=== PATIENT | male | born 1945 | race Caucasian/White ===

== ENCOUNTER 2016-08-14 09:21 | Inpatient (IN) | payer MEDICARE, OTHER ==
[~2016-08-14] VITALS: Ht 167.6 cm; Wt 64.1 kg
[2016-08-14] VITALS (15 sets, daily range): BP systolic 107–144; BP diastolic 68–99; PULSE 78–100; RESP 16–28; BMI 23.8
[~2016-08-14 09:21] MED LIST: AMIO200T40 PO; ATOR80TA75 PO; CALC0.2511 PO; CALC600T5 PO; HYDR-3671 PO; ISOS30TA18 PO; LEVO100T87 PO; METO-429 PO; MYCO180T2 PO; TACR0.5C PO
[2016-08-14 10:24] LABS: ADD SCAN DIFF NO
[2016-08-14 10:33] LABS: BASOPHILS % 0.3 % (0.0-2.0); EOSINOPHILS # 0.1 10^3/ul (0.0-0.5); EOSINOPHILS % 0.9 % (0.0-7.0); HEMATOCRIT 36.7 % (42.0-52.0); HEMOGLOBIN 11.5 g/dl (14.0-18.0); LYMPHOCYTES # 0.7 10^3/ul (0.8-2.9); LYMPHOCYTES % 5.7 % (15.0-51.0); MEAN CORPUSCULAR HEMOGLOBIN 28.5 pg (29.0-33.0); MEAN CORPUSCULAR HGB CONC 31.3 g/dl (32.0-37.0); MEAN CORPUSCULAR VOLUME 91.1 fl (82.0-101.0); MEAN PLATELET VOLUME 12.6 fl (7.4-10.4); MONOCYTE # 1.1 10^3/ul (0.3-0.9); MONOCYTES % 8.2 % (0.0-11.0); NEUTROPHIL # 10.7 10^3/ul (1.6-7.5); NEUTROPHILS % 83.2 % (39.0-77.0); PLATELET COUNT 163 10^3/UL (140-415); RED BLOOD COUNT 4.03 10^6/ul (4.70-6.10); RED CELL DISTRIBUTION WIDTH 16.4 % (11.5-14.5); WHITE BLOOD COUNT 12.9 10^3/ul (4.8-10.8)
[2016-08-14] MEDS ORDERED: AMIO400T5 PO (10:42)
[2016-08-14 10:45] LABS: ALBUMIN 4.1 g/dl (3.3-4.9); ALBUMIN/GLOBULIN RATIO 1.2; BILIRUBIN,INDIRECT 1.3 mg/dl (0-1.1); BILIRUBIN,TOTAL 1.3 mg/dl (0.2-1.3); CHOL/HDL RATIO 3.2 RATIO; INR 1.31; MAGNESIUM 1.7 mg/dl (1.7-2.5); PROTIME 16.4 Sec (12.2-14.2); PT RATIO 1.3; TOTAL PROTEIN 7.5 g/dl (6.1-8.1)
[2016-08-14 10:46] LABS: CALCIUM 9.5 mg/dl (8.4-10.2); CREATININE 2.1 mg/dl (0.61-1.24); PARTIAL THROMBOPLASTIN TIME 33.9 Sec (25.0-35.0); POTASSIUM 4.4 mmol/L (3.5-5.1)
[2016-08-14] MEDS ORDERED: FURO-110 PO (10:48)
[2016-08-14] MEDS ORDERED: PRED5 PO (10:48)
[2016-08-14] MEDS ORDERED: ALEN70TA30 PO (10:48)
[2016-08-14] MEDS ORDERED: CARV25TA79 PO (10:49)
[2016-08-14] MEDS ORDERED: APIX2.5T PO (10:50)
[2016-08-14] MEDS ORDERED: DOXA2TAB PO (10:50)
[2016-08-14] MEDS ORDERED: PANT40TA3 PO (10:51)
[2016-08-14] MEDS ORDERED: ERGO500037 PO (10:52)
[2016-08-14] MEDS ORDERED: DIGO125T6 PO (10:53)
[2016-08-14] MEDS ORDERED: FUROSEMIDE 40 MG INJ ONE (12:51)
[2016-08-14] MEDS ORDERED: METHYLPREDNISOLONE 125 MG INJ IV ONE (13:00)
[2016-08-14] MEDS ORDERED: FUROSEMIDE 20 MG INJ IV ONE (13:00)
[2016-08-14] MEDS ORDERED: CEFTRIAXONE 1 GM/50 ML (PMX) 50 ML IVPB ONE (13:00)
[2016-08-14] MEDS ORDERED: NACL 0.9% 3 ML SYG IV SCH (13:00)
[2016-08-14] MEDS ORDERED: ACETAMINOPHEN 325 MG TAB PO PRN (13:00)
[2016-08-14] MEDS ORDERED: METHYLPREDNISOLONE 125 MG INJ ONE (13:19)
[2016-08-14] MEDS: ISOSORBIDE MONONITRATE(SR)30 MG TAB PO SCH (14:00)
--- NOTE | 2016-08-14 14:10 | RADRPT ---
PROCEDURE: XR Chest 1 view. CLINICAL INDICATION: Shortness of breath, respiratory failure TECHNIQUE: AP views of the chest were obtained. COMPARISON: August 23, 2015 FINDINGS: The heart is large. Calcified atherosclerosis is noted in the aorta. Left-sided dual chamber, biven tricular pacemaker/defibrillator has its leads over the heart and appears stable. Median sternotomy wires overlie the heart. Central pulmonary vascular congestion and interstitial prominence is seen in both lungs. Patchy infiltrates is seen throughout the right lung. Patchy left lower lobe infilt rates and small left pleural effusion are seen. The osseous structures are osteopenic, but appear g rossly intact. IMPRESSION: Cardiomegaly with calcified atherosclerosis in the aorta. Central pulmonary vascular congestion and interstitial prominence in both lungs. Patchy infiltrates throughout the right lung. Patchy left lower lobe infiltrates and small left pleural effusion. RPTAT: AA .Jacoby Diaz MD, Date Time Electronically viewed and signed by .Jacoby Diaz MD, on 08/14/2016 14:10 .P/
[2016-08-14] MEDS ORDERED: GLUCAGON 1 MG INJ IM PRN (14:30)
[2016-08-14] MEDS ORDERED: GLUCOSE GEL 15 GRAM TUBE BUCCAL PRN (14:30)
[2016-08-14] MEDS ORDERED: ALBUTEROL/IPRATROPIUM (NEB) 3 ML AMP HHN PRN (14:30)
[2016-08-14] MEDS ORDERED: GLUCOSE GEL 15 GRAM TUBE PO PRN ×2 (14:30)
[2016-08-14] MEDS ORDERED: CEFEPIME 1GM/50 ML (PMX) 50 ML IVPB SCH (14:30)
[2016-08-14] MEDS ORDERED: DEXTROSE 50% 50 ML SYRINGE IV PRN ×2 (14:30)
--- NOTE | 2016-08-14 15:35 | HP ---
DATE OF ADMISSION: 08/14/2016 REASON FOR ADMISSION: Acute respiratory failure, congestive heart failure exacerbation, rule out br onchitis, rule out pneumonia. HISTORY OF PRESENT ILLNESS: The patient is a 71-year-old male with history of hypertensio n, status post renal transplant in 2007, dyslipidemia, aortic stenosis, paroxysmal atrial fibrillati on, anticoagulated with Eliquis, history of CHF, cardiomyopathy with an estimated ejection fraction of 35%. Also, history of coronary artery disease, status post CABG and status post ICD placement. The patient was supposed to undergo transesophageal echocardiogram today for possible cardioversion but in the corn lab technician, he was noted to be in respiratory distress. He said that the symptoms just sta rted today with shortness of breath. He was noted to be hypoxic. The procedure was canceled. Dr. Thakur was prescribing Lasix, Rocephin and Solu-Medrol. The patient already improved, but he was pl aced on a nonrebreather mask. He continued to be tachypneic and with shortness of breath and was tr ansferred to the intensive care unit for further care. Upon evaluation, the patient is already feel ing better. He denies any fever or chills. Does report a cough, slightly productive. He denies an y chest pain. Denies any weakness or numbness. The patient is admitted for further care. PAST MEDICAL HISTORY: Includes coronary artery disease, CHF, renal transplant, history of hypertens ion, CKD, dyslipidemia, aortic stenosis, paroxysmal atrial fibrillation. SURGICAL HISTORY: Renal transplant, CABG 4-vessel disease and AICD placement. ALLERGIES: ENALAPRIL. FAMILY HISTORY: Unknown. SOCIAL HISTORY: Patient is a former smoker, stopped in 2005. He smoked half a pack a day before th at. Alcohol and IVDA none. MEDICATIONS: MEDICATIONS: Include the followin. Eliquis 2.5 mg b.i.d. 2. Amiodarone 400 b.i.d. 3. Atorvastatin 80 mg at bedtime. 4. Coreg 25 b.i.d. 5. Digoxin 0.1225 every Saturday, Saturday and Saturday. 6. Doxazosin 2 mg at bedtime. 7. Hydralazine 25 b.i.d. 8. Isosorbide dinitrate 10 mg daily. 9. Calcium carbonate 600 twice a day. 10. Lasix 20 mg daily. 11. Protonix 40 mg daily. 12. Synthroid 150 daily. 13. Prednisone 5 mg daily. 14. Calcitriol 0.25 daily. 15. Vitamin D2 at 50,000 every week. 16. Fosamax 70 mg weekly. 17. Mycophenolic acid 180 mg q.12h. 18. Tacrolimus 0.5 q.12h. REVIEW OF SYSTEMS: Per HPI. The patient is +2. PHYSICAL EXAMINATION: VITAL SIGNS: Temperature 97, pulse 70, respirations 16, blood pressure is 118/68, saturation 95% on nonrebreather mask at 15 liters. GENERAL: The patient is in mild distress. The patient is pale and slightly tachypneic. CARDIOVASCULAR: S1, S2 positive. LUNGS: Diffuse rhonchi bilaterally. There are JVD about 7 cm. ABDOMEN: Soft. Mid umbilical hernia noted. EXTREMITIES: Trace lower extremity edema. NEUROLOGIC: The patient is moving all extremities. Sensation is intact. Strength is 5/5 in all ex tremities. LABORATORY DATA: White count is 12.9, hemoglobin 11.5, hematocrit 37, platelet count of 162, neutro phils 83%, lymphocytes 6%. Chemistry: Sodium is 140, potassium 4.4, chloride 107, bicarbonate 22, BUN is 33, creatinine 2.1, glucose of 122, AST 14, ALT 23, albumin 4.1. Cholesterol 135, LDL 65, HD L 41. INR 1.31. Patient has been on Eliquis and digoxin is 1.1. Chest x-ray done today, results are still pending. IMAGING: At chest x-ray reading, he had cardiomegaly. I would say there is evidence of CHF, Sean B lines noted, questionable superimposed infiltrate at the right base. Official report is pending. EKG: Demand pacemaker. Right bundle branch block. Left ventricular hypertrophy on 08/08/2016. I do not see a current EKG. ASSESSMENT AND PLAN: This is an unfortunate 71-year-old male with history of coronary art chepe disease, status post coronary artery bypass graft. Cardiomyopathy with estimated ejection fract ion around 35%, status post automatic implantable cardioverter defibrillator placement, also history of paroxysmal atrial fibrillation, chronic kidney disease, status post renal transplant, now presen schuyler with acute respiratory failure. 1. Acute respiratory failure. The causes most likely are a combination of congestive heart failure exacerbation and possible underlying pneumonia. The patient will be started on broad-spectrum anti biotics as patient is immunocompromised because he is receiving multiple antirenal transplant reject ion medications. The patient was placed on oxygen, breathing treatment and steroids will be provide d. Dr. Dacosta, senior geotechnical engineer, was consulted. 2. Cardiovascular. The patient with a component of congestive heart failure, status post IV Lasix. Follow up echocardiogram. Follow up troponins and brain natriuretic peptide. The patient will be monitored in the intensive care unit. 3. Hypothyroidism. Continue Synthroid. Follow up TSH level. 4. Status post renal transplant. Continue Prograf, CellCept and prednisone. 4. Paroxysmal atrial fibrillation. Continue Eliquis. 5. Infectious disease. The patient with leukocytosis, cough and respiratory failure. The patient will be treated for acute bronchitis with possible underlying pneumonia. Again with broad spectrum antibiotics because of an immunocompromised state. 6. Renal insufficiency, slightly worse than baseline. Observe. Nephrology will be consulted. The re is questionable history of diabetes. Obtain hemoglobin A1c level. 7. The patient will be placed on Protonix for gastrointestinal prophylaxis. 8. Diet 2 g sodium renal diet. 9. Case discussed with staff. We will follow. Dictated By: BRANDY WASHBURN/JOYCE Conf#: [id number] DID#: [id number]
--- NOTE | 2016-08-14 15:43 | CONS ---
DATE OF ADMISSION: 08/14/2016 DATE OF CONSULTATION: 08/14/2016 TYPE OF CONSULTATION: Pulmonary REASON FOR CONSULTATION: Shortness of breath. Thank you, Dr. Thakur, for this consultation. HISTORY OF PRESENT ILLNESS: This is a 71-year-old gentleman with multiple medical problems, came in today for elective CARLOS. Prior to sedation or initiation of procedure, the patient became significa ntly short of breath with respiratory distress, hypoxemia requiring transfer to the intensive care u nit. The patient states he was stable upon walking in, and denies any history of shortness of breat h prior to this admission and today. PAST MEDICAL HISTORY: Includes hypertension, hyperlipidemia, history of renal transplant in 2007, r enal insufficiency, recent pacemaker placement, history of aortic stenosis. MEDICATIONS: Per chart. ALLERGIES: NONE. SOCIAL HISTORY: Ex-smoker, no alcohol, no history of drug use. FAMILY HISTORY: Noncontributory. SYSTEMS REVIEW: A 14-point review of systems was negative other than that mentioned above. PHYSICAL EXAMINATION: GENERAL: Chronically ill-appearing gentleman, appears comfortable at rest. VITAL SIGNS: Temperature 98, pulse 87, blood pressure 140/99, O2 saturation 99% on nonrebreather. NECK: Supple. No JVD or lymphadenopathy. CARDIAC: S1, S2, no added sounds or murmurs. CHEST: Diminished air entry bilaterally. ABDOMEN: Soft, nontender. No guarding or rebound. EXTREMITIES: No cyanosis, clubbing, edema. NEUROLOGIC: Generalized weakness. LABORATORIES: White count 12.9, hemoglobin 11.5, platelets 163. BUN 33, creatinine 2.1. INR 1.31. DIAGNOSTIC DATA: Chest x-ray shows patchy bilateral infiltrates. IMPRESSION AND PLAN: Acute hypoxemic respiratory failure. Patient with a history of decreased eje ction fraction and renal transplant. Dyspnea, likely multifactorial from probable community-acquire d pneumonia and pulmonary edema from cardiomyopathy with decreased ejection fraction. The patient will require: 1. Diuretics. 2. Renal recommendations. 3. Broad-spectrum antibiotics. 4. CT chest, noncontrast. 5. DVT and GI prophylaxis. Dictated By: MONICA ADAMSON/JOYCE Conf#: [id number] DID#: [id number]
[2016-08-14] MEDS ORDERED: AZITHROMYCIN 500MG/NS (PMX) 250 ML IVPB SCH (16:00)
--- NOTE | 2016-08-14 16:09 | CONS ---
DATE OF ADMISSION: 08/14/2016 DATE OF CONSULTATION: 08/14/2016 TYPE OF CONSULTATION: Nephrology. REASON FOR CONSULTATION: History of kidney transplant, acute kidney injury. PHYSICIAN REQUESTING CONSULT: Dr. Jacobs and Dr. Thakur. HISTORY OF PRESENT ILLNESS: This is a 71-year-old male with a past medical history of end-stage donaldo al disease status post living donor transplant in 2007 with a baseline creatinine around 1.7 mg/ dL, history of hypertension, history of dyslipidemia, history of aortic stenosis, history of cardiom yopathy, status post ICD placement, history of atrial fibrillation, history of coronary artery disea se, status post coronary artery bypass graft, who presented to [facility] to under go elective CARLOS. The patient states over the last several days he has noted increasing shortness of breath, dyspnea on exertion with a productive cough. During this time, the patient had denied any fevers or positive chills. Denied any hemoptysis, hemetemesis, hematochezia. The patient then came into the same day surgery today to undergo elective procedure but was noted to be tachypneic, short of breath. The patient subsequently decompensated and went into acute respiratory failure. The sharif de jesus was transferred to intensive care unit, placed on 100% nonrebreather. He was given antibiotic s, diuretic therapy. In terms of the patient's renal history, the patient has end-stage renal disease, previously on dial ysis, was status post transplant in 2007, a living-donor transplant. The patient as stated above perez s baseline creatinine of 1.7 mg/dL. The patient has been seen by his primary laborer concrete paving, Dr. Jane rangel and is on triple therapy with CellCept, prednisone and Prograf. The patient denies any recent con trast exposure. Denies any recent rashes, any frothy urine. PAST MEDICAL HISTORY: As stated above, history of end-stage renal disease status post renal transpl ant, history of chronic disease, history of CHF, history of hypertension, dyslipidemia, aortic steno sis. History of cardiomyopathy, history of atrial fibrillation, history of diabetes. PAST SURGICAL HISTORY: Status post 4-vessel CABG in 1997, status post renal transplant in 2007. FAMILY HISTORY: No family history of kidney disease or heart disease. SOCIAL HISTORY: Does use drink, smoke or do drugs. MEDICATIONS: The patient's medications have been reviewed. REVIEW OF SYSTEMS: A 14-point review of systems was conducted. Pertinent positives stated in HPI, otherwise negative. PHYSICAL EXAMINATION: VITAL SIGNS: Blood pressure is 142/99, respirations 20, pulse 79, temperature 97.0. HEENT: Head is normocephalic. Pupils are reactive to light. NECK: Supple. HEART: Tachycardic. LUNGS: Show diminished breath sounds at base. Positive rhonchi. ABDOMEN: Soft, nontender to palpation without rebound or guarding. EXTREMITIES: Negative for clubbing, cyanosis. Trace edema. DERMATOLOGIC: No rashes. MUSCULOSKELETAL: No joint effusions. NEUROLOGIC: No focal deficits. The patient's medications have been reviewed. LABORATORY DATA: Shows white count 12.9, hemoglobin 11.5, hematocrit 36.7, platelet count was 60, s odium 140, potassium 4.4, BUN 33, creatinine 2.10. IMAGING STUDIES: Patient's chest x-ray shows central pulmonary vascular congestion, patchy infiltra [place] throughout the right lung and left lung infiltrates. ASSESSMENT AND PLAN: This is a 71-year-old male who presents with: 1. Nonoliguric acute kidney injury on top of chronic kidney disease with a baseline creatinine of 1 .7 mg/dL. Etiology of current acute kidney injury is likely secondary to hemodynamics or sepsis. The possibility of tubular injury is also a consideration. Low suspicion at this point for acute all ograft rejection. Plan at this point is to check UA with microanalysis. Will check urine electroly francheska. We will continue current treatment plan with antibiotic therapy, treat underlying pneumonia an d sepsis. Would otherwise continue supportive care, renally dose meds, avoid nephrotoxins, continue current immunosuppressive regimen. We will consider checking a Prograf level. 2. History of end-stage renal disease status post a living donor transplant. The patient has a bas keila creatinine of 1.7 mg/dL. Currently in acute kidney injury as stated above. Would continue c urrent plan at this point to treat acute kidney injury as stated above. Continue current immunosupp ressive regimen with Prograf, Myfortic and prednisone. We will check a Prograf level and monitor cl osely. 3. Anemia of chronic disease. Monitor hemoglobin and hematocrit levels. 4. Bone ____ Will monitor calcium and phosphorus levels. 5. Sepsis secondary to multifocal pneumonia. We will continue current antibiotic regimen. Follow up cultures. We will continue current immunosuppressive regimen at this time. However, if the yunior ent's infection does not respond to antibiotic therapy, may consider de-escalating immuno suppressive therapy. We will discuss with infectious disease. 6. Acute hypoxemia with respiratory failure secondary to pneumonia, possible congestive heart failu re. Will continue 100% nonrebreather. Follow up with Pulmonary. 7. Cardiomyopathy status post implantable cardioverter defibrillator placement. Continue current m edical management. Continue diuretic therapy. Follow up with cardiology. 8. History of hypertension. Continue medical management. 9. Diabetes. Continue current insulin regimen. 10. ___. 10. History of severe aortic stenosis. 11. History of coronary artery bypass graft. Thank you, Dr. Thakur and Dr. Jacobs for this interesting consult. It will be a pleasure to follow p atient with you throughout the hospital course. Dictated By: INDIRA DYSON/JOYCE Conf#: [id number] DID#: [id number]
--- NOTE | 2016-08-14 16:48 | CONS ---
DATE OF ADMISSION: 08/14/2016 DATE OF CONSULTATION: 08/14/2016 TYPE OF CONSULTATION: Cardiology. REASON FOR CONSULTATION: Respiratory failure, congestive heart failure. CHIEF COMPLAINT: Shortness of breath, cough, hypoxemia. HISTORY OF PRESENT ILLNESS: Thank you for this referral. History is from the patient, discussion w ith his daughter and extensive review of the old chart. The patient also very well known to me from outpatient workup. This is a very pleasant 71-year-old gentleman with multiple complicated medical history who was actually was supposed to be here for elective CARLOS cardioversion for his atrial fibr illation who ended up getting admitted to the ICU. The patient has had apparently increasing shortn ess of breath that started yesterday. Also, has been coughing with yellow phlegm over the past day or 2. He did not tell anyone including his daughter. He was brought in today for the procedure, TE E cardioversion which was supposed to be electively done. However, he was evaluated by myself prior to the procedure but noted to have severe hypoxemia and respiratory distress and decided to admit t he patient. The patient has been hypoxemic up to 70% to 80% oxygen. He has been on 100% nonrebreat her and has been given Solu-Medrol dose, as well as given a dose of Lasix. He is currently in the I CU, breathing better. Denies any chest pain or pressure to me. Denies any palpitations to me. PAST MEDICAL HISTORY: 1. History of severe ischemic cardiomyopathy, ejection fraction has been about 25%, history of mode rate aortic stenosis, mean gradient was 27. 2. History of paroxysmal atrial fibrillation, has been in persistent atrial fibrillation over the p ast few months. 3. History of coronary artery disease, status post 4-vessel bypass surgery in 1997. 4. History of renal transplant in 2007. 5. History of V-Tach, status post biventricular ICD placement by myself in 08/23/2015, using a [place] device. 6. History of diabetes. 7. Chronic kidney disease, hypertension, previously dysphagia status post PEG, which has significan tly improved now. FAMILY HISTORY: No reported early coronary artery disease. ALLERGIES: ENALAPRIL. SOCIAL HISTORY: The patient quit smoking a while ago. Denies any drug or alcohol use. REVIEW OF SYSTEMS: As above mentioned. INFECTIOUS DISEASE: No fever or chills either. MEDICATIONS: As per medication reconciliation, was extensively reviewed. PHYSICAL EXAMINATION: VITAL SIGNS: Temperature afebrile at 98.4, heart rate of 87, blood pressure 140/90, respiratory rat e of 28. HEENT: Normocephalic, atraumatic. Appears in mild to moderate respiratory distress. Saturating 10 0% rebreather 98%. EYES: Pupils equal and round. NECK: Supple. Positive JVD. CARDIOVASCULAR: Irregularly irregular. Systolic ejection murmur. PULMONARY: With mild rhonchi, diffuse. GASTROINTESTINAL: Soft, nontender. EXTREMITIES: No significant lower extremity edema. NEUROLOGIC: Awake and alert, responds appropriately. PSYCHIATRIC: Appears to be calm and very pleasant. DERMATOLOGIC: There are multiple ecchymoses and no active bleeding. LABORATORY: WBC of 12.9, hemoglobin 11.5, platelets of 163. Sodium 140, potassium 4.4, BUN of 33, creatinine 2.1, glucose 122. Albumin is 4.1. Cholesterol 135, LDL 65, HDL 41, triglycerides 147. Digoxin level is 1.1. Chest x-ray was personally reviewed, which shows patchy left lower lobe infil trate, patchy infiltrates throughout the right lung, vascular congestion and interstitial prominence in both lungs, cardiomegaly. EKG showed atrial fibrillation with ventricular pacemaker. ASSESSMENT AND PLAN: 1. Acute hypoxemic respiratory failure. 2. Pneumonia. 3. Congestive heart failure, acute on chronic, secondary to systolic heart failure. 4. Atrial fibrillation. Heart rate under good control. 5. History of chronic kidney disease associated with renal transplant. 6. History of coronary artery disease, history of myocardial infarction. History of aortic stenosi s, probably at least moderate. 7. History of ischemic cardiomyopathy. 8. Status post biventricular implantable ICD. 9. Diabetes. 10. History of thyroid disorder. RECOMMENDATIONS: The patient was admitted to ICU under Dr. Rehman's care. His assistance is greatly appreciated. [employer] Operations Staff Officer, Dr. Nelson for renal as well as Dr. Dacosta for pulmonary has been beverly d as well and I appreciate their input. He has been started on antibiotic, Solu-Medrol is being giv en. I will decrease the carvedilol for now and adjust it as needed. We will continue with the Eliq uis anticoagulation. Synthroid will be continued as well at the current dose and adjust it accordi ngly. We will continue with the amiodarone for now. We will delay CARLOS cardioversion and DFT testin g until the patient's hemoglobin is much more stable than this. We will continue with antirejection medication to be adjusted as per Dr. Nelson's recommendations. Thank you for this referral. Dictated By: CARMEN JARAMILLO MD AV/NTS Conf#: [id number] DID#: [id number] CC: MONICA DACOSTA MD; INDIRA NELSON DO; BRANDY REHMAN MD;*EndCC*
[2016-08-14] MEDS: INSULIN ASPART [NOVOLOG] 3 ML PEN SC SCH ×2 (17:35→21:00)
[2016-08-14 17:38] LABS: ADD UMIC YES; URINE BILIRUBIN (Dip) NEGATIVE (NEGATIVE); URINE BLOOD (Dip) TRACE (NEGATIVE); URINE COLOR LT. YELLOW (YELLOW); URINE GLUCOSE (Dip) NEGATIVE (NEGATIVE); URINE KETONES (Dip) NEGATIVE (NEGATIVE); URINE LEUKOCYTE ESTERASE (Dip) 1+ (NEGATIVE); URINE NITRITE (Dip) NEGATIVE (NEGATIVE); URINE TOTAL PROTEIN (Dip) NEGATIVE (NEGATIVE); URINE UROBILINOGEN (Dip) 0.2 E.U./dL (0.1-1.0)
[2016-08-14 17:49] LABS: SQUAMOUS EPITHELIAL CELL,UR RARE; URINE RBCS 0-2 /HPF (0)
[2016-08-14] MEDS: ALBUTEROL/IPRATROPIUM (NEB) 3 ML AMP HHN SCH (20:20)
[2016-08-14] MEDS: DOXAZOSIN 2 MG TAB PO SCH (21:00)
[2016-08-14] MEDS: METHYLPREDNISOLONE 40 MG INJ IV SCH (21:11)
[2016-08-14] MEDS: APIXABAN 5 MG TABLET PO SCH (21:13)
[2016-08-14] MEDS: ATORVASTATIN 80 MG TAB PO SCH (21:13)
[2016-08-14] MEDS: MYCOPHENOLATE (SR) 180 MG TAB PO SCH (21:14)
[2016-08-14] MEDS: TACROLIMUS 0.5 MG CAP PO SCH (21:15)
--- NOTE | 2016-08-14 21:15 | RADRPT ---
PROCEDURE: CT Chest without contrast. CLINICAL INDICATION: Hypoxemic respiratory failure. TECHNIQUE: Multiple contiguous helical CT images of the chest were obtained without the administra tion of intravenous contrast. Coronal and sagittal reformatted images were obtained from the source images. CTDIvol (mGy): 10.11; Total Exam DLP (mGy-cm): 400.80. One or more of the following dose reduction techniques were utilized: - Automated exposure control. - Adjustment of the mA and/or kV according to patient size. - Use of iterative reconstruction technique. COMPARISON: Chest x-ray 08/14/2016. FINDINGS: Limited imaging of the lower neck is unremarkable. The heart is moderately severely enlarged. There is no pericardial effusion. There is no mediastina l, hilar or axillary lymphadenopathy. Surgical changes compatible with coronary artery bypass graft are present. Pacemaker and ICD leads terminate within the right atrium and right ventricle respect ively. A left ventricular lead is also in place. The thoracic aorta is normal in caliber with athe rosclerotic calcification. Extensive [place] coronary artery calcification is observed. The pulmona ry arteries are not enlarged. Small moderate bilateral layering pleural effusions are present. Moderate severe bilateral centrilo bular emphysematous changes are observed. Consolidation is seen within the dependent portions of th e right and left lungs and more severe within the right lung. A 1.8 cm branching opacities seen wit hin the right middle lobe. Diffuse bronchial wall thickening is present. There is no subpleural cy stic change or substantial subpleural interstitial thickening. Limited imaging of the upper abdomen demonstrates bilateral renal atrophy with abdominal aortic athe rosclerotic calcification and extensive branch vessel atherosclerotic calcification. Median sternotomy wires are in place. Degenerative changes of the thoracic spine are observed. Deanne st wall soft tissues are unremarkable. IMPRESSION: Cardiomegaly with atherosclerosis and evidence of coronary artery bypass graft. Small moderate bilateral layering pleural effusions with bibasilar consolidation. A combination of atelectasis and airspace disease is likely present. Moderate severe bilateral centrilobular emphysematous changes with diffuse bronchial wall thickening suggesting sequelae of COPD. Right middle lobe branching opacity suggesting sequelae of small airways inflammation. Follow-up ma y be obtained in 6 months. RPTAT: HLST .Gay Pollard MD, MD Date Time Electronically viewed and signed by .Gay Pollard MD, on 08/14/2016 21:15 .T/
[2016-08-14] MEDS: AMIODARONE 200 MG TAB PO SCH (21:16)
[2016-08-15] VITALS (19 sets, daily range): BP systolic 92–132; BP diastolic 59–91; PULSE 76–85; RESP 15–28; Ht 167.6 cm; Wt 64.1 kg
[2016-08-15] MEDS: ACCU-CHEK XX SCH (02:00)
[2016-08-15 06:41] LABS: ADD SCAN DIFF NO
[2016-08-15] MEDS: LEVOTHYROXINE 100 MCG TAB PO SCH (06:54)
[2016-08-15 07:11] LABS: ALBUMIN 4.5 g/dl (3.3-4.9); ALBUMIN/GLOBULIN RATIO 1.66; BILIRUBIN,INDIRECT 1.1 mg/dl (0-1.1); BILIRUBIN,TOTAL 1.1 mg/dl (0.2-1.3); CALCIUM 9.3 mg/dl (8.4-10.2); CHOL/HDL RATIO 3.4 RATIO; CREATININE 2.35 mg/dl (0.61-1.24); MAGNESIUM 1.7 mg/dl (1.7-2.5); POTASSIUM 5.1 mmol/L (3.5-5.1); TOTAL PROTEIN 7.2 g/dl (6.1-8.1)
[2016-08-15 07:18] LABS: CK-MB 2.83 ng/ml (0.0-2.4); TROPONIN-I 0.058 ng/ml (0.00-0.12)
[2016-08-15 07:20] LABS: IRON 46 ug/dl (35-150)
[2016-08-15 07:30] LABS: TOTAL IRON BINDING CAPACITY 271 ug/dl (241-421)
[2016-08-15] MEDS: INSULIN ASPART [NOVOLOG] 3 ML PEN SC SCH ×4 (07:35→21:00)
[2016-08-15 07:38] LABS: THYROID STIMULATING HORMONE 3.1 MIU/L (0.465-4.680)
--- NOTE | 2016-08-15 07:38 | RADRPT ---
PROCEDURE: XR Chest. CLINICAL INDICATION: shortness of breath TECHNIQUE: Single portable view of the chest was obtained COMPARISON: 08/14/2016 FINDINGS: There is moderate cardiomegaly. There is mild to moderate pulmonary vascular congestion. There are bilateral perihilar and lower lo be infiltrates and worsening moderate bilateral pleural effusions. There is no pneumothorax. There is a left-sided pacemaker / AICD in place. The bones and soft tissues are unremarkable. RPTAT: AA IMPRESSION: Moderate cardiomegaly with worsening pulmonary vascular congestion. Worsening moderate bilateral pleural effusions. .You Hammond MD, MD Date Time Electronically viewed and signed by .You Hammond MD, on 08/15/2016 07:38 .S/
[2016-08-15] MEDS: ALBUTEROL/IPRATROPIUM (NEB) 3 ML AMP HHN SCH ×3 (07:47→19:59)
[2016-08-15 08:09] LABS: AADO2 Arterial 311.1 mmHg (7.0-24.0); Allen Test ACCEPTAB; Arterial COHb 0.2 % (0.0-3.0); Arterial Fraction of Oxyhgb 95.6 % (93.0-99.0); Arterial MetHb 0.3 % (0.0-1.5); MODE MASK - SIMPLE
[2016-08-15] MEDS ORDERED: MAGNESIUM SULFATE 2 GM/50 ML 50 ML IVPB ONE (08:30)
[2016-08-15] MEDS: MYCOPHENOLATE (SR) 180 MG TAB PO SCH ×2 (09:00→21:36)
[2016-08-15] MEDS: TACROLIMUS 0.5 MG CAP PO SCH ×2 (09:00→21:36)
--- NOTE | 2016-08-15 09:27 | PN ---
DATE: 08/15/2016 CARDIOLOGY FOLLOWUP SUBJECTIVE: Discussed with the staff. Rhythm strip was reviewed. The patient is in mostly ventric ular paced rhythm ____. No chest pain or pressure. Breathing has significantly improved now; howev er, still requires to be on oxygen. Cough has improved as well. No chest pain or pressure. No pal pitation. MEDICATIONS: Reviewed as per medication reconciliation, personally reviewed. PHYSICAL EXAMINATION: VITAL SIGNS: Temperature 98.4, heart rate of 80, blood pressure 125/77, respiration rate of 20, sat urating 97% on 10% facemask. HEENT: Normocephalic, atraumatic. ____. Pupils equal and round. NECK: Supple. CARDIOVASCULAR: Irregularly irregular. Systolic ejection murmur, grade III to IV/, radiating to carotids. PULMONARY: With rhonchi at the base bilaterally. GASTROINTESTINAL: Soft, nontender. EXTREMITIES: No significant lower extremity edema. NEUROLOGIC: Awake and alert, oriented. PSYCHIATRIC: Appeared to be calm, pleasant. DERMATOLOGIC: No acute bleeding signs. LABORATORY: Sodium 141, potassium 5.1, BUN of 44, creatinine of 2.35, glucose 124. AST of 12, ALT of 28. Troponin 0.058. ProBNP of 29,000. Albumin is 4.5. Cholesterol 157, LDL 88, HDL OF 45. TS H 3.1, free T4 of 1.58. Digoxin level is 1.[address] of the chest done yesterday shows ca rdiomegaly, evidence of bypass surgery, small to moderate bilateral ____ pleural effusion with bibas ilar consolidation, a combination of ____ is likely present, moderate to severe bilateral emphysemat ous changes with diffuse bronchial wall thickening suggestive of sequela of COPD, right middle lobe branching opacity suggesting sequela of small airway inflammation. ASSESSMENT AND PLAN: 1. Hypoxemic hypercapnic respiratory failure. 2. Pneumonia. 3. Congestive heart failure, acute on chronic, secondary to systolic dysfunction and probably diast olic dysfunction. 4. Atrial fibrillation, on heart rate control and anticoagulation with Eliquis. 5. History of chronic kidney disease with history of renal transplant. 6. History of extensive coronary artery disease and coronary bypass graft. 7. History of myocardial infarction. 8. Aortic stenosis, at least moderate in degree. 9. Severe ischemic cardiomyopathy. 10. Status post biventricular automatic implantable cardioverter/defibrillator placement. 11. Diabetes. 12. Thyroid disorder. RECOMMENDATIONS: Will hold off on the diuretics now and adjust it daily accordingly. Will hold off on the digoxin now and check a digoxin level again tomorrow. I will increase the Coreg to 12.5 p.o . b.i.d. Eliquis will be continued. Amiodarone will be continued at the current dose for now. ___ _ will be continued as well. TSH within normal limits now. Antirejection medications discussed wit h Dr. Carpio, will be adjusted by him. Antibiotic is being adjusted as per Dr. Jacobs and pulmonary consultation with Dr. Dacosta. Continue with respiratory care and oxygen supplementation. Dictated By: CARMEN TRONCOSO/JOYCE Conf#: [id number] DID#: [id number] CC: Arlene;*EndCC*
[2016-08-15] MEDS: CALCITRIOL 0.25 MCG CAP PO SCH (09:28)
[2016-08-15] MEDS: AMIODARONE 200 MG TAB PO SCH ×2 (09:29→21:34)
[2016-08-15] MEDS: predniSONE 5 MG TAB PO SCH (09:29)
[2016-08-15] MEDS: ISOSORBIDE MONONITRATE(SR)30 MG TAB PO SCH (09:30)
[2016-08-15] MEDS: PANTOPRAZOLE (EC) 40 MG TAB PO SCH (09:30)
[2016-08-15] MEDS: APIXABAN 5 MG TABLET PO SCH ×2 (09:31→21:35)
[2016-08-15] MEDS: METHYLPREDNISOLONE 40 MG INJ IV SCH ×2 (09:31→21:34)
[2016-08-15 10:50] LABS: ABNORMAL IP MESSAGE 1; BASOPHILS % 0.1 % (0.0-2.0); HEMATOCRIT 37.3 % (42.0-52.0); LYMPHOCYTES # 0.3 10^3/ul (0.8-2.9); LYMPHOCYTES % 2.8 % (15.0-51.0); MEAN CORPUSCULAR HEMOGLOBIN 29.1 pg (29.0-33.0); MEAN CORPUSCULAR HGB CONC 32.2 g/dl (32.0-37.0); MEAN CORPUSCULAR VOLUME 90.3 fl (82.0-101.0); MEAN PLATELET VOLUME 12.9 fl (7.4-10.4); MONOCYTE # 0.2 10^3/ul (0.3-0.9); MONOCYTES % 1.7 % (0.0-11.0); NEUTROPHIL # 11.2 10^3/ul (1.6-7.5); NEUTROPHILS % 94.3 % (39.0-77.0); PLATELET COUNT 169 10^3/UL (140-415); RED BLOOD COUNT 4.13 10^6/ul (4.70-6.10); RED CELL DISTRIBUTION WIDTH 15.9 % (11.5-14.5); WHITE BLOOD COUNT 11.9 10^3/ul (4.8-10.8)
--- NOTE | 2016-08-15 11:16 | CONS ---
Date/Time of Note Date/Time of Note DATE: 08/15/16 TIME: 11:12 Assessment/Plan Assessment/Plan Additional Assessment/Plan Chest x-ray was reviewed which is showing cardio megaly with mild pulmonary vascular congestion. Assessment recommendations; 1. Patient admitted for transesophageal echocardiogram and during the procedure became short of breath and had to be transferred to ICU however did not require intubation with marked overall interval improvement no. 2. Underlying cardiomyopathy with mild congestive heart failure. 3. Underlying COPD as well. 4. Likely severe aortic stenosis. 5. History of coronary artery disease, status post bypass surgery. 6. Underlying mild renal insufficiency. 7. History of cardiac arrhythmia, patient status post pacemaker placement. Discontinue antibiotics. Start Lasix 40 mg IV daily. Patient can be transferred to the medical floor. Consultation Date/Type/Reason Admit Date/Time August 14, 2016 at 12:40 Initial Consult Date Type of Consultation: Pulmonary/critical care 24 HR Interval Summary Free Text/Dictation Patient condition is markedly improved. He denies any chest pain, fever, chills. Complains of very mild shortness of breath. General exam; elderly male, awake alert currently in no distress. Exam/Review of Systems Vital Signs Vitals Vital Signs Date Time Temp Pulse Resp B/P Pulse Ox O2 Delivery O2 Flow Rate FiO2 08/15/16 08:15 Nasal Cannula 08/15/16 07:48 80 20 99 10.0 60 08/15/16 07:00 125/77 08/15/16 04:00 98.4 Intake and Output 08/14/16 08/14/16 08/15/16 15:00 23:00 07:00 Intake Total 450 ml 150 ml Output Total 1500 ml 600 ml Balance -1050 ml -450 ml Exam HEENT exam; supple neck, positive JVD. No lymphadenopathy. Midline trachea. No thyromegaly. Patient is edentulous and wears dentures. Pupils are equal and reactive to light bilaterally. Chest examined; diminished but clear vessel. S1-S2 audible, there is a loud aortic stenotic murmur. Patient has a paced rhythm. There is a pacemaker in the left chest wall. There is a well-healed sternal scar. Abdomen examination; soft, nondistended, nontender. No organomegaly. Bowel sounds audible. Extremity exam; no peripheral edema. Patient does have onychomycosis. [employer] examination; no focal deficit. Results Result Diagram: 08/15/16 0605 08/15/16 0605 Results 24 hrs Laboratory Tests Test 08/14/16 16:45 08/14/16 17:17 08/14/16 22:01 08/15/16 06:05 Urine Color LT. YELLOW Urine Clarity CLEAR Urine pH 5.5 Urine Specific [place] <=1.005 L Urine Ketones NEGATIVE Urine Nitrite NEGATIVE Urine Bilirubin NEGATIVE Urine Urobilinogen 0.2 E.U./dL Urine Leukocyte Esterase 1+ H Urine Microscopic RBC 0-2 Urine Microscopic WBC 2-5 Urine Squamous Epithelial Cells RARE Urine Yeast FEW Urine Hemoglobin TRACE Urine Random Creatinine 17.49 L Urine Random Sodium 137 H Urine Glucose NEGATIVE Urine Total Protein 12.0 H Bedside Glucose 108 110 White Blood Count 11.9 H Red Blood Count 4.13 L Hemoglobin 12.0 L Hematocrit 37.3 L Mean Corpuscular Volume 90.3 Mean Corpuscular Hemoglobin 29.1 Mean Corpuscular Hemoglobin Concent 32.2 Red Cell Distribution Width 15.9 H Platelet Count 169 Mean Platelet Volume 12.9 H Neutrophils % 94.3 H Lymphocytes % 2.8 L Monocytes % 1.7 Eosinophils % 0.0 Basophils % 0.1 Nucleated Red Blood Cells % 0.0 Neutrophils # 11.2 H Lymphocytes # 0.3 L Monocytes # 0.2 L Eosinophils # 0.0 Basophils # 0.0 Nucleated Red Blood Cells # 0.0 Sodium Level 141 Potassium Level 5.1 Chloride Level 107 Carbon Dioxide Level 24 Anion Gap 15 Blood Urea Nitrogen 44 #H Creatinine 2.35 H Glucose Level 124 Hemoglobin A1c 6.2 H Calcium Level 9.3 Phosphorus Level 5.5 H Magnesium Level 1.7 Iron Level 46 Total Iron Binding Capacity 271 Percent Iron Saturation 17 L Total Bilirubin 1.1 Direct Bilirubin 0.00 Indirect Bilirubin 1.1 Aspartate Amino Transf (AST/SGOT) 12 L Alanine Aminotransferase (ALT/SGPT) 28 Alkaline Phosphatase 60 Creatine Kinase 97 Creatine Kinase Index 2.9 Creatinine Kinase MB (Mass) 2.83 H Troponin I 0.058 B-Type Natriuretic Peptide 42371 H Total Protein 7.2 Albumin 4.5 Globulin 2.70 Albumin/Globulin Ratio 1.66 Triglycerides Level 118 Cholesterol Level 157 LDL Cholesterol, Calculated 88 HDL Cholesterol 45 Cholesterol/HDL Ratio 3.4 Thyroid Stimulating Hormone (TSH) 3.100 Free Thyroxine 1.58 Digoxin Level 1.2 Test 08/15/16 07:00 Blood Gas Specimen Source Blood arterial Arterial Blood Date Drawn 08/15/2016 7:20:46 AM Arterial Blood pH (Temp corrected) 7.454 H Arterial Blood pCO2 (Temp correct) 30.6 L Arterial Blood pO2 (Temp corrected) 90.3 Arterial Blood HCO3 21.0 L Arterial Blood Base Excess -2.0 Arterial Blood Oxygen Saturation 96.1 Ji Test ACCEPTAB Arterial Blood Gas Puncture Site Right Radial Arterial Blood Carboxyhemoglobin 0.2 Arterial Blood Methemoglobin 0.3 Blood Gas A-a O2 Differential 311.1 H Oxyhemoglobin Percent 95.6 Total Hemoglobin 13.0 Blood Gas Temperature 37.0 Blood Gas Modality MASK - SIMPLE FiO2 61.0 Blood Gas Notified Whom JLD Blood Gas Notified Time 08/15/2016 8:09:18 AM Medications Medications Current Medications Acetaminophen (Tylenol Tab) 650 mg Q6H PRN PO PAIN LEVEL 1-3 OR FEVER; Start at 13:00 Amiodarone HCl (Cordarone) 400 mg BID PO Last administered on 08/15/16 09:29; Admin Dose 400 MG; Start 08/14/16 at 21:00 Apixaban (Eliquis) 2.5 mg BID PO Last administered on 08/15/16 09:31; Admin Dose 2.5 MG; Start 08/14/16 at 21:00 Atorvastatin Calcium (Lipitor) 80 mg QHS PO Last administered on 08/14/16 21: 13; Admin Dose 80 MG; Start 08/14/16 at 21:00 Calcitriol (Rocaltrol) 0.25 mcg DAILY PO Last administered on 08/15/16 09:28; Admin Dose 0.25 MCG; Start 08/15/16 at 09:00 Doxazosin Mesylate (Cardura) 2 mg HS PO ; Start 08/14/16 at 21:00 Hydralazine HCl (Apresoline) 25 mg BID PO Last administered on 08/15/16 09:29 ; Admin Dose 25 MG; Start 08/14/16 at 21:00 Isosorbide Mononitrate (Imdur) 30 mg DAILY PO Last administered on 08/15/16 09 :30; Admin Dose 30 MG; Start 08/14/16 at 14:00 Mycophenolate Sodium (Myfortic) 180 mg Q12 PO Last administered on 08/14/16 21 :14; Admin Dose 180 MG; Start 08/14/16 at 21:00 Pantoprazole (Protonix Tab) 40 mg DAILY PO Last administered on 08/15/16 09:30 ; Admin Dose 40 MG; Start 08/15/16 at 09:00 Prednisone (Prednisone) 5 mg DAILY PO Last administered on 08/15/16 09:29; Admin Dose 5 MG; Start 08/15/16 at 09:00 Tacrolimus 0.5 mg 0.5 mg Q12 PO Last administered on 08/14/16 21:15; Admin Dose 0.5 MG; Start 08/14/16 at 21:00 Cefepime HCl (Maxipime 1gm/50 ml (Pmx)) 50 ml @ 100 mls/hr Q24H IVPB Last administered on 08/14/16 15:48; Admin Dose 100 MLS/HR; Start 08/14/16 at 14:30 Methylprednisolone Sodium Succinate (Solu-Medrol) 40 mg Q12 IV Last administered on 08/15/16 09:31; Admin Dose 40 MG; Start 08/14/16 at 21:00 Diagnostic Test (Pha) (Accu-Chek) 1 ea 02 XX ; Start 08/15/16 at 02:00 Miscellaneous Information 1 ea NOTE XX ; Start 08/14/16 at 14:30 Glucose (Glutose) 15 gm Q15M PRN PO DECREASED GLUCOSE; Start 08/14/16 at 14:30 Glucose (Glutose) 22.5 gm Q15M PRN PO DECREASED GLUCOSE; Start 08/14/16 at 14: 30 Dextrose (D50w Syringe) 25 ml Q15M PRN IV DECREASED GLUCOSE; Start 08/14/16 at 14:30 Dextrose (D50w Syringe) 50 ml Q15M PRN IV DECREASED GLUCOSE; Start 08/14/16 at 14:30 Glucagon (Glucagen) 1 mg Q15M PRN IM DECREASED GLUCOSE; Start 08/14/16 at 14:30 Glucose (Glutose) 15 gm Q15M PRN BUCCAL DECREASED GLUCOSE; Start 08/14/16 at 14 :30 Carvedilol (Coreg) 12.5 mg BID PO Last administered on 08/15/16 09:30; Admin Dose 12.5 MG; Start 08/15/16 at 09:00 DIXIE MATHEW August 15, 2016 11:16
[2016-08-15] MEDS ORDERED: FUROSEMIDE 40 MG INJ IV SCH (11:30)
--- NOTE | 2016-08-15 14:28 | PN ---
DATE: 08/15/2016 SUBJECTIVE: The patient seen and doing better. Kidney function slightly worsened as we decided to hold diuretic therapy. Case discussed with Dr. Thakur and Dr. Carpio. Will start patient on azith romycin as it may interact with Prograf. The patient is overall feeling better currently on nasal c annula. VITAL SIGNS: Temperature 98.4, pulse is 81, respirations 20, blood pressure 125/77, saturation now 99% on nasal cannula. GENERAL: The patient is in no acute distress. The patient is pale. JVD 7 cm. CARDIOVASCULAR: S1 and S2, positive systolic ejection murmur heard throughout. LUNGS: Mild rhonchi bilaterally. ABDOMEN: Soft, nontender. EXTREMITIES: There is no clubbing, cyanosis, or edema. Respiratory culture did show normal respiratory jennifer. LABORATORY DATA: White count is 11.9, hemoglobin 12, hematocrit 37, platelet count 169, neutrophils 94%, lymphocytes 3%. Chemistry: Sodium 141, potassium 5.1, chloride 107, bicarbonate 24, BUN is 4 4, creatinine 2.35, glucose 124. Hemoglobin A1c 6.2, percent saturation of iron is low at 17. TSH is 3.1. BNP remarkably high at 29,100. Cholesterol 157, LDL 88, HDL 45. UA did show +1 leukocyte esterase, WBC 2 to 5, suggestive of mild urinary tract infection. CT scan of the chest was done as well which showed the following: Cardiomegaly with atherosclerosis and evidence of coronary artery bypass graft. There is a small to moderate bilateral large layering pleural effusion with deep basi lar consolidation, a combination of atelectasis and airspace disease likely present with moderate to severe bilateral centrilobular emphysematous changes with diffuse bronchial wall thickening suggest flex of sequela of COPD. There is a right middle lobe branching opacity suggesting sequela of small airway inflammation, followup may be obtained in 6 months. Chest x-ray done today shows moderate cardiomegaly with worsening pulmonary vascular congestion. Th ere is worsening moderate bilateral pleural effusion. CURRENT MEDICATIONS: Include: 1. Lasix 40 IV daily as prescribed by Dr. Servin. 2. Calcitriol 0.25 daily. 3. Protonix 40 mg daily. 4. Prednisone 5 mg daily. 5. Coreg 12.5 b.i.d. 6. Synthroid ____daily. 7. Accu-Chek q.a.c. and at bedtime. 8. Amiodarone 400 b.i.d. 9. Eliquis 2.5 b.i.d. 10. Lipitor 80 mg at bedtime. 11. Cardura 2 mg at bedtime. 12. Hydralazine 25 b.i.d. 13. Mycophenolate sodium 180 q.12h. 14. Prograf 0.5 q.12h. 15. Solu-Medrol 40 IV q.12h. 16. DuoNeb as directed q.6h. 17. Insulin aspart per sliding scale. 18. DuoNebs p.r.n. 19. Hypoglycemia protocol as directed. ASSESSMENT AND PLAN: This is a 71-year-old male with history of coronary artery disease, status post coronary artery bypass grafting, cardiomyopathy with estimated ejection fraction around 35%, status post automatic implantable cardioverter-defibrillator, also history of paroxysmal atrial fibrillation, moderate aortic stenosis, chronic kidney disease status post renal transplant, who pr esents with acute respiratory failure. 1. Acute respiratory failure, likely a combination of chronic obstructive pulmonary disease exacerb ation, congestive heart failure exacerbation, bronchitis and possible underlying pneumonia. Will co ntinue tapering down steroids. Continue breathing treatments. Lasix is on hold secondary to worseni ng kidney function. We will follow. 2. Cardiovascular. Follow up 2D echo. Will discuss need for diuretics with Lasix. Lung does sugg est pulmonary edema, but we are concerned about his kidney function. We will discuss further treatm ent plan with the cardiology team, nephrology and pulmonology. 3. Continue Eliquis for anticoagulation. Continue Coreg, amiodarone. 4. Borderline diabetes mellitus, likely secondary to chronic prednisone use. 5. Accu-Chek q.a.c. and at bedtime will be done with insulin coverage while in house as the yunioren t is also on IV Solu-Medrol. 6. Acute on chronic renal insufficiency. Follow up nephrology recommendation. Will discuss diuret ic therapy in the setting of renal failure. Hold nephrotoxic medications. 7. Infectious disease. Continue cefepime for possible pneumonia. 8. Mild urinary tract infection. Continue renal diet. 9. Anemia, likely anemia of chronic disease and mild iron deficiency anemia. We will follow. Dictated By: BRANDY WASHBURN/JOYCE Conf#: [id number] [facility]#: [id number]
[2016-08-15] MEDS: CEFEPIME 1GM/50 ML (PMX) 50 ML IVPB SCH (14:30)
[2016-08-15] MEDS: ATORVASTATIN 80 MG TAB PO SCH (21:34)
[2016-08-15] MEDS: DOXAZOSIN 2 MG TAB PO SCH (21:36)
[2016-08-16] VITALS (12 sets, daily range): BP systolic 94–111; BP diastolic 57–68; PULSE 71–80; RESP 18–20
[2016-08-16] MEDS: ACCU-CHEK XX SCH (01:26)
[2016-08-16] MEDS: LEVOTHYROXINE 100 MCG TAB PO SCH (06:51)
[2016-08-16] MEDS ORDERED: VANCOMYCIN IV PER PHARMACY XX SCH (07:00)
[2016-08-16] MEDS ORDERED: VANCOMYCIN 1 GM (PMX) 250 ML IVPB SCH (07:00)
[2016-08-16 07:27] LABS: CALCIUM 8.8 mg/dl (8.4-10.2); CREATININE 2.18 mg/dl (0.61-1.24); PHOSPHORUS 5.2 mg/dl (2.5-4.9); POTASSIUM 4.9 mmol/L (3.5-5.1)
--- NOTE | 2016-08-16 07:35 | PN ---
DATE: 08/15/2016 SUBJECTIVE: The patient is clinically improved overnight as he is currently on nasal cannula. The patient was on CPAP overnight. No other acute events noted. No hemoptysis, hematemesis or hematoch ezia. The patient continues to have respiratory distress and tachypnea, but overall improved. OBJECTIVE: VITAL SIGNS: Blood pressure 125/77, respiratory rate 20, pulse 80, temperature 98.6. I's AND O'S: The patient had 600 in with 2.1 liters out. HEENT: Head is normocephalic. NECK: Supple. HEART: Regular rate. LUNGS: Show diminished breath sounds at the base. ABDOMEN: Soft and nontender to palpation. No rebound or guarding. EXTREMITIES: Negative for clubbing, cyanosis, no edema. DERMATOLOGIC: No rashes. MUSCULOSKELETAL: No joint effusions. NEUROLOGIC: No change in exam. MEDICATIONS: Reviewed. LABORATORY DATA: Showed sodium 141, potassium 5.4, chloride 107, BUN 44, creatinine 2.25. White co unt 12.9, hemoglobin 9.5, hematocrit 36.7, platelet count is 163. The patient's ABG is reviewed. U rinalysis shows no active sediment. Protein creatinine ratio of 400 mg. ____Creatinine is ____% RB Cs. WBCs are minimal. IMAGING: CT scan of the chest shows cardiomegaly and atherosclerosis, small to moderate bilateral l ayering pleural effusions with bibasilar consolidation, atelectasis airspace disease and bilateral e mphysematous changes suggest a sequelae of COPD, right middle lobe patchy opacity. ASSESSMENT AND PLAN: 1. Nonoliguric acute kidney injury on top of chronic kidney disease with previous baseline creatini ne of 0.7 mg/dL. Etiology of current acute kidney injury is secondary to hemodynamics, sepsis. The patient's urinalysis was reviewed with nonactive sediment. The patient has no significant proteinu denise. At this point, will continue current treatment plan, supportive care, renally dose all meds, w ould defer diuretic therapy at this time. We will monitor renal function closely. We will also sen d out for a Prograf level; however, suspicion is low for Prograf toxicity at this time. Additionall y, low suspicion for acute allograft rejection at this time. Will otherwise continue current treatm ent plan. 2. End-stage renal disease status post living donor renal transplant. The patient's baseline creat inine is 1.7 mg/dL. The patient is currently in acute kidney injury as stated above. At this point , will continue current medical management. Continue current immunosuppressive regimen and will fol low up Prograf level. 3. Anemia of chronic disease. Monitor hemoglobin and hematocrit levels. 4. Mineral bone disorder. Continue to monitor calcium and phosphorus levels. 5. Sepsis secondary to multifocal pneumonia. The patient's CT scan is reviewed. Continue current antibiotic regimen. We will hold azithromycin, ____ it may interact and increase Prograf levels. 6. Acute hypoxic respiratory failure secondary to pneumonia. Continue current treatment plan. The patient is clinically improving. 7. Cardiomyopathy post implantable cardioverter defibrillator placement. Continue current medical management and holding diuretic therapy in the setting of worsening renal function 8. History of hypertension. Continue current treatment plan. 9. Diabetes, continue Accu-Cheks and sliding scale. 10. History of aortic stenosis. 11. History of coronary artery bypass graft. Dictated By: INDIRA DYSON/JOYCE Conf#: [id number] DID#: [id number]
[2016-08-16] MEDS: ALBUTEROL/IPRATROPIUM (NEB) 3 ML AMP HHN SCH ×3 (08:02→20:36)
[2016-08-16 08:20] LABS: ADD SCAN DIFF NO
--- NOTE | 2016-08-16 08:20 | RADRPT ---
Echocardiogram Report Patient Name: JORGE A BECKETT Gender: Male Date: 1945 Study Date: 15-Aug-2016 Fire Prevention Officer: Phill [facility] Location: [facility] Ref. Physician: CARMEN THAKUR Quality: Adequate Procedures: Transthoracic echocardiogram with complete 2D, M-Mode, and doppler examination. Indications: . CHF. please evaluate carefully for . 2D/M Mode Doppler Measurement Value Normal Ranges Measurement Value Normal Ranges LVIDd 2D 5.4 3.5 - 5.6 cm LILLIANA Vmax 0.5 cm2 LVIDs 2D 4.7 2.1 - 4.1 cm LILLIANA VTI 0.5 cm2 LVPWd 2D 1.3 0.6 - 1.1 cm AV Mean Jerod 2.9 m/sec IVSd 2D 1.4 0.6 - 1.1 cm AV Mean PG 38.1 mmHg AoR Diam 2D 2.7 2.0 - 3.7 cm AV Peak Jerod 3.9 m/sec EDV 2D 138.5 cm3 AV Peak PG 61.0 mmHg ESV 2D 101.7 cm3 AV VTI 83.9 cm LA Dimen 2D 4.3 2.3 - 4.0 cm LVOT Mean Jerod 0.5 m/sec LVOT Diam 1.8 cm LVOT Mean PG 1.4 mmHg LVOT Peak Jerod 0.8 m/sec LVOT Peak PG 2.5 mmHg LVOT VTI 16.6 cm MV Peak Jerod 5.0 m/sec MV Peak PG 99.6 mmHg MV Mean Jerod 3.5 m/sec MV Mean PG 58.6 mmHg MV VTI 138.4 cm TR Peak Jerod 2.7 m/sec TR Peak PG 29.6 mmHg RVSP 33.0 mmHg Findings Left Ventricle: Mild concentric left ventricular hypertrophy. Mild enlargement of left ventricle cavity. Moderate global left ventricular systolic dysfunction. Ejection fraction is visually estimated at 3035 %. Right Ventricle: Normal right ventricular size. Normal right ventricular systolic function. Pacemaker right heart. Left Atrium: There is mild enlargement of left atrium. Right Atrium: The right atrium is normal in size. Mitral Valve: Mitral valve leaflets appear mildly thickened. Mild mitral annular calcification. Mild to moderate mitral valve regurgitation. Aortic Valve: Severe aortic stenosis. Aortic valve Max velocity 4.14 m/sec. Max PG 68.60 mmHg. Mean PG 42.40 mmHg. Aortic valve area 0.50 cm2. Aortic cusps appear moderately calcified. No aortic regurgitation. Tricuspid Valve: Normal appearance of the tricuspid valve. Estimated peak PA systolic pressure 33 mmHg. There is mild tricuspid regurgitation. Pulmonic Valve: Normal pulmonic valve appearance. There is trace pulmonic regurgitation. Pericardium: Normal pericardium with no significant pericardial effusion. Aorta: Normal aortic root. IVC: Normal size and normal respiratory collapse consistent with normal right atrial pressure. Conclusions 1.Mild concentric left ventricular hypertrophy. Mild enlargement of left ventricle cavity. Moderate global left ventricular systolic dysfunction. Ejection fraction is visually estimated at 30-35 %. 2.Severe aortic stenosis. Aortic valve Max velocity 4.14 m/sec. Max PG 68.60 mmHg. Mean PG 42.40 mmHg. Aortic valve area 0.50 cm2. Aortic cusps appear moderately calcified. No aortic regurgitation. 3.Mitral valve leaflets appear mildly thickened. Mild mitral annular calcification. Mild to moderate mitral valve regurgitation. 4.Normal appearance of the tricuspid valve. Estimated peak PA systolic pressure 33 mmHg. There is mild tricuspid regurgitation. 5.There is mild enlargement of left atrium. 6.Normal size and normal respiratory collapse consistent with normal right atrial pressure. Electronically Signed By: Carmen Thakur 16-Aug-2016 08:20:09 -0700 Patient Name: JORGE A BECKETT Study Date: 15-Aug-[id number]
[2016-08-16 08:24] LABS: ABNORMAL IP MESSAGE 1; BASOPHILS % 0.1 % (0.0-2.0); HEMATOCRIT 35.6 % (42.0-52.0); HEMOGLOBIN 11.3 g/dl (14.0-18.0); LYMPHOCYTES # 0.3 10^3/ul (0.8-2.9); LYMPHOCYTES % 1.8 % (15.0-51.0); MEAN CORPUSCULAR HEMOGLOBIN 28.9 pg (29.0-33.0); MEAN CORPUSCULAR HGB CONC 31.7 g/dl (32.0-37.0); MONOCYTE # 0.4 10^3/ul (0.3-0.9); MONOCYTES % 2.6 % (0.0-11.0); NEUTROPHIL # 13.4 10^3/ul (1.6-7.5); NEUTROPHILS % 94.5 % (39.0-77.0); PLATELET COUNT 161 10^3/UL (140-415); RED BLOOD COUNT 3.91 10^6/ul (4.70-6.10); WHITE BLOOD COUNT 14.1 10^3/ul (4.8-10.8)
[2016-08-16 08:39] LABS: ALBUMIN 4.3 g/dl (3.3-4.9); BILIRUBIN,INDIRECT 0.4 mg/dl (0-1.1); BILIRUBIN,TOTAL 0.4 mg/dl (0.2-1.3); MAGNESIUM 2.6 mg/dl (1.7-2.5); TOTAL PROTEIN 6.8 g/dl (6.1-8.1)
[2016-08-16] MEDS ORDERED: FUROSEMIDE 20 MG TAB PO SCH (09:00)
[2016-08-16] MEDS: APIXABAN 5 MG TABLET PO SCH ×2 (09:06→21:16)
[2016-08-16] MEDS: INSULIN ASPART [NOVOLOG] 3 ML PEN SC SCH ×4 (09:06→20:28)
[2016-08-16] MEDS: PANTOPRAZOLE (EC) 40 MG TAB PO SCH (09:09)
[2016-08-16] MEDS: ISOSORBIDE MONONITRATE(SR)30 MG TAB PO SCH (09:09)
[2016-08-16] MEDS: TACROLIMUS 0.5 MG CAP PO SCH ×2 (09:09→21:15)
[2016-08-16] MEDS: predniSONE 5 MG TAB PO SCH (09:10)
[2016-08-16] MEDS: CALCITRIOL 0.25 MCG CAP PO SCH (09:10)
[2016-08-16] MEDS: AMIODARONE 200 MG TAB PO SCH ×2 (09:12→21:14)
[2016-08-16] MEDS: METHYLPREDNISOLONE 40 MG INJ IV SCH ×2 (09:13→21:14)
[2016-08-16 09:15] LABS: TROPONIN-I 0.04 ng/ml (0.00-0.12)
[2016-08-16 09:17] LABS: CK-MB 2.82 ng/ml (0.0-2.4)
[2016-08-16] MEDS: MYCOPHENOLATE (SR) 180 MG TAB PO SCH ×2 (09:20→21:15)
--- NOTE | 2016-08-16 12:16 | CONS ---
Date/Time of Note Date/Time of Note DATE: 08/16/16 TIME: 12:14 Assessment/Plan Assessment/Plan Additional Assessment/Plan Assessment recommendations; next 1. Patient admitted for transesophageal echocardiogram and during the procedure became hypotensive and had to be intubated now successfully extubated with marked overall clinical improvement. 2. History of hypertension. 3. Likely underlying severe aortic stenosis. 4. History of prior CABG surgery. 5. History of cardiac arrhythmia. 6. COPD. 7. Chronic renal insufficiency. 8. Hypo-thyroidism. 9. Cardiomyopathy. Continue current treatment. Patient responding well to current treatment regimen. Consultation Date/Type/Reason Admit Date/Time August 14, 2016 at 12:40 Type of Consultation: Pulmonary/critical care 24 HR Interval Summary Free Text/Dictation Patient condition is stable. Denies any shortness of breath, chest pain, wheezing cough or sputum production. General exam; elderly male, awake alert currently in no distress. Exam/Review of Systems Vital Signs Vitals Vital Signs Date Time Temp Pulse Resp B/P Pulse Ox O2 Delivery O2 Flow Rate FiO2 08/16/16 12:03 98.5 80 18 105/68 95 08/16/16 08:03 Nasal Cannula 3.0 08/15/16 14:13 32 Intake and Output 08/15/16 08/15/16 08/16/16 15:00 23:00 07:00 Intake Total 300 ml 360 ml Output Total 400 ml Balance 300 ml -40 ml Exam HEENT examination; supple neck, positive JVD. No lymphadenopathy. Midline trachea. No thyromegaly. Pupils are equal and reactive to light bilaterally. Patient is edentulous and wears dentures. Chest examination; diminished but clear vessel. There is a loud aortic stenosis murmur. Grade 2/6. There is a well-healed sternal scar. Regular rhythm. Abdomen examination; soft, nondistended. No organomegaly. Bowel sounds audible. Extremity examination; no peripheral edema. 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 Results Result Diagram: 08/16/16 0615 08/16/16 0615 Results 24 hrs Laboratory Tests Test 08/15/16 12:17 08/15/16 14:33 08/15/16 17:14 08/15/16 20:11 Bedside Glucose 191 135 144 124 Test 08/16/16 06:15 08/16/16 08:46 08/16/16 11:40 White Blood Count 14.1 H Red Blood Count 3.91 L Hemoglobin 11.3 L Hematocrit 35.6 L Mean Corpuscular Volume 91.0 Mean Corpuscular Hemoglobin 28.9 L Mean Corpuscular Hemoglobin Concent 31.7 L Red Cell Distribution Width 16.0 H Platelet Count 161 Mean Platelet Volume 13.0 H Neutrophils % 94.5 H Lymphocytes % 1.8 L Monocytes % 2.6 Eosinophils % 0.0 Basophils % 0.1 Nucleated Red Blood Cells % 0.0 Neutrophils # 13.4 H Lymphocytes # 0.3 L Monocytes # 0.4 Eosinophils # 0.0 Basophils # 0.0 Nucleated Red Blood Cells # 0.0 Sodium Level 138 Potassium Level 4.9 Chloride Level 106 Carbon Dioxide Level 23 Anion Gap 14 Blood Urea Nitrogen 60 H Creatinine 2.18 H Glucose Level 144 Calcium Level 8.8 Phosphorus Level 5.2 H Magnesium Level 2.6 H Total Bilirubin 0.4 Direct Bilirubin 0.00 Indirect Bilirubin 0.4 Aspartate Amino Transf (AST/SGOT) 15 Alanine Aminotransferase (ALT/SGPT) 27 Alkaline Phosphatase 53 Creatine Kinase 146 Creatine Kinase Index 1.9 Creatinine Kinase MB (Mass) 2.82 H Troponin I 0.040 B-Type Natriuretic Peptide 68742 H Total Protein 6.8 Albumin 4.3 Bedside Glucose 148 170 Medications Medications Current Medications Acetaminophen (Tylenol Tab) 650 mg Q6H PRN PO PAIN LEVEL 1-3 OR FEVER; Start at 13:00 Amiodarone HCl (Cordarone) 400 mg BID PO Last administered on 08/16/16 09:12; Admin Dose 400 MG; Start 08/14/16 at 21:00 Apixaban (Eliquis) 2.5 mg BID PO Last administered on 08/16/16 09:06; Admin Dose 2.5 MG; Start 08/14/16 at 21:00 Atorvastatin Calcium (Lipitor) 80 mg QHS PO Last administered on 08/15/16 21: 34; Admin Dose 80 MG; Start 08/14/16 at 21:00 Calcitriol (Rocaltrol) 0.25 mcg DAILY PO Last administered on 08/16/16 09:10; Admin Dose 0.25 MCG; Start 08/15/16 at 09:00 Doxazosin Mesylate (Cardura) 2 mg HS PO Last administered on 08/15/16 21:36; Admin Dose 2 MG; Start 08/14/16 at 21:00 Hydralazine HCl (Apresoline) 25 mg BID PO Last administered on 08/15/16 21:35 ; Admin Dose 25 MG; Start 08/14/16 at 21:00 Isosorbide Mononitrate (Imdur) 30 mg DAILY PO Last administered on 08/16/16 09: 09; Admin Dose 30 MG; Start 08/14/16 at 14:00 Mycophenolate Sodium (Myfortic) 180 mg Q12 PO Last administered on 08/16/16 09: 20; Admin Dose 180 MG; Start 08/14/16 at 21:00 Pantoprazole (Protonix Tab) 40 mg DAILY PO Last administered on 08/16/16 09:09 ; Admin Dose 40 MG; Start 08/15/16 at 09:00 Prednisone (Prednisone) 5 mg DAILY PO Last administered on 08/16/16 09:10; Admin Dose 5 MG; Start 08/15/16 at 09:00 Tacrolimus (Prograf) 0.5 mg Q12 PO Last administered on 08/16/16 09:09; Admin Dose 0.5 MG; Start 08/14/16 at 21:00 Methylprednisolone Sodium Succinate (Solu-Medrol) 40 mg Q12 IV Last administered on 08/16/16 09:13; Admin Dose 40 MG; Start 08/14/16 at 21:00 Diagnostic Test (Pha) (Accu-Chek) 1 ea 02 XX ; Start 08/15/16 at 02:00 Miscellaneous Information 1 ea NOTE XX ; Start 08/14/16 at 14:30 Glucose (Glutose) 15 gm Q15M PRN PO DECREASED GLUCOSE; Start 08/14/16 at 14:30 Glucose (Glutose) 22.5 gm Q15M PRN PO DECREASED GLUCOSE; Start 08/14/16 at 14: 30 Dextrose (D50w Syringe) 25 ml Q15M PRN IV DECREASED GLUCOSE; Start 08/14/16 at 14:30 Dextrose (D50w Syringe) 50 ml Q15M PRN IV DECREASED GLUCOSE; Start 08/14/16 at 14:30 Glucagon (Glucagen) 1 mg Q15M PRN IM DECREASED GLUCOSE; Start 08/14/16 at 14:30 Glucose (Glutose) 15 gm Q15M PRN BUCCAL DECREASED GLUCOSE; Start 08/14/16 at 14 :30 Carvedilol 12.5 mg 12.5 mg BID PO Last administered on 08/16/16 09:11; Admin Dose 12.5 MG; Start 08/15/16 at 09:00 Cefepime HCl (Maxipime 1gm/50 ml (Pmx)) 50 ml @ 100 mls/hr Q24H IVPB Last administered on 08/15/16 14:30; Admin Dose 100 MLS/HR; Start 08/15/16 at 14:00 Furosemide (Lasix) 40 mg DAILY PO ; Start 08/16/16 at 09:00 DIXIE MATHEW Aug 16, 2016 12:16
--- NOTE | 2016-08-16 13:13 | PN ---
DATE: 08/16/2016 I was informed that the patient blood culture was positive. One out of one bottle was positive for gram-positive cocci. I did start the patient on vancomycin. Patient is clinically doing better. An other blood culture done that day later on is negative. The patient is clinically doing better. No schuyler that he was to be started on oral Lasix. The patient was transferred to the telemetry unit, as the patient is feeling better. PHYSICAL EXAMINATION: VITAL SIGNS: Temperature is 98.5, pulse 80, respirations 18, blood pressure 105/68, saturations 95% on 2 liters. GENERAL: The patient is in no acute distress. The patient is pale. Slight JVD, 5 cm. CARDIOVASCULAR: S1 and S2. LUNGS: Decreased bilaterally, but otherwise clear. ABDOMEN: Soft, distended. EXTREMITIES: There is no clubbing, cyanosis, or edema. LABORATORY: White count is slightly high as the patient has been on steroids. White count is 14.1, hemoglobin 11.3, hematocrit 36, platelet count is 161, neutrophils 95%, lymphocytes 2%. Chemistry: Sodium 138, potassium 4.9, chloride 106, bicarbonate 23, BUN 60, creatinine 2.18 and glucose of 14 4. Last glucose level was 170, and 148 before that. BNP is very high at 15,300, but better. It wa s 29,100 the day before. Hemoglobin A1c was 6.2. Likely prediabetes secondary to steroids. The pat ient's digoxin level yesterday was 1.2. No new radiographic imaging today. MEDICATIONS: Include: 1. Lasix 40 mg daily. 2. Vancomycin, dose per pharmacy. 3. Cefepime 1 gram q.24h. 4. Calcitriol 0.25 daily. 5. Protonix 40 mg daily. 6. Prednisone 5 mg daily. 7. Coreg 12.5 b.i.d. 8. Synthroid 100 mcg daily. 9. Accu-Chek before meals and at bedtime. 10. Amiodarone 400 b.i.d. 11. Eliquis 2.5 b.i.d. 12. Lipitor 80 mg at bedtime. 13. Cardura 2 mg at bedtime. 14. Hydralazine 25 b.i.d. 15. Mycophenolate sodium 180 q.12. 16. Prograf 0.5 q.12. 17. Solu-Medrol 40 IV q.12. 18. DuoNebs every 6 hours. 19. Insulin Aspart per sliding scale and p.r.n. 20. Hypoglycemia protocol. ASSESSMENT AND PLAN: This is a 80-year-old male with a history of coronary artery disease , status post CABG, cardiomyopathy with an EF of 35%, status post AICD placement, also a history of paroxysmal atrial fibrillation, moderate aortic stenosis, CKD about stage 3, status post renal trans plant in the past, who presented with acute respiratory failure. 1. Acute respiratory failure, likely a combination of pneumonia, bronchitis and congestive heart fa ilure. Continue antibiotics, continue diuretic therapy, taper down steroids as the patient also pre sented with chronic obstructive pulmonary disease exacerbation, as the patient is a former smoker. 2. Cardiovascular. Continue diuretic therapy, continue Eliquis for anticoagulation, continue Coreg and Lipitor. Blood pressure is under control. 3. Infectious disease. Patient with possible bacteremia. This may be contamination. Will repeat blood cultures in the a.m. Follow up cultures for now and then de-escalate antibiotics. 4. Diabetes mellitus. Accu-Chek before meals and at bedtime, with coverage for now. 5. Acute on chronic renal insufficiency. Overall appears to be improving. Continue to monitor. A ppreciate nephrology's input. 6. Questionable also mild urinary tract infection, but urine cultures I do not see they were obtain ed, but a UA was slightly positive as he had +1 leukocyte esterase, and WBCs of 2-5. 7. Activity as tolerated. The patient continues to improve. Plan to follow up the culture results, follow up chest x-ray. I will call the patient's daughter basim o had some questions. Her name is Mckenzie, phone number is [phone]. Dictated By: BRANDY WASHBURN/JOYCE Conf#: [id number] DID#: [id number]
[2016-08-16 14:36] LABS: MICROALBUMIN 0.7 mg/dL
[2016-08-16] MEDS: CEFEPIME 1GM/50 ML (PMX) 50 ML IVPB SCH (15:43)
--- NOTE | 2016-08-16 15:52 | CONS ---
DATE OF ADMISSION: 08/14/2016 DATE OF CONSULTATION: 08/16/2016 TYPE OF CONSULTATION: Infectious disease. REASON FOR CONSULTATION: Antibiotic management. HISTORY OF PRESENT ILLNESS: Stiven Hardin is a 71-year-old male patient of Dr. Greg Jacobs who comes i n with acute respiratory failure and congestive heart failure exacerbation. His past problems include: 1. Hypertension. 2. Status post renal transplant in 2007. 3. Dyslipidemia. 4. Aortic stenosis. 5. Paroxysmal atrial fibrillation. 6. Anticoagulation with Eliquis. 7. Congestive heart failure. 8. Cardiomyopathy with estimated ejection fraction of 35%. 9. Coronary artery disease. 10. Status post coronary artery bypass graft bypass. 11. Status post implantable cardioverter defibrillator placement. The patient was supposed to unde rgo transesophageal echocardiogram today for possible cardioversion but was noted to be in respirato ry distress. He said that symptoms just started with shortness of breath. Dr. Thakur prescribed La six, Rocephin and Solu-Medrol. He was placed on a nonrebreather mask. He continued to be tachypnei c with shortness of breath and was transferred to the intensive care unit and then transferred back to telemetry. His past problems include as noted above including paroxysmal atrial fibrillation. FAMILY HISTORY: Noncontributory. SOCIAL HISTORY: He smoked until 2005, 1/2 pack per day before that. He does not drink or abuse umesh gs. ALLERGIES: ENALAPRIL. MEDICATIONS: Per chart. REVIEW OF SYSTEMS: As per HPI. PHYSICAL EXAMINATION: GENERAL: The patient is an elderly appearing white male who is awake, responsive, in no acute distr ess. VITAL SIGNS: Stable. He is afebrile. SKIN: Without generalized rash. HEENT: Within normal limits. NECK: Supple. LYMPH NODES: None palpable. CHEST: Decreased breath sounds at the bases. HEART: Without murmur or gallop. ABDOMEN: Soft, nontender, without organosplenomegaly or masses. EXTREMITIES: Without cyanosis, clubbing, or edema. RECTAL AND GENITAL: Deferred. NEUROLOGIC: No focal neurological abnormality. ANCILLARY LABORATORY DATA: White count today is 14.1, BUN and creatinine is 60/2.18. Urine is nega tive for nitrite and 1+ leukocyte esterase, 2 to 5 white cells per high powered field. He has elba l respiratory jennifer, but preliminary blood cultures show gram-positive cocci in clusters out of one bottle which may or may not be a contaminant. The patient was started on vancomycin and cefepime. The patient is on Solu-Medrol as well. Chest x-ray shows worsening moderate bilateral pleural effusions as of yesterday. CT scan of the c hest, cardiomegaly with coronary artery bypass graft, bilateral layering pleural effusions with biba silar consolidation, severe bilateral centrilobular emphysematous changes with diffuse bronchial wal l thickening suggestive of COPD, right middle lobe branching opacity suggesting sequelae, a small ar ea of inflammation. Followup may be obtained 6 months. The patient as noted is placed on vancomycin and cefepime to cover his blood cultures and also is keisha ng problem. I will dictate my findings to Dr. Jacobs. The patient was seen in consultation by Dr. Carlton fernandez in pulmonary consultation, Dr. Thakur in cardiology consultation and Dr. Carpio in renal consu ltation for a BUN and creatinine of 45/2.5. I will dictate my findings to the aforementioned Dr. Macy avendano and consultants. Dictated By: LUIS M GUTIERREZ MD, JD/JOYCE Conf#: [id number] DID#: [id number]
[2016-08-16] MEDS: MUPIROCIN 2% 22 GM OINT TOP SCH (21:14)
[2016-08-16] MEDS: DOXAZOSIN 2 MG TAB PO SCH (21:15)
[2016-08-16] MEDS: ATORVASTATIN 80 MG TAB PO SCH (21:15)
[2016-08-17] VITALS (13 sets, daily range): BP systolic 103–118; BP diastolic 59–77; PULSE 80–82; RESP 18–20
[2016-08-17] MEDS: ACCU-CHEK XX SCH (02:00)
[2016-08-17] MEDS: LEVOTHYROXINE 100 MCG TAB PO SCH (06:23)
[2016-08-17 06:54] LABS: ADD SCAN DIFF NO
--- NOTE | 2016-08-17 06:58 | PN ---
DATE: 08/16/2016 SUBJECTIVE: The patient is stable, was transferred from Intensive Care Unit No acute events noted. No hemoptysis, hematemesis or hematochezia, OBJECTIVE: VITAL SIGNS: Blood pressure 111/65, respiration 18, pulse 80, temperature 98.0. HEENT: Head is normocephalic. NECK: Supple. HEART: Regular rate. LUNGS: Show diminished breath sounds at base. ABDOMEN: Soft, nontender to palpation. No rebound or guarding. EXTREMITIES: Negative for clubbing or cyanosis. No edema. DERMATOLOGIC: No rashes. MUSCULOSKELETAL: No joint effusions. NEUROLOGIC: No change in exam. MEDICATIONS: The patient's medications have been reviewed. LABORATORY DATA: Showed sodium 138, potassium 4.9, chloride 106, BUN 60, creatinine 2.18, phosphoru s 5.2. White count 14.1, hemoglobin 9.3, hematocrit 35.6, platelet count 161. ASSESSMENT AND PLAN: 1. Nonoliguric acute kidney injury on top of chronic allograft failure with a baseline creatinine o f 1.7 mg/dL. Etiology of acute kidney injury was secondary to hemodynamic sepsis. The patient's ur inalysis was reviewed, shows nonactive sediment. The patient's renal function has slowly been impro ving. Continue current treatment plan of care, renally dose all meds, avoid nephrotoxins. 2. End-stage renal disease status post living donor transplant with a baseline creatinine of 1.7 mg /dL. The patient is currently in acute kidney injury as stated above. Continue medical management. Continue current immunosuppressive regimen. Followup Prograf levels. 3. Immunosuppression: The patient is currently on triple therapy. We will continue. The patient is clinically improving. No need to hold CellCept at this time. 4. Anemia of chronic disease: Monitor hemoglobin and hematocrit levels. 5. Mineral bone : Follow levels. 6. Sepsis secondary to multifocal pneumonia: CT scan is reviewed. Continue current antibiotic reg imen. 7. Acute hypoxemic respiratory failure secondary to pneumonia: Continue current treatment plan. 8. Cardiomyopathy status-post supraventricular tachycardia: Continue medical management and follow up with cardiology recommendations. 9. Hypertension: Blood pressure well controlled. Continue current treatment plan. 10. Diabetes: Continue Accu-Cheks and sliding scale. 11. History of aortic stenosis. 12. Status post coronary artery bypass graft. Dictated By: INDIRA DYSON/JOYCE Conf#: [id number] DID#: [id number]
--- NOTE | 2016-08-17 07:00 | PN ---
DATE: 08/16/2016 CARDIOLOGY FOLLOWUP The patient is breathing much better. No chest pain or pressure. No palpitations. History of coug brittany, though. MEDICATIONS: Reviewed, includin. Vancomycin 2. Cefepime. 3. Protonix. 4. Prednisone. 5. Coreg 12.5. 6. Levothyroxine. 7. Amiodarone. 8. Eliquis. 9. Lipitor. 10. Hydralazine. 11. Myfortic. 12. Prograf. 13. Solu-Medrol. PHYSICAL EXAMINATION: VITAL SIGNS: Temperature 98, heart rate of 80, blood pressure 111/65, respiration rate 18, saturati ng 97%. HEENT: Normocephalic, atraumatic. There is mild respiratory distress. CARDIOVASCULAR: Regular rate and rhythm. A systolic ejection murmur. PULMONARY: With minimal rhonchi at the base. GASTROINTESTINAL: Soft, nontender. EXTREMITIES: With no significant lower extremity edema. NEUROLOGIC: Awake and alert. PSYCHIATRIC: Appears to be calm and pleasant. LABORATORY: Sodium 138, potassium 4.9, BUN of 60, creatinine 2.18, glucose of 144. Blood cultures, 1 of them has grown gram-positive cocci. ASSESSMENT AND PLAN: 1. Hypoxemic and hypercapnic respiratory failure. 2. Pneumonia. 3. Congestive heart failure, chronic. 4. Severe aortic stenosis. 5. Severe cardiomyopathy. 6. Coronary artery disease with a history of bypass surgery. 7. Atrial fibrillation. 8. Renal failure, acute on chronic. 9. Peripheral vascular disease. RECOMMENDATIONS: At this point he does not appear to be fluid overloaded. Will hold off on any mor e diuretics. I will continue with the Eliquis and amiodarone. Coreg as tolerated will be continued as well. Antibiotics are being managed as per Dr. Jacobs. Pulmonary care and respiratory car e will be continued. Monitor on telemetry. Dictated By: CARMEN TRONCOSO/JOYCE Conf#: [id number] DID#: [id number]
[2016-08-17 07:01] LABS: ABNORMAL IP MESSAGE 1; HEMATOCRIT 35.1 % (42.0-52.0); HEMOGLOBIN 10.7 g/dl (14.0-18.0); LYMPHOCYTES # 0.2 10^3/ul (0.8-2.9); LYMPHOCYTES % 1.5 % (15.0-51.0); MEAN CORPUSCULAR HEMOGLOBIN 28.2 pg (29.0-33.0); MEAN CORPUSCULAR HGB CONC 30.5 g/dl (32.0-37.0); MEAN CORPUSCULAR VOLUME 92.4 fl (82.0-101.0); MEAN PLATELET VOLUME 12.7 fl (7.4-10.4); MONOCYTE # 0.4 10^3/ul (0.3-0.9); MONOCYTES % 2.9 % (0.0-11.0); NEUTROPHIL # 11.7 10^3/ul (1.6-7.5); NEUTROPHILS % 94.6 % (39.0-77.0); PLATELET COUNT 136 10^3/UL (140-415); RED CELL DISTRIBUTION WIDTH 16.2 % (11.5-14.5); WHITE BLOOD COUNT 12.3 10^3/ul (4.8-10.8)
[2016-08-17 07:27] LABS: ALBUMIN 4.3 g/dl (3.3-4.9); ALBUMIN/GLOBULIN RATIO 1.72; BILIRUBIN,INDIRECT 0.4 mg/dl (0-1.1); BILIRUBIN,TOTAL 0.4 mg/dl (0.2-1.3); CALCIUM 8.6 mg/dl (8.4-10.2); CREATININE 2.49 mg/dl (0.61-1.24); MAGNESIUM 2.5 mg/dl (1.7-2.5); POTASSIUM 4.7 mmol/L (3.5-5.1); TOTAL PROTEIN 6.8 g/dl (6.1-8.1)
[2016-08-17] MEDS: INSULIN ASPART [NOVOLOG] 3 ML PEN SC SCH ×4 (07:55→21:00)
[2016-08-17] MEDS: ALBUTEROL/IPRATROPIUM (NEB) 3 ML AMP HHN SCH ×3 (07:58→20:10)
[2016-08-17] MEDS: PANTOPRAZOLE (EC) 40 MG TAB PO SCH (08:58)
[2016-08-17] MEDS: MYCOPHENOLATE (SR) 180 MG TAB PO SCH ×2 (08:58→21:30)
[2016-08-17] MEDS: predniSONE 5 MG TAB PO SCH (08:59)
[2016-08-17] MEDS: CALCITRIOL 0.25 MCG CAP PO SCH (08:59)
[2016-08-17] MEDS: ISOSORBIDE MONONITRATE(SR)30 MG TAB PO SCH (08:59)
[2016-08-17] MEDS: TACROLIMUS 0.5 MG CAP PO SCH ×2 (08:59→21:29)
[2016-08-17] MEDS: APIXABAN 5 MG TABLET PO SCH ×2 (09:00→21:31)
[2016-08-17] MEDS: METHYLPREDNISOLONE 40 MG INJ IV SCH (09:01)
[2016-08-17] MEDS: MUPIROCIN 2% 22 GM OINT TOP SCH ×2 (09:01→21:41)
[2016-08-17] MEDS: AMIODARONE 200 MG TAB PO SCH ×3 (09:03→21:30)
--- NOTE | 2016-08-17 09:33 | PN ---
DATE: 08/17/2016 SUBJECTIVE: The patient is clinically stable, remains on 2 liters nasal cannula. No other acute ev ents noted overnight. No hemoptysis, hematemesis or hematochezia. OBJECTIVE: VITAL SIGNS: Blood pressure is 116/69, respirations 20, pulse 80, temperature 97.6. HEENT: Head is normocephalic. NECK: Supple. HEART: Regular rate with positive systolic ejection murmur. LUNGS: Show diminished breath sounds at the bases. Positive rhonchi. ABDOMEN: Soft, nontender to palpation. No rebound or guarding. EXTREMITIES: Negative for clubbing, cyanosis. No edema. DERMATOLOGIC: No rashes. MUSCULOSKELETAL: No joint effusions. NEUROLOGIC: No change in exam. MEDICATIONS: The patient's medications have been reviewed. LABORATORY DATA: Shows sodium 143, potassium 4.7, BUN 74, creatinine 2.49. White count 12.3, hemog lobin 10.7, hematocrit 35.1, platelet count is 136. ASSESSMENT AND PLAN: 1. Nonoliguric acute kidney injury on top of chronic allograft failure with a previous baseline cre atinine per patient of 1.7 mg/dL. Etiology of current acute kidney injury is secondary to hemodynam ics, sepsis. The patient's renal function declined in the last 24 hours, likely due to recent diure tic use. Plan at this point would be to hold Lasix. We will continue current supportive care, cont inue to treat underlying sepsis. Continue to renally dose all meds, avoid nephrotoxins. Please no te that a Prograf level has been requested, awaiting results. 2. End-stage renal disease, status post living related donor transplant, with a baseline creatinine of 1.7 mg/dL. The patient is currently in acute kidney injury as stated above. Continue medical m anagement. Continue current immunosuppressive regimen. Follow Prograf levels. 3. Immunosuppression. The patient is on triple therapy, we will continue. A Prograf level is pend ing. If the patient's clinical condition should decline, would consider holding CellCept. 4. Anemia. Continue to monitor hemoglobin and hematocrit levels. 5. Mineral bone disorder. We will monitor calcium and phosphorus levels. 6. Sepsis secondary to multifocal pneumonia. The patient is clinically improving. Continue curren t antibiotic regimen. The patient's blood cultures were positive for Staphylococcus aureus. Repeat cultures are pending. 7. Acute hypoxic respiratory failure secondary to pneumonia. Continue current treatment plan. 8. Cardiomyopathy, history of supraventricular tachycardia. Continue medical management. Follow u p with cardiology. 9. Hypertension. Continue current blood pressure regimen. 10. Diabetes. Continue Accu-Cheks and insulin sliding scale. 11. History of aortic stenosis. 12. Status post coronary artery bypass graft. 13. Atrial fibrillation. Continue current medical management. Follow up with cardiology. Dictated By: INDIRA DYSON/JOYCE Conf#: [id number] DID#: [id number]
--- NOTE | 2016-08-17 11:56 | CONS ---
Date/Time of Note Date/Time of Note DATE: 08/17/16 TIME: 11:54 Assessment/Plan Assessment/Plan Additional Assessment/Plan Assessment recommendations; 1. Patient admitted for transesophageal echocardiogram then developed respiratory failure during the procedure due to hypotension now successfully extubated several days ago with marked overall clinical improvement. 2. Cardiomyopathy. 3. Likely underlying severe aortic stenosis. 4. Hypo-thyroidism. 5. History of prior CABG. 6. History of renal insufficiency. Continue current treatment. Patient responding well to current treatment regimen. Taper steroids. Consultation Date/Type/Reason Admit Date/Time August 14, 2016 at 12:40 Type of Consultation: Pulmonary/critical care 24 HR Interval Summary Free Text/Dictation Patient is doing very well. Denies any shortness of breath, chest pain. General exam; elderly male, awake alert currently in no distress. Exam/Review of Systems Vital Signs Vitals Vital Signs Date Time Temp Pulse Resp B/P Pulse Ox O2 Delivery O2 Flow Rate FiO2 08/17/16 11:05 97.4 80 20 118/77 98 08/17/16 07:58 2.0 08/17/16 07:58 Nasal Cannula 08/15/16 14:13 32 Intake and Output 08/16/16 08/16/16 08/17/16 15:00 23:00 07:00 Intake Total 690 ml Output Total 800 ml 200 ml Balance -110 ml -200 ml Exam HEENT exam is; supple neck, positive JVD. No lymphadenopathy. Midline trachea. No thyromegaly. Patient is mostly edentulous. Nipples are small bilaterally. Chest exam is; clear to ulceration. There is a loud aortic stenosis murmur. Grade 2/6. Regular rhythm. There is a well-healed sternal scar. Abdomen examination; soft, no organomegaly. Bowel sounds audible. Extremity exam; no peripheral edema. [employer] examination; no focal deficit. Results Result Diagram: 08/17/16 0600 08/17/16 0600 Results 24 hrs Laboratory Tests Test 08/16/16 18:04 08/16/16 20:22 08/17/16 06:00 08/17/16 08:34 Bedside Glucose 179 136 137 White Blood Count 12.3 H Red Blood Count 3.80 L Hemoglobin 10.7 L Hematocrit 35.1 L Mean Corpuscular Volume 92.4 Mean Corpuscular Hemoglobin 28.2 L Mean Corpuscular Hemoglobin Concent 30.5 L Red Cell Distribution Width 16.2 H Platelet Count 136 L Mean Platelet Volume 12.7 H Neutrophils % 94.6 H Lymphocytes % 1.5 L Monocytes % 2.9 Eosinophils % 0.0 Basophils % 0.0 Nucleated Red Blood Cells % 0.0 Neutrophils # 11.7 H Lymphocytes # 0.2 L Monocytes # 0.4 Eosinophils # 0.0 Basophils # 0.0 Nucleated Red Blood Cells # 0.0 Sodium Level 143 Potassium Level 4.7 Chloride Level 107 Carbon Dioxide Level 22 Anion Gap 19 H Blood Urea Nitrogen 74 H Creatinine 2.49 H Glucose Level 139 Calcium Level 8.6 Magnesium Level 2.5 Total Bilirubin 0.4 Direct Bilirubin 0.00 Indirect Bilirubin 0.4 Aspartate Amino Transf (AST/SGOT) 12 L Alanine Aminotransferase (ALT/SGPT) 28 Alkaline Phosphatase 46 Total Protein 6.8 Albumin 4.3 Globulin 2.50 Albumin/Globulin Ratio 1.72 Digoxin Level 1.0 Medications Medications Current Medications Acetaminophen (Tylenol Tab) 650 mg Q6H PRN PO PAIN LEVEL 1-3 OR FEVER; Start at 13:00 Amiodarone HCl (Cordarone) 400 mg BID PO Last administered on 08/17/16 09:03; Admin Dose 400 MG; Start 08/14/16 at 21:00 Apixaban (Eliquis) 2.5 mg BID PO Last administered on 08/17/16 09:00; Admin Dose 2.5 MG; Start 08/14/16 at 21:00 Atorvastatin Calcium (Lipitor) 80 mg QHS PO Last administered on 08/16/16 21:15 ; Admin Dose 80 MG; Start 08/14/16 at 21:00 Calcitriol (Rocaltrol) 0.25 mcg DAILY PO Last administered on 08/17/16 08:59; Admin Dose 0.25 MCG; Start 08/15/16 at 09:00 Doxazosin Mesylate (Cardura) 2 mg HS PO Last administered on 08/16/16 21:15; Admin Dose 2 MG; Start 08/14/16 at 21:00 Hydralazine HCl (Apresoline) 25 mg BID PO Last administered on 08/16/16 21:15; Admin Dose 25 MG; Start 08/14/16 at 21:00 Isosorbide Mononitrate (Imdur) 30 mg DAILY PO Last administered on 08/17/16 08: 59; Admin Dose 30 MG; Start 08/14/16 at 14:00 Mycophenolate Sodium (Myfortic) 180 mg Q12 PO Last administered on 08/17/16 08: 58; Admin Dose 180 MG; Start 08/14/16 at 21:00 Pantoprazole (Protonix Tab) 40 mg DAILY PO Last administered on 08/17/16 08:58 ; Admin Dose 40 MG; Start 08/15/16 at 09:00 Prednisone (Prednisone) 5 mg DAILY PO Last administered on 08/17/16 08:59; Admin Dose 5 MG; Start 08/15/16 at 09:00 Tacrolimus (Prograf) 0.5 mg Q12 PO Last administered on 08/17/16 08:59; Admin Dose 0.5 MG; Start 08/14/16 at 21:00 Diagnostic Test (Pha) (Accu-Chek) 1 ea 02 XX ; Start 08/15/16 at 02:00 Miscellaneous Information 1 ea NOTE XX ; Start 08/14/16 at 14:30 Glucose (Glutose) 15 gm Q15M PRN PO DECREASED GLUCOSE; Start 08/14/16 at 14:30 Glucose (Glutose) 22.5 gm Q15M PRN PO DECREASED GLUCOSE; Start 08/14/16 at 14: 30 Dextrose (D50w Syringe) 25 ml Q15M PRN IV DECREASED GLUCOSE; Start 08/14/16 at 14:30 Dextrose (D50w Syringe) 50 ml Q15M PRN IV DECREASED GLUCOSE; Start 08/14/16 at 14:30 Glucagon (Glucagen) 1 mg Q15M PRN IM DECREASED GLUCOSE; Start 08/14/16 at 14:30 Glucose (Glutose) 15 gm Q15M PRN BUCCAL DECREASED GLUCOSE; Start 08/14/16 at 14 :30 Carvedilol 12.5 mg 12.5 mg BID PO Last administered on 08/17/16 09:00; Admin Dose 12.5 MG; Start 08/15/16 at 09:00 Cefepime HCl (Maxipime 1gm/50 ml (Pmx)) 50 ml @ 100 mls/hr Q24H IVPB Last administered on 08/16/16 15:43; Admin Dose 100 MLS/HR; Start 08/15/16 at 14:00 Furosemide (Lasix) 40 mg DAILY PO Last administered on 08/16/16 15:46; Admin Dose 40 MG; Start 08/16/16 at 09:00; Status Future Hold Methylprednisolone Sodium Succinate (Solu-Medrol) 30 mg Q12 IV Last administered on 08/17/16 09:01; Admin Dose 30 MG; Start 08/16/16 at 21:00 Mupirocin (Bactroban) 1 applic BID TOP Last administered on 08/17/16 09:01; Admin Dose 1 APPLIC; Start 08/16/16 at 21:00 DIXIE MATHEW Aug 17, 2016 11:56
[2016-08-17] MEDS: CEFEPIME 1GM/50 ML (PMX) 50 ML IVPB SCH (14:53)
--- NOTE | 2016-08-17 15:02 | PN ---
DATE: 08/17/2016 INFECTIOUS DISEASE PROGRESS NOTE SUBJECTIVE: Patient is alert, feels better, looks comfortable on nasal cannula. No fevers. WBC today 12.3, H and H 10.7 and 35.1, platelets 136, neutrophils 94.6, BUN 74, creatinine 2.49. MICROBIOLOGY: Blood culture on admission grew staph species. Nares swab positive for MRSA. ANTIMICROBIALS: The patient is on vancomycin and cefepime. He is also getting topical Bactroban to the nares. PHYSICAL EXAMINATION: GENERAL: Chronically ill-appearing, elderly man, who is awake, in no distress. HEENT: Head atraumatic, normocephalic. Sclerae anicteric. Buccal mucosa dry. NECK: Supple. CHEST: Chest rise is symmetrical. Breath sounds diminished to the bases. HEART: S1, S2, with a loud murmur. ABDOMEN: Soft. Bowel tones present. EXTREMITIES: Without cyanosis. ASSESSMENT: 1. Status post acute respiratory failure. 2. Coagulase-negative staph bacteremia. 3. Congestive heart failure exacerbation. 4. History of renal transplant in 2007, on immunosuppressive therapy and steroids. 5. History of coronary artery bypass graft and ICD placement. PLAN: The patient remains stable, on appropriate antimicrobials, pending repeat blood cultures. Co ntinue the present care. Bactroban to nares. Follow recommendations of consultants. Dictated By: KENDRA MORROW SVP [employer] for LUIS M CORONA/JOYCE Conf#: [id number] DID#: [id number]
--- NOTE | 2016-08-17 15:03 | PN ---
DATE: 08/17/2016 SUBJECTIVE: Patient seen. I noted 2 potato chips at bedside. I instructed him to eat a low-salt diet. We discussed his diet at home. Noted worsening kidney function, today's creatinine went up t o 2.49. Diuretics will be placed on hold. PHYSICAL EXAMINATION: VITAL SIGNS: Temperature 97.4, pulse 70, respirations 20, blood pressure 118/77, saturation 98% on 2 liters. GENERAL: The patient is in no acute distress. The patient is pale, slight JVD about 5 cm. CARDIOVASCULAR: S1 and S2. Positive systolic ejection murmur heard throughout. LUNGS: Clear bilaterally. ABDOMEN: Soft, nontender. EXTREMITIES: No clubbing, cyanosis, or edema. LABORATORY DATA: White count improved to 12.3, hemoglobin 10.7, hematocrit 35, platelets 176, neutr ophils 95%, ____ 2%. Chemistry: Sodium 143, potassium 4.7, chloride 107, bicarbonate 22, BUN 74, c reatinine 2.49, glucose of 139. Last glucose 162. Blood culture did show Staphylococcus species. Respiratory culture was negative. MRSA screening was positive. No radiographic imaging today. MEDICATIONS: Include: 1. Prednisone 20 mg daily. 2. Bactroban ointment b.i.d. 3. Vancomycin IV dose per pharmacy. 4. Cefepime 1 gram q. 24 hours. 5. Calcitriol 0.25 daily. 6. Protonix 40 mg daily. 7. Prednisone 5 mg daily. 8. Coreg 12.5 b.i.d. 9. Synthroid 100 mcg daily. 10. Accu-Chek q.a.c. and at bedtime. Accu-Cheks are as follows: 162, 137 and 136. 11. Coreg 12.5 b.i.d. 12. Synthroid 100 mcg daily. 13. Amiodarone 400 b.i.d. 14. Eliquis 2.5 b.i.d. 15. Lipitor 80 mg at bedtime. 16. Cardura 2 mg at bedtime. 17. Hydralazine 25 b.i.d. 18. Myfortic or mycophenolate sodium 180 q.12h. 19. Prograf 0.5 q.12h. 20. DuoNeb as directed q.6h. 21. Insulin aspart per sliding scale. 22. Hypoglycemia protocol as directed. Echocardiogram unfortunately showed a depressed ejection fraction 30 to 35%, severe aortic stenosis. The patient is a 71-year-old male with history of coronary artery disease, status post cor onary artery bypass grafting, cardiomyopathy with ejection fraction around 35%, status post automati c implantable cardioverter-defibrillator placement, paroxysmal atrial fibrillation, severe aortic st enosis, chronic kidney disease stage III, status post renal transplant in the past who presented wit h acute respiratory failure. 1. Acute respiratory failure, likely combination of congestive heart failure and underlying pneumon ia and bronchitis. Diuretics on hold secondary to worsening kidney function. Continue supportive c are with O2 breathing treatments, antibiotics. 2. Cardiovascular. Patient with multiple issues, as he has depressed ejection fraction, severe aor tic stenosis and renal failure, as we are holding current diuretic therapy. Remains on anticoagulat ion. A transesophageal echocardiogram was deferred secondary to his respiratory condition. We will follow with cardiology recommendations. 3. Borderline diabetes mellitus. Continue insulin sliding scale for now. This is likely secondary to his prednisone. We will ask the patient to follow and assist with his diet. The patient does n ot appear to eat a healthy diet at home, based on my discussion with him. 4. Acute on chronic renal insufficiency, likely secondary to hemodynamics, diuretics, etc. Diureti cs are on hold. Taper down steroids and monitor kidney function. Follow up Prograf level. I appre ciate nephrology input. 5. Infectious disease. The patient with pneumonia, possible bacteremia, mild urinary tract infecti on. The initial presentation was sepsis. Infectious disease is following. Continue vancomycin and cefepime for now. Renally dose medications. 7. Activity as tolerated with nursing assistance. We will follow. Dictated By: BRADNY WASHBURN/JOYCE Conf#: [id number] DID#: [id number]
--- NOTE | 2016-08-17 16:58 | PN ---
DATE: 08/17/2016 CARDIOLOGY FOLLOWUP NOTE Discussed with the staff. Rhythm strip was reviewed. The patient in ventricular paced rhythm. No chest pain or pressure. His breathing is improving significantly. His cough has improved as well. MEDICATIONS: Reviewed, which include: 1. Prednisone. 2. Bactroban nasal. 3. Vancomycin. 4. Cefepime. 5. Protonix. 6. Coreg 12.5 b.i.d. 7. Levothyroxine. 8. Amiodarone 400 b.i.d. 9. Eliquis 2.5. 10. Lipitor. 11. Hydralazine. 12. Tacrolimus. 13. Mycophenolate. 14. Imdur. PHYSICAL EXAMINATION: VITAL SIGNS: Temperature 97.9, heart rate of 80, blood pressure 112/74, respiration rate of 20, sat urating 96%. HEENT: Normocephalic, atraumatic. CARDIOVASCULAR: Regular rate and rhythm, systolic ejection murmur. PULMONARY: Mild rhonchi at the base. GASTROINTESTINAL: Soft, nontender. EXTREMITIES: No significant lower extremity edema. NEUROLOGIC: Awake and alert. PSYCHIATRIC: Calm, pleasant. NECK: Positive for JVD. LABORATORY: WBC of 12.3, hemoglobin 10.7, platelet 136. Sodium 143, potassium 4.7, BUN of 74, crea tinine 2.49, glucose 139, AST of 12. Echocardiogram was personally reviewed, which showed ejection fraction of probably about 30 to 35%. Aortic valve appeared to be stable and heavily calcified with a mean gradient of 42, peak creatinine of 68, valve area was calculated at 0.5 cm2. Mild to modera te MR. PA pressure was 33 mmHg, mild left atrial enlargement. ASSESSMENT AND PLAN: 1. Hypoxemia and hypercapnic respiratory failure. 2. Pneumonia. 3. Congestive heart failure, acute on chronic, diastolic dysfunction, currently stable, as does not appear to be fluid overloaded. 4. Renal failure, acute on chronic. 5. Aortic stenosis, appeared to be severe now. 6. Severe coronary artery disease, status post coronary bypass graft. 7. Severe ischemic cardiomyopathy status biventricular automatic implantable cardioverter-defibrill ator placement. 8. Atrial fibrillation, paroxysmal, now has become persistent. 9. History of peripheral vascular disease. RECOMMENDATIONS: Diuresis is on hold currently. Antibiotic is managed as per internal medicine. I nput and help is greatly appreciated. Blood culture 1 has shown Staph aureus We will continue to fo llow. Renal input is greatly appreciated. Will monitor on telemetry. May have to hold off and dis continue cardioversion until the patient stabilizes, probably will arrange for that as an outpatien t. Will discuss further as an outpatient with the patient and the family regarding management of hi s severe aortic stenosis. Dictated By: CARMEN TRONCOSO/JOYCE Conf#: [id number] DID#: [id number]
[2016-08-17] MEDS: ATORVASTATIN 80 MG TAB PO SCH (21:29)
[2016-08-17] MEDS: DOXAZOSIN 2 MG TAB PO SCH (21:30)
[2016-08-18] VITALS (12 sets, daily range): BP systolic 114–124; BP diastolic 68–78; PULSE 80–140; RESP 18–19
[2016-08-18] MEDS: ACCU-CHEK XX SCH (02:00)
[2016-08-18 06:55] LABS: ADD SCAN DIFF NO
[2016-08-18 07:02] LABS: ABNORMAL IP MESSAGE 1; HEMATOCRIT 35.2 % (42.0-52.0); HEMOGLOBIN 10.8 g/dl (14.0-18.0); LYMPHOCYTES # 0.2 10^3/ul (0.8-2.9); LYMPHOCYTES % 1.6 % (15.0-51.0); MEAN CORPUSCULAR HEMOGLOBIN 28.3 pg (29.0-33.0); MEAN CORPUSCULAR HGB CONC 30.7 g/dl (32.0-37.0); MEAN CORPUSCULAR VOLUME 92.1 fl (82.0-101.0); MEAN PLATELET VOLUME 13.1 fl (7.4-10.4); MONOCYTE # 0.8 10^3/ul (0.3-0.9); MONOCYTES % 7.3 % (0.0-11.0); NEUTROPHILS % 90.1 % (39.0-77.0); PLATELET COUNT 143 10^3/UL (140-415); RED BLOOD COUNT 3.82 10^6/ul (4.70-6.10); WHITE BLOOD COUNT 11.1 10^3/ul (4.8-10.8)
[2016-08-18 07:26] LABS: CALCIUM 8.4 mg/dl (8.4-10.2); CREATININE 2.53 mg/dl (0.61-1.24); MAGNESIUM 2.6 mg/dl (1.7-2.5); PHOSPHORUS 5.5 mg/dl (2.5-4.9)
[2016-08-18] MEDS: ALBUTEROL/IPRATROPIUM (NEB) 3 ML AMP HHN SCH ×3 (07:41→20:10)
[2016-08-18] MEDS: INSULIN ASPART [NOVOLOG] 3 ML PEN SC SCH ×4 (07:49→20:41)
[2016-08-18] MEDS: LEVOTHYROXINE 100 MCG TAB PO SCH (07:49)
[2016-08-18] MEDS: MYCOPHENOLATE (SR) 180 MG TAB PO SCH ×2 (08:51→20:29)
[2016-08-18] MEDS: TACROLIMUS 0.5 MG CAP PO SCH ×2 (08:52→20:29)
[2016-08-18] MEDS: PANTOPRAZOLE (EC) 40 MG TAB PO SCH (08:52)
[2016-08-18] MEDS: APIXABAN 5 MG TABLET PO SCH ×2 (08:52→20:31)
[2016-08-18] MEDS: ISOSORBIDE MONONITRATE(SR)30 MG TAB PO SCH (08:53)
[2016-08-18] MEDS: predniSONE 5 MG TAB PO SCH (08:54)
[2016-08-18] MEDS: AMIODARONE 200 MG TAB PO SCH ×2 (08:54→20:30)
[2016-08-18] MEDS: CALCITRIOL 0.25 MCG CAP PO SCH (08:55)
[2016-08-18] MEDS: predniSONE 10 MG TAB PO SCH ×2 (08:56→13:27)
[2016-08-18] MEDS: MUPIROCIN 2% 22 GM OINT TOP SCH ×2 (08:56→20:32)
[2016-08-18] MEDS ORDERED: predniSONE 10 MG TAB PO SCH (09:00)
--- NOTE | 2016-08-18 09:52 | CONS ---
Date/Time of Note Date/Time of Note DATE: 08/18/16 TIME: 09:45 Consult Date/Type/Reason Admit Date/Time August 14, 2016 at 12:40 Initial Consult Date Type of Consultation: neph Subjective The patient is clinically stable, remains on 2 liters nasal cannula. No other acute events noted overnight. No hemoptysis, hematemesis or hematochezia. OBJECTIVE: HEENT: Head is normocephalic. NECK: Supple. HEART: Regular rate with positive systolic ejection murmur. LUNGS: Show diminished breath sounds at the bases. Positive rhonchi. ABDOMEN: Soft, nontender to palpation. No rebound or guarding. EXTREMITIES: Negative for clubbing, cyanosis. No edema. DERMATOLOGIC: No rashes. MUSCULOSKELETAL: No joint effusions. NEUROLOGIC: No change in exam. MEDICATIONS: The patient's medications have been reviewed. Objective Vital Signs Date Time Temp Pulse Resp B/P Pulse Ox O2 Delivery O2 Flow Rate FiO2 08/18/16 08:25 80 08/18/16 08:08 98.0 18 119/74 96 08/18/16 07:42 Nasal Cannula 2.0 08/15/16 14:13 32 Intake and Output 08/17/16 08/17/16 08/18/16 15:00 23:00 07:00 Intake Total 960 ml 550 ml Output Total 900 ml Balance 60 ml 550 ml Results/Medications Result Diagram: 08/18/16 0602 08/18/16 0602 Results 24 hrs Laboratory Tests Test 08/17/16 12:22 08/17/16 17:42 08/17/16 20:50 08/18/16 06:02 Bedside Glucose 162 151 170 White Blood Count 11.1 H Red Blood Count 3.82 L Hemoglobin 10.8 L Hematocrit 35.2 L Mean Corpuscular Volume 92.1 Mean Corpuscular Hemoglobin 28.3 L Mean Corpuscular Hemoglobin Concent 30.7 L Red Cell Distribution Width 16.0 H Platelet Count 143 Mean Platelet Volume 13.1 H Neutrophils % 90.1 H Lymphocytes % 1.6 L Monocytes % 7.3 Eosinophils % 0.0 Basophils % 0.0 Nucleated Red Blood Cells % 0.0 Neutrophils # 10.0 H Lymphocytes # 0.2 L Monocytes # 0.8 Eosinophils # 0.0 Basophils # 0.0 Nucleated Red Blood Cells # 0.0 Sodium Level 143 Potassium Level 5.0 Chloride Level 108 Carbon Dioxide Level 24 Anion Gap 16 Blood Urea Nitrogen 88 H Creatinine 2.53 H Glucose Level 131 Calcium Level 8.4 Phosphorus Level 5.5 H Magnesium Level 2.6 H Random Vancomycin Level 6.1 Test 08/18/16 07:48 Bedside Glucose 136 Medications Current Medications Acetaminophen (Tylenol Tab) 650 mg Q6H PRN PO PAIN LEVEL 1-3 OR FEVER; Start at 13:00 Amiodarone HCl (Cordarone) 400 mg BID PO Last administered on 08/18/16 08:54; Admin Dose 400 MG; Start 08/14/16 at 21:00 Apixaban (Eliquis) 2.5 mg BID PO Last administered on 08/18/16 08:52; Admin Dose 2.5 MG; Start 08/14/16 at 21:00 Atorvastatin Calcium (Lipitor) 80 mg QHS PO Last administered on 08/17/16 21:29 ; Admin Dose 80 MG; Start 08/14/16 at 21:00 Calcitriol (Rocaltrol) 0.25 mcg DAILY PO Last administered on 08/18/16 08:55; Admin Dose 0.25 MCG; Start 08/15/16 at 09:00 Doxazosin Mesylate (Cardura) 2 mg HS PO Last administered on 08/17/16 21:30; Admin Dose 2 MG; Start 08/14/16 at 21:00 Hydralazine HCl (Apresoline) 25 mg BID PO Last administered on 08/18/16 08:52; Admin Dose 25 MG; Start 08/14/16 at 21:00 Isosorbide Mononitrate (Imdur) 30 mg DAILY PO Last administered on 08/18/16 08: 53; Admin Dose 30 MG; Start 08/14/16 at 14:00 Mycophenolate Sodium (Myfortic) 180 mg Q12 PO Last administered on 08/18/16 08: 51; Admin Dose 180 MG; Start 08/14/16 at 21:00 Pantoprazole (Protonix Tab) 40 mg DAILY PO Last administered on 08/18/16 08:52 ; Admin Dose 40 MG; Start 08/15/16 at 09:00 Prednisone (Prednisone) 5 mg DAILY PO Last administered on 08/18/16 08:54; Admin Dose 5 MG; Start 08/15/16 at 09:00 Tacrolimus (Prograf) 0.5 mg Q12 PO Last administered on 08/18/16 08:52; Admin Dose 0.5 MG; Start 08/14/16 at 21:00 Diagnostic Test (Pha) (Accu-Chek) 1 ea 02 XX ; Start 08/15/16 at 02:00 Miscellaneous Information 1 ea NOTE XX ; Start 08/14/16 at 14:30 Glucose (Glutose) 15 gm Q15M PRN PO DECREASED GLUCOSE; Start 08/14/16 at 14:30 Glucose (Glutose) 22.5 gm Q15M PRN PO DECREASED GLUCOSE; Start 08/14/16 at 14: 30 Dextrose (D50w Syringe) 25 ml Q15M PRN IV DECREASED GLUCOSE; Start 08/14/16 at 14:30 Dextrose (D50w Syringe) 50 ml Q15M PRN IV DECREASED GLUCOSE; Start 08/14/16 at 14:30 Glucagon (Glucagen) 1 mg Q15M PRN IM DECREASED GLUCOSE; Start 08/14/16 at 14:30 Glucose (Glutose) 15 gm Q15M PRN BUCCAL DECREASED GLUCOSE; Start 08/14/16 at 14 :30 Carvedilol 12.5 mg 12.5 mg BID PO Last administered on 08/18/16 08:56; Admin Dose 12.5 MG; Start 08/15/16 at 09:00 Cefepime HCl (Maxipime 1gm/50 ml (Pmx)) 50 ml @ 100 mls/hr Q24H IVPB Last administered on 08/17/16 14:53; Admin Dose 100 MLS/HR; Start 08/15/16 at 14:00 Furosemide (Lasix) 40 mg DAILY PO Last administered on 08/16/16 15:46; Admin Dose 40 MG; Start 08/16/16 at 09:00; Status Future Hold Mupirocin (Bactroban) 1 applic BID TOP Last administered on 08/18/16 08:56; Admin Dose 1 APPLIC; Start 08/16/16 at 21:00 Prednisone (Prednisone) 20 mg DAILY PO ; Start 08/18/16 at 09:00 Assessment/Plan Chief Complaint/Hosp Course 1. Nonoliguric acute kidney injury on top of chronic allograft failure with a previous baseline creatinine per patient of 1.7 mg/dL. Etiology of current acute kidney injury is secondary to hemodynamics, sepsis. The patient's renal function declined in the last 24 hours, likely due to recent diuretic use. Plan at this point would be to hold Lasix. We will continue current supportive care, continue to treat underlying sepsis. Continue to renally dose all meds, avoid nephrotoxins. Please note that a Prograf level has been requested, awaiting results. may need to transfer to tertiary care setting as difficult to manage with delayed transplant drug results. consider transplant biopsy if continues to worsen. 2. End-stage renal disease, status post living related donor transplant, with a baseline creatinine of 1.7 mg/dL. The patient is currently in acute kidney injury as stated above. Continue medical management. Continue current immunosuppressive regimen. Follow Prograf levels. 3. Immunosuppression. The patient is on triple therapy, we will continue. A Prograf level is pending. If the patient's clinical condition should decline, would consider holding CellCept. 4. Anemia. Continue to monitor hemoglobin and hematocrit levels. 5. Mineral bone disorder. We will monitor calcium and phosphorus levels. 6. Sepsis secondary to multifocal pneumonia. The patient is clinically improving. Continue current antibiotic regimen. The patient's blood cultures were positive for Staphylococcus aureus. Repeat cultures are pending. 7. Acute hypoxic respiratory failure secondary to pneumonia. Continue current treatment plan. 8. Cardiomyopathy, history of supraventricular tachycardia. Continue medical management. Follow up with cardiology. 9. Hypertension. Continue current blood pressure regimen. 10. Diabetes. Continue Accu-Cheks and insulin sliding scale. 11. History of aortic stenosis. 12. Status post coronary artery bypass graft. 13. Atrial fibrillation. Continue current medical management. Follow up with cardiology. May have to hold off and discontinue cardioversion until the patient stabilizes, probably will arrange for that as an outpatient. Will discuss further as an outpatient with the patient and the family regarding management of his severe aortic stenosis. Problems: BERENICE RAMIREZ MD Aug 18, 2016 09:52
[2016-08-18] MEDS ORDERED: VANCOMYCIN 1 GM in NS 250 ML IVPB ONE (10:00)
--- NOTE | 2016-08-18 11:30 | CONS ---
Date/Time of Note Date/Time of Note DATE: 08/18/16 TIME: 11:27 Assessment/Plan Assessment/Plan Additional Assessment/Plan Assessment recommendations; next 1. Patient admitted for transesophageal echocardiogram then developed respiratory failure during the procedure because of hypotension. Patient however has markedly improved. 2. Cardiomyopathy. 3. Coronary artery disease, status post bypass surgery. 4. History of renal insufficiency. 5. COPD. 6. Likely underlying severe aortic stenosis. Continue current treatment. Prednisone dose has been reduced to 20 mg daily. With further tapering down in 24 hours to 10 mg a day. Consultation Date/Type/Reason Admit Date/Time August 14, 2016 at 12:40 Type of Consultation: Pulmonary 24 HR Interval Summary Free Text/Dictation Patient condition is stable. Denies any shortness of breath, chest pain, wheezing, sputum production. General exam; elderly male, awake alert currently in no distress. Exam/Review of Systems Vital Signs Vitals Vital Signs Date Time Temp Pulse Resp B/P Pulse Ox O2 Delivery O2 Flow Rate FiO2 08/18/16 08:25 80 08/18/16 08:20 Nasal Cannula 3.0 08/18/16 08:08 98.0 18 119/74 96 08/15/16 14:13 32 Intake and Output 08/17/16 08/17/16 08/18/16 15:00 23:00 07:00 Intake Total 960 ml 550 ml Output Total 900 ml Balance 60 ml 550 ml Exam HEENT exam; supple neck, no JVD. No lymphadenopathy. Midline trachea. No thyromegaly. Pharynx is clear. Patient has fair dentition. Chest examination; diminished but clear vessel. S1-S2 audible, there is a loud aortic stenosis murmur grade 3/6. Regular rhythm. There is a well-healed sternal scar. Abdomen examination; soft, nondistended. No organomegaly. Bowel sounds audible. Extremity examination; no peripheral edema. No clubbing. GRANULATOR OPERATOR examination : no focal deficit. Results Result Diagram: 08/18/16 0602 08/18/16 06 Results 24 hrs Laboratory Tests Test 08/17/16 12:22 08/17/16 17:42 08/17/16 20:50 08/18/16 06:02 Bedside Glucose 162 151 170 White Blood Count 11.1 H Red Blood Count 3.82 L Hemoglobin 10.8 L Hematocrit 35.2 L Mean Corpuscular Volume 92.1 Mean Corpuscular Hemoglobin 28.3 L Mean Corpuscular Hemoglobin Concent 30.7 L Red Cell Distribution Width 16.0 H Platelet Count 143 Mean Platelet Volume 13.1 H Neutrophils % 90.1 H Lymphocytes % 1.6 L Monocytes % 7.3 Eosinophils % 0.0 Basophils % 0.0 Nucleated Red Blood Cells % 0.0 Neutrophils # 10.0 H Lymphocytes # 0.2 L Monocytes # 0.8 Eosinophils # 0.0 Basophils # 0.0 Nucleated Red Blood Cells # 0.0 Sodium Level 143 Potassium Level 5.0 Chloride Level 108 Carbon Dioxide Level 24 Anion Gap 16 Blood Urea Nitrogen 88 H Creatinine 2.53 H Glucose Level 131 Calcium Level 8.4 Phosphorus Level 5.5 H Magnesium Level 2.6 H Random Vancomycin Level 6.1 Test 08/18/16 07:48 Bedside Glucose 136 Medications Medications Current Medications Acetaminophen (Tylenol Tab) 650 mg Q6H PRN PO PAIN LEVEL 1-3 OR FEVER; Start at 13:00 Amiodarone HCl (Cordarone) 400 mg BID PO Last administered on 08/18/16 08:54; Admin Dose 400 MG; Start 08/14/16 at 21:00 Apixaban (Eliquis) 2.5 mg BID PO Last administered on 08/18/16 08:52; Admin Dose 2.5 MG; Start 08/14/16 at 21:00 Atorvastatin Calcium (Lipitor) 80 mg QHS PO Last administered on 08/17/16 21:29 ; Admin Dose 80 MG; Start 08/14/16 at 21:00 Calcitriol (Rocaltrol) 0.25 mcg DAILY PO Last administered on 08/18/16 08:55; Admin Dose 0.25 MCG; Start 08/15/16 at 09:00 Doxazosin Mesylate (Cardura) 2 mg HS PO Last administered on 08/17/16 21:30; Admin Dose 2 MG; Start 08/14/16 at 21:00 Hydralazine HCl (Apresoline) 25 mg BID PO Last administered on 08/18/16 08:52; Admin Dose 25 MG; Start 08/14/16 at 21:00 Isosorbide Mononitrate (Imdur) 30 mg DAILY PO Last administered on 08/18/16 08: 53; Admin Dose 30 MG; Start 08/14/16 at 14:00 Mycophenolate Sodium (Myfortic) 180 mg Q12 PO Last administered on 08/18/16 08: 51; Admin Dose 180 MG; Start 08/14/16 at 21:00 Pantoprazole (Protonix Tab) 40 mg DAILY PO Last administered on 08/18/16 08:52 ; Admin Dose 40 MG; Start 08/15/16 at 09:00 Prednisone (Prednisone) 5 mg DAILY PO Last administered on 08/18/16 08:54; Admin Dose 5 MG; Start 08/15/16 at 09:00 Tacrolimus (Prograf) 0.5 mg Q12 PO Last administered on 08/18/16 08:52; Admin Dose 0.5 MG; Start 08/14/16 at 21:00 Diagnostic Test (Pha) (Accu-Chek) 1 ea 02 XX ; Start 08/15/16 at 02:00 Miscellaneous Information 1 ea NOTE XX ; Start 08/14/16 at 14:30 Glucose (Glutose) 15 gm Q15M PRN PO DECREASED GLUCOSE; Start 08/14/16 at 14:30 Glucose (Glutose) 22.5 gm Q15M PRN PO DECREASED GLUCOSE; Start 08/14/16 at 14: 30 Dextrose (D50w Syringe) 25 ml Q15M PRN IV DECREASED GLUCOSE; Start 08/14/16 at 14:30 Dextrose (D50w Syringe) 50 ml Q15M PRN IV DECREASED GLUCOSE; Start 08/14/16 at 14:30 Glucagon (Glucagen) 1 mg Q15M PRN IM DECREASED GLUCOSE; Start 08/14/16 at 14:30 Glucose (Glutose) 15 gm Q15M PRN BUCCAL DECREASED GLUCOSE; Start 08/14/16 at 14 :30 Carvedilol 12.5 mg 12.5 mg BID PO Last administered on 08/18/16 08:56; Admin Dose 12.5 MG; Start 08/15/16 at 09:00 Cefepime HCl (Maxipime 1gm/50 ml (Pmx)) 50 ml @ 100 mls/hr Q24H IVPB Last administered on 08/17/16 14:53; Admin Dose 100 MLS/HR; Start 08/15/16 at 14:00 Furosemide (Lasix) 40 mg DAILY PO Last administered on 08/16/16 15:46; Admin Dose 40 MG; Start 08/16/16 at 09:00; Status Future Hold Mupirocin (Bactroban) 1 applic BID TOP Last administered on 08/18/16 08:56; Admin Dose 1 APPLIC; Start 08/16/16 at 21:00 Prednisone 20 mg 20 mg DAILY PO ; Start 08/18/16 at 09:00 Vancomycin HCl (Vancocin) 250 ml @ 125 mls/hr NOW ONCE IVPB Last administered on 08/18/16 10:49; Admin Dose 125 MLS/HR; Start 08/18/16 at 10:00; Stop 08/18/16 at 11:59 DIXIE MATHEW Aug 18, 2016 11:30
--- NOTE | 2016-08-18 12:08 | CONS ---
Date/Time of Note Date/Time of Note DATE: 08/18/16 TIME: 12:06 Assessment/Plan Assessment/Plan Chief Complaint/Hosp Course 1. Hypoxemia and hypercapnic respiratory failure. 2. Pneumonia. 3. Congestive heart failure, acute on chronic, diastolic dysfunction, currently stable, as does not appear to be fluid overloaded. 4. Renal failure, acute on chronic. 5. Aortic stenosis, appeared to be severe now. 6. Severe coronary artery disease, status post coronary bypass graft. 7. Severe ischemic cardiomyopathy status biventricular automatic implantable cardioverter-defibrillator placement. 8. Atrial fibrillation, paroxysmal, now has become persistent. 9. History of peripheral vascular disease. Problems: Additional Assessment/Plan 1) continue current mds 2) consideration of outpatient CV 3) approach to severe to be decided Consultation Date/Type/Reason Admit Date/Time August 14, 2016 at 12:40 Initial Consult Date Type of Consultation: cv 24 HR Interval Summary Free Text/Dictation no chest pain, no sob, weak Exam/Review of Systems Vital Signs Vitals Vital Signs Date Time Temp Pulse Resp B/P Pulse Ox O2 Delivery O2 Flow Rate FiO2 08/18/16 11:30 98.1 80 19 114/75 98 08/18/16 08:20 Nasal Cannula 3.0 08/15/16 14:13 32 Intake and Output 08/17/16 08/17/16 08/18/16 14:59 22:59 06:59 Intake Total 960 ml 550 ml Output Total 900 ml Balance 60 ml 550 ml Exam Constitutional: alert, oriented Head: atraumatic, normocephalic Neck: jvd Respiratory: diminished breath sounds Cardiovascular: irregular rhythm Gastrointestinal: soft Musculoskeletal: nl extremities to inspection Extremities: normal pulses Results Result Diagram: 08/18/16 0602 08/18/16 0602 Results 24 hrs Laboratory Tests Test 08/17/16 12:22 08/17/16 17:42 08/17/16 20:50 08/18/16 06:02 Bedside Glucose 162 151 170 White Blood Count 11.1 H Red Blood Count 3.82 L Hemoglobin 10.8 L Hematocrit 35.2 L Mean Corpuscular Volume 92.1 Mean Corpuscular Hemoglobin 28.3 L Mean Corpuscular Hemoglobin Concent 30.7 L Red Cell Distribution Width 16.0 H Platelet Count 143 Mean Platelet Volume 13.1 H Neutrophils % 90.1 H Lymphocytes % 1.6 L Monocytes % 7.3 Eosinophils % 0.0 Basophils % 0.0 Nucleated Red Blood Cells % 0.0 Neutrophils # 10.0 H Lymphocytes # 0.2 L Monocytes # 0.8 Eosinophils # 0.0 Basophils # 0.0 Nucleated Red Blood Cells # 0.0 Sodium Level 143 Potassium Level 5.0 Chloride Level 108 Carbon Dioxide Level 24 Anion Gap 16 Blood Urea Nitrogen 88 H Creatinine 2.53 H Glucose Level 131 Calcium Level 8.4 Phosphorus Level 5.5 H Magnesium Level 2.6 H Random Vancomycin Level 6.1 Test 08/18/16 07:48 Bedside Glucose 136 Medications Medications Current Medications Acetaminophen (Tylenol Tab) 650 mg Q6H PRN PO PAIN LEVEL 1-3 OR FEVER; Start at 13:00 Amiodarone HCl (Cordarone) 400 mg BID PO Last administered on 08/18/16 08:54; Admin Dose 400 MG; Start 08/14/16 at 21:00 Apixaban (Eliquis) 2.5 mg BID PO Last administered on 08/18/16 08:52; Admin Dose 2.5 MG; Start 08/14/16 at 21:00 Atorvastatin Calcium (Lipitor) 80 mg QHS PO Last administered on 08/17/16 21:29 ; Admin Dose 80 MG; Start 08/14/16 at 21:00 Calcitriol (Rocaltrol) 0.25 mcg DAILY PO Last administered on 08/18/16 08:55; Admin Dose 0.25 MCG; Start 08/15/16 at 09:00 Doxazosin Mesylate (Cardura) 2 mg HS PO Last administered on 08/17/16 21:30; Admin Dose 2 MG; Start 08/14/16 at 21:00 Hydralazine HCl (Apresoline) 25 mg BID PO Last administered on 08/18/16 08:52; Admin Dose 25 MG; Start 08/14/16 at 21:00 Isosorbide Mononitrate (Imdur) 30 mg DAILY PO Last administered on 08/18/16 08: 53; Admin Dose 30 MG; Start 08/14/16 at 14:00 Mycophenolate Sodium (Myfortic) 180 mg Q12 PO Last administered on 08/18/16 08: 51; Admin Dose 180 MG; Start 08/14/16 at 21:00 Pantoprazole (Protonix Tab) 40 mg DAILY PO Last administered on 08/18/16 08:52 ; Admin Dose 40 MG; Start 08/15/16 at 09:00 Prednisone (Prednisone) 5 mg DAILY PO Last administered on 08/18/16 08:54; Admin Dose 5 MG; Start 08/15/16 at 09:00 Tacrolimus (Prograf) 0.5 mg Q12 PO Last administered on 08/18/16 08:52; Admin Dose 0.5 MG; Start 08/14/16 at 21:00 Diagnostic Test (Pha) (Accu-Chek) 1 ea 02 XX ; Start 08/15/16 at 02:00 Miscellaneous Information 1 ea NOTE XX ; Start 08/14/16 at 14:30 Glucose (Glutose) 15 gm Q15M PRN PO DECREASED GLUCOSE; Start 08/14/16 at 14:30 Glucose (Glutose) 22.5 gm Q15M PRN PO DECREASED GLUCOSE; Start 08/14/16 at 14: 30 Dextrose (D50w Syringe) 25 ml Q15M PRN IV DECREASED GLUCOSE; Start 08/14/16 at 14:30 Dextrose (D50w Syringe) 50 ml Q15M PRN IV DECREASED GLUCOSE; Start 08/14/16 at 14:30 Glucagon (Glucagen) 1 mg Q15M PRN IM DECREASED GLUCOSE; Start 08/14/16 at 14:30 Glucose (Glutose) 15 gm Q15M PRN BUCCAL DECREASED GLUCOSE; Start 08/14/16 at 14 :30 Carvedilol 12.5 mg 12.5 mg BID PO Last administered on 08/18/16 08:56; Admin Dose 12.5 MG; Start 08/15/16 at 09:00 Cefepime HCl (Maxipime 1gm/50 ml (Pmx)) 50 ml @ 100 mls/hr Q24H IVPB Last administered on 08/17/16 14:53; Admin Dose 100 MLS/HR; Start 08/15/16 at 14:00 Furosemide (Lasix) 40 mg DAILY PO Last administered on 08/16/16 15:46; Admin Dose 40 MG; Start 08/16/16 at 09:00; Status Future Hold Mupirocin (Bactroban) 1 applic BID TOP Last administered on 08/18/16 08:56; Admin Dose 1 APPLIC; Start 08/16/16 at 21:00 Prednisone (Prednisone) 20 mg DAILY PO ; Start 08/18/16 at 09:00 DIANA EAGLE MD Aug 18, 2016 12:08
[2016-08-18] MEDS ORDERED: BISACODYL (EC) 5 MG TAB PO ONE (14:00)
[2016-08-18] MEDS ORDERED: LACTULOSE 30ML CUP PO PRN (14:00)
[2016-08-18] MEDS: CEFEPIME 1GM/50 ML (PMX) 50 ML IVPB SCH (14:17)
[2016-08-18] MEDS: DOCUSATE SODIUM 100 MG CAP PO SCH ×2 (14:26→20:30)
--- NOTE | 2016-08-18 15:11 | PN ---
DATE: 08/18/2016 INFECTIOUS DISEASE PROGRESS NOTE SUBJECTIVE: Patient is awake, eating lunch, looks comfortable. No fevers. WBC today 11.1, platelet s 143, neutrophils 90.1. BUN 88, creatinine 2.53. MICROBIOLOGY: Blood culture repeated on 08/16/2016 and 08/17/2016 remain negative. ANTIMICROBIALS: The patient remains on: 1. Vancomycin. 2. Topical Bactroban to the nares. 3. Cefepime. PHYSICAL EXAMINATION: GENERAL: This is a well-developed, chronically ill-appearing, elderly man, who is awake, in no dist ress. HEENT: Head atraumatic, normocephalic. Sclerae anicteric. Buccal mucosa dry. NECK: Supple, trachea midline. CHEST: Chest rise is symmetrical. Breath sounds diminished to the bases. HEART: S1, S2. ABDOMEN: Soft, bowel tones present. EXTREMITIES: Without cyanosis. ASSESSMENT: 1. Resolving sepsis. 2. Status post coagulase-negative staph bacteremia, consistent with contaminant. 3. Congestive heart failure exacerbation. 4. History of coronary artery bypass graft with ICD placement. 5. History of renal transplant in 2007, on immunosuppressive therapy and steroids. 6. Severe aortic stenosis. PLAN: The patient remains stable. He is being followed by multiple consultants. Repeat blood cult ures negative. We will continue him on the current antibiotics, continue Bactroban to the nares. Dictated By: KENDRA MORROW WAYS OPERATOR for LUIS M GUTIERREZ MD NI/NTS Conf#: [id number] DID#: [id number]
[2016-08-18] MEDS: ATORVASTATIN 80 MG TAB PO SCH (20:29)
[2016-08-18] MEDS: DOXAZOSIN 2 MG TAB PO SCH (20:31)
[2016-08-19] VITALS (12 sets, daily range): BP systolic 100–122; BP diastolic 65–77; PULSE 80–85; RESP 18–20
[2016-08-19] MEDS: ACCU-CHEK XX SCH (02:00)
[2016-08-19] MEDS: LEVOTHYROXINE 100 MCG TAB PO SCH (06:32)
[2016-08-19 07:10] LABS: ADD SCAN DIFF NO
[2016-08-19 07:19] LABS: ABNORMAL IP MESSAGE 1; BASOPHILS % 0.1 % (0.0-2.0); EOSINOPHILS % 0.1 % (0.0-7.0); HEMATOCRIT 35.3 % (42.0-52.0); HEMOGLOBIN 11.3 g/dl (14.0-18.0); LYMPHOCYTES # 0.3 10^3/ul (0.8-2.9); LYMPHOCYTES % 2.6 % (15.0-51.0); MEAN CORPUSCULAR HEMOGLOBIN 29.1 pg (29.0-33.0); MEAN PLATELET VOLUME 13.2 fl (7.4-10.4); MONOCYTES % 9.5 % (0.0-11.0); NEUTROPHIL # 9.5 10^3/ul (1.6-7.5); NEUTROPHILS % 86.3 % (39.0-77.0); PLATELET COUNT 134 10^3/UL (140-415); RED BLOOD COUNT 3.88 10^6/ul (4.70-6.10); RED CELL DISTRIBUTION WIDTH 15.7 % (11.5-14.5)
[2016-08-19 07:36] LABS: ALBUMIN 4.5 g/dl (3.3-4.9); ALBUMIN/GLOBULIN RATIO 1.87; BILIRUBIN,INDIRECT 0.5 mg/dl (0-1.1); BILIRUBIN,TOTAL 0.5 mg/dl (0.2-1.3); CALCIUM 8.8 mg/dl (8.4-10.2); CREATININE 1.9 mg/dl (0.61-1.24); MAGNESIUM 2.5 mg/dl (1.7-2.5); PHOSPHORUS 4.5 mg/dl (2.5-4.9); POTASSIUM 4.7 mmol/L (3.5-5.1); TOTAL PROTEIN 6.9 g/dl (6.1-8.1)
[2016-08-19] MEDS: INSULIN ASPART [NOVOLOG] 3 ML PEN SC SCH ×4 (07:55→21:00)
[2016-08-19] MEDS: predniSONE 10 MG TAB PO SCH (08:56)
[2016-08-19] MEDS: CALCITRIOL 0.25 MCG CAP PO SCH (08:56)
[2016-08-19] MEDS: MYCOPHENOLATE (SR) 180 MG TAB PO SCH ×2 (08:56→21:51)
[2016-08-19] MEDS: TACROLIMUS 0.5 MG CAP PO SCH ×2 (08:56→21:53)
[2016-08-19] MEDS: PANTOPRAZOLE (EC) 40 MG TAB PO SCH (08:56)
[2016-08-19] MEDS: DOCUSATE SODIUM 100 MG CAP PO SCH ×2 (08:57→21:50)
[2016-08-19] MEDS: AMIODARONE 200 MG TAB PO SCH ×2 (08:58→21:51)
[2016-08-19] MEDS: APIXABAN 5 MG TABLET PO SCH ×2 (08:58→21:52)
[2016-08-19] MEDS: ISOSORBIDE MONONITRATE(SR)30 MG TAB PO SCH (08:59)
[2016-08-19] MEDS: MUPIROCIN 2% 22 GM OINT TOP SCH ×2 (09:02→22:02)
[2016-08-19] MEDS: ALBUTEROL/IPRATROPIUM (NEB) 3 ML AMP HHN SCH ×3 (09:05→19:23)
--- NOTE | 2016-08-19 09:32 | CONS ---
Date/Time of Note Date/Time of Note DATE: 08/19/16 TIME: 09:31 Consult Date/Type/Reason Admit Date/Time August 14, 2016 at 12:40 Type of Consultation: neph Subjective The patient is clinically stable, remains on 2 liters nasal cannula. No other acute events noted overnight. No hemoptysis, hematemesis or hematochezia. OBJECTIVE: HEENT: Head is normocephalic. NECK: Supple. HEART: Regular rate with positive systolic ejection murmur. LUNGS: Show diminished breath sounds at the bases. Positive rhonchi. ABDOMEN: Soft, nontender to palpation. No rebound or guarding. EXTREMITIES: Negative for clubbing, cyanosis. No edema. DERMATOLOGIC: No rashes. MUSCULOSKELETAL: No joint effusions. NEUROLOGIC: No change in exam. Objective Vital Signs Date Time Temp Pulse Resp B/P Pulse Ox O2 Delivery O2 Flow Rate FiO2 08/19/16 09:07 73 18 96 Nasal Cannula 2.0 08/19/16 07:34 98.0 100/66 08/15/16 14:13 32 Intake and Output 08/18/16 08/18/16 08/19/16 15:00 23:00 07:00 Intake Total 300 ml 700 ml 350 ml Output Total 800 ml 400 ml 750 ml Balance -500 ml 300 ml -400 ml Results/Medications Result Diagram: 08/19/1627 08/19/16626 Results 24 hrs Laboratory Tests Test 08/18/16 12:16 08/18/16 17:34 08/18/16 20:28 08/19/16 06:27 Bedside Glucose 125 134 135 White Blood Count 11.0 H Red Blood Count 3.88 L Hemoglobin 11.3 L Hematocrit 35.3 L Mean Corpuscular Volume 91.0 Mean Corpuscular Hemoglobin 29.1 Mean Corpuscular Hemoglobin Concent 32.0 Red Cell Distribution Width 15.7 H Platelet Count 134 L Mean Platelet Volume 13.2 H Neutrophils % 86.3 H Lymphocytes % 2.6 L Monocytes % 9.5 Eosinophils % 0.1 Basophils % 0.1 Nucleated Red Blood Cells % 0.0 Neutrophils # 9.5 H Lymphocytes # 0.3 L Monocytes # 1.0 H Eosinophils # 0.0 Basophils # 0.0 Nucleated Red Blood Cells # 0.0 Sodium Level 142 Potassium Level 4.7 Chloride Level 110 Carbon Dioxide Level 21 Anion Gap 16 Blood Urea Nitrogen 83 H Creatinine 1.90 H Glucose Level 124 Calcium Level 8.8 Phosphorus Level 4.5 Magnesium Level 2.5 Total Bilirubin 0.5 Direct Bilirubin 0.00 Indirect Bilirubin 0.5 Aspartate Amino Transf (AST/SGOT) 13 L Alanine Aminotransferase (ALT/SGPT) 31 Alkaline Phosphatase 47 Total Protein 6.9 Albumin 4.5 Globulin 2.40 Albumin/Globulin Ratio 1.87 Test 08/19/16 07:40 Bedside Glucose 115 Medications Current Medications Acetaminophen (Tylenol Tab) 650 mg Q6H PRN PO PAIN LEVEL 1-3 OR FEVER; Start at 13:00 Amiodarone HCl (Cordarone) 400 mg BID PO Last administered on 08/19/16 08:58; Admin Dose 400 MG; Start 08/14/16 at 21:00 Apixaban (Eliquis) 2.5 mg BID PO Last administered on 08/19/16 08:58; Admin Dose 2.5 MG; Start 08/14/16 at 21:00 Atorvastatin Calcium (Lipitor) 80 mg QHS PO Last administered on 08/18/16 20:29 ; Admin Dose 80 MG; Start 08/14/16 at 21:00 Calcitriol (Rocaltrol) 0.25 mcg DAILY PO Last administered on 08/19/16 08:56; Admin Dose 0.25 MCG; Start 08/15/16 at 09:00 Doxazosin Mesylate (Cardura) 2 mg HS PO Last administered on 08/18/16 20:31; Admin Dose 2 MG; Start 08/14/16 at 21:00 Hydralazine HCl (Apresoline) 25 mg BID PO Last administered on 08/19/16 08:56; Admin Dose 25 MG; Start 08/14/16 at 21:00 Isosorbide Mononitrate (Imdur) 30 mg DAILY PO Last administered on 08/19/16 08: 59; Admin Dose 30 MG; Start 08/14/16 at 14:00 Mycophenolate Sodium (Myfortic) 180 mg Q12 PO Last administered on 08/19/16 08: 56; Admin Dose 180 MG; Start 08/14/16 at 21:00 Pantoprazole (Protonix Tab) 40 mg DAILY PO Last administered on 08/19/16 08:56 ; Admin Dose 40 MG; Start 08/15/16 at 09:00 Tacrolimus (Prograf) 0.5 mg Q12 PO Last administered on 08/19/16 08:56; Admin Dose 0.5 MG; Start 08/14/16 at 21:00 Diagnostic Test (Pha) (Accu-Chek) 1 ea 02 XX ; Start 08/15/16 at 02:00 Miscellaneous Information 1 ea NOTE XX ; Start 08/14/16 at 14:30 Glucose (Glutose) 15 gm Q15M PRN PO DECREASED GLUCOSE; Start 08/14/16 at 14:30 Glucose (Glutose) 22.5 gm Q15M PRN PO DECREASED GLUCOSE; Start 08/14/16 at 14: 30 Dextrose (D50w Syringe) 25 ml Q15M PRN IV DECREASED GLUCOSE; Start 08/14/16 at 14:30 Dextrose (D50w Syringe) 50 ml Q15M PRN IV DECREASED GLUCOSE; Start 08/14/16 at 14:30 Glucagon (Glucagen) 1 mg Q15M PRN IM DECREASED GLUCOSE; Start 08/14/16 at 14:30 Glucose (Glutose) 15 gm Q15M PRN BUCCAL DECREASED GLUCOSE; Start 08/14/16 at 14 :30 Carvedilol 12.5 mg 12.5 mg BID PO Last administered on 08/19/16 08:57; Admin Dose 12.5 MG; Start 08/15/16 at 09:00 Cefepime HCl (Maxipime 1gm/50 ml (Pmx)) 50 ml @ 100 mls/hr Q24H IVPB Last administered on 08/18/16 14:17; Admin Dose 100 MLS/HR; Start 08/15/16 at 14:00 Furosemide (Lasix) 40 mg DAILY PO Last administered on 08/16/16 15:46; Admin Dose 40 MG; Start 08/16/16 at 09:00; Status Future Hold Mupirocin (Bactroban) 1 applic BID TOP Last administered on 08/19/16 09:02; Admin Dose 1 APPLIC; Start 08/16/16 at 21:00 Prednisone (Prednisone) 20 mg DAILY PO Last administered on 08/19/16 08:56; Admin Dose 20 MG; Start 08/18/16 at 09:00 Docusate Sodium (Colace) 200 mg BID PO Last administered on 08/19/16t 08:57; Admin Dose 200 MG; Start 08/18/16 at 14:00 Lactulose (Enulose) 20 gm Q6H PRN PO CONSTIPATION; Start 08/18/16 at 14:00 Assessment/Plan Chief Complaint/Hosp Course 1. Nonoliguric acute kidney injury on top of chronic allograft failure with a previous baseline creatinine per patient of 1.7 mg/dL. Etiology of current acute kidney injury is secondary to hemodynamics, sepsis. The patient's renal function declined in the last 24 hours, likely due to recent diuretic use. lasix held and now has improved.. We will continue current supportive care, continue to treat underlying sepsis. Continue to renally dose all meds, avoid nephrotoxins. Please note that a Prograf level has been requested, awaiting results. may need to transfer to tertiary care setting as difficult to manage with delayed transplant drug results. consider transplant biopsy if worsens. 2. End-stage renal disease, status post living related donor transplant, with a baseline creatinine of 1.7 mg/dL. The patient is currently in acute kidney injury as stated above. Continue medical management. Continue current immunosuppressive regimen. Follow Prograf levels. 3. Immunosuppression. The patient is on triple therapy, we will continue. A Prograf level is pending. If the patient's clinical condition should decline, would consider holding CellCept. 4. Anemia. Continue to monitor hemoglobin and hematocrit levels. 5. Mineral bone disorder. We will monitor calcium and phosphorus levels. 6. Sepsis secondary to multifocal pneumonia. The patient is clinically improving. Continue current antibiotic regimen. The patient's blood cultures were positive for Staphylococcus aureus. Repeat cultures are pending. 7. Acute hypoxic respiratory failure secondary to pneumonia. Continue current treatment plan. 8. Cardiomyopathy, history of supraventricular tachycardia. Continue medical management. Follow up with cardiology. 9. Hypertension. Continue current blood pressure regimen. 10. Diabetes. Continue Accu-Cheks and insulin sliding scale. 11. History of aortic stenosis. 12. Status post coronary artery bypass graft. 13. Atrial fibrillation. Continue current medical management. Follow up with cardiology. May have to hold off and discontinue cardioversion until the patient stabilizes, probably will arrange for that as an outpatient. Will discuss further as an outpatient with the patient and the family regarding management of his severe aortic stenosis. Problems: BERENICE RAMIREZ MD Aug 19, 2016 09:32
--- NOTE | 2016-08-19 10:53 | RADRPT ---
PROCEDURE: XR Chest. CLINICAL INDICATION: Congestive heart failure. Follow-up. TECHNIQUE: Single frontal chest x-ray. COMPARISON: 08/15/2016 FINDINGS: Sternotomy wires with left-sided dual chamber AICD in place. . Calcific atherosclerosis of the aort a is present.. There is mild hilar vascular congestion. There are no alveolar infiltrates or edema . The bilateral pleural effusions are decreased.. The osseous structures are intact. Hyperinflatio n of lungs with flattening of the diaphragms is noted. Sternotomy wires and CABG clips are present. IMPRESSION: Cardiomegaly with left-sided AICD status post CABG. Decreased bilateral pleural effusions and bibasilar atelectasis. Hyperinflation of lungs with flattening of the diaphragms. Hilar vascular congestion unchanged. RPTAT: QQ .Negro Win MD, MD Date Time Electronically viewed and signed by .Negro Win MD, MD on 08/19/2016 10:53 .L/
--- NOTE | 2016-08-19 14:29 | CONS ---
Date/Time of Note Date/Time of Note DATE: 08/19/16 TIME: 14:27 Assessment/Plan Assessment/Plan Additional Assessment/Plan Severe aortic stenosis Acute decompensated systolic and diastolic congestive heart failure Cardiomyopathy Acute kidney injury Atrial fibrillation on anticoagulation -Patient's heart rate remains controlled. Continue anticoagulation if no complication. Diuretics as per our nephrology colleagues. Dr Thakur to resume care 08/20/2016 Consultation Date/Type/Reason Admit Date/Time August 14, 2016 at 12:40 Initial Consult Date Type of Consultation: cv 24 HR Interval Summary Free Text/Dictation Denies chest pain, shortness of breath or palpitations or dizziness Exam/Review of Systems Vital Signs Vitals Vital Signs Date Time Temp Pulse Resp B/P Pulse Ox O2 Delivery O2 Flow Rate FiO2 08/19/16 14:12 68 18 97 Nasal Cannula 2.0 08/19/16 11:37 98.2 109/67 08/15/16 14:13 32 Intake and Output 08/18/16 08/18/16 08/19/16 15:00 23:00 07:00 Intake Total 300 ml 700 ml 350 ml Output Total 800 ml 400 ml 750 ml Balance -500 ml 300 ml -400 ml Exam No apparent distress Constitutional: alert, oriented Head: normocephalic Neck: supple Respiratory: other (Coarse breath sounds bilaterally, no wheezing) Cardiovascular: other (S1-S2 heard), regular rate and rhythm, systolic murmur Gastrointestinal: bowel sounds, non-tender, soft Extremities: other (No edema) Results Result Diagram: 08/19/16 0627 08/19/16 0627 Results 24 hrs Laboratory Tests Test 08/18/16 17:34 08/18/16 20:28 08/19/16 06:27 08/19/16 07:40 Bedside Glucose 134 135 115 White Blood Count 11.0 H Red Blood Count 3.88 L Hemoglobin 11.3 L Hematocrit 35.3 L Mean Corpuscular Volume 91.0 Mean Corpuscular Hemoglobin 29.1 Mean Corpuscular Hemoglobin Concent 32.0 Red Cell Distribution Width 15.7 H Platelet Count 134 L Mean Platelet Volume 13.2 H Neutrophils % 86.3 H Lymphocytes % 2.6 L Monocytes % 9.5 Eosinophils % 0.1 Basophils % 0.1 Nucleated Red Blood Cells % 0.0 Neutrophils # 9.5 H Lymphocytes # 0.3 L Monocytes # 1.0 H Eosinophils # 0.0 Basophils # 0.0 Nucleated Red Blood Cells # 0.0 Sodium Level 142 Potassium Level 4.7 Chloride Level 110 Carbon Dioxide Level 21 Anion Gap 16 Blood Urea Nitrogen 83 H Creatinine 1.90 H Glucose Level 124 Calcium Level 8.8 Phosphorus Level 4.5 Magnesium Level 2.5 Total Bilirubin 0.5 Direct Bilirubin 0.00 Indirect Bilirubin 0.5 Aspartate Amino Transf (AST/SGOT) 13 L Alanine Aminotransferase (ALT/SGPT) 31 Alkaline Phosphatase 47 Total Protein 6.9 Albumin 4.5 Globulin 2.40 Albumin/Globulin Ratio 1.87 Test 08/19/16 11:39 Bedside Glucose 167 Medications Medications Current Medications Acetaminophen (Tylenol Tab) 650 mg Q6H PRN PO PAIN LEVEL 1-3 OR FEVER; Start at 13:00 Amiodarone HCl (Cordarone) 400 mg BID PO Last administered on 08/19/16 08:58; Admin Dose 400 MG; Start 08/14/16 at 21:00 Apixaban (Eliquis) 2.5 mg BID PO Last administered on 08/19/16 08:58; Admin Dose 2.5 MG; Start 08/14/16 at 21:00 Atorvastatin Calcium (Lipitor) 80 mg QHS PO Last administered on 08/18/16 20:29 ; Admin Dose 80 MG; Start 08/14/16 at 21:00 Calcitriol (Rocaltrol) 0.25 mcg DAILY PO Last administered on 08/19/16 08:56; Admin Dose 0.25 MCG; Start 08/15/16 at 09:00 Doxazosin Mesylate (Cardura) 2 mg HS PO Last administered on 08/18/16 20:31; Admin Dose 2 MG; Start 08/14/16 at 21:00 Hydralazine HCl (Apresoline) 25 mg BID PO Last administered on 08/19/16 08:56; Admin Dose 25 MG; Start 08/14/16 at 21:00 Isosorbide Mononitrate (Imdur) 30 mg DAILY PO Last administered on 08/19/16 08: 59; Admin Dose 30 MG; Start 08/14/16 at 14:00 Mycophenolate Sodium (Myfortic) 180 mg Q12 PO Last administered on 08/19/16 08: 56; Admin Dose 180 MG; Start 08/14/16 at 21:00 Pantoprazole (Protonix Tab) 40 mg DAILY PO Last administered on 08/19/16 08:56 ; Admin Dose 40 MG; Start 08/15/16 at 09:00 Tacrolimus (Prograf) 0.5 mg Q12 PO Last administered on 08/19/16 08:56; Admin Dose 0.5 MG; Start 08/14/16 at 21:00 Diagnostic Test (Pha) (Accu-Chek) 1 ea 02 XX ; Start 08/15/16 at 02:00 Miscellaneous Information 1 ea NOTE XX ; Start 08/14/16 at 14:30 Glucose (Glutose) 15 gm Q15M PRN PO DECREASED GLUCOSE; Start 08/14/16 at 14:30 Glucose (Glutose) 22.5 gm Q15M PRN PO DECREASED GLUCOSE; Start 08/14/16 at 14: 30 Dextrose (D50w Syringe) 25 ml Q15M PRN IV DECREASED GLUCOSE; Start 08/14/16 at 14:30 Dextrose (D50w Syringe) 50 ml Q15M PRN IV DECREASED GLUCOSE; Start 08/14/16 at 14:30 Glucagon (Glucagen) 1 mg Q15M PRN IM DECREASED GLUCOSE; Start 08/14/16 at 14:30 Glucose (Glutose) 15 gm Q15M PRN BUCCAL DECREASED GLUCOSE; Start 08/14/16 at 14 :30 Carvedilol 12.5 mg 12.5 mg BID PO Last administered on 08/19/16 08:57; Admin Dose 12.5 MG; Start 08/15/16 at 09:00 Cefepime HCl (Maxipime 1gm/50 ml (Pmx)) 50 ml @ 100 mls/hr Q24H IVPB Last administered on 08/18/16 14:17; Admin Dose 100 MLS/HR; Start 08/15/16 at 14:00 Furosemide (Lasix) 40 mg DAILY PO Last administered on 08/16/16 15:46; Admin Dose 40 MG; Start 08/16/16 at 09:00; Status Future Hold Mupirocin (Bactroban) 1 applic BID TOP Last administered on 08/19/16 09:02; Admin Dose 1 APPLIC; Start 08/16/16 at 21:00 Docusate Sodium (Colace) 200 mg BID PO Last administered on 08/19/16 08:57; Admin Dose 200 MG; Start 08/18/16 at 14:00 Lactulose 20 gm 20 gm Q6H PRN PO CONSTIPATION; Start 08/18/16 at 14:00 Vancomycin HCl (Vancocin) 250 ml @ 125 mls/hr Q48H IVPB ; Start 08/20/16 at 06: 00 Prednisone (Prednisone) 10 mg DAILY PO ; Start 08/20/16 at 09:00 Flako Dee DO Aug 19, 2016 14:29
--- NOTE | 2016-08-19 14:40 | CONS ---
Date/Time of Note Date/Time of Note DATE: 08/19/16 TIME: 14:39 Assessment/Plan Assessment/Plan Chief Complaint/Hosp Course SUBJECTIVE: Patient is awake. No fevers. NAD MICROBIOLOGY: Blood culture repeated on 08/16/2016 and 08/17/2016 remain negative. ANTIMICROBIALS: 1. Vancomycin. 2. Topical Bactroban to the nares. 3. Cefepime. PHYSICAL EXAMINATION: GENERAL: This is a well-developed, chronically ill-appearing, elderly man, who is awake, in no distress. HEENT: Head atraumatic, normocephalic. Sclerae anicteric. Buccal mucosa dry. NECK: Supple, trachea midline. CHEST: Chest rise is symmetrical. Breath sounds diminished to the bases. HEART: S1, S2. ABDOMEN: Soft, bowel tones present. EXTREMITIES: Without cyanosis. ASSESSMENT: 1. Resolving sepsis. 2. Status post coagulase-negative staph bacteremia, consistent with contaminant. 3. Congestive heart failure exacerbation. 4. History of coronary artery bypass graft with ICD placement. 5. History of renal transplant in 2007, on immunosuppressive therapy and steroids. 6. Severe aortic stenosis. PLAN: The patient remains stable. He is being followed by multiple consultants. Repeat blood cultures negative. We will continue him on the current antibiotics, continue Bactroban to the nares. DW staff Problems: Consultation Date/Type/Reason Admit Date/Time August 14, 2016 at 12:40 Initial Consult Date Type of Consultation: id Exam/Review of Systems Vital Signs Vitals Vital Signs Date Time Temp Pulse Resp B/P Pulse Ox O2 Delivery O2 Flow Rate FiO2 08/19/16 14:12 68 18 97 Nasal Cannula 2.0 08/19/16 11:37 98.2 109/67 08/15/16 14:13 32 Intake and Output 08/18/16 08/18/16 08/19/16 15:00 23:00 07:00 Intake Total 300 ml 700 ml 350 ml Output Total 800 ml 400 ml 750 ml Balance -500 ml 300 ml -400 ml Results Result Diagram: 08/19/16 0627 08/19/16 06 Results 24 hrs Laboratory Tests Test 08/18/16 17:34 08/18/16 20:28 08/19/16 06:27 08/19/16 07:40 Bedside Glucose 134 135 115 White Blood Count 11.0 H Red Blood Count 3.88 L Hemoglobin 11.3 L Hematocrit 35.3 L Mean Corpuscular Volume 91.0 Mean Corpuscular Hemoglobin 29.1 Mean Corpuscular Hemoglobin Concent 32.0 Red Cell Distribution Width 15.7 H Platelet Count 134 L Mean Platelet Volume 13.2 H Neutrophils % 86.3 H Lymphocytes % 2.6 L Monocytes % 9.5 Eosinophils % 0.1 Basophils % 0.1 Nucleated Red Blood Cells % 0.0 Neutrophils # 9.5 H Lymphocytes # 0.3 L Monocytes # 1.0 H Eosinophils # 0.0 Basophils # 0.0 Nucleated Red Blood Cells # 0.0 Sodium Level 142 Potassium Level 4.7 Chloride Level 110 Carbon Dioxide Level 21 Anion Gap 16 Blood Urea Nitrogen 83 H Creatinine 1.90 H Glucose Level 124 Calcium Level 8.8 Phosphorus Level 4.5 Magnesium Level 2.5 Total Bilirubin 0.5 Direct Bilirubin 0.00 Indirect Bilirubin 0.5 Aspartate Amino Transf (AST/SGOT) 13 L Alanine Aminotransferase (ALT/SGPT) 31 Alkaline Phosphatase 47 Total Protein 6.9 Albumin 4.5 Globulin 2.40 Albumin/Globulin Ratio 1.87 Test 08/19/16 11:39 Bedside Glucose 167 Medications Medications Current Medications Acetaminophen (Tylenol Tab) 650 mg Q6H PRN PO PAIN LEVEL 1-3 OR FEVER; Start at 13:00 Amiodarone HCl (Cordarone) 400 mg BID PO Last administered on 08/19/16 08:58; Admin Dose 400 MG; Start 08/14/16 at 21:00 Apixaban (Eliquis) 2.5 mg BID PO Last administered on 08/19/16 08:58; Admin Dose 2.5 MG; Start 08/14/16 at 21:00 Atorvastatin Calcium (Lipitor) 80 mg QHS PO Last administered on 08/18/16 20:29 ; Admin Dose 80 MG; Start 08/14/16 at 21:00 Calcitriol (Rocaltrol) 0.25 mcg DAILY PO Last administered on 08/19/16 08:56; Admin Dose 0.25 MCG; Start 08/15/16 at 09:00 Doxazosin Mesylate (Cardura) 2 mg HS PO Last administered on 08/18/16 20:31; Admin Dose 2 MG; Start 08/14/16 at 21:00 Hydralazine HCl (Apresoline) 25 mg BID PO Last administered on 08/19/16 08:56; Admin Dose 25 MG; Start 08/14/16 at 21:00 Isosorbide Mononitrate (Imdur) 30 mg DAILY PO Last administered on 08/19/16 08: 59; Admin Dose 30 MG; Start 08/14/16 at 14:00 Mycophenolate Sodium (Myfortic) 180 mg Q12 PO Last administered on 08/19/16 08: 56; Admin Dose 180 MG; Start 08/14/16 at 21:00 Pantoprazole (Protonix Tab) 40 mg DAILY PO Last administered on 08/19/16 08:56 ; Admin Dose 40 MG; Start 08/15/16 at 09:00 Tacrolimus (Prograf) 0.5 mg Q12 PO Last administered on 08/19/16 08:56; Admin Dose 0.5 MG; Start 08/14/16 at 21:00 Diagnostic Test (Pha) (Accu-Chek) 1 ea 02 XX ; Start 08/15/16 at 02:00 Miscellaneous Information 1 ea NOTE XX ; Start 08/14/16 at 14:30 Glucose (Glutose) 15 gm Q15M PRN PO DECREASED GLUCOSE; Start 08/14/16 at 14:30 Glucose (Glutose) 22.5 gm Q15M PRN PO DECREASED GLUCOSE; Start 08/14/16 at 14: 30 Dextrose (D50w Syringe) 25 ml Q15M PRN IV DECREASED GLUCOSE; Start 08/14/16 at 14:30 Dextrose (D50w Syringe) 50 ml Q15M PRN IV DECREASED GLUCOSE; Start 08/14/16 at 14:30 Glucagon (Glucagen) 1 mg Q15M PRN IM DECREASED GLUCOSE; Start 08/14/16 at 14:30 Glucose (Glutose) 15 gm Q15M PRN BUCCAL DECREASED GLUCOSE; Start 08/14/16 at 14 :30 Carvedilol 12.5 mg 12.5 mg BID PO Last administered on 08/19/16 08:57; Admin Dose 12.5 MG; Start 08/15/16 at 09:00 Cefepime HCl (Maxipime 1gm/50 ml (Pmx)) 50 ml @ 100 mls/hr Q24H IVPB Last administered on 08/18/16 14:17; Admin Dose 100 MLS/HR; Start 08/15/16 at 14:00 Furosemide (Lasix) 40 mg DAILY PO Last administered on 08/16/16 15:46; Admin Dose 40 MG; Start 08/16/16 at 09:00; Status Future Hold Mupirocin (Bactroban) 1 applic BID TOP Last administered on 08/19/16 09:02; Admin Dose 1 APPLIC; Start 08/16/16 at 21:00 Docusate Sodium (Colace) 200 mg BID PO Last administered on 08/19/16 08:57; Admin Dose 200 MG; Start 08/18/16 at 14:00 Lactulose 20 gm 20 gm Q6H PRN PO CONSTIPATION; Start 08/18/16 at 14:00 Vancomycin HCl (Vancocin) 250 ml @ 125 mls/hr Q48H IVPB ; Start 08/20/16 at 06: 00 Prednisone (Prednisone) 10 mg DAILY PO ; Start 08/20/16 at 09:00 KENDRA MORROW NP Aug 19, 2016 14:40
[2016-08-19] MEDS: CEFEPIME 1GM/50 ML (PMX) 50 ML IVPB SCH (14:47)
--- NOTE | 2016-08-19 15:57 | PN ---
DATE: 08/19/2016 SUBJECTIVE: Patient seen. The patient is feeling better. He had a bowel movement and then went to the bathroom with assistance. In addition, kidney function has improved as his creatinine came down from 2.53 to 1.9. The patient is overall feeling better. Family is at bedside, case briefly discu ssed. PHYSICAL EXAMINATION: VITAL SIGNS: Patient is afebrile. Temperature is 98.2, pulse 80, respirations 20, blood pressure 1 09/67, saturation 97% on 2 liters. GENERAL: The patient is in no acute distress. The patient is pale. CARDIOVASCULAR: Positive S1 and S2. Positive systolic ejection murmur heard throughout. LUNGS: Clear bilaterally but decreased inspiratory and expiratory effort. ABDOMEN: Soft, nontender. EXTREMITIES: No clubbing, cyanosis, or edema. LABORATORY DATA: White count is 11, hemoglobin 11.3, hematocrit 35, platelet count 134, neutrophils 86%, lymphocytes 3%. Chemistry: Sodium 142, potassium 4.7, chloride 110, bicarbonate 21, BUN is 8 3, creatinine 1.9, glucose of 124. Last glucose level of 167 and 115. LFTs are normal. Albumin is 4.5. TSH is 3.1. IMAGING: Chest x-ray which I ordered for today showed the following, cardiomegaly with left-sided A ICD status post CABG, decreased bilateral pleural effusion and bibasilar atelectasis. There is hype rinflation of the lungs with flattening of the diaphragm. hilar vascular congestion is unchanged. MEDICATIONS: 1. Vancomycin dose per pharmacy. 2. Colace 200 b.i.d. 3. Lactulose p.r.n. 4. Prednisone 20 mg daily. 5. Bactroban ointment b.i.d. to the nares. 6. Cefepime 1 gram q.24h. 7. Calcitriol 0.25 daily. 8. Protonix 40 mg daily. 9. Coreg 12.5 b.i.d. 10. Synthroid 100 mcg daily. 11. Accu-Chek q.a.c. and at bedtime. 12. Amiodarone 400 b.i.d. 13. Eliquis 2.5 b.i.d. 14. Lipitor 80 mg at bedtime. 15. Cardura 2 mg at bedtime. 16. Hydralazine 25 b.i.d. 17. Mycophenolate sodium 180 q.12h. 18. Prograf 0.5 q.12h. 19. DuoNeb q.6h. 20. Insulin aspart per sliding scale and hypoglycemia protocol. 21. Imdur 30 mg daily. 22. Tylenol p.r.n. ASSESSMENT AND PLAN: This is a 71-year-old male with history of coronary artery disease, status post CABG, cardiomyopathy with EF of 35%, status post AICD placement, also history of severe aortic stenosis, paroxysmal atrial fibrillation, CKD stage III, status post renal transplant a few y ears ago who presented with acute respiratory failure. 1. 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 Remains on antibiotics, breathing treatment and O2 support, clinically improving. 2. Cardiovascular. Patient is status post treatment for CHF. Chest x-ray is improved. Continue a nticoagulation with Eliquis. Follow up at a tertiary hospital, I would recommend, for evaluation of his severe aortic stenosis. 3. Borderline diabetes mellitus, likely secondary to steroids. Continue insulin sliding scale. 4. Acute on chronic renal insufficiency, likely exacerbated by diuretics now. Creatinine is back t o baseline. Continue tapering down his prednisone to his previous dose, 5 mg daily. 5. Infectious disease, being treated for pneumonia and mild urinary tract infection. Remains on ce fepime and vancomycin as the patient has methicillin-resistant Staphylococcus aureus of the nares. Continue Bactroban to the nares, deescalate antibiotics soon. ID to follow. 6. Activity as tolerated. 7. Constipation. Continue stool softeners. 8. We will follow. Dictated By: BRANDY WASHBURN/JOYCE Conf#: [id number] DID#: [id number]
[2016-08-19] MEDS: DOXAZOSIN 2 MG TAB PO SCH (21:50)
[2016-08-19] MEDS: ATORVASTATIN 80 MG TAB PO SCH (21:51)
[2016-08-20] VITALS (10 sets, daily range): BP systolic 104–120; BP diastolic 67–73; PULSE 80–101; RESP 19–20
[2016-08-20] MEDS: ACCU-CHEK XX SCH (02:00)
[2016-08-20] MEDS: LEVOTHYROXINE 100 MCG TAB PO SCH (05:51)
[2016-08-20] MEDS ORDERED: VANCOMYCIN 1 GM in NS 250 ML IVPB SCH (06:00)
[2016-08-20 06:57] LABS: ADD SCAN DIFF NO
[2016-08-20 07:04] LABS: ABNORMAL IP MESSAGE 1; BASOPHILS % 0.2 % (0.0-2.0); EOSINOPHILS # 0.1 10^3/ul (0.0-0.5); EOSINOPHILS % 0.4 % (0.0-7.0); HEMATOCRIT 36.6 % (42.0-52.0); HEMOGLOBIN 11.4 g/dl (14.0-18.0); LYMPHOCYTES # 0.5 10^3/ul (0.8-2.9); LYMPHOCYTES % 4.3 % (15.0-51.0); MEAN CORPUSCULAR HEMOGLOBIN 28.6 pg (29.0-33.0); MEAN CORPUSCULAR HGB CONC 31.1 g/dl (32.0-37.0); MEAN PLATELET VOLUME 12.9 fl (7.4-10.4); MONOCYTE # 1.4 10^3/ul (0.3-0.9); MONOCYTES % 12.2 % (0.0-11.0); NEUTROPHIL # 9.3 10^3/ul (1.6-7.5); NEUTROPHILS % 80.7 % (39.0-77.0); PLATELET COUNT 127 10^3/UL (140-415); RED BLOOD COUNT 3.98 10^6/ul (4.70-6.10); RED CELL DISTRIBUTION WIDTH 15.8 % (11.5-14.5); WHITE BLOOD COUNT 11.6 10^3/ul (4.8-10.8)
[2016-08-20 07:21] LABS: CALCIUM 9.1 mg/dl (8.4-10.2); CREATININE 1.69 mg/dl (0.61-1.24); POTASSIUM 4.6 mmol/L (3.5-5.1)
[2016-08-20] MEDS: ALBUTEROL/IPRATROPIUM (NEB) 3 ML AMP HHN SCH ×2 (07:35→13:29)
[2016-08-20 07:45] LABS: MAGNESIUM 2.4 mg/dl (1.7-2.5); PHOSPHORUS 3.2 mg/dl (2.5-4.9)
[2016-08-20] MEDS: INSULIN ASPART [NOVOLOG] 3 ML PEN SC SCH ×2 (07:55→11:43)
[2016-08-20] MEDS: DOCUSATE SODIUM 100 MG CAP PO SCH (08:18)
[2016-08-20] MEDS: CALCITRIOL 0.25 MCG CAP PO SCH (08:18)
[2016-08-20] MEDS: TACROLIMUS 0.5 MG CAP PO SCH (08:18)
[2016-08-20] MEDS: PANTOPRAZOLE (EC) 40 MG TAB PO SCH (08:19)
[2016-08-20] MEDS: APIXABAN 5 MG TABLET PO SCH (08:19)
[2016-08-20] MEDS: ISOSORBIDE MONONITRATE(SR)30 MG TAB PO SCH (08:22)
[2016-08-20] MEDS: MYCOPHENOLATE (SR) 180 MG TAB PO SCH (08:22)
[2016-08-20] MEDS: AMIODARONE 200 MG TAB PO SCH (08:23)
[2016-08-20] MEDS: MUPIROCIN 2% 22 GM OINT TOP SCH (08:23)
[2016-08-20] MEDS ORDERED: predniSONE 10 MG TAB PO SCH (09:00)
--- NOTE | 2016-08-20 09:05 | PN ---
DATE: 08/18/2016 The patient remains in bed. Case discussed with nursing staff, as the patient is constipated. In a ddition, kidney function appears to be stabilizing. Yesterday creatinine was 2.49, today is 2.53. Also, the patient's Prograf level is therapeutic at the level 6.1; range is 5 to 20. The patient ot herwise denies any chest pain or shortness of breath. PHYSICAL EXAMINATION: VITAL SIGNS: Temperature 98.1, pulse 80, respirations 20, blood pressure 114/75, saturation 98% on 2 liters. GENERAL: The patient is in no acute distress. The patient is pale, positive JVD. CARDIOVASCULAR: S1 and S2. Positive systolic ejection murmur heard throughout. LUNGS: Decreased bilaterally. ABDOMEN: Soft, nontender. EXTREMITIES: No clubbing, cyanosis, or edema. LABORATORY DATA: White count is 11.1, hemoglobin 10.8, hematocrit 35, platelet count 142, neutrophi ls 90%, lymphocytes 2%. Chemistry: Sodium is 143, potassium 5.0, chloride 108, bicarbonate 24, BUN is high at 88, creatinine 2.53, glucose of 131. Last glucose levels 125 and 136. Blood cultures t urned out to be coagulase-negative staph and repeat blood culture is negative. MRSA of the nares wa s positive. Last chest x-ray done on 08/15/2016 at that time did show moderate cardiomegaly with w orsening pulmonary vascular congestion. MEDICATIONS: Include: 1. Prednisone 20 mg daily. 2. Bactroban ointment b.i.d. 3. Vancomycin dose per pharmacy. 4. Cefepime 1 gram q. 24 hours. 5. Calcitriol 0.25 daily. 6. Protonix 40 mg daily. 7. Prednisone 5 mg daily. 8. Coreg 12.5 b.i.d. 9. Synthroid 100 mcg daily. 10. Accu-Chek q.a.c. and at bedtime. 11. Amiodarone 400 b.i.d. 12. Eliquis 2.5 b.i.d. 13. Lipitor 80 mg at bedtime. 14. Cardura 2 mg at bedtime. 15. Hydralazine 25 b.i.d. 16. Mycophenolate sodium 180 mg q. 12h. 17. Prograf 0.5 q.12h. 18. DuoNebs every 6 hours. 19. Insulin aspart per sliding scale. 20. Hypoglycemia protocol. 21. Imdur 30 mg daily. 22. Tylenol p.r.n. ASSESSMENT AND PLAN: 1. This is an unfortunate 71-year-old male with history of coronary artery disease, sever e aortic stenosis, status post coronary artery bypass grafting, cardiomyopathy with ejection fractio n of 35%, status post automatic implantable cardioverter-defibrillator, also history of paroxysmal atrial fibrillation, chronic kidney disease, status post renal transplant in the past, who presented with acute respiratory failure likely combination of congestive heart failure and acute bronchitis plus or minus pneumonia. Diuretics are on hold secondary to worsening kidney function. Continue b reathing treatments, deescalate antibiotics and will taper down steroids, as the patient has history of tobacco use and likely presented with a component of chronic obstructive pulmonary disease exace rbation as well. 2. Cardiovascular. Patient with severe aortic stenosis and depressed ejection fraction definitely recommended to follow up with a tertiary hospital for evaluation for possible aortic valve procedure /surgery. 3. Borderline diabetes mellitus, insulin sliding scale for now. 4. Acute on chronic renal insufficiency. Prograf level is therapeutic. Hold diuretics and observe . Taper down steroids. 5. Infectious disease. The patient with methicillin-resistant Staphylococcus aureus of the nares. Again, we will deescalate antibiotics. 6. Continue anticoagulation with Eliquis, renally dose. 7. Out of bed activity as tolerated and physical therapy will be requested. We will follow. Dictated By: BRANDY WASHBURN/JOYCE Conf#: [id number] DID#: [id number]
--- NOTE | 2016-08-20 11:21 | CONS ---
Date/Time of Note Date/Time of Note DATE: 08/20/16 TIME: 11:17 Assessment/Plan Assessment/Plan Additional Assessment/Plan Assessment recommendations; 1. Patient admitted for transesophageal echocardiogram and then developed respiratory failure during the procedure now successfully extubated several days ago with excellent overall clinical status. 2. Likely underlying severe aortic stenosis. 3. History of renal insufficiency. Status post kidney transplant on chronic immunosuppression. 4. Coagulase negative bacteremia likely skin contaminant with multiple follow- up blood cultures negative. 5. Currently no evidence of any infective process. 6. Underlying COPD. 7. Cardiac arrhythmia, status post pacemaker placement. Patient will be discharged home. He has home oxygen. Meanwhile I would recommend stopping all antibiotics. Tapered on prednisone dosing. Once clinically stable patient will need to have a trans-esophageal echocardiogram done at a later date. Consultation Date/Type/Reason Admit Date/Time August 14, 2016 at 12:40 Type of Consultation: Pulmonary 24 HR Interval Summary Free Text/Dictation Patient condition is stable. Denies any shortness of breath, chest pain, wheezing cough or sputum production. Patient wants to go home. Vera; elderly male, awake alert currently in no distress. Exam/Review of Systems Vital Signs Vitals Vital Signs Date Time Temp Pulse Resp B/P Pulse Ox O2 Delivery O2 Flow Rate FiO2 08/20/16 08:24 80 08/20/16 07:48 98.2 20 120/73 100 08/20/16 07:36 2.0 08/20/16 07:36 Nasal Cannula Intake and Output 08/19/16 08/19/16 08/20/16 15:00 23:00 07:00 Intake Total 750 ml 320 ml Output Total 900 ml 1050 ml Balance -150 ml -730 ml Exam HEENT exam; supple neck, no JVD. No lymphadenopathy. Midline trachea. No thyromegaly. Pharynx is clear. Patient is edentulous and wears dentures. Pupils are equal and reactive to light bilaterally. Chest examination; clear to ulceration. S1-S2 audible, there is a loud aortic stenosis murmur grade 3/6. There is a well-healed sternal scar. Regular rhythm. Abdomen examination; soft, no organomegaly. Bowel sounds audible. There is a well-healed right lower quadrant scar. Extremity exam; no peripheral edema. No clubbing. Pulses 1+ bilaterally. URB[employer] PL[employer]NER examination; no focal deficit. Results Result Diagram: 08/20/16 0554 08/20/16 0554 Results 24 hrs Laboratory Tests Test 08/19/16 11:39 08/19/16 16:59 08/19/16 22:01 08/20/16 05:54 Bedside Glucose 167 182 144 White Blood Count 11.6 H Red Blood Count 3.98 L Hemoglobin 11.4 L Hematocrit 36.6 L Mean Corpuscular Volume 92.0 Mean Corpuscular Hemoglobin 28.6 L Mean Corpuscular Hemoglobin Concent 31.1 L Red Cell Distribution Width 15.8 H Platelet Count 127 L Mean Platelet Volume 12.9 H Neutrophils % 80.7 H Lymphocytes % 4.3 L Monocytes % 12.2 H Eosinophils % 0.4 Basophils % 0.2 Nucleated Red Blood Cells % 0.0 Neutrophils # 9.3 H Lymphocytes # 0.5 L Monocytes # 1.4 H Eosinophils # 0.1 Basophils # 0.0 Nucleated Red Blood Cells # 0.0 Sodium Level 145 H Potassium Level 4.6 Chloride Level 111 H Carbon Dioxide Level 24 Anion Gap 15 Blood Urea Nitrogen 68 H Creatinine 1.69 H Glucose Level 97 Calcium Level 9.1 Phosphorus Level 3.2 Magnesium Level 2.4 Test 08/20/16 08:05 Bedside Glucose 89 Medications Medications Current Medications Acetaminophen (Tylenol Tab) 650 mg Q6H PRN PO PAIN LEVEL 1-3 OR FEVER; Start at 13:00 Amiodarone HCl (Cordarone) 400 mg BID PO Last administered on 08/20/16 08:23; Admin Dose 400 MG; Start 08/14/16 at 21:00 Apixaban (Eliquis) 2.5 mg BID PO Last administered on 08/20/16 08:19; Admin Dose 2.5 MG; Start 08/14/16 at 21:00 Atorvastatin Calcium (Lipitor) 80 mg QHS PO Last administered on 08/19/16 21:51 ; Admin Dose 80 MG; Start 08/14/16 at 21:00 Calcitriol (Rocaltrol) 0.25 mcg DAILY PO Last administered on 08/20/16 08:18; Admin Dose 0.25 MCG; Start 08/15/16 at 09:00 Doxazosin Mesylate (Cardura) 2 mg HS PO Last administered on 08/19/16 21:50; Admin Dose 2 MG; Start 08/14/16 at 21:00 Hydralazine HCl (Apresoline) 25 mg BID PO Last administered on 08/20/16 08:22; Admin Dose 25 MG; Start 08/14/16 at 21:00 Isosorbide Mononitrate (Imdur) 30 mg DAILY PO Last administered on 08/20/16 08: 22; Admin Dose 30 MG; Start 08/14/16 at 14:00 Mycophenolate Sodium (Myfortic) 180 mg Q12 PO Last administered on 08/20/16 08: 22; Admin Dose 180 MG; Start 08/14/16 at 21:00 Pantoprazole (Protonix Tab) 40 mg DAILY PO Last administered on 08/20/16 08:19 ; Admin Dose 40 MG; Start 08/15/16 at 09:00 Tacrolimus (Prograf) 0.5 mg Q12 PO Last administered on 08/20/16 08:18; Admin Dose 0.5 MG; Start 08/14/16 at 21:00 Diagnostic Test (Pha) (Accu-Chek) 1 ea 02 XX ; Start 08/15/16 at 02:00 Miscellaneous Information 1 ea NOTE XX ; Start 08/14/16 at 14:30 Glucose (Glutose) 15 gm Q15M PRN PO DECREASED GLUCOSE; Start 08/14/16 at 14:30 Glucose (Glutose) 22.5 gm Q15M PRN PO DECREASED GLUCOSE; Start 08/14/16 at 14: 30 Dextrose (D50w Syringe) 25 ml Q15M PRN IV DECREASED GLUCOSE; Start 08/14/16 at 14:30 Dextrose (D50w Syringe) 50 ml Q15M PRN IV DECREASED GLUCOSE; Start 08/14/16 at 14:30 Glucagon (Glucagen) 1 mg Q15M PRN IM DECREASED GLUCOSE; Start 08/14/16 at 14:30 Glucose (Glutose) 15 gm Q15M PRN BUCCAL DECREASED GLUCOSE; Start 08/14/16 at 14 :30 Carvedilol 12.5 mg 12.5 mg BID PO Last administered on 08/20/16 08:22; Admin Dose 12.5 MG; Start 08/15/16 at 09:00 Cefepime HCl (Maxipime 1gm/50 ml (Pmx)) 50 ml @ 100 mls/hr Q24H IVPB Last administered on 08/19/16 14:47; Admin Dose 100 MLS/HR; Start 08/15/16 at 14:00 Mupirocin (Bactroban) 1 applic BID TOP Last administered on 08/20/16 08:23; Admin Dose 1 APPLIC; Start 08/16/16 at 21:00 Docusate Sodium (Colace) 200 mg BID PO Last administered on 08/20/16 08:18; Admin Dose 200 MG; Start 08/18/16 at 14:00 Lactulose 20 gm 20 gm Q6H PRN PO CONSTIPATION; Start 08/18/16 at 14:00 Vancomycin HCl (Vancocin) 250 ml @ 125 mls/hr Q48H IVPB Last administered on 05:52; Admin Dose 125 MLS/HR; Start 08/20/16 at 06:00 Prednisone (Prednisone) 10 mg DAILY PO Last administered on 08/20/16 08:19; Admin Dose 10 MG; Start 08/20/16 at 09:00 Furosemide (Lasix) 20 mg DAILY PO ; Start 08/21/16 at 09:00 DIXIE MATHEW Aug 20, 2016 11:21
--- NOTE | 2016-08-20 11:48 | PN ---
DATE: 08/20/2016 SUBJECTIVE: The patient is stable, no acute events overnight. No fevers, chills, nausea, vomiting. No shortness breath. OBJECTIVE: VITAL SIGNS: Blood pressure is 120/73, respiration is 20, pulse 80, temperature 98.2. HEENT: Head is normocephalic. NECK: Supple. HEART: Regular rate. LUNGS: Show diminished breath sounds at base. ABDOMEN: Soft, nontender to palpation. No rebound or guarding. EXTREMITIES: Negative for clubbing, cyanosis, no edema. DERMATOLOGIC: No rashes. MUSCULOSKELETAL: No joint effusions. NEUROLOGIC: No change in exam. MEDICATIONS: The patient's medications have been reviewed. LABORATORY DATA: Sodium 145, potassium 4.6, chloride 111, BUN 68, creatinine 1.69. White count 11. 6, hemoglobin 9.4, hematocrit 36.6, platelet count is 127. IMAGING: The patient's chest x-ray from 08/19/2016 shows vascular congestion unchanged, cardiomegal y, hyperinflation of the lungs. The patient's Prograf level came back at 6.1. ASSESSMENT AND PLAN: 1. Nonoliguric acute kidney injury on top of chronic allograft failure with a previous baseline cre atinine of 1.7 mg/dL. Etiology of acute kidney injury is secondary to hemodynamics, sepsis. The sharif de jesus's renal function has significantly improved over the last 2 to 3 days after holding diuretic t herapy. Renal function is nearing baseline. At this point, continue current treatment plan, suppor tive care, and renally dose all meds. The patient's Prograf level was checked, within normal limits . 2. End-stage renal disease status post living related transplant with a baseline creatinine of 1.7 mg/dL. The patient is currently in acute kidney injury as stated above. Continue current treatment plan. Prograf level was currently at goal between 4 to 6. Continue to monitor. 3. Immunosuppression therapy. The patient is on triple therapy. We will continue to monitor. 4. Anemia. Continue to monitor hemoglobin and hematocrit levels. 5. Hyponatremia. Will encourage free water intake. 6. Mineral bone disorder. Continue to monitor calcium and phosphorus levels. 7. Sepsis secondary to multifocal pneumonia. Continue current antibiotic regimen. 8. Acute hypoxemic respiratory failure secondary to pneumonia. Continue current treatment plan. 9. Cardiomyopathy. The patient is currently being seen by cardiology. Will resume low dose diuret ic therapy, continue medical management. 10. Hypertension. Continue current blood pressure regimen. 11. Diabetes. Continue Accu-Cheks, insulin sliding scale. 12. History of aortic stenosis. 13. Status post coronary artery bypass graft. 14. Atrial fibrillation, continue current medical management. Dictated By: INDIRA DYSON/JOYCE Conf#: [id number] DID#: [id number]
--- NOTE | 2016-08-20 14:07 | CONS ---
Date/Time of Note Date/Time of Note DATE: 08/20/16 TIME: 14:06 Assessment/Plan Assessment/Plan Chief Complaint/Hosp Course SUBJECTIVE: Patient is awake. No fevers. NAD MICROBIOLOGY: Blood culture repeated on 08/16/2016 and 08/17/2016 remain negative. PHYSICAL EXAMINATION: GENERAL: This is a well-developed, chronically ill-appearing, elderly man, who is awake, in no distress. HEENT: Head atraumatic, normocephalic. Sclerae anicteric. Buccal mucosa dry. NECK: Supple, trachea midline. CHEST: Chest rise is symmetrical. Breath sounds diminished to the bases. HEART: S1, S2. ABDOMEN: Soft, bowel tones present. EXTREMITIES: Without cyanosis. ASSESSMENT: 1. S/p sepsis. 2. Status post coagulase-negative staph bacteremia, consistent with contaminant. 3. Congestive heart failure exacerbation. 4. History of coronary artery bypass graft with ICD placement. 5. History of renal transplant in 2007, on immunosuppressive therapy and steroids. 6. Severe aortic stenosis. PLAN: The patient remains stable. Antibiotics were discontinued. He is being followed by multiple consultants. Repeat blood cultures negative. AAYUSH Guerra Problems: Consultation Date/Type/Reason Admit Date/Time August 14, 2016 at 12:40 Type of Consultation: ID Exam/Review of Systems Vital Signs Vitals Vital Signs Date Time Temp Pulse Resp B/P Pulse Ox O2 Delivery O2 Flow Rate FiO2 08/20/16 13:29 72 18 97 Nasal Cannula 2.0 08/20/16 11:27 98.8 104/72 Intake and Output 08/19/16 08/19/16 08/20/16 15:00 23:00 07:00 Intake Total 750 ml 320 ml Output Total 900 ml 1050 ml Balance -150 ml -730 ml Results Result Diagram: 08/20/16 0554 08/20/16 0554 Results 24 hrs Laboratory Tests Test 08/19/16 16:59 08/19/16 22:01 08/20/16 05:54 08/20/16 08:05 Bedside Glucose 182 144 89 White Blood Count 11.6 H Red Blood Count 3.98 L Hemoglobin 11.4 L Hematocrit 36.6 L Mean Corpuscular Volume 92.0 Mean Corpuscular Hemoglobin 28.6 L Mean Corpuscular Hemoglobin Concent 31.1 L Red Cell Distribution Width 15.8 H Platelet Count 127 L Mean Platelet Volume 12.9 H Neutrophils % 80.7 H Lymphocytes % 4.3 L Monocytes % 12.2 H Eosinophils % 0.4 Basophils % 0.2 Nucleated Red Blood Cells % 0.0 Neutrophils # 9.3 H Lymphocytes # 0.5 L Monocytes # 1.4 H Eosinophils # 0.1 Basophils # 0.0 Nucleated Red Blood Cells # 0.0 Sodium Level 145 H Potassium Level 4.6 Chloride Level 111 H Carbon Dioxide Level 24 Anion Gap 15 Blood Urea Nitrogen 68 H Creatinine 1.69 H Glucose Level 97 Calcium Level 9.1 Phosphorus Level 3.2 Magnesium Level 2.4 Test 08/20/16 11:43 Bedside Glucose 111 Medications Medications Current Medications Acetaminophen (Tylenol Tab) 650 mg Q6H PRN PO PAIN LEVEL 1-3 OR FEVER; Start at 13:00 Amiodarone HCl (Cordarone) 400 mg BID PO Last administered on 08/20/16 08:23; Admin Dose 400 MG; Start 08/14/16 at 21:00 Apixaban (Eliquis) 2.5 mg BID PO Last administered on 08/20/16 08:19; Admin Dose 2.5 MG; Start 08/14/16 at 21:00 Atorvastatin Calcium (Lipitor) 80 mg QHS PO Last administered on 08/19/16 21:51 ; Admin Dose 80 MG; Start 08/14/16 at 21:00 Calcitriol (Rocaltrol) 0.25 mcg DAILY PO Last administered on 08/20/16 08:18; Admin Dose 0.25 MCG; Start 08/15/16 at 09:00 Doxazosin Mesylate (Cardura) 2 mg HS PO Last administered on 08/19/16 21:50; Admin Dose 2 MG; Start 08/14/16 at 21:00 Hydralazine HCl (Apresoline) 25 mg BID PO Last administered on 08/20/16 08:22; Admin Dose 25 MG; Start 08/14/16 at 21:00 Isosorbide Mononitrate (Imdur) 30 mg DAILY PO Last administered on 08/20/16 08: 22; Admin Dose 30 MG; Start 08/14/16 at 14:00 Mycophenolate Sodium (Myfortic) 180 mg Q12 PO Last administered on 08/20/16 08: 22; Admin Dose 180 MG; Start 08/14/16 at 21:00 Pantoprazole (Protonix Tab) 40 mg DAILY PO Last administered on 08/20/16 08:19 ; Admin Dose 40 MG; Start 08/15/16 at 09:00 Tacrolimus (Prograf) 0.5 mg Q12 PO Last administered on 08/20/16 08:18; Admin Dose 0.5 MG; Start 08/14/16 at 21:00 Diagnostic Test (Pha) (Accu-Chek) 1 ea 02 XX ; Start 08/15/16 at 02:00 Miscellaneous Information 1 ea NOTE XX ; Start 08/14/16 at 14:30 Glucose (Glutose) 15 gm Q15M PRN PO DECREASED GLUCOSE; Start 08/14/16 at 14:30 Glucose (Glutose) 22.5 gm Q15M PRN PO DECREASED GLUCOSE; Start 08/14/16 at 14: 30 Dextrose (D50w Syringe) 25 ml Q15M PRN IV DECREASED GLUCOSE; Start 08/14/16 at 14:30 Dextrose (D50w Syringe) 50 ml Q15M PRN IV DECREASED GLUCOSE; Start 08/14/16 at 14:30 Glucagon (Glucagen) 1 mg Q15M PRN IM DECREASED GLUCOSE; Start 08/14/16 at 14:30 Glucose (Glutose) 15 gm Q15M PRN BUCCAL DECREASED GLUCOSE; Start 08/14/16 at 14 :30 Carvedilol (Coreg) 12.5 mg BID PO Last administered on 08/20/16 08:22; Admin Dose 12.5 MG; Start 08/15/16 at 09:00 Mupirocin (Bactroban) 1 applic BID TOP Last administered on 08/20/16 08:23; Admin Dose 1 APPLIC; Start 08/16/16 at 21:00 Docusate Sodium (Colace) 200 mg BID PO Last administered on 08/20/16 08:18; Admin Dose 200 MG; Start 08/18/16 at 14:00 Lactulose (Enulose) 20 gm Q6H PRN PO CONSTIPATION; Start 08/18/16 at 14:00 Furosemide (Lasix) 20 mg DAILY PO ; Start 08/21/16 at 09:00 Prednisone (Prednisone) 5 mg DAILY PO ; Start 08/21/16 at 09:00 KENDRA MORROW NP Aug 20, 2016 14:07
--- NOTE | 2016-08-20 14:08 | PDOCDIS ---
Discharge Instructions CONDITION Patient Condition: Stable HOME CARE INSTRUCTIONS: Special Diet: CARDIAC ACTIVITY: Activity Restrictions: Slowly Increase Activity FOLLOW UP/APPOINTMENTS Appointments follow up with PMD, cardiology and nephrology within 1-2 weeks, continue all home meds as instructed, see attached prescriptions as well, any change in condition call 911 or go to the nearest emergency room BRANDY REHMAN MD Aug 20, 2016 14:08
[2016-08-20] MEDS ORDERED: ALBU8.5H3 INH (14:11)
--- NOTE | 2016-08-20 15:39 | PN ---
DATE: 08/20/2016 CARDIOLOGY FOLLOWUP NOTE SUBJECTIVE: Discussed with the staff, discussed with the daughter. The patient remains in paced rh ythm. No chest pain or pressure. No palpitation. His breathing has significantly improved. He wa nts to go home. MEDICATIONS: Reviewed. PHYSICAL EXAMINATION: VITAL SIGNS: Temperature 98.8, heart rate of 72, blood pressure 104/72, respiratory rate of 18, sat urating 97%. HEENT: Normocephalic, atraumatic. Pupils are equal. CARDIOVASCULAR: Regular rate and rhythm. Systolic ejection murmur. PULMONARY: No wheezes. GASTROINTESTINAL: Soft, nontender. EXTREMITIES: No significant edema. NEUROLOGIC: Awake and alert. PSYCHIATRIC: Calm and pleasant. LABORATORY DATA: Sodium 145, potassium 4.6, BUN of 68, creatinine of 0.69, glucose of 198. ASSESSMENT AND PLAN: 1. Pneumonia. 2. Hypoxemia and hypercapnic respiratory failure. 3. Aortic stenosis, severe. 4. Coronary artery disease with coronary artery bypass graft. 5. Renal failure, acute on chronic. 6. Atrial fibrillation, currently persistent. RECOMMENDATIONS: We will continue with the current cardiac care. The patient is to be discharged. I have discussed different options including , transcatheter aortic valve replacement with the patient and the daughter. . We will follow the patient next week and we will further discuss as far as continuation of care and medical therapy versus surgical therapy. Dictated By: CARMEN JARAMILLO MD AV/JOYCE Conf#: [id number] DID#: [id number] CC: BRANDY REHMAN MD;*End*
--- NOTE | 2016-08-20 21:10 | DS ---
DATE OF ADMISSION: 08/14/2016 DATE OF DISCHARGE: 08/20/2016 REASON FOR ADMISSION: Acute respiratory failure, COPD exacerbation, rule out pneumonia, CHF exacerb ation. HOSPITAL COURSE: The patient is a 71-year-old, male with history of hypertension, status post renal transplant in 2007, also history of dyslipidemia, aortic stenosis and paroxysmal atrial fibrillation who is anticoagulated with Eliquis. Also, history of CHF, cardiomyopathy with estimate d ejection fraction of 35%. Also, history of coronary artery disease status post CABG and status po st ICD placement. The patient was planned to undergo transesophageal echocardiogram, but pantera rudd was found to be in respiratory distress. He was transferred to the intensive care unit and admi tted for further care. Multiple physicians saw the patient during his stay, including Dr. Thakur, t certified medical coding specialist; Dr. Dacosta, the pulmologist; Dr. Ezra Carpio, the composing room supervisor; and also Dr. Alfonso, the infectious disease specialist. Initial chest x-ray showed cardiomegaly with calcif ied atherosclerosis in the aorta, central pulmonary vascular congestion, and increasing prominence i n both lungs, patchy infiltrates throughout the right lung, patchy left lower lobe infiltrates and s mall left pleural effusions. Because of that, I started him on broad spectrum antibiotics initially with cefepime and I added vancomycin later as he was found to have positive blood cultures. In add ition, he was started on IV diuretics with Lasix secondary to congestive heart failure exacerbation. The patient overall improved, but unfortunately kidney function worsened; we had to monitor him cl osely, especially since he has a transplanted kidney. Prograf level was checked and it was 6.1, the rapeutic. Ultimately the blood cultures showed coagulase negative staph in 1 bottle out of 2, all s uggestive of contamination. Repeat blood cultures remained negative. He also was found to have pos itive MRSA of the nares, and he was treated with Bactroban ointment. The patient has now completed a course of 7 days of antibiotics, so the senior instructional designer stopped his antibiotics. The patient is doi ng better. Kidney function is fortunately improved as we held his diuretic therapy. The patient is currently chest pain free and denies any shortness of breath. He will be discharged. Current labs prior to discharge: White count is 11.6, hemoglobin 11.4, hematocrit 37, platelet count of 127, ne utrophils 81%, lymphocytes 4%. During his stay, he was also on steroids, as the patient is a former smoker and he has also likely COPD. Echocardiogram done showed ejection fraction at 30% to 35% wit h severe aortic stenosis. The patient likely will need to go to a tertiary hospital to evaluate his aortic stenosis, possible to undergo surgery. The patient's BUN and creatinine today is 68/1.69. Kidney function, I believe, is back to his baseline. DISCHARGE MEDICATIONS: The patient will be discharged with the following medications: 1. Albuterol ProAir HFA 2 puffs q. 4 hours p.r.n. for shortness of breath. 2. Alendronate 70 mg q. weekly. 3. Amiodarone 400 b.i.d. 4. Eliquis 2.5 b.i.d. 5. Atorvastatin 10 mg at bedtime. 6. Calcitriol 0.25 daily. 7. Coreg 25 b.i.d. 8. Digoxin 0.125, every Saturday, Saturday and Saturday. 9. Doxazosin 2 mg at bedtime. 10. Vitamin D 50,000 units weekly. 11. Lasix 20 mg daily, we will restart it again, and kidney function has to be monitored closely. 12. Hydralazine 25 b.i.d. 13. Imdur 30 mg daily. 14. Synthroid 100 mcg daily. 15. Mycophenolate sodium 180 q.12. 16. Protonix 40 mg daily. 17. Prednisone 5 mg daily. 17. Tacrolimus 0.5 q.12 hours. I have spoken to the patient's daughter in detail. Her name is Mckenzie. She is also the daughter wh o gave him one of her kidneys. Her phone number is [phone]. She is aware of his plan of care. The patient is feeling well and he wants to be discharged. Again, he needs to follow closely, to monitor kidney function and monitor his symptoms. FINAL DIAGNOSES: 1. Acute respiratory failure. 2. Congestive heart failure exacerbation, both systolic and diastolic dysfunction, acute on chronic exacerbation. 3. Possible pneumonia. The patient is immunocompromised. 4. Rule out bacteremia. 5. Methicillin-resistant Staphylococcus aureus of the nares. 6. Acute on chronic renal insufficiency. 7. Status post renal transplant. 8. Anemia. 9. Chronic obstructive pulmonary disease exacerbation. 10. Hyperglycemia. The patient is prediabetic secondary to prednisone. No need for diabetic medic ations an outpatient. 11. Severe aortic stenosis. This will be addressed with the resource efficiency manager. He likely will need yadira e intervention in the near future. 12. Mild Urinary tract infection. His urine was slightly positive. Cultures were not obtained. 13. Coronary artery disease, status post CABG. 14. Paroxysmal atrial fibrillation. 15. Status post automatic implantable cardioverter/defibrillator. 16. Benign prostatic hypertrophy. I did advise him on a low-sodium, low-fat, low-carb diet, as I noted multiple chips in his room a fe w days ago. The patient was seen by the dietitian as well, on 08/18/2016. The patient also has monie pedraza CKD, stage II to III. The patient again was discharged. Any change in condition, to call 911 . The patient does have home O2. I advised him to at least use it at night, and monitor his O2 sat uration. Again, if he does not feel well, call 911 or go to the nearest Emergency Department. The patient was instructed to follow with all his doctors. Dictated By: BRANDY WASHBURN/JOYCE Conf#: [id number] DID#: [id number]
[2016-08-21] MEDS ORDERED: FUROSEMIDE 20 MG TAB PO SCH (09:00)
[2016-08-21] MEDS ORDERED: predniSONE 10 MG TAB PO SCH (09:00)
== END 2016-08-20 17:47 | disposition home health service (06) | DRG 871 ==
LOC: SDS 09:21 → ICU 12:40 → TEL 08-15 16:20
PROVIDERS: ADMIT Internal Medicine Interventional Cardiology; ATTEND Internal Medicine Interventional Cardiology
DX: A41.9 Sepsis, unspecified organism (principal); J96.01 Acute respiratory failure with hypoxia; N17.0 Acute kidney failure with tubular necrosis; I50.43 Acute on chronic combined systolic (congestive) and diastolic (congestive) heart failure; J96.02 Acute respiratory failure with hypercapnia; J18.9 Pneumonia, unspecified organism; I13.0 Hypertensive heart and chronic kidney disease with heart failure and stage 1 through stage 4 chronic kidney disease, or unspecified chronic kidney disease; I42.9 Cardiomyopathy, unspecified; N39.0 Urinary tract infection, site not specified; Z94.0 Kidney transplant status; J44.1 Chronic obstructive pulmonary disease with (acute) exacerbation; J44.0 Chronic obstructive pulmonary disease with (acute) lower respiratory infection; I48.0 Paroxysmal atrial fibrillation; Z79.01 Long term (current) use of anticoagulants; I25.5 Ischemic cardiomyopathy; E78.5 Hyperlipidemia, unspecified; I35.0 Nonrheumatic aortic (valve) stenosis; I25.10 Atherosclerotic heart disease of native coronary artery without angina pectoris; Z95.1 Presence of aortocoronary bypass graft; Z95.810 Presence of automatic (implantable) cardiac defibrillator; Z87.891 Personal history of nicotine dependence; I25.2 Old myocardial infarction; E07.9 Disorder of thyroid, unspecified; I70.0 Atherosclerosis of aorta; N40.0 Benign prostatic hyperplasia without lower urinary tract symptoms; R73.03 Prediabetes; T38.0X5A Adverse effect of glucocorticoids and synthetic analogues, initial encounter; N18.3 Chronic kidney disease, stage 3 (moderate); Z22.322 Carrier or suspected carrier of Methicillin resistant Staphylococcus aureus; E83.89 Other disorders of mineral metabolism; I73.9 Peripheral vascular disease, unspecified; R65.20 Severe sepsis without septic shock; D64.9 Anemia, unspecified
CPT/HCPCS: 36600; 71010; 71250; 80048; 80053; 80061; 80076; 80162; 80197; 80202; 81001; 81003; 82043; 82550; 82553; 82803; 82962; 83036; 83540; 83735; 83880; 84100; 84155; 84300; 84439; 84443; 84484; 85025; 85610; 85730; 87040; 87070; 87081; 93306; 94640; 94664; J0456; J0692; J0696; J1815; J1940; J2920; J2930; J3370; J3475; J7512

== ENCOUNTER 2016-09-11 10:42 | Inpatient (IN) | payer MEDICARE, OTHER ==
[~2016-09-11] VITALS: Ht 165.1 cm; Wt 65.3 kg
[2016-09-11] VITALS (23 sets, daily range): BP systolic 110–153; BP diastolic 75–99; PULSE 64–92; RESP 16–28; Ht 165.1 cm; Wt 65.3 kg
[~2016-09-11 10:42] MED LIST changes: +ALBU8.5H3 INH; +ALEN70TA30 PO; -AMIO200T40 PO; +AMIO400T5 PO; +APIX2.5T PO; -CALC600T5 PO; +CARV25TA79 PO; +DIGO125T6 PO; +DOXA2TAB PO; +ERGO500037 PO; +FURO-110 PO; -METO-429 PO; +PANT40TA3 PO; +PRED5 PO; +SOD CHLORIDE 0.9% 1,000 ML IV SCH
[2016-09-11] MEDS ORDERED: ASPI-664 PO (11:53)
[2016-09-11] MEDS ORDERED: FER325 PO (11:54)
[2016-09-11] MEDS ORDERED: IODIXANOL LOCM 100 ML BTL ONE (12:17)
[2016-09-11] MEDS ORDERED: LIDOCAINE 1% (MDV) 20 ML INJ ONE (12:17)
[2016-09-11] MEDS ORDERED: MIDAZOLAM 1 MG/ML 2 ML INJ ONE (12:18)
[2016-09-11] MEDS ORDERED: FENTAnyl 50 MCG/ML VIAL ONE (12:19)
[2016-09-11 12:36] LABS: ADD SCAN DIFF NO
[2016-09-11 12:38] LABS: ABNORMAL IP MESSAGE 1; BASOPHILS % 0.4 % (0.0-2.0); EOSINOPHILS # 0.1 10^3/ul (0.0-0.5); EOSINOPHILS % 0.8 % (0.0-7.0); HEMATOCRIT 36.2 % (42.0-52.0); HEMOGLOBIN 11.6 g/dl (14.0-18.0); LYMPHOCYTES # 0.5 10^3/ul (0.8-2.9); LYMPHOCYTES % 5.5 % (15.0-51.0); MEAN CORPUSCULAR HEMOGLOBIN 29.4 pg (29.0-33.0); MEAN CORPUSCULAR VOLUME 91.6 fl (82.0-101.0); MEAN PLATELET VOLUME 12.5 fl (7.4-10.4); MONOCYTE # 0.8 10^3/ul (0.3-0.9); MONOCYTES % 8.4 % (0.0-11.0); NEUTROPHIL # 7.5 10^3/ul (1.6-7.5); NEUTROPHILS % 83.2 % (39.0-77.0); PLATELET COUNT 143 10^3/UL (140-415); RED BLOOD COUNT 3.95 10^6/ul (4.70-6.10); RED CELL DISTRIBUTION WIDTH 16.7 % (11.5-14.5)
[2016-09-11 12:54] LABS: INR 1.08; PT RATIO 1.1
[2016-09-11 12:55] LABS: PARTIAL THROMBOPLASTIN TIME 28.4 Sec (25.0-35.0)
[2016-09-11 12:58] LABS: ALBUMIN 4.7 g/dl (3.3-4.9); ALBUMIN/GLOBULIN RATIO 2.04; BILIRUBIN,INDIRECT 0.7 mg/dl (0-1.1); BILIRUBIN,TOTAL 0.7 mg/dl (0.2-1.3); CHOL/HDL RATIO 2.5 RATIO
[2016-09-11 13:09] LABS: TROPONIN-I 0.039 ng/ml (0.00-0.12)
[2016-09-11 13:15] LABS: CREATININE 1.94 mg/dl (0.61-1.24); POTASSIUM 4.7 mmol/L (3.5-5.1)
[2016-09-11 13:16] LABS: CALCIUM 9.7 mg/dl (8.4-10.2); CK-MB 2.67 ng/ml (0.0-2.4)
[2016-09-11] MEDS ORDERED: FUROSEMIDE 40 MG INJ ONE (14:15)
[2016-09-11] MEDS ORDERED: SOD CHLORIDE 0.9% 1,000 ML IV SCH (14:21)
[2016-09-11] MEDS ORDERED: ALBUTEROL 18 GM INHALER INH PRN (14:30)
[2016-09-11] MEDS ORDERED: ALBUTEROL 0.083% (NEB) 2.5 MG/3 ML AMP HHN STA (14:42)
[2016-09-11] MEDS ORDERED: ALBUTEROL 0.083% (NEB) 2.5 MG/3 ML AMP ONE (14:42)
[2016-09-11] MEDS: ACETYLCYSTEINE 600 MG CAP PO SCH ×2 (15:00→21:44)
[2016-09-11] MEDS ORDERED: BUMETANIDE 2 MG in DEXTROSE 5% 17 ML IVPB ONE (15:00)
[2016-09-11] MEDS ORDERED: METHYLPREDNISOLONE 125 MG INJ ONE ×2 (15:36→18:49)
--- NOTE | 2016-09-11 18:11 | HP ---
Date/Time of Note Date/Time of Note DATE: 09/11/16 TIME: 17:55 Admit Date/Time Admit Date/Time Admit Date/Time Sep 11, 2016 at 16:35 History & Physical HPI/ROS HPI The patient is a 71 years old male with history of hypertension, s/p renal transplant 2007, dyslipidemia, Aortic stenosis, P. A.fibrillation on Eliquis, CHF, cardiomyopahty, CAD s/p CABG, EF of 35% s/p AICD placement. Recently admitted for CHF exacerbation. Today he underwent coronary angiogram, and admitted for further care as he has slight worsening shortness of breath. In addition his kidney function has to be monitored closely 2ndary to angiogram. Currently lying flat s/p right femoral angiogram. On Non rebreather mask. Has no complaints. ROS All systems reviewed and are negative except as per history of present illness. PMHX Primary Care Physician Brandy Jacobs MD CAD, CHF, s/p renal transplant, hypertension, Aortic stenosis, P. afib, dyslipidemia, CKD. FmHx Surgical history- renal transplant, CABG 4 v disease, AICD placement Allergies: Enalapril Social Hx Hx Alcohol Use: Yes (QUIT IN THE 70S) Hx Substance Use: No Hx Tobacco Use: Yes (QUIT) Smoking Status: Former smoker Physical Exam Physical Exam Vital Signs Date Time Temp Pulse Resp B/P Pulse Ox O2 Delivery O2 Flow Rate FiO2 09/11/16 17:13 80 09/11/16 17:08 18 139/79 94 Non Rebreather 15.0 09/11/16 16:39 98.8 Const: [XOXOXO] Head: [Atraumatic] Eyes: [Normal Conjunctiva] ENT: [Normal External Ears, Nose and Mouth.] Neck: [Full range of motion. No meningismus.] Resp: [Clear to auscultation bilaterally] Cardio: [Regular rate and rhythm, no murmurs] Abd: [Soft, non tender, non distended. Normal bowel sounds] Skin: [No petechiae or rashes] Back: [No midline or flank tenderness] Ext: [No cyanosis, or edema] Neuro: [Awake and alert] Psych: [Normal Mood and Affect] Result Diagram: 09/11/16 1211 09/11/16 1211 VTE Prophylaxis VTE Prophylaxis Intervention: other (eliquis) Assessment/Plan Hospital Course A/P.71 years old male with history of CHF, EF 35%, Aortic stenosis, A.fib, CAD, CKD, s/p renal transplant who presented for elective coronary angiogram. 1. s/p coronary angiogram- further recs per Dr. Thakur, monitor kidney function , on gentle hydration. 2. Respiratory failure- concerning for CHF, o2 support, breathing tx, follow up AM CXR 3. CKD- hydration- nephrology follow up, continue all post transplant anti rejection meds. 4. Anti coagulate with Eliquis 5. monitor right groin angio site entry- no hematoma. 6. Renal 2g Na diet 7.d/w family at bedside and staff. 8. protonix for GI prophylaxis. Problems: (1) Respiratory failure (2) Chronic kidney disease (CKD) (3) A-fib (4) CAD (coronary artery disease) (5) Renal transplant, status post (6) CHF (congestive heart failure) Assessment/Plan see above Medications Medications Home Meds Active Scripts Albuterol Sulfate* (Proair HFA*) 8.5 Gm Hfa.aer.ad, 2 PUFF INH Q4 Y for SHORTNESS OF BREATH, #1 INHALER Prov:BRANDY JACOBS MD 08/20/16 Reported Medications Ferrous Sulfate* (Ferrous Sulfate*) 325 Mg Tabec, 325 MG PO DAILY, TAB 09/11/16 Aspirin (Low Dose Aspirin) 81 Mg Tablet., 81 MG PO DAILY, #30 TAB 09/11/16 Digoxin* (Lanoxin*) 0.125 Mg Tablet, 0.125 MG PO MONWEDFRI, TAB 08/14/16 Ergocalciferol (Vitamin D2) (VITAMIN D2) 50,000 Unit Capsule, 67490 UNIT PO Q7 DAYS, CAP 08/14/16 Pantoprazole* (Protonix*) 40 Mg Tablet., 40 MG PO DAILY, TAB 08/14/16 Doxazosin Mesylate* (Doxazosin Mesylate*) 2 Mg Tablet, 2 MG PO HS, TAB 08/14/16 Apixaban* (Eliquis*) 2.5 Mg Tablet, 2.5 MG PO BID, TAB 08/14/16 Carvedilol* (Carvedilol*) 25 Mg Tablet, 25 MG PO BID, #60 TAB 08/14/16 Alendronate Sodium* (Fosamax*) 70 Mg Tablet, 70 MG PO Q7D, #4 TAB 08/14/16 Furosemide* (Lasix*) 20 Mg Tablet, 20 MG PO DAILY, TAB 08/14/16 Prednisone* (Prednisone*) 5 Mg Tab, 5 MG PO DAILY, TAB 08/14/16 Amiodarone Hcl* (Amiodarone Hcl*) 400 Mg Tablet, 400 MG PO BID, TAB 08/14/16 Atorvastatin* (Atorvastatin*) 80 Mg Tablet, 80 MG PO QHS, #30 TAB 08/23/15 Levothyroxine Sodium* (Levothyroxine Sodium*) 100 Mcg Tablet, 100 MCG PO BEFORE BREAKFAST, #30 TAB 08/23/15 Hydralazine Hcl* (Hydralazine Hcl*) 25 Mg Tab, 25 MG PO BID, #60 TAB 08/23/15 Isosorbide Dinitrate* (Isosorbide Dinitrate*) 30 Mg Tablet, 30 MG PO DAILY, TAB 08/23/15 Calcitriol* (Calcitriol*) 0.25 Mcg Capsule, 0.25 MCG PO DAILY, CAP 08/23/15 Mycophenolate Sodium* (Mycophenolic Acid*) 180 Mg Tablet.dr, 180 MG PO Q12, TAB 08/23/15 Tacrolimus* (Tacrolimus*) 0.5 Mg Capsule, 0.5 MG PO Q12, CAP 08/23/15 BRANDY JACOBS MD Sep 11, 2016 18:10
[2016-09-11] MEDS ORDERED: FUROSEMIDE 40 MG INJ IV ONE (18:30)
[2016-09-11 18:54] LABS: AADO2 Arterial 636.1 mmHg (7.0-24.0); Allen Test ACCEPTAB; Arterial Base Excess -2.5 mmol/L (-3.0-3); Arterial COHb 0 % (0.0-3.0); Arterial Fraction of Oxyhgb 81.5 % (93.0-99.0); Arterial HCO3 20.2 mmol/L (22.0-26.0); Arterial MetHb 0.2 % (0.0-1.5); Arterial Total Hemglobin 14.7 g/dl (12.0-18.0); MODE MASK - NRB
--- NOTE | 2016-09-11 18:54 | RADRPT ---
PROCEDURE: XR Chest. CLINICAL INDICATION: Hypoxia. TECHNIQUE: Single frontal view of the chest. COMPARISON: 08/23/2015. FINDINGS: Left anterior chest wall is without significant change. Prominent cardiomegaly again seen with p at herosclerotic changes in the thoracic aorta. Increased dense bilateral air space disease, right gre ater than left. Likely superimposed pulmonary vascular ingestion. [facility]. There is pulmonary edema in the right mid lung and lung base. No sig ns of pleural fluid or pneumothorax are seen. The osseous structures and soft tissues are unremarkab le. IMPRESSION: Increased moderate to severe failure, with pulmonary edema and right mid lung and lung base. RPTAT: [facility] Physician Moon Date Time Electronically viewed and signed by Physician Moon on 09/11/2016 18:54 RS/
[2016-09-11] MEDS ORDERED: VANCOMYCIN IV PER PHARMACY XX SCH (19:00)
--- NOTE | 2016-09-11 19:01 | PN ---
Date/Time of Note Date/Time of Note DATE: 09/11/16 TIME: 18:58 Assessment/Plan VTE Prophylaxis VTE Prophylaxis Intervention: other Lines/Catheters [facility]from [facility]): Saline Lock Assessment/Plan Chief Complaint/Hosp Course A/P.71 years old male with history of CHF, EF 35%, Aortic stenosis, A.fib, CAD, CKD, s/p renal transplant who presented for elective coronary angiogram. 1. s/p coronary angiogram- further recs per Dr. Thakur, monitor kidney function , on gentle hydration. 2. Respiratory failure- concerning for CHF, o2 support, breathing tx, follow up AM CXR 3. CKD- hydration- nephrology follow up, continue all post transplant anti rejection meds. 4. Anti coagulate with Eliquis 5. monitor right groin angio site entry- no hematoma. 6. Renal 2g Na diet 7.d/w family at bedside and staff. 8. protonix for GI prophylaxis. Problems: Subjective 24 Hr Interval Summary Free Text/Dictation patient progressively became more hypoxic, cxr showed right lung infiltrate, edema, Lasix 40 Iv x1 given, ABG stat ordered, i spent over an hour with the patient. The patient to be placed on BIPAP, may need to be intubated if hypoxia doesn't improve. Broad spectrum antibiotics and blood cultures ordered. Exam/Review of Systems Vital Signs Vitals Vital Signs Date Time Temp Pulse Resp B/P Pulse Ox O2 Delivery O2 Flow Rate FiO2 09/11/16 18:52 92 28 153/99 83 Non Rebreather 09/11/16 17:08 15.0 09/11/16 16:39 98.8 Results Result Diagram: 09/11/16 1211 09/11/16 1211 Results 24 hrs Laboratory Tests Test 09/11/16 12:11 09/11/16 18:20 White Blood Count 9.0 # Red Blood Count 3.95 L Hemoglobin 11.6 L Hematocrit 36.2 L Mean Corpuscular Volume 91.6 Mean Corpuscular Hemoglobin 29.4 Mean Corpuscular Hemoglobin Concent 32.0 Red Cell Distribution Width 16.7 H Platelet Count 143 Mean Platelet Volume 12.5 H Neutrophils % 83.2 H Lymphocytes % 5.5 L Monocytes % 8.4 Eosinophils % 0.8 Basophils % 0.4 Nucleated Red Blood Cells % 0.0 Neutrophils # 7.5 Lymphocytes # 0.5 L Monocytes # 0.8 Eosinophils # 0.1 Basophils # 0.0 Nucleated Red Blood Cells # 0.0 Prothrombin Time 14.0 Prothrombin Time Ratio 1.1 INR International Normalized Ratio 1.08 Activated Partial Thromboplast Time 28.4 Sodium Level 142 Potassium Level 4.7 Chloride Level 109 Carbon Dioxide Level 24 Anion Gap 14 Blood Urea Nitrogen 34 H Creatinine 1.94 H Glucose Level 126 Calcium Level 9.7 Total Bilirubin 0.7 Direct Bilirubin 0.00 Indirect Bilirubin 0.7 Aspartate Amino Transf (AST/SGOT) 17 Alanine Aminotransferase (ALT/SGPT) 31 Alkaline Phosphatase 58 Creatine Kinase 52 Creatine Kinase Index 5.1 Creatinine Kinase MB (Mass) 2.67 H Troponin I 0.039 Total Protein 7.0 Albumin 4.7 Globulin 2.30 Albumin/Globulin Ratio 2.04 Triglycerides Level 133 Cholesterol Level 133 LDL Cholesterol, Calculated 54 HDL Cholesterol 52 Cholesterol/HDL Ratio 2.5 Blood Gas Specimen Source Blood arterial Arterial Blood Date Drawn 09/11/2016 6:45:59 PM Arterial Blood pH (Temp corrected) 7.453 H Arterial Blood pCO2 (Temp correct) 29.5 L Arterial Blood pO2 (Temp corrected) 47.4 *L Arterial Blood HCO3 20.2 L Arterial Blood Base Excess -2.5 Arterial Blood Oxygen Saturation 81.7 L Ji Test ACCEPTAB Arterial Blood Gas Puncture Site Right Radial Arterial Blood Carboxyhemoglobin 0 Arterial Blood Methemoglobin 0.2 Blood Gas A-a O2 Differential 636.1 H Oxyhemoglobin Percent 81.5 L Total Hemoglobin 14.7 Blood Gas Temperature 37.0 Blood Gas Modality MASK - NRB FiO2 100.0 Blood Gas Critical Value Read Back DR. REHMAN Blood Gas Notified Whom RT Blood Gas Notified Time 09/11/2016 6:54:25 PM Medications Medications Current Medications Miscellaneous Information HOLD all METFORMIN ... ONCE XX ; Start 09/11/16 at 14: 30; Stop 09/13/16 at 14:29 Sodium Chloride (NS) 1,000 ml @ 50 mls/hr Q20H IV Last administered on t 17:20; Admin Dose 50 MLS/HR; Start 09/11/16 at 14:21; Stop 09/11/16 at 19: 20 Albuterol (Ventolin Hfa) 2 puff Q4H PRN INH SHORTNESS OF BREATH; Start at 14:30 Amiodarone HCl (Cordarone) 400 mg BID PO ; Start 09/11/16 at 21:00 Aspirin (Halfprin) 81 mg DAILY PO ; Start 09/12/16 at 09:00 Atorvastatin Calcium (Lipitor) 80 mg QHS PO ; Start 09/11/16 at 21:00 Calcitriol (Rocaltrol) 0.25 mcg DAILY PO ; Start 09/12/16 at 09:00 Doxazosin Mesylate (Cardura) 2 mg HS PO ; Start 09/11/16 at 21:00 Ferrous Sulfate (Ferrous Sulfate (Ec)) 325 mg DAILY PO ; Start 09/12/16 at 09:00 Hydralazine HCl (Apresoline) 25 mg BID PO ; Start 09/11/16 at 21:00 Isosorbide Mononitrate (Imdur) 30 mg DAILY PO ; Start 09/12/16 at 09:00 Mycophenolate Sodium (Myfortic) 180 mg Q12 PO ; Start 09/11/16 at 21:00 Pantoprazole (Protonix Tab) 40 mg DAILY@06 PO ; Start 09/12/16 at 06:00 Prednisone (Prednisone) 5 mg DAILY PO ; Start 09/12/16 at 09:00 Tacrolimus (Prograf) 0.5 mg Q12 PO ; Start 09/11/16 at 21:00 Carvedilol (Coreg) 12.5 mg BID PO ; Start 09/11/16 at 21:00 Acetylcysteine 600 mg 600 mg BID PO ; Start 09/11/16 at 15:00 Meropenem/Sodium Chloride (Merrem/NS) 100 ml @ 200 mls/hr Q12 IVPB ; Start at 21:00; Status UNBRANDY LIU MD Sep 11, 2016 19:01
[2016-09-11] MEDS ORDERED: METHYLPREDNISOLONE 125 MG INJ IV ONE (19:30)
[2016-09-11] MEDS ORDERED: VANCOMYCIN 1.25 GM in SOD CHLORIDE 0.9% 250 ML IVPB SCH (20:00)
[2016-09-11] MEDS ORDERED: DOXAZOSIN 2 MG TAB PO SCH (21:00)
[2016-09-11] MEDS: AMIODARONE 200 MG TAB PO SCH (21:45)
[2016-09-11] MEDS: ATORVASTATIN 80 MG TAB PO SCH (21:45)
--- NOTE | 2016-09-11 21:54 | CONS ---
Date/Time of Note Date/Time of Note DATE: 09/11/16 TIME: 21:40 Assessment/Plan Assessment/Plan Chief Complaint/Hosp Course 1. Nonoliguric acute kidney injury on top of chronic kidney disease with a baseline creatinine of 1.7 mg/dL. Etiology of current acute kidney injury is likely secondary to hemodynamics, possible CRS The possibility of tubular injury is also a consideration. Low suspicion at this point for acute allograft rejection. -check UA with microanalysis. Will check urine electrolytes. -continue diuretic therapy -monitor electrolytes -Would otherwise continue supportive care, renally dose meds, avoid nephrotoxins, continue current immunosuppressive regimen. - We will consider checking a Prograf level. 2. History of end-stage renal disease status post a living donor transplant. The patient has a baseline creatinine of 1.7 mg/dL. Currently in acute kidney injury as stated above. Would continue current plan at this point to treat acute kidney injury as stated above. - Continue current immunosuppressive regimen with Prograf, Myfortic and prednisone. -We will check a Prograf level and monitor closely. 3. Anemia of chronic disease. Monitor hemoglobin and hematocrit levels. 4. Bone mineral disorder. Will monitor calcium and phosphorus levels. 5. Acute chf exacerbation, systolic, diastolic. -cont aggressive diuretic therapy -monitor strict i/o -f/u cardiology 6. cad. s/p cardiac cath f/u cardiology for further recs 6. Acute hypoxemia with respiratory failure secondary to congestive heart failure. -cont diuretic therapy Will continue 100% nonrebreather. 7. Cardiomyopathy status post implantable cardioverter defibrillator placement. Continue current medical management. Continue diuretic therapy. Follow up with cardiology. 8. History of hypertension. Continue medical management. 9. Diabetes. Continue current insulin regimen. 10. History of severe aortic stenosis. 11. History of coronary artery bypass graft. Problems: Consultation Date/Type/Reason Admit Date/Time Sep 11, 2016 at 16:35 Reason for Consultation shen Hx of Present Illness This is a 71-year-old male with a past medical history of end-stage renal disease status post living donor transplant in 2007 with a baseline creatinine around 1.7 mg/dL, history of hypertension, history of dyslipidemia, history of aortic stenosis, history of cardiomyopathy, status post ICD placement , history of atrial fibrillation, history of coronary artery disease, status post coronary artery bypass graft, who presented to [facility] to undergo elective coronary angiogram. Following the procedure the pt developed sob and was admitted for further evaluation. The pt denies cp,n,v, 14 point ROS conducted pertinent positives stated with HPI Past Medical History CAD, CHF, s/p renal transplant, hypertension, Aortic stenosis, P. afib, dyslipidemia, CKD. Past Surgical History s/p renal transplant Family History Significant Family History: no pertinent family hx Social History Smoking Status: Former smoker Exam/Review of Systems Vital Signs Vitals Vital Signs Date Time Temp Pulse Resp B/P Pulse Ox O2 Delivery O2 Flow Rate FiO2 09/11/16 21:01 80 99 100 09/11/16 19:40 98.0 20 145/80 09/11/16 18:52 Non Rebreather 09/11/16 17:08 15.0 Exam Head: [Atraumatic] Eyes: [Normal Conjunctiva] ENT: [Normal External Ears, Nose and Mouth.] Neck: [Full range of motion. No meningismus.] Resp: [Clear to auscultation bilaterally] Cardio: [Regular rate and rhythm, no murmurs] Abd: [Soft, non tender, non distended. Normal bowel sounds] Skin: [No petechiae or rashes] Back: [No midline or flank tenderness] Ext: [No cyanosis, or edema] Neuro: [Awake and alert] Psych: [Normal Mood and Affect] Results Result Diagram: 09/11/16 1211 09/11/16 1211 Results 24 hrs Laboratory Tests Test 09/11/16 12:11 09/11/16 18:20 White Blood Count 9.0 # Red Blood Count 3.95 L Hemoglobin 11.6 L Hematocrit 36.2 L Mean Corpuscular Volume 91.6 Mean Corpuscular Hemoglobin 29.4 Mean Corpuscular Hemoglobin Concent 32.0 Red Cell Distribution Width 16.7 H Platelet Count 143 Mean Platelet Volume 12.5 H Neutrophils % 83.2 H Lymphocytes % 5.5 L Monocytes % 8.4 Eosinophils % 0.8 Basophils % 0.4 Nucleated Red Blood Cells % 0.0 Neutrophils # 7.5 Lymphocytes # 0.5 L Monocytes # 0.8 Eosinophils # 0.1 Basophils # 0.0 Nucleated Red Blood Cells # 0.0 Prothrombin Time 14.0 Prothrombin Time Ratio 1.1 INR International Normalized Ratio 1.08 Activated Partial Thromboplast Time 28.4 Sodium Level 142 Potassium Level 4.7 Chloride Level 109 Carbon Dioxide Level 24 Anion Gap 14 Blood Urea Nitrogen 34 H Creatinine 1.94 H Glucose Level 126 Calcium Level 9.7 Total Bilirubin 0.7 Direct Bilirubin 0.00 Indirect Bilirubin 0.7 Aspartate Amino Transf (AST/SGOT) 17 Alanine Aminotransferase (ALT/SGPT) 31 Alkaline Phosphatase 58 Creatine Kinase 52 Creatine Kinase Index 5.1 Creatinine Kinase MB (Mass) 2.67 H Troponin I 0.039 Total Protein 7.0 Albumin 4.7 Globulin 2.30 Albumin/Globulin Ratio 2.04 Triglycerides Level 133 Cholesterol Level 133 LDL Cholesterol, Calculated 54 HDL Cholesterol 52 Cholesterol/HDL Ratio 2.5 Blood Gas Specimen Source Blood arterial Arterial Blood Date Drawn 09/11/2016 6:45:59 PM Arterial Blood pH (Temp corrected) 7.453 H Arterial Blood pCO2 (Temp correct) 29.5 L Arterial Blood pO2 (Temp corrected) 47.4 *L Arterial Blood HCO3 20.2 L Arterial Blood Base Excess -2.5 Arterial Blood Oxygen Saturation 81.7 L Ji Test ACCEPTAB Arterial Blood Gas Puncture Site Right Radial Arterial Blood Carboxyhemoglobin 0 Arterial Blood Methemoglobin 0.2 Blood Gas A-a O2 Differential 636.1 H Oxyhemoglobin Percent 81.5 L Total Hemoglobin 14.7 Blood Gas Temperature 37.0 Blood Gas Modality MASK - NRB FiO2 100.0 Blood Gas Critical Value Read Back DR. REHMAN Blood Gas Notified Whom RT Blood Gas Notified Time 09/11/2016 6:54:25 PM Medications Medications Current Medications Miscellaneous Information (* Miscellaneous Pharmacy Order) HOLD all METFORMIN ... ONCE XX ; Start 09/11/16 at 14:30; Stop 09/13/16 at 14:29 Albuterol (Ventolin Hfa) 2 puff Q4H PRN INH SHORTNESS OF BREATH; Start at 14:30 Amiodarone HCl (Cordarone) 400 mg BID PO ; Start 09/11/16 at 21:00 Aspirin (Halfprin) 81 mg DAILY PO ; Start 09/12/16 at 09:00 Atorvastatin Calcium (Lipitor) 80 mg QHS PO ; Start 09/11/16 at 21:00 Calcitriol (Rocaltrol) 0.25 mcg DAILY PO ; Start 09/12/16 at 09:00 Ferrous Sulfate (Ferrous Sulfate (Ec)) 325 mg DAILY PO ; Start 09/12/16 at 09:00 Hydralazine HCl (Apresoline) 25 mg BID PO ; Start 09/11/16 at 21:00 Isosorbide Mononitrate (Imdur) 30 mg DAILY PO ; Start 09/12/16 at 09:00 Mycophenolate Sodium (Myfortic) 180 mg Q12 PO ; Start 09/11/16 at 21:00 Pantoprazole (Protonix Tab) 40 mg DAILY@06 PO ; Start 09/12/16 at 06:00 Prednisone (Prednisone) 5 mg DAILY PO ; Start 09/12/16 at 09:00 Tacrolimus (Prograf) 0.5 mg Q12 PO ; Start 09/11/16 at 21:00 Carvedilol (Coreg) 12.5 mg BID PO ; Start 09/11/16 at 21:00 Acetylcysteine 600 mg 600 mg BID PO ; Start 09/11/16 at 15:00 Meropenem 2 gm/ Sodium Chloride 100 ml @ 200 mls/hr Q12 IVPB ; Start 09/11/16 at 21:00 Vancomycin HCl 1.25 gm/Sodium Chloride 250 ml @ 83.333 mls/ hr NOW IVPB Last administered on 09/11/16t 19:58; Admin Dose 83.333 MLS/HR; Start 09/11/16 at 20: 00; Stop 09/11/16 at 23:00 Vancomycin HCl/ Sodium Chloride (Vancocin/NS) 150 ml @ 75 mls/hr Q24H IVPB ; Start 09/12/16 at 20:00 Doxazosin Mesylate (Cardura) 2 mg HS PO ; Start 09/11/16 at 21:21 INDIRA NELSON DO Sep 11, 2016 21:52
[2016-09-11] MEDS: TACROLIMUS 0.5 MG CAP PO SCH (22:08)
[2016-09-11] MEDS: MYCOPHENOLATE (SR) 180 MG TAB PO SCH (22:08)
[2016-09-11] MEDS: DOXAZOSIN 1 MG TAB PO SCH (22:09)
[2016-09-11] MEDS: MEROPENEM 2 GM in SOD CHLORIDE 0.9% 100 ML IVPB SCH (23:22)
[2016-09-11 23:38] LABS: ADD UMIC NO; UR ASCORBIC ACID NEGATIVE (NEGATIVE); UR BILIRUBIN (Dip) NEGATIVE (NEGATIVE); UR BLOOD (Dip) NEGATIVE (NEGATIVE); UR CLARITY CLEAR (CLEAR); UR COLOR COLORLESS (YELLOW); UR GLUCOSE (Dip) NEGATIVE (NEGATIVE); UR KETONES (Dip) NEGATIVE (NEGATIVE); UR LEUKOCYTE ESTERASE (Dip) NEGATIVE Leu/ul (NEGATIVE); UR NITRITE (Dip) NEGATIVE (NEGATIVE); UR SPECIFIC GRAVITY (Dip) 1.008 (1.003-1.030); UR TOTAL PROTEIN (Dip) NEGATIVE (NEGATIVE); UR UROBILINOGEN (Dip) NEGATIVE (NEGATIVE)
[2016-09-12] VITALS (57 sets, daily range): BP systolic 76–117; BP diastolic 47–78; PULSE 80–82; RESP 10–31
[2016-09-12] MEDS: PANTOPRAZOLE (EC) 40 MG TAB PO SCH (06:14)
[2016-09-12] MEDS: LEVOTHYROXINE 100 MCG TAB PO SCH (06:14)
[2016-09-12 06:57] LABS: ADD SCAN DIFF NO
[2016-09-12] MEDS ORDERED: LEVOTHYROXINE 100 MCG TAB PO SCH (07:00)
[2016-09-12 07:06] LABS: ABNORMAL IP MESSAGE 1; BASOPHILS % 0.1 % (0.0-2.0); HEMATOCRIT 41.8 % (42.0-52.0); HEMOGLOBIN 13.1 g/dl (14.0-18.0); LYMPHOCYTES # 0.2 10^3/ul (0.8-2.9); LYMPHOCYTES % 1.7 % (15.0-51.0); MEAN CORPUSCULAR HEMOGLOBIN 28.6 pg (29.0-33.0); MEAN CORPUSCULAR HGB CONC 31.3 g/dl (32.0-37.0); MEAN CORPUSCULAR VOLUME 91.3 fl (82.0-101.0); MEAN PLATELET VOLUME 12.5 fl (7.4-10.4); MONOCYTE # 0.4 10^3/ul (0.3-0.9); MONOCYTES % 2.9 % (0.0-11.0); NEUTROPHIL # 13.5 10^3/ul (1.6-7.5); PLATELET COUNT 145 10^3/UL (140-415); RED BLOOD COUNT 4.58 10^6/ul (4.70-6.10); RED CELL DISTRIBUTION WIDTH 16.8 % (11.5-14.5); WHITE BLOOD COUNT 14.3 10^3/ul (4.8-10.8)
[2016-09-12 07:30] LABS: ALBUMIN 4.6 g/dl (3.3-4.9); ALBUMIN/GLOBULIN RATIO 1.7; BILIRUBIN,INDIRECT 1.1 mg/dl (0-1.1); BILIRUBIN,TOTAL 1.1 mg/dl (0.2-1.3); CALCIUM 9.8 mg/dl (8.4-10.2); CHOL/HDL RATIO 2.7 RATIO; CREATININE 2.08 mg/dl (0.61-1.24); MAGNESIUM 1.5 mg/dl (1.7-2.5); POTASSIUM 4.7 mmol/L (3.5-5.1); TOTAL PROTEIN 7.3 g/dl (6.1-8.1)
--- NOTE | 2016-09-12 07:53 | PN ---
Date/Time of Note Date/Time of Note DATE: 09/12/16 TIME: 07:47 Assessment/Plan Lines/Catheters IV Catheter Type (from [facility]): Peripheral IV Urinary Cath still in place: No Assessment/Plan Assessment/Plan 1. Nonoliguric acute kidney injury on top of chronic kidney disease with a baseline creatinine of 1.7 mg/dL. Etiology of current acute kidney injury is likely secondary to hemodynamics, possible CRS. Low suspicion for contrast associated nephropathy given low amount of contrast used in cardiac cath. The possibility of tubular injury is also a consideration. Low suspicion at this point for acute allograft rejection. -Renal function slightly worse this a.m. Patient still remains in CHF. -continue diuretic therapy will monitor renal function closely -Would otherwise continue supportive care, renally dose meds, avoid nephrotoxins, continue current immunosuppressive regimen. - We will consider checking a Prograf level. 2. History of end-stage renal disease status post a living donor transplant. The patient has a baseline creatinine of 1.7 mg/dL. Currently in acute kidney injury as stated above. - Would continue current plan at this point to treat acute kidney injury as stated above. - Continue current immunosuppressive regimen with Prograf, Myfortic and prednisone. -We will check a Prograf level and monitor closely. 3. Anemia of chronic disease. Monitor hemoglobin and hematocrit levels. 4. Bone mineral disorder. Will monitor calcium and phosphorus levels. 5. Acute chf exacerbation, systolic, diastolic. -Chest x-ray continues to show pulmonary congestion -cont diuretic therapy -monitor strict i/o -f/u cardiology 6. cad. s/p cardiac cath f/u cardiology for further recs 6. Acute hypoxemia with respiratory failure secondary to congestive heart failure. -cont diuretic therapy Will continue 100% nonrebreather. 7. Cardiomyopathy status post implantable cardioverter defibrillator placement. Continue current medical management. Continue diuretic therapy. Follow up with cardiology. 8. History of hypertension. Continue medical management. 9. Diabetes. Continue current insulin regimen. 10. History of severe aortic stenosis. 11. History of coronary artery bypass 12. Hypernatremia. Will start patient on D5W at 40 cc an hour. Patient is currently on BiPAP 13. Hypomagnesemia replete with magnesium sulfate. 14. Leukocytosis. Possibly from steroids. Monitor for possible infection. Subjective 24 Hr Interval Summary Free Text/Dictation Patient was transferred from telemetry to intensive care unit last night. Patient was placed on BiPAP. Patient had good urinary response to diuretic therapy. Patient is stable but critical at this time. No other acute events noted. No hemoptysis hematemesis hematochezia. Exam/Review of Systems Vital Signs Vitals Vital Signs Date Time Temp Pulse Resp B/P Pulse Ox O2 Delivery O2 Flow Rate FiO2 09/12/16 06:00 80 23 110/75 BIPAP 09/12/16 05:00 100 09/12/16 04:00 96.9 09/12/16 03:00 100 09/11/16 17:08 15.0 Intake and Output 09/11/16 09/11/16 09/12/16 15:00 23:00 07:00 Intake Total 360 ml 100 ml Output Total 2150 ml 1025 ml Balance -1790 ml -925 ml Exam HEENT. Head is normocephalic atraumatic Cardiovascular heart tachycardic. Lungs show diminished breath sounds at the base plus rhonchi and crackles Abdomen soft nontender palpation Extremities are negative for clubbing cyanosis trace edema Dermatologically no rashes Musculoskeletal no joint effusions Neurologically no focal deficits. Results Result Diagram: 09/12/16 0540 09/12/16 0540 Results 24 hrs Laboratory Tests Test 09/11/16 12:11 09/11/16 18:20 09/11/16 23:00 09/12/16 05:40 White Blood Count 9.0 # 14.3 #H Red Blood Count 3.95 L 4.58 L Hemoglobin 11.6 L 13.1 L Hematocrit 36.2 L 41.8 L Mean Corpuscular Volume 91.6 91.3 Mean Corpuscular Hemoglobin 29.4 28.6 L Mean Corpuscular Hemoglobin Concent 32.0 31.3 L Red Cell Distribution Width 16.7 H 16.8 H Platelet Count 143 145 Mean Platelet Volume 12.5 H 12.5 H Neutrophils % 83.2 H 94.0 H Lymphocytes % 5.5 L 1.7 L Monocytes % 8.4 2.9 Eosinophils % 0.8 0.0 Basophils % 0.4 0.1 Nucleated Red Blood Cells % 0.0 0.0 Neutrophils # 7.5 13.5 H Lymphocytes # 0.5 L 0.2 L Monocytes # 0.8 0.4 Eosinophils # 0.1 0.0 Basophils # 0.0 0.0 Nucleated Red Blood Cells # 0.0 0.0 Prothrombin Time 14.0 Prothrombin Time Ratio 1.1 INR International Normalized Ratio 1.08 Activated Partial Thromboplast Time 28.4 Sodium Level 142 147 H Potassium Level 4.7 4.7 Chloride Level 109 105 Carbon Dioxide Level 24 23 Anion Gap 14 24 #H Blood Urea Nitrogen 34 H 42 H Creatinine 1.94 H 2.08 H Glucose Level 126 121 Calcium Level 9.7 9.8 Total Bilirubin 0.7 1.1 Direct Bilirubin 0.00 0.00 Indirect Bilirubin 0.7 1.1 Aspartate Amino Transf (AST/SGOT) 17 16 Alanine Aminotransferase (ALT/SGPT) 31 31 Alkaline Phosphatase 58 64 Creatine Kinase 52 Creatine Kinase Index 5.1 Creatinine Kinase MB (Mass) 2.67 H Troponin I 0.039 Total Protein 7.0 7.3 Albumin 4.7 4.6 Globulin 2.30 2.70 Albumin/Globulin Ratio 2.04 1.70 Triglycerides Level 133 127 Cholesterol Level 133 161 LDL Cholesterol, Calculated 54 78 HDL Cholesterol 52 58 Cholesterol/HDL Ratio 2.5 2.7 Blood Gas Specimen Source Blood arterial Arterial Blood Date Drawn 09/11/2016 6:45:59 PM Arterial Blood pH (Temp corrected) 7.453 H Arterial Blood pCO2 (Temp correct) 29.5 L Arterial Blood pO2 (Temp corrected) 47.4 *L Arterial Blood HCO3 20.2 L Arterial Blood Base Excess -2.5 Arterial Blood Oxygen Saturation 81.7 L Ji Test ACCEPTAB Arterial Blood Gas Puncture Site Right Radial Arterial Blood Carboxyhemoglobin 0 Arterial Blood Methemoglobin 0.2 Blood Gas A-a O2 Differential 636.1 H Oxyhemoglobin Percent 81.5 L Total Hemoglobin 14.7 Blood Gas Temperature 37.0 Blood Gas Modality MASK - NRB FiO2 100.0 Blood Gas Critical Value Read Back DR. REHMAN Blood Gas Notified Whom RT Blood Gas Notified Time 09/11/2016 6:54:25 PM Urine Color COLORLESS Urine Clarity CLEAR Urine pH 5.0 Urine Specific [place] 1.008 Urine Ketones NEGATIVE Urine Nitrite NEGATIVE Urine Bilirubin NEGATIVE Urine Urobilinogen NEGATIVE Urine Leukocyte Esterase NEGATIVE Urine Hemoglobin NEGATIVE Urine Random Creatinine < 12.40 L Urine Random Sodium 141 H Urine Glucose NEGATIVE Urine Total Protein 12.0 H Phosphorus Level 5.1 H Magnesium Level 1.5 L B-Type Natriuretic Peptide Pending Thyroid Stimulating Hormone (TSH) Pending Free Thyroxine 1.81 Digoxin Level 1.1 Medications Medications Current Medications Miscellaneous Information (* Miscellaneous Pharmacy Order) HOLD all METFORMIN ... ONCE XX ; Start 09/11/16 at 14:30; Stop 09/13/16 at 14:29 Albuterol (Ventolin Hfa) 2 puff Q4H PRN INH SHORTNESS OF BREATH; Start at 14:30 Amiodarone HCl (Cordarone) 400 mg BID PO Last administered on 09/11/16 21:45; Admin Dose 400 MG; Start 09/11/16 at 21:00 Aspirin (Halfprin) 81 mg DAILY PO ; Start 09/12/16 at 09:00 Atorvastatin Calcium (Lipitor) 80 mg QHS PO Last administered on 09/11/16 21: 45; Admin Dose 80 MG; Start 09/11/16 at 21:00 Calcitriol (Rocaltrol) 0.25 mcg DAILY PO ; Start 09/12/16 at 09:00 Ferrous Sulfate (Ferrous Sulfate (Ec)) 325 mg DAILY PO ; Start 09/12/16 at 09:00 Hydralazine HCl (Apresoline) 25 mg BID PO Last administered on 09/11/16 21:45 ; Admin Dose 25 MG; Start 09/11/16 at 21:00 Isosorbide Mononitrate (Imdur) 30 mg DAILY PO ; Start 09/12/16 at 09:00 Mycophenolate Sodium (Myfortic) 180 mg Q12 PO Last administered on 09/11/16 22 :08; Admin Dose 180 MG; Start 09/11/16 at 21:00 Pantoprazole (Protonix Tab) 40 mg DAILY@06 PO Last administered on 09/12/16 06 :14; Admin Dose 40 MG; Start 09/12/16 at 06:00 Prednisone (Prednisone) 5 mg DAILY PO ; Start 09/12/16 at 09:00 Tacrolimus (Prograf) 0.5 mg Q12 PO Last administered on 09/11/16 22:08; Admin Dose 0.5 MG; Start 09/11/16 at 21:00 Carvedilol (Coreg) 12.5 mg BID PO Last administered on 09/11/16 21:46; Admin Dose 12.5 MG; Start 09/11/16 at 21:00 Acetylcysteine 600 mg 600 mg BID PO Last administered on 09/11/16 21:44; Admin Dose 600 MG; Start 09/11/16 at 15:00 Meropenem 2 gm/ Sodium Chloride 100 ml @ 200 mls/hr Q12 IVPB Last administered on 09/11/16 23:22; Admin Dose 200 MLS/HR; Start 09/11/16 at 21:00 Vancomycin HCl/ Sodium Chloride (Vancocin/NS) 150 ml @ 75 mls/hr Q24H IVPB ; Start 09/12/16 at 20:00 Doxazosin Mesylate 2 mg 2 mg HS PO Last administered on 09/11/16 22:09; Admin Dose 2 MG; Start 09/11/16 at 21:21 Magnesium Sulfate 3 gm/Sodium Chloride 106 ml @ 35.333 mls/ hr ONCE ONCE IVPB ; Start 09/12/16 at 08:00; Stop 09/12/16 at 10:59; Status UNV Dextrose (D5W) 1,000 ml @ 40 mls/hr Q24H IV ; Start 09/12/16 at 08:00; Status UNV Furosemide (Lasix) 40 mg ONCE ONCE IV ; Start 09/12/16 at 08:00; Stop 09/12/16 at 08:01; Status UNV INDIRA NELSON DO Sep 12, 2016 07:53 Medications Medications Current Medications Miscellaneous Information (* Miscellaneous Pharmacy Order) HOLD all METFORMIN ... ONCE XX ; Start 09/11/16 at 14:30; Stop 09/13/16 at 14:29 Albuterol (Ventolin Hfa) 2 puff Q4H PRN INH SHORTNESS OF BREATH; Start at 14:30 Amiodarone HCl (Cordarone) 400 mg BID PO Last administered on 09/11/16 21:45; Admin Dose 400 MG; Start 09/11/16 at 21:00 Aspirin (Halfprin) 81 mg DAILY PO ; Start 09/12/16 at 09:00 Atorvastatin Calcium (Lipitor) 80 mg QHS PO Last administered on 09/11/16 21: 45; Admin Dose 80 MG; Start 09/11/16 at 21:00 Calcitriol (Rocaltrol) 0.25 mcg DAILY PO ; Start 09/12/16 at 09:00 Ferrous Sulfate (Ferrous Sulfate (Ec)) 325 mg DAILY PO ; Start 09/12/16 at 09:00 Hydralazine HCl (Apresoline) 25 mg BID PO Last administered on 09/11/16 21:45 ; Admin Dose 25 MG; Start 09/11/16 at 21:00 Isosorbide Mononitrate (Imdur) 30 mg DAILY PO ; Start 09/12/16 at 09:00 Mycophenolate Sodium (Myfortic) 180 mg Q12 PO Last administered on 09/11/16 22 :08; Admin Dose 180 MG; Start 09/11/16 at 21:00 Pantoprazole (Protonix Tab) 40 mg DAILY@06 PO Last administered on 09/12/16 06 :14; Admin Dose 40 MG; Start 09/12/16 at 06:00 Prednisone (Prednisone) 5 mg DAILY PO ; Start 09/12/16 at 09:00 Tacrolimus (Prograf) 0.5 mg Q12 PO Last administered on 09/11/16 22:08; Admin Dose 0.5 MG; Start 09/11/16 at 21:00 Carvedilol (Coreg) 12.5 mg BID PO Last administered on 09/11/16 21:46; Admin Dose 12.5 MG; Start 09/11/16 at 21:00 Acetylcysteine 600 mg 600 mg BID PO Last administered on 09/11/16 21:44; Admin Dose 600 MG; Start 09/11/16 at 15:00 Meropenem 2 gm/ Sodium Chloride 100 ml @ 200 mls/hr Q12 IVPB Last administered on 09/11/16 23:22; Admin Dose 200 MLS/HR; Start 09/11/16 at 21:00 Vancomycin HCl/ Sodium Chloride (Vancocin/NS) 150 ml @ 75 mls/hr Q24H IVPB ; Start 09/12/16 at 20:00 Doxazosin Mesylate 2 mg 2 mg HS PO Last administered on 09/11/16 22:09; Admin Dose 2 MG; Start 09/11/16 at 21:21 Magnesium Sulfate 3 gm/Sodium Chloride 106 ml @ 35.333 mls/ hr ONCE ONCE IVPB ; Start 09/12/16 at 08:00; Stop 09/12/16 at 10:59; Status UNV Dextrose (D5W) 1,000 ml @ 40 mls/hr Q24H IV ; Start 09/12/16 at 08:00; Status UNV Furosemide (Lasix) 40 mg ONCE ONCE IV ; Start 09/12/16 at 08:00; Stop 09/12/16 at 08:01; Status DANNIEV INDIRA NELSON DO Sep 12, 2016 07:53
[2016-09-12 07:56] LABS: THYROID STIMULATING HORMONE 2.43 MIU/L (0.465-4.680)
[2016-09-12] MEDS ORDERED: MAGNESIUM SULFATE 2 GM/50 ML 50 ML IVPB ONE (08:00)
[2016-09-12] MEDS ORDERED: DEXTROSE 5% 1,000 ML IV SCH (08:00)
[2016-09-12] MEDS ORDERED: FUROSEMIDE 40 MG INJ IV ONE (08:00)
[2016-09-12] MEDS: MYCOPHENOLATE (SR) 180 MG TAB PO SCH ×2 (08:29→20:43)
[2016-09-12] MEDS: ACETYLCYSTEINE 600 MG CAP PO SCH ×2 (08:29→20:43)
[2016-09-12] MEDS: FERROUS SULFATE (EC) 325 MG TAB PO SCH (08:29)
[2016-09-12] MEDS: TACROLIMUS 0.5 MG CAP PO SCH ×2 (08:29→20:43)
[2016-09-12] MEDS: CALCITRIOL 0.25 MCG CAP PO SCH (08:29)
[2016-09-12] MEDS: AMIODARONE 200 MG TAB PO SCH ×2 (08:30→20:41)
[2016-09-12] MEDS: predniSONE 5 MG TAB PO SCH (08:30)
[2016-09-12] MEDS: ASPIRIN (EC) 81 MG TAB PO SCH (08:30)
--- NOTE | 2016-09-12 08:32 | RADRPT ---
PROCEDURE: XR Chest. CLINICAL INDICATION: CHF TECHNIQUE: An AP view of the chest was obtained. COMPARISON: Chest x-ray dated 09/11/2016 FINDINGS: There is a left subclavian biventricular pacemaker AICD. There are diffuse bilateral nodular interstitial opacities with small bilateral pleural effusions. No pneumothorax is seen. The cardiomediastinal silhouette is mildly enlarged . Calcifications ar e seen within the aortic arch. There are post cardiac surgery changes with sternotomy wires. The os seous structures demonstrate senescent changes. IMPRESSION: 1. Diffuse bilateral nodular interstitial opacities may reflect interstitial edema or multifocal pn eum[place]. Findings are mildly increased when compared to the prior examination. 2. Small bilateral pleural effusions. 3. Mild cardiomegaly and aortic atherosclerosis. 4. Left subclavian biventricular pacemaker AICD. RPTAT: HH .Elvira Warren MD, MD Date Time Electronically viewed and signed by .Elvira Warren MD, on 09/12/2016 08:32 .G/
[2016-09-12] MEDS: MEROPENEM 2 GM in SOD CHLORIDE 0.9% 100 ML IVPB SCH ×2 (08:45→20:40)
[2016-09-12] MEDS ORDERED: ISOSORBIDE MONONITRATE(SR)30 MG TAB PO SCH (09:00)
[2016-09-12] MEDS ORDERED: MAGNESIUM SULFATE 3 GM in SOD CHLORIDE 0.9% 100 ML IVPB ONE (09:00)
--- NOTE | 2016-09-12 09:54 | CONS ---
Date/Time of Note Date/Time of Note DATE: 09/12/16 TIME: 09:41 Assessment/Plan Assessment/Plan Chief Complaint/Hosp Course resp failure Problems: Additional Assessment/Plan 1. CHF: acute on chronic due to systolic heart failure, diastolic heart failure and valvular heart disease 2. SEVERE 3. COPD exacerbation 4. ? pneumonia 5. severe CAD 6. HX CABG 7 HX PCI 8/ PAD 9. CKD: 10/ s/p renal transplant 11. dyslipidemia 12. P AFIB 13. S/P BIV ICD REC: will resume eliquis diuresis as tolerated O2 Abx as per Dr Lopez and pulm rec cont anti rejecion meds check procalcitonin level cont other home cardiac meds as tolerated. Consultation Date/Type/Reason Admit Date/Time Sep 11, 2016 at 16:35 Date of Consultation: Sep 12, 2016 Type of Consultation: cardiology Reason for Consultation CHF. severe , CAD Referring Provider: BRANDY LOPEZ MD Hx of Present Illness This is a pleasant 71 year old man with multiple complicated medical problems who was admitted yesterday for LHC/ RHC ana in anticipation of TAVR. pt has been feeling sob and after ana angio his resp statues declined and required to be on BIPAP over night. he was diuresed with bumex and IV lasix and received solumedrol and IV abx and transferred to ICU. he is feeling better now and was taken off of BIPAP after evaluated again by me and on O2 now he denies any chest pain or pressure now to me. he c/o sob. no groin pain or bleeding dW Dr lopez, Malathi, and Dr Carpio d/w daughter his old records were reviewed Past Medical History CKD CAD, s/p CABG CHF, SEVERE cardiomyopathy VT: S/P BIV/ICD s/p renal transplant, hypertension, severe Aortic stenosis, P. afib, dyslipidemia, CKD. HTN COPD recurrent pneumonia Past Surgical History renal transplant CABG PCI Family History Significant Family History: no pertinent family hx Social History Alcohol Use: none Smoking Status: Former smoker Drug Use: none Exam/Review of Systems Vital Signs Vitals Vital Signs Date Time Temp Pulse Resp B/P Pulse Ox O2 Delivery O2 Flow Rate FiO2 09/12/16 08:00 80 09/12/16 06:00 23 110/75 BIPAP 09/12/16 05:00 100 09/12/16 04:00 96.9 09/12/16 03:00 100 09/11/16 17:08 15.0 Intake and Output 09/11/16 09/11/16 09/12/16 15:00 23:00 07:00 Intake Total 360 ml 100 ml Output Total 2150 ml 1025 ml Balance -1790 ml -925 ml Exam EXTREMITY: NO LE EDEMA PULM: + rhonchi more on the right than the left. neuro: awake and alert, Ox 3 VASCULAR: R femoral no bleeding or hematoma or bruit. Constitutional: alert, frail, oriented Psych: nl mood/affect Head: atraumatic, normocephalic Eyes: EOMI, nl conjunctiva Neck: non-tender, supple Respiratory: other Cardiovascular: regular rate and rhythm, systolic murmur Gastrointestinal: nl liver, spleen, soft Genitourinary - Male: nl penis, nl scrotum Extremities: other Neurological: [employer] II-XII intact Results Result Diagram: 09/12/16 0540 09/12/16 0540 Results 24 hrs Laboratory Tests Test 09/11/16 12:11 09/11/16 18:20 09/11/16 23:00 09/12/16 05:40 White Blood Count 9.0 # 14.3 #H Red Blood Count 3.95 L 4.58 L Hemoglobin 11.6 L 13.1 L Hematocrit 36.2 L 41.8 L Mean Corpuscular Volume 91.6 91.3 Mean Corpuscular Hemoglobin 29.4 28.6 L Mean Corpuscular Hemoglobin Concent 32.0 31.3 L Red Cell Distribution Width 16.7 H 16.8 H Platelet Count 143 145 Mean Platelet Volume 12.5 H 12.5 H Neutrophils % 83.2 H 94.0 H Lymphocytes % 5.5 L 1.7 L Monocytes % 8.4 2.9 Eosinophils % 0.8 0.0 Basophils % 0.4 0.1 Nucleated Red Blood Cells % 0.0 0.0 Neutrophils # 7.5 13.5 H Lymphocytes # 0.5 L 0.2 L Monocytes # 0.8 0.4 Eosinophils # 0.1 0.0 Basophils # 0.0 0.0 Nucleated Red Blood Cells # 0.0 0.0 Prothrombin Time 14.0 Prothrombin Time Ratio 1.1 INR International Normalized Ratio 1.08 Activated Partial Thromboplast Time 28.4 Sodium Level 142 147 H Potassium Level 4.7 4.7 Chloride Level 109 105 Carbon Dioxide Level 24 23 Anion Gap 14 24 #H Blood Urea Nitrogen 34 H 42 H Creatinine 1.94 H 2.08 H Glucose Level 126 121 Calcium Level 9.7 9.8 Total Bilirubin 0.7 1.1 Direct Bilirubin 0.00 0.00 Indirect Bilirubin 0.7 1.1 Aspartate Amino Transf (AST/SGOT) 17 16 Alanine Aminotransferase (ALT/SGPT) 31 31 Alkaline Phosphatase 58 64 Creatine Kinase 52 Creatine Kinase Index 5.1 Creatinine Kinase MB (Mass) 2.67 H Troponin I 0.039 Total Protein 7.0 7.3 Albumin 4.7 4.6 Globulin 2.30 2.70 Albumin/Globulin Ratio 2.04 1.70 Triglycerides Level 133 127 Cholesterol Level 133 161 LDL Cholesterol, Calculated 54 78 HDL Cholesterol 52 58 Cholesterol/HDL Ratio 2.5 2.7 Blood Gas Specimen Source Blood arterial Arterial Blood Date Drawn 09/11/2016 6:45:59 PM Arterial Blood pH (Temp corrected) 7.453 H Arterial Blood pCO2 (Temp correct) 29.5 L Arterial Blood pO2 (Temp corrected) 47.4 *L Arterial Blood HCO3 20.2 L Arterial Blood Base Excess -2.5 Arterial Blood Oxygen Saturation 81.7 L Ji Test ACCEPTAB Arterial Blood Gas Puncture Site Right Radial Arterial Blood Carboxyhemoglobin 0 Arterial Blood Methemoglobin 0.2 Blood Gas A-a O2 Differential 636.1 H Oxyhemoglobin Percent 81.5 L Total Hemoglobin 14.7 Blood Gas Temperature 37.0 Blood Gas Modality MASK - NRB FiO2 100.0 Blood Gas Critical Value Read Back DR. LOPEZ Blood Gas Notified Whom RT Blood Gas Notified Time 09/11/2016 6:54:25 PM Urine Color COLORLESS Urine Clarity CLEAR Urine pH 5.0 Urine Specific [place] 1.008 Urine Ketones NEGATIVE Urine Nitrite NEGATIVE Urine Bilirubin NEGATIVE Urine Urobilinogen NEGATIVE Urine Leukocyte Esterase NEGATIVE Urine Hemoglobin NEGATIVE Urine Random Creatinine < 12.40 L Urine Random Sodium 141 H Urine Glucose NEGATIVE Urine Total Protein 12.0 H Phosphorus Level 5.1 H Magnesium Level 1.5 L B-Type Natriuretic Peptide 79156 H Thyroid Stimulating Hormone (TSH) 2.430 Free Thyroxine 1.81 Digoxin Level 1.1 Medications Medications Current Medications Miscellaneous Information (* Miscellaneous Pharmacy Order) HOLD all METFORMIN ... ONCE XX ; Start 09/11/16 at 14:30; Stop 09/13/16 at 14:29 Albuterol (Ventolin Hfa) 2 puff Q4H PRN INH SHORTNESS OF BREATH; Start at 14:30 Amiodarone HCl (Cordarone) 400 mg BID PO Last administered on 09/12/16 08:30; Admin Dose 400 MG; Start 09/11/16 at 21:00 Aspirin (Halfprin) 81 mg DAILY PO Last administered on 09/12/16 08:30; Admin Dose 81 MG; Start 09/12/16 at 09:00 Atorvastatin Calcium (Lipitor) 80 mg QHS PO Last administered on 09/11/16 21: 45; Admin Dose 80 MG; Start 09/11/16 at 21:00 Calcitriol (Rocaltrol) 0.25 mcg DAILY PO Last administered on 09/12/16 08:29; Admin Dose 0.25 MCG; Start 09/12/16 at 09:00 Ferrous Sulfate (Ferrous Sulfate (Ec)) 325 mg DAILY PO Last administered on 08:29; Admin Dose 325 MG; Start 09/12/16 at 09:00 Hydralazine HCl (Apresoline) 25 mg BID PO Last administered on 09/11/16 21:45 ; Admin Dose 25 MG; Start 09/11/16 at 21:00 Isosorbide Mononitrate (Imdur) 30 mg DAILY PO Last administered on 09/12/16 08 :29; Admin Dose 30 MG; Start 09/12/16 at 09:00 Mycophenolate Sodium (Myfortic) 180 mg Q12 PO Last administered on 09/12/16 08 :29; Admin Dose 180 MG; Start 09/11/16 at 21:00 Pantoprazole (Protonix Tab) 40 mg DAILY@06 PO Last administered on 09/12/16 06 :14; Admin Dose 40 MG; Start 09/12/16 at 06:00 Prednisone (Prednisone) 5 mg DAILY PO Last administered on 09/12/16 08:30; Admin Dose 5 MG; Start 09/12/16 at 09:00 Tacrolimus (Prograf) 0.5 mg Q12 PO Last administered on 09/12/16 08:29; Admin Dose 0.5 MG; Start 09/11/16 at 21:00 Carvedilol (Coreg) 12.5 mg BID PO Last administered on 09/12/16 08:30; Admin Dose 12.5 MG; Start 09/11/16 at 21:00 Acetylcysteine 600 mg 600 mg BID PO Last administered on 09/12/16 08:29; Admin Dose 600 MG; Start 09/11/16 at 15:00 Meropenem/Sodium Chloride (Merrem/NS) 100 ml @ 200 mls/hr Q12 IVPB Last administered on 09/12/16 08:45; Admin Dose 200 MLS/HR; Start 09/11/16 at 21:00 Doxazosin Mesylate 2 mg 2 mg HS PO Last administered on 09/11/16 22:09; Admin Dose 2 MG; Start 09/11/16 at 21:21 Magnesium Sulfate 3 gm/Sodium Chloride 106 ml @ 35.333 mls/ hr ONCE ONCE IVPB Last administered on 09/12/16 08:44; Admin Dose 35.333 MLS/HR; Start at 09:00; Stop 09/12/16 at 11:59 Dextrose 1,000 ml @ 40 mls/hr Q24H IV Last administered on 09/12/16 08:26; Admin Dose 40 MLS/HR; Start 09/12/16 at 08:00 Vancomycin HCl (Vancocin) 250 ml @ 125 mls/hr Q36H IVPB ; Start 09/13/16 at 07: 00 CARMEN JARAMILLO MD Sep 12, 2016 09:53
--- NOTE | 2016-09-12 10:56 | CONS ---
Date/Time of Note Date/Time of Note DATE: 09/12/16 TIME: 10:51 Assessment/Plan Assessment/Plan Additional Assessment/Plan Chest x-ray was reviewed from yesterday as well as today which is showing bilateral infiltrative changes more pronounced in the right lung difficult to rule out superimposed pulmonary edema. Assessment recommendations; 1. Patient admitted with shortness of breath due to severity of bilateral pneumonia as well as superimposed pulmonary edema. Clinically improving. 2. Worsening renal function. 3. Multiple other comorbidities including history of CABG, renal transplant, chronic immunosuppression, severe aortic stenosis, underlying coronary artery disease with graft occlusion. Continue current treatment. Consultation Date/Type/Reason Admit Date/Time Sep 11, 2016 at 16:35 Date of Consultation: Sep 12, 2016 Type of Consultation: Pulmonary/critical care Reason for Consultation Pulmonary consultation requested for evaluation of shortness of breath. History of presenting any; patient is a 71-year-old white male who was admitted yesterday for elective coronary angiogram. She also developed some shortness of breath and then was transferred to ICU. Time I saw the patient is completely awake alert and denies any further shortness of breath. Denies any chest pain. Fever, hemoptysis or sputum production. Does complain of chronic dyspnea on exertion. Past medical history; 1. Patient with history of renal transplant in 2007 on chronic immunosuppression. 2. Renal insufficiency. 3. History of prior CABG. 4. Severe aortic stenosis. 5. History of hypertension. 6. History of cardiac arrhythmia, status post pacemaker placement in the past. Medications; reviewed. Allergies; are to Vasotec. Social history; patient is an ex-smoker. Family history; noncontributory. 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 Gently on long term. Review of systems; denies any headache, seizures. Any sinus symptoms. Any visual changes. Any dysphagia or odynophagia. Any sore throat. Denies any chest pain, angina. Shortness of breath is improving. Denies any cough sputum production or hemoptysis. Denies any abdominal pain, nausea vomiting. Denies any edema. Complains of mild chronic orthopnea. Denies any weight loss. General exam; elderly male, awake alert currently in no distress. Psychological: nl mood/affect Social History Alcohol Use: none Smoking Status: Former smoker Drug Use: none Exam/Review of Systems Vital Signs Vitals Vital Signs Date Time Temp Pulse Resp B/P Pulse Ox O2 Delivery O2 Flow Rate FiO2 09/12/16 09:00 80 31 109/72 92 BIPAP 09/12/16 08:00 97.9 09/12/16 03:00 100 09/11/16 17:08 15.0 Intake and Output 09/11/16 09/11/16 09/12/16 15:00 23:00 07:00 Intake Total 360 ml 100 ml Output Total 2150 ml 1125 ml Balance -1790 ml -1025 ml Exam HEENT exam; supple neck, positive JVD. No lymphadenopathy. Midline trachea. No thyromegaly. Pharynx is clear. Patient is edentulous and wears dentures. Pupils are small bilaterally. Chest examined; diminished but clear breath sound bilaterally. S1-S2 audible there is a very loud aortic stenosis murmur. There is a well-healed sternal scar. Regular rhythm. There is a pacemaker in left chest wall. Abdomen exam; soft, no organomegaly. Bowel sounds audible. Extremity exam; no peripheral edema. Pulses 2+ bilaterally. No clubbing. 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 Results Result Diagram: 09/12/16 0540 09/12/16 0540 Results 24 hrs Laboratory Tests Test 09/11/16 12:11 09/11/16 18:20 09/11/16 23:00 09/12/16 05:40 White Blood Count 9.0 # 14.3 #H Red Blood Count 3.95 L 4.58 L Hemoglobin 11.6 L 13.1 L Hematocrit 36.2 L 41.8 L Mean Corpuscular Volume 91.6 91.3 Mean Corpuscular Hemoglobin 29.4 28.6 L Mean Corpuscular Hemoglobin Concent 32.0 31.3 L Red Cell Distribution Width 16.7 H 16.8 H Platelet Count 143 145 Mean Platelet Volume 12.5 H 12.5 H Neutrophils % 83.2 H 94.0 H Lymphocytes % 5.5 L 1.7 L Monocytes % 8.4 2.9 Eosinophils % 0.8 0.0 Basophils % 0.4 0.1 Nucleated Red Blood Cells % 0.0 0.0 Neutrophils # 7.5 13.5 H Lymphocytes # 0.5 L 0.2 L Monocytes # 0.8 0.4 Eosinophils # 0.1 0.0 Basophils # 0.0 0.0 Nucleated Red Blood Cells # 0.0 0.0 Prothrombin Time 14.0 Prothrombin Time Ratio 1.1 INR International Normalized Ratio 1.08 Activated Partial Thromboplast Time 28.4 Sodium Level 142 147 H Potassium Level 4.7 4.7 Chloride Level 109 105 Carbon Dioxide Level 24 23 Anion Gap 14 24 #H Blood Urea Nitrogen 34 H 42 H Creatinine 1.94 H 2.08 H Glucose Level 126 121 Calcium Level 9.7 9.8 Total Bilirubin 0.7 1.1 Direct Bilirubin 0.00 0.00 Indirect Bilirubin 0.7 1.1 Aspartate Amino Transf (AST/SGOT) 17 16 Alanine Aminotransferase (ALT/SGPT) 31 31 Alkaline Phosphatase 58 64 Creatine Kinase 52 Creatine Kinase Index 5.1 Creatinine Kinase MB (Mass) 2.67 H Troponin I 0.039 Total Protein 7.0 7.3 Albumin 4.7 4.6 Globulin 2.30 2.70 Albumin/Globulin Ratio 2.04 1.70 Triglycerides Level 133 127 Cholesterol Level 133 161 LDL Cholesterol, Calculated 54 78 HDL Cholesterol 52 58 Cholesterol/HDL Ratio 2.5 2.7 Blood Gas Specimen Source Blood arterial Arterial Blood Date Drawn 09/11/2016 6:45:59 PM Arterial Blood pH (Temp corrected) 7.453 H Arterial Blood pCO2 (Temp correct) 29.5 L Arterial Blood pO2 (Temp corrected) 47.4 *L Arterial Blood HCO3 20.2 L Arterial Blood Base Excess -2.5 Arterial Blood Oxygen Saturation 81.7 L Ji Test ACCEPTAB Arterial Blood Gas Puncture Site Right Radial Arterial Blood Carboxyhemoglobin 0 Arterial Blood Methemoglobin 0.2 Blood Gas A-a O2 Differential 636.1 H Oxyhemoglobin Percent 81.5 L Total Hemoglobin 14.7 Blood Gas Temperature 37.0 Blood Gas Modality MASK - NRB FiO2 100.0 Blood Gas Critical Value Read Back DR. REHMAN Blood Gas Notified Whom RT Blood Gas Notified Time 09/11/2016 6:54:25 PM Urine Color COLORLESS Urine Clarity CLEAR Urine pH 5.0 Urine Specific [place] 1.008 Urine Ketones NEGATIVE Urine Nitrite NEGATIVE Urine Bilirubin NEGATIVE Urine Urobilinogen NEGATIVE Urine Leukocyte Esterase NEGATIVE Urine Hemoglobin NEGATIVE Urine Random Creatinine < 12.40 L Urine Random Sodium 141 H Urine Glucose NEGATIVE Urine Total Protein 12.0 H Phosphorus Level 5.1 H Magnesium Level 1.5 L B-Type Natriuretic Peptide 85230 H Thyroid Stimulating Hormone (TSH) 2.430 Free Thyroxine 1.81 Digoxin Level 1.1 Medications Medications Current Medications Miscellaneous Information (* Miscellaneous Pharmacy Order) HOLD all METFORMIN ... ONCE XX ; Start 09/11/16 at 14:30; Stop 09/13/16 at 14:29 Albuterol (Ventolin Hfa) 2 puff Q4H PRN INH SHORTNESS OF BREATH; Start at 14:30 Amiodarone HCl (Cordarone) 400 mg BID PO Last administered on 09/12/16 08:30; Admin Dose 400 MG; Start 09/11/16 at 21:00 Aspirin (Halfprin) 81 mg DAILY PO Last administered on 09/12/16 08:30; Admin Dose 81 MG; Start 09/12/16 at 09:00 Atorvastatin Calcium (Lipitor) 80 mg QHS PO Last administered on 09/11/16 21: 45; Admin Dose 80 MG; Start 09/11/16 at 21:00 Calcitriol (Rocaltrol) 0.25 mcg DAILY PO Last administered on 09/12/16 08:29; Admin Dose 0.25 MCG; Start 09/12/16 at 09:00 Ferrous Sulfate (Ferrous Sulfate (Ec)) 325 mg DAILY PO Last administered on 08:29; Admin Dose 325 MG; Start 09/12/16 at 09:00 Hydralazine HCl (Apresoline) 25 mg BID PO Last administered on 09/11/16 21:45 ; Admin Dose 25 MG; Start 09/11/16 at 21:00 Isosorbide Mononitrate (Imdur) 30 mg DAILY PO Last administered on 09/12/16 08 :29; Admin Dose 30 MG; Start 09/12/16 at 09:00 Mycophenolate Sodium (Myfortic) 180 mg Q12 PO Last administered on 09/12/16 08 :29; Admin Dose 180 MG; Start 09/11/16 at 21:00 Pantoprazole (Protonix Tab) 40 mg DAILY@06 PO Last administered on 09/12/16 06 :14; Admin Dose 40 MG; Start 09/12/16 at 06:00 Prednisone (Prednisone) 5 mg DAILY PO Last administered on 09/12/16 08:30; Admin Dose 5 MG; Start 09/12/16 at 09:00 Tacrolimus (Prograf) 0.5 mg Q12 PO Last administered on 09/12/16 08:29; Admin Dose 0.5 MG; Start 09/11/16 at 21:00 Carvedilol (Coreg) 12.5 mg BID PO Last administered on 09/12/16 08:30; Admin Dose 12.5 MG; Start 09/11/16 at 21:00 Acetylcysteine 600 mg 600 mg BID PO Last administered on 09/12/16 08:29; Admin Dose 600 MG; Start 09/11/16 at 15:00 Meropenem/Sodium Chloride (Merrem/NS) 100 ml @ 200 mls/hr Q12 IVPB Last administered on 09/12/16 08:45; Admin Dose 200 MLS/HR; Start 09/11/16 at 21:00 Doxazosin Mesylate 2 mg 2 mg HS PO Last administered on 09/11/16 22:09; Admin Dose 2 MG; Start 09/11/16 at 21:21 Magnesium Sulfate 3 gm/Sodium Chloride 106 ml @ 35.333 mls/ hr ONCE ONCE IVPB Last administered on 09/12/16 08:44; Admin Dose 35.333 MLS/HR; Start at 09:00; Stop 09/12/16 at 11:59 Dextrose 1,000 ml @ 40 mls/hr Q24H IV Last administered on 09/12/16 08:26; Admin Dose 40 MLS/HR; Start 09/12/16 at 08:00 Vancomycin HCl (Vancocin) 250 ml @ 125 mls/hr Q36H IVPB ; Start 09/13/16 at 07: 00 Apixaban (Eliquis) 2.5 mg BID PO ; Start 09/12/16 at 10:00 DIXIE MATHEW Sep 12, 2016 10:56
[2016-09-12] MEDS: APIXABAN 5 MG TABLET PO SCH ×2 (12:31→20:45)
--- NOTE | 2016-09-12 15:00 | PN ---
Date/Time of Note Date/Time of Note DATE: 09/12/16 TIME: 14:50 Assessment/Plan VTE Prophylaxis VTE Prophylaxis Intervention: other (eliquis) Lines/Catheters IV Catheter Type (from [facility]): Peripheral IV Urinary Cath still in place: Yes Reason Cath still needed: other (indicate) (monitor i/o in patient with acute chf/hypoxia) Assessment/Plan Chief Complaint/Hosp Course A/P.71 years old male with history of CHF, EF 35%, Aortic stenosis, A.fib, CAD, CKD, s/p renal transplant who presented for elective coronary angiogram. 1. s/p coronary angiogram- anatomy was obtained, no PCI/intervention done, will need PIC in near future as he may need Aortic valve surgery. Will continue to monitor kidney function, 2. Respiratory failure- 2ndary to CHF due to his , s/p diuretics, also on antibiotics for possible pneumonia. 3. CKD- with slight worsening- nephrology follow up, continue all post transplant anti rejection meds, monitor. 4. Anti coagulate with Eliquis 5.borderline hypotension, keep in the ICU for now. 6. Renal 2g Na diet 7.d/w daughter over the phone 8. protonix for GI prophylaxis. 9.ID- possible pneumonia, follow up serial CXR. noted worsening leukocytosis- may be due to steroids he received yesterday. Problems: Subjective 24 Hr Interval Summary Free Text/Dictation Patient was transferred to the ICU yesterday due to hypoxia, was on BIPAP throughout the night, now back on NC, comfortable, saturating well. Noted pulmonary, nephrology and cardiology input. spoke with the daughter and gave her an update. 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 Skin: No diaphoresis Results Result Diagram: 09/12/16 0540 09/12/16 0540 Results 24 hrs Laboratory Tests Test 09/11/16 18:20 09/11/16 23:00 09/12/16 05:40 Blood Gas Specimen Source Blood arterial Arterial Blood Date Drawn 09/11/2016 6:45:59 PM Arterial Blood pH (Temp corrected) 7.453 H Arterial Blood pCO2 (Temp correct) 29.5 L Arterial Blood pO2 (Temp corrected) 47.4 *L Arterial Blood HCO3 20.2 L Arterial Blood Base Excess -2.5 Arterial Blood Oxygen Saturation 81.7 L Ji Test ACCEPTAB Arterial Blood Gas Puncture Site Right Radial Arterial Blood Carboxyhemoglobin 0 Arterial Blood Methemoglobin 0.2 Blood Gas A-a O2 Differential 636.1 H Oxyhemoglobin Percent 81.5 L Total Hemoglobin 14.7 Blood Gas Temperature 37.0 Blood Gas Modality MASK - NRB FiO2 100.0 Blood Gas Critical Value Read Back DR. REHMAN Blood Gas Notified Whom RT Blood Gas Notified Time 09/11/2016 6:54:25 PM Urine Color COLORLESS Urine Clarity CLEAR Urine pH 5.0 Urine Specific [place] 1.008 Urine Ketones NEGATIVE Urine Nitrite NEGATIVE Urine Bilirubin NEGATIVE Urine Urobilinogen NEGATIVE Urine Leukocyte Esterase NEGATIVE Urine Hemoglobin NEGATIVE Urine Random Creatinine < 12.40 L Urine Random Sodium 141 H Urine Glucose NEGATIVE Urine Total Protein 12.0 H White Blood Count 14.3 #H Red Blood Count 4.58 L Hemoglobin 13.1 L Hematocrit 41.8 L Mean Corpuscular Volume 91.3 Mean Corpuscular Hemoglobin 28.6 L Mean Corpuscular Hemoglobin Concent 31.3 L Red Cell Distribution Width 16.8 H Platelet Count 145 Mean Platelet Volume 12.5 H Neutrophils % 94.0 H Lymphocytes % 1.7 L Monocytes % 2.9 Eosinophils % 0.0 Basophils % 0.1 Nucleated Red Blood Cells % 0.0 Neutrophils # 13.5 H Lymphocytes # 0.2 L Monocytes # 0.4 Eosinophils # 0.0 Basophils # 0.0 Nucleated Red Blood Cells # 0.0 Sodium Level 147 H Potassium Level 4.7 Chloride Level 105 Carbon Dioxide Level 23 Anion Gap 24 #H Blood Urea Nitrogen 42 H Creatinine 2.08 H Glucose Level 121 Calcium Level 9.8 Phosphorus Level 5.1 H Magnesium Level 1.5 L Total Bilirubin 1.1 Direct Bilirubin 0.00 Indirect Bilirubin 1.1 Aspartate Amino Transf (AST/SGOT) 16 Alanine Aminotransferase (ALT/SGPT) 31 Alkaline Phosphatase 64 B-Type Natriuretic Peptide 82181 H Total Protein 7.3 Albumin 4.6 Globulin 2.70 Albumin/Globulin Ratio 1.70 Triglycerides Level 127 Cholesterol Level 161 LDL Cholesterol, Calculated 78 HDL Cholesterol 58 Cholesterol/HDL Ratio 2.7 Thyroid Stimulating Hormone (TSH) 2.430 Free Thyroxine 1.81 Digoxin Level 1.1 Medications Medications Current Medications Miscellaneous Information (* Miscellaneous Pharmacy Order) HOLD all METFORMIN ... ONCE XX ; Start 09/11/16 at 14:30; Stop 09/13/16 at 14:29 Albuterol (Ventolin Hfa) 2 puff Q4H PRN INH SHORTNESS OF BREATH; Start at 14:30 Amiodarone HCl (Cordarone) 400 mg BID PO Last administered on 09/12/16 08:30; Admin Dose 400 MG; Start 09/11/16 at 21:00 Aspirin (Halfprin) 81 mg DAILY PO Last administered on 09/12/16 08:30; Admin Dose 81 MG; Start 09/12/16 at 09:00 Atorvastatin Calcium (Lipitor) 80 mg QHS PO Last administered on 09/11/16 21: 45; Admin Dose 80 MG; Start 09/11/16 at 21:00 Calcitriol (Rocaltrol) 0.25 mcg DAILY PO Last administered on 09/12/16 08:29; Admin Dose 0.25 MCG; Start 09/12/16 at 09:00 Ferrous Sulfate (Ferrous Sulfate (Ec)) 325 mg DAILY PO Last administered on 08:29; Admin Dose 325 MG; Start 09/12/16 at 09:00 Hydralazine HCl (Apresoline) 25 mg BID PO Last administered on 09/11/16 21:45 ; Admin Dose 25 MG; Start 09/11/16 at 21:00 Isosorbide Mononitrate (Imdur) 30 mg DAILY PO Last administered on 09/12/16 08 :29; Admin Dose 30 MG; Start 09/12/16 at 09:00 Mycophenolate Sodium (Myfortic) 180 mg Q12 PO Last administered on 09/12/16 08 :29; Admin Dose 180 MG; Start 09/11/16 at 21:00 Pantoprazole (Protonix Tab) 40 mg DAILY@06 PO Last administered on 09/12/16 06 :14; Admin Dose 40 MG; Start 09/12/16 at 06:00 Prednisone (Prednisone) 5 mg DAILY PO Last administered on 09/12/16 08:30; Admin Dose 5 MG; Start 09/12/16 at 09:00 Tacrolimus (Prograf) 0.5 mg Q12 PO Last administered on 09/12/16 08:29; Admin Dose 0.5 MG; Start 09/11/16 at 21:00 Carvedilol (Coreg) 12.5 mg BID PO Last administered on 09/12/16 08:30; Admin Dose 12.5 MG; Start 09/11/16 at 21:00 Acetylcysteine 600 mg 600 mg BID PO Last administered on 09/12/16 08:29; Admin Dose 600 MG; Start 09/11/16 at 15:00 Meropenem/Sodium Chloride (Merrem/NS) 100 ml @ 200 mls/hr Q12 IVPB Last administered on 09/12/16 08:45; Admin Dose 200 MLS/HR; Start 09/11/16 at 21:00 Doxazosin Mesylate 2 mg 2 mg HS PO Last administered on 09/11/16 22:09; Admin Dose 2 MG; Start 09/11/16 at 21:21 Dextrose 1,000 ml @ 40 mls/hr Q24H IV Last administered on 09/12/16 08:26; Admin Dose 40 MLS/HR; Start 09/12/16 at 08:00 Vancomycin HCl (Vancocin) 250 ml @ 125 mls/hr Q36H IVPB ; Start 09/13/16 at 07: 00 Apixaban (Eliquis) 2.5 mg BID PO Last administered on 09/12/16 12:31; Admin Dose 2.5 MG; Start 09/12/16 at 10:00 BRANDY REHMAN MD Sep 12, 2016 14:59
[2016-09-12] MEDS ORDERED: VANCOMYCIN 750 MG in SOD CHLORIDE 0.9% 150 ML IVPB SCH (20:00)
[2016-09-12] MEDS: DOXAZOSIN 1 MG TAB PO SCH (20:41)
[2016-09-12] MEDS: ATORVASTATIN 80 MG TAB PO SCH (20:43)
[2016-09-13] VITALS (41 sets, daily range): BP systolic 90–114; BP diastolic 64–76; PULSE 80–82; RESP 13–26
[2016-09-13 06:01] LABS: ADD SCAN DIFF NO
[2016-09-13 06:14] LABS: ABNORMAL IP MESSAGE 1; BASOPHILS % 0.1 % (0.0-2.0); HEMATOCRIT 35.1 % (42.0-52.0); HEMOGLOBIN 11.1 g/dl (14.0-18.0); LYMPHOCYTES # 0.2 10^3/ul (0.8-2.9); MEAN CORPUSCULAR HEMOGLOBIN 28.5 pg (29.0-33.0); MEAN CORPUSCULAR HGB CONC 31.6 g/dl (32.0-37.0); MEAN PLATELET VOLUME 12.6 fl (7.4-10.4); MONOCYTES % 7.5 % (0.0-11.0); NEUTROPHIL # 12.2 10^3/ul (1.6-7.5); NEUTROPHILS % 89.7 % (39.0-77.0); PLATELET COUNT 146 10^3/UL (140-415); RED CELL DISTRIBUTION WIDTH 16.9 % (11.5-14.5); WHITE BLOOD COUNT 13.7 10^3/ul (4.8-10.8)
[2016-09-13] MEDS: PANTOPRAZOLE (EC) 40 MG TAB PO SCH (06:20)
[2016-09-13] MEDS: LEVOTHYROXINE 100 MCG TAB PO SCH (06:20)
[2016-09-13 06:34] LABS: LYMPHOCYTES % 1.2 % (15.0-51.0)
[2016-09-13] MEDS: VANCOMYCIN 1 GM in NS 250 ML IVPB SCH (06:34)
[2016-09-13 06:50] LABS: ALBUMIN/GLOBULIN RATIO 1.81; BILIRUBIN,INDIRECT 0.6 mg/dl (0-1.1); BILIRUBIN,TOTAL 0.6 mg/dl (0.2-1.3); CALCIUM 8.7 mg/dl (8.4-10.2); CHOL/HDL RATIO 2.7 RATIO; CREATININE 2.1 mg/dl (0.61-1.24); POTASSIUM 3.8 mmol/L (3.5-5.1); TOTAL PROTEIN 6.2 g/dl (6.1-8.1)
[2016-09-13 06:52] LABS: CK-MB 1.15 ng/ml (0.0-2.4)
[2016-09-13 06:59] LABS: TROPONIN-I 0.067 ng/ml (0.00-0.12)
[2016-09-13 07:18] LABS: THYROID STIMULATING HORMONE 3.75 MIU/L (0.465-4.680)
--- NOTE | 2016-09-13 07:34 | PN ---
Date/Time of Note Date/Time of Note DATE: 09/13/16 TIME: 07:31 Assessment/Plan VTE Prophylaxis VTE Prophylaxis Intervention: other Lines/Catheters IV Catheter Type (from Nrs): Peripheral IV Urinary Cath still in place: Yes Reason Cath still needed: other (indicate) Assessment/Plan Chief Complaint/Hosp Course resp failure Problems: Assessment/Plan 1. CHF: acute on chronic due to systolic heart failure, diastolic heart failure and valvular heart disease 2. SEVERE 3. COPD exacerbation 4. ? pneumonia 5. severe CAD 6. HX CABG 7 HX PCI 8/ PAD 9. CKD: 10/ s/p renal transplant 11. dyslipidemia 12. P AFIB 13. S/P BIV ICD REC: will cont eliquis diuresis as tolerated. will start lasix 40 IV daily for now O2 Abx as per Dr Jacobs and pulm rec cont anti rejecion meds ( to be adjusted by renal). check procalcitonin level will dc hydralazine and hold imdur and dec coreg due to hypotension transfer to [facility] if stable and ok with Dr Jacobs. Subjective 24 Hr Interval Summary Free Text/Dictation d/w staff and Dr Carpio rhythm was reviewed. pt remains in V paced rhythm no chest pain or pressure. he is breathing much better now. no palpitations. he has been hypotensive over night and yesterday. no bleeding or groin pain Exam/Review of Systems Vital Signs Vitals Vital Signs Date Time Temp Pulse Resp B/P Pulse Ox O2 Delivery O2 Flow Rate FiO2 09/13/16 07:00 80 17 113/74 100 Nasal Cannula 09/13/16 04:00 97.6 09/13/16 03:25 5.0 09/12/16 07:40 100 Intake and Output 09/12/16 09/12/16 09/13/16 15:00 23:00 07:00 Intake Total 856 ml 1040 ml 750 ml Output Total 1075 ml 1000 ml 900 ml Balance -219 ml 40 ml -150 ml Exam neuro: awake and alert, Ox 3 VASCULAR: R femoral no bleeding or hematoma or bruit. Constitutional: alert, frail, oriented. no acute distress Psych: nl mood/affect Head: atraumatic, normocephalic Eyes: EOMI, nl conjunctiva Neck: non-tender, supple Respiratory: + rhonchi more on the right than the left. Cardiovascular: regular rate and rhythm, systolic ejection murmur ---> carotid Gastrointestinal: nl liver, spleen, soft Genitourinary - Male: nl penis, nl scrotum Extremities: NO LE EDEMA Neurological: STUDIO HAND II-XII intact Results Result Diagram: 09/13/1652209/13/16522 Results 24 hrs Laboratory Tests Test 09/13/16 05:23 White Blood Count 13.7 H Red Blood Count 3.90 L Hemoglobin 11.1 L Hematocrit 35.1 L Mean Corpuscular Volume 90.0 Mean Corpuscular Hemoglobin 28.5 L Mean Corpuscular Hemoglobin Concent 31.6 L Red Cell Distribution Width 16.9 H Platelet Count 146 Mean Platelet Volume 12.6 H Neutrophils % 89.7 H Lymphocytes % 1.2 L Monocytes % 7.5 Eosinophils % 0.0 Basophils % 0.1 Nucleated Red Blood Cells % 0.0 Neutrophils # 12.2 H Lymphocytes # 0.2 L Monocytes # 1.0 H Eosinophils # 0.0 Basophils # 0.0 Nucleated Red Blood Cells # 0.0 Sodium Level 142 Potassium Level 3.8 Chloride Level 103 Carbon Dioxide Level 24 Anion Gap 19 H Blood Urea Nitrogen 55 H Creatinine 2.10 H Glucose Level 130 Calcium Level 8.7 Total Bilirubin 0.6 Direct Bilirubin 0.00 Indirect Bilirubin 0.6 Aspartate Amino Transf (AST/SGOT) 12 L Alanine Aminotransferase (ALT/SGPT) 27 Alkaline Phosphatase 48 Creatine Kinase 39 Creatine Kinase Index 2.9 Creatinine Kinase MB (Mass) 1.15 Troponin I 0.067 B-Type Natriuretic Peptide 46394 H Total Protein 6.2 # Albumin 4.0 Globulin 2.20 Albumin/Globulin Ratio 1.81 Triglycerides Level 118 Cholesterol Level 131 LDL Cholesterol, Calculated 59 HDL Cholesterol 48 # Cholesterol/HDL Ratio 2.7 Thyroid Stimulating Hormone (TSH) 3.750 Free Thyroxine 1.48 Digoxin Level 0.7 L Medications Medications Current Medications Miscellaneous Information (* Miscellaneous Pharmacy Order) HOLD all METFORMIN ... ONCE XX ; Start 09/11/16 at 14:30; Stop 09/13/16 at 14:29 Albuterol (Ventolin Hfa) 2 puff Q4H PRN INH SHORTNESS OF BREATH; Start at 14:30 Amiodarone HCl (Cordarone) 400 mg BID PO Last administered on 09/12/16t 08:30; Admin Dose 400 MG; Start 09/11/16 at 21:00 Aspirin (Halfprin) 81 mg DAILY PO Last administered on 09/12/16 08:30; Admin Dose 81 MG; Start 09/12/16 at 09:00 Atorvastatin Calcium (Lipitor) 80 mg QHS PO Last administered on 09/12/16 20: 43; Admin Dose 80 MG; Start 09/11/16 at 21:00 Calcitriol (Rocaltrol) 0.25 mcg DAILY PO Last administered on 09/12/16 08:29; Admin Dose 0.25 MCG; Start 09/12/16 at 09:00 Ferrous Sulfate (Ferrous Sulfate (Ec)) 325 mg DAILY PO Last administered on 08:29; Admin Dose 325 MG; Start 09/12/16 at 09:00 Hydralazine HCl (Apresoline) 25 mg BID PO Last administered on 09/11/16 21:45 ; Admin Dose 25 MG; Start 09/11/16 at 21:00 Isosorbide Mononitrate (Imdur) 30 mg DAILY PO Last administered on 09/12/16 08 :29; Admin Dose 30 MG; Start 09/12/16 at 09:00 Mycophenolate Sodium (Myfortic) 180 mg Q12 PO Last administered on 09/12/16 20 :43; Admin Dose 180 MG; Start 09/11/16 at 21:00 Pantoprazole (Protonix Tab) 40 mg DAILY@06 PO Last administered on 09/13/16 06 :20; Admin Dose 40 MG; Start 09/12/16 at 06:00 Prednisone (Prednisone) 5 mg DAILY PO Last administered on 09/12/16 08:30; Admin Dose 5 MG; Start 09/12/16 at 09:00 Tacrolimus (Prograf) 0.5 mg Q12 PO Last administered on 09/12/16 20:43; Admin Dose 0.5 MG; Start 09/11/16 at 21:00 Carvedilol (Coreg) 12.5 mg BID PO Last administered on 09/12/16 08:30; Admin Dose 12.5 MG; Start 09/11/16 at 21:00 Acetylcysteine 600 mg 600 mg BID PO Last administered on 09/12/16 20:43; Admin Dose 600 MG; Start 09/11/16 at 15:00 Meropenem/Sodium Chloride (Merrem/NS) 100 ml @ 200 mls/hr Q12 IVPB Last administered on 09/12/16 20:40; Admin Dose 200 MLS/HR; Start 09/11/16 at 21:00 Doxazosin Mesylate 2 mg 2 mg HS PO Last administered on 09/11/16 22:09; Admin Dose 2 MG; Start 09/11/16 at 21:21 Dextrose 1,000 ml @ 40 mls/hr Q24H IV Last administered on 09/12/16 08:26; Admin Dose 40 MLS/HR; Start 09/12/16 at 08:00 Vancomycin HCl (Vancocin) 250 ml @ 125 mls/hr Q36H IVPB Last administered on 06:34; Admin Dose 125 MLS/HR; Start 09/13/16 at 07:00 Apixaban (Eliquis) 2.5 mg BID PO Last administered on 09/12/16 20:45; Admin Dose 2.5 MG; Start 09/12/16 at 10:00 CARMEN JARAMILLO MD Sep 13, 2016 07:34
[2016-09-13 07:38] LABS: MAGNESIUM 2.3 mg/dl (1.7-2.5); PHOSPHORUS 4.8 mg/dl (2.5-4.9)
--- NOTE | 2016-09-13 08:18 | PN ---
Date/Time of Note Date/Time of Note DATE: 09/13/16 TIME: 08:12 Assessment/Plan Lines/Catheters IV Catheter Type (from [facility]): Peripheral IV Urinary Cath still in place: Yes Assessment/Plan Chief Complaint/Hosp Course 1. Nonoliguric acute kidney injury on top of chronic kidney disease with a baseline creatinine of 1.7 mg/dL. Etiology of current acute kidney injury is likely secondary to hemodynamics, possible CRS. Low suspicion for contrast associated nephropathy given low amount of contrast used in cardiac cath. The possibility of tubular injury is also a consideration. Low suspicion at this point for acute allograft rejection. -Renal function overall stable. -continue diuretic therapy will monitor renal function closely -Would otherwise continue supportive care, renally dose meds, avoid nephrotoxins, continue current immunosuppressive regimen. - We will consider checking a Prograf level. 2. History of end-stage renal disease status post a living donor transplant. The patient has a baseline creatinine of 1.7 mg/dL. Currently in acute kidney injury as stated above. - Would continue current plan at this point to treat acute kidney injury as stated above. - Continue current immunosuppressive regimen with Prograf, Myfortic and prednisone. -We will check a Prograf level and monitor closely. 3. Anemia of chronic disease. Monitor hemoglobin and hematocrit levels. 4. Bone mineral disorder. Will monitor calcium and phosphorus levels. 5. Acute chf exacerbation, systolic, diastolic. -Chest x-ray continues to show pulmonary congestion -cont diuretic therapy -monitor strict i/o -f/u cardiology 6. cad. s/p cardiac cath f/u cardiology for further recs 6. Acute hypoxemia with respiratory failure secondary to congestive heart failure. -cont diuretic therapy Patient is clinically improving care. On nasal cannula 7. Cardiomyopathy status post implantable cardioverter defibrillator placement. Continue current medical management. Continue diuretic therapy. Follow up with cardiology. 8. History of hypertension. Continue medical management. 9. Diabetes. Continue current insulin regimen. 10. History of severe aortic stenosis. 11. History of coronary artery bypass 12. Hypernatremia. Improved 13. Hypomagnesemia replete with magnesium sulfate. 14. Leukocytosis. Possibly from steroids. Monitor for possible infection. Patient is on antibiotics. Continue to monitor Problems: Subjective 24 Hr Interval Summary Free Text/Dictation Patient is clinically improving. Currently off nonrebreather facemask. On 5 L nasal cannula. Urinary output has been excellent. Exam/Review of Systems Vital Signs Vitals Vital Signs Date Time Temp Pulse Resp B/P Pulse Ox O2 Delivery O2 Flow Rate FiO2 09/13/16 07:00 80 17 113/74 100 Nasal Cannula 09/13/16 04:00 97.6 09/13/16 03:25 5.0 09/12/16 07:40 100 Intake and Output 09/12/16 09/12/16 09/13/16 15:00 23:00 07:00 Intake Total 856 ml 1040 ml 750 ml Output Total 1075 ml 1000 ml 900 ml Balance -219 ml 40 ml -150 ml Exam HEENT. Head is normocephalic atraumatic Cardiovascular heart tachycardic. Lungs show diminished breath sounds at the base plus rhonchi and crackles Abdomen soft nontender palpation Extremities are negative for clubbing cyanosis trace edema Dermatologically no rashes Musculoskeletal no joint effusions Neurologically no focal deficits. Results Result Diagram: 09/13/16 0523 09/13/16 0523 Results 24 hrs Laboratory Tests Test 09/13/16 04:23 09/13/16 05:23 Phosphorus Level 4.8 Magnesium Level 2.3 White Blood Count 13.7 H Red Blood Count 3.90 L Hemoglobin 11.1 L Hematocrit 35.1 L Mean Corpuscular Volume 90.0 Mean Corpuscular Hemoglobin 28.5 L Mean Corpuscular Hemoglobin Concent 31.6 L Red Cell Distribution Width 16.9 H Platelet Count 146 Mean Platelet Volume 12.6 H Neutrophils % 89.7 H Lymphocytes % 1.2 L Monocytes % 7.5 Eosinophils % 0.0 Basophils % 0.1 Nucleated Red Blood Cells % 0.0 Neutrophils # 12.2 H Lymphocytes # 0.2 L Monocytes # 1.0 H Eosinophils # 0.0 Basophils # 0.0 Nucleated Red Blood Cells # 0.0 Sodium Level 142 Potassium Level 3.8 Chloride Level 103 Carbon Dioxide Level 24 Anion Gap 19 H Blood Urea Nitrogen 55 H Creatinine 2.10 H Glucose Level 130 Calcium Level 8.7 Total Bilirubin 0.6 Direct Bilirubin 0.00 Indirect Bilirubin 0.6 Aspartate Amino Transf (AST/SGOT) 12 L Alanine Aminotransferase (ALT/SGPT) 27 Alkaline Phosphatase 48 Creatine Kinase 39 Creatine Kinase Index 2.9 Creatinine Kinase MB (Mass) 1.15 Troponin I 0.067 B-Type Natriuretic Peptide 37872 H Total Protein 6.2 # Albumin 4.0 Globulin 2.20 Albumin/Globulin Ratio 1.81 Triglycerides Level 118 Cholesterol Level 131 LDL Cholesterol, Calculated 59 HDL Cholesterol 48 # Cholesterol/HDL Ratio 2.7 Thyroid Stimulating Hormone (TSH) 3.750 Free Thyroxine 1.48 Digoxin Level 0.7 L Medications Medications Current Medications Miscellaneous Information (* Miscellaneous Pharmacy Order) HOLD all METFORMIN ... ONCE XX ; Start 09/11/16 at 14:30; Stop 09/13/16 at 14:29 Albuterol (Ventolin Hfa) 2 puff Q4H PRN INH SHORTNESS OF BREATH; Start at 14:30 Aspirin (Halfprin) 81 mg DAILY PO Last administered on 09/12/16 08:30; Admin Dose 81 MG; Start 09/12/16 at 09:00 Atorvastatin Calcium (Lipitor) 80 mg QHS PO Last administered on 09/12/16 20: 43; Admin Dose 80 MG; Start 09/11/16 at 21:00 Calcitriol (Rocaltrol) 0.25 mcg DAILY PO Last administered on 09/12/16 08:29; Admin Dose 0.25 MCG; Start 09/12/16 at 09:00 Ferrous Sulfate (Ferrous Sulfate (Ec)) 325 mg DAILY PO Last administered on 08:29; Admin Dose 325 MG; Start 09/12/16 at 09:00 Isosorbide Mononitrate (Imdur) 30 mg DAILY PO Last administered on 09/12/16 08 :29; Admin Dose 30 MG; Start 09/12/16 at 09:00; Status Future Hold Mycophenolate Sodium (Myfortic) 180 mg Q12 PO Last administered on 09/12/16 20 :43; Admin Dose 180 MG; Start 09/11/16 at 21:00 Pantoprazole (Protonix Tab) 40 mg DAILY@06 PO Last administered on 09/13/16 06 :20; Admin Dose 40 MG; Start 09/12/16 at 06:00 Prednisone (Prednisone) 5 mg DAILY PO Last administered on 09/12/16 08:30; Admin Dose 5 MG; Start 09/12/16 at 09:00 Tacrolimus (Prograf) 0.5 mg Q12 PO Last administered on 09/12/16 20:43; Admin Dose 0.5 MG; Start 09/11/16 at 21:00 Acetylcysteine (Nac) 600 mg BID PO Last administered on 09/12/16 20:43; Admin Dose 600 MG; Start 09/11/16 at 15:00 Doxazosin Mesylate 2 mg 2 mg HS PO Last administered on 09/11/16 22:09; Admin Dose 2 MG; Start 09/11/16 at 21:21 Dextrose 1,000 ml @ 40 mls/hr Q24H IV Last administered on 09/12/16 08:26; Admin Dose 40 MLS/HR; Start 09/12/16 at 08:00 Vancomycin HCl (Vancocin) 250 ml @ 125 mls/hr Q36H IVPB Last administered on 06:34; Admin Dose 125 MLS/HR; Start 09/13/16 at 07:00 Apixaban (Eliquis) 2.5 mg BID PO Last administered on 09/12/16 20:45; Admin Dose 2.5 MG; Start 09/12/16 at 10:00 Amiodarone HCl (Cordarone) 400 mg DAILY PO ; Start 09/13/16 at 09:00 Carvedilol (Coreg) 3.125 mg BID PO ; Start 09/13/16 at 09:00 Furosemide 40 mg 40 mg DAILY IV ; Start 09/13/16 at 09:00 Meropenem (Merrem 1 Gm/100 ml (Pmx)) 100 ml @ 200 mls/hr Q12 IVPB ; Start 09/13 at 09:00 INDIRA NELSON DO Sep 13, 2016 08:17
[2016-09-13] MEDS ORDERED: FUROSEMIDE 40 MG INJ IV SCH (09:00)
[2016-09-13] MEDS: TACROLIMUS 0.5 MG CAP PO SCH ×2 (09:14→21:47)
[2016-09-13] MEDS: CALCITRIOL 0.25 MCG CAP PO SCH (09:14)
[2016-09-13] MEDS: MEROPENEM 1 GM/100 ML (PMX) 100 ML IVPB SCH ×2 (09:14→21:55)
[2016-09-13] MEDS: predniSONE 5 MG TAB PO SCH (09:14)
[2016-09-13] MEDS: ACETYLCYSTEINE 600 MG CAP PO SCH ×2 (09:14→22:00)
[2016-09-13] MEDS: FERROUS SULFATE (EC) 325 MG TAB PO SCH (09:14)
[2016-09-13] MEDS: ASPIRIN (EC) 81 MG TAB PO SCH (09:14)
--- NOTE | 2016-09-13 09:14 | CONS ---
Date/Time of Note Date/Time of Note DATE: 09/13/16 TIME: 09:12 Assessment/Plan Assessment/Plan Additional Assessment/Plan Assessment and recommendations; 1. Patient admitted with bilateral pneumonia as well as pulmonary edema on account of underlying cardiomyopathy and severe aortic stenosis. 2. Chronic immunosuppression, patient with renal transplant. 3. COPD. 4. Severe aortic stenosis and underlying coronary artery disease with graft occlusion. Increase Lasix to 40 mg IV every 12 hours. Will obtain follow-up chest x-ray in 24 hours. Awaiting coronary intervention. Consultation Date/Type/Reason Admit Date/Time Sep 11, 2016 at 16:35 Initial Consult Date 09/12/16 Type of Consultation: Pulmonary/critical care Referring Provider: BRANDY REHMAN MD 24 HR Interval Summary Free Text/Dictation Patient condition stable. Denies any shortness of breath, chest pain. General exam; elderly male, awake alert currently in no distress. Exam/Review of Systems Vital Signs Vitals Vital Signs Date Time Temp Pulse Resp B/P Pulse Ox O2 Delivery O2 Flow Rate FiO2 09/13/16 07:00 80 17 113/74 100 Nasal Cannula 09/13/16 04:00 97.6 09/13/16 03:25 5.0 09/12/16 07:40 100 Intake and Output 09/12/16 09/12/16 09/13/16 15:00 23:00 07:00 Intake Total 856 ml 1040 ml 750 ml Output Total 1075 ml 1000 ml 900 ml Balance -219 ml 40 ml -150 ml Exam HEENT exam; supple neck, positive JVD. No lymphadenopathy. Midline trachea. No thyromegaly. Patient is edentulous and wears dentures. Pupils are small bilaterally. No neck masses. Chest exam; diminished breath on lung bases bilaterally. S1-S2 audible, no murmurs. Regular rhythm. There is a well-healed sternal scar. Abdomen exam; soft, nontender. Bowel sounds audible. No organomegaly. Extremity exam; no peripheral edema. Pulses 1+ bilaterally. [employer] exam; no focal deficit. Results Result Diagram: 09/13/16 0523 09/13/16 0523 Results 24 hrs Laboratory Tests Test 09/13/16 04:23 09/13/16 05:23 Phosphorus Level 4.8 Magnesium Level 2.3 White Blood Count 13.7 H Red Blood Count 3.90 L Hemoglobin 11.1 L Hematocrit 35.1 L Mean Corpuscular Volume 90.0 Mean Corpuscular Hemoglobin 28.5 L Mean Corpuscular Hemoglobin Concent 31.6 L Red Cell Distribution Width 16.9 H Platelet Count 146 Mean Platelet Volume 12.6 H Neutrophils % 89.7 H Lymphocytes % 1.2 L Monocytes % 7.5 Eosinophils % 0.0 Basophils % 0.1 Nucleated Red Blood Cells % 0.0 Neutrophils # 12.2 H Lymphocytes # 0.2 L Monocytes # 1.0 H Eosinophils # 0.0 Basophils # 0.0 Nucleated Red Blood Cells # 0.0 Sodium Level 142 Potassium Level 3.8 Chloride Level 103 Carbon Dioxide Level 24 Anion Gap 19 H Blood Urea Nitrogen 55 H Creatinine 2.10 H Glucose Level 130 Calcium Level 8.7 Total Bilirubin 0.6 Direct Bilirubin 0.00 Indirect Bilirubin 0.6 Aspartate Amino Transf (AST/SGOT) 12 L Alanine Aminotransferase (ALT/SGPT) 27 Alkaline Phosphatase 48 Creatine Kinase 39 Creatine Kinase Index 2.9 Creatinine Kinase MB (Mass) 1.15 Troponin I 0.067 B-Type Natriuretic Peptide 91567 H Total Protein 6.2 # Albumin 4.0 Globulin 2.20 Albumin/Globulin Ratio 1.81 Triglycerides Level 118 Cholesterol Level 131 LDL Cholesterol, Calculated 59 HDL Cholesterol 48 # Cholesterol/HDL Ratio 2.7 Thyroid Stimulating Hormone (TSH) 3.750 Free Thyroxine 1.48 Digoxin Level 0.7 L Medications Medications Current Medications Miscellaneous Information (* Miscellaneous Pharmacy Order) HOLD all METFORMIN ... ONCE XX ; Start 09/11/16 at 14:30; Stop 09/13/16 at 14:29 Albuterol (Ventolin Hfa) 2 puff Q4H PRN INH SHORTNESS OF BREATH; Start at 14:30 Aspirin (Halfprin) 81 mg DAILY PO Last administered on 09/12/16 08:30; Admin Dose 81 MG; Start 09/12/16 at 09:00 Atorvastatin Calcium (Lipitor) 80 mg QHS PO Last administered on 09/12/16 20: 43; Admin Dose 80 MG; Start 09/11/16 at 21:00 Calcitriol (Rocaltrol) 0.25 mcg DAILY PO Last administered on 09/12/16 08:29; Admin Dose 0.25 MCG; Start 09/12/16 at 09:00 Ferrous Sulfate (Ferrous Sulfate (Ec)) 325 mg DAILY PO Last administered on 08:29; Admin Dose 325 MG; Start 09/12/16 at 09:00 Isosorbide Mononitrate (Imdur) 30 mg DAILY PO Last administered on 09/12/16 08 :29; Admin Dose 30 MG; Start 09/12/16 at 09:00; Status Future Hold Mycophenolate Sodium (Myfortic) 180 mg Q12 PO Last administered on 09/12/16 20 :43; Admin Dose 180 MG; Start 09/11/16 at 21:00 Pantoprazole (Protonix Tab) 40 mg DAILY@06 PO Last administered on 09/13/16 06 :20; Admin Dose 40 MG; Start 09/12/16 at 06:00 Prednisone (Prednisone) 5 mg DAILY PO Last administered on 09/12/16 08:30; Admin Dose 5 MG; Start 09/12/16 at 09:00 Tacrolimus (Prograf) 0.5 mg Q12 PO Last administered on 09/12/16 20:43; Admin Dose 0.5 MG; Start 09/11/16 at 21:00 Acetylcysteine (Nac) 600 mg BID PO Last administered on 09/12/16 20:43; Admin Dose 600 MG; Start 09/11/16 at 15:00 Doxazosin Mesylate 2 mg 2 mg HS PO Last administered on 09/11/16 22:09; Admin Dose 2 MG; Start 09/11/16 at 21:21 Vancomycin HCl (Vancocin) 250 ml @ 125 mls/hr Q36H IVPB Last administered on 06:34; Admin Dose 125 MLS/HR; Start 09/13/16 at 07:00 Apixaban (Eliquis) 2.5 mg BID PO Last administered on 09/12/16 20:45; Admin Dose 2.5 MG; Start 09/12/16 at 10:00 Amiodarone HCl (Cordarone) 400 mg DAILY PO ; Start 09/13/16 at 09:00 Carvedilol (Coreg) 3.125 mg BID PO ; Start 09/13/16 at 09:00 Furosemide 40 mg 40 mg DAILY IV ; Start 09/13/16 at 09:00 Meropenem (Merrem 1 Gm/100 ml (Pmx)) 100 ml @ 200 mls/hr Q12 IVPB ; Start 09/13 at 09:00 DIXIE MATHEW Sep 13, 2016 09:14
[2016-09-13] MEDS: APIXABAN 5 MG TABLET PO SCH ×2 (09:16→21:48)
[2016-09-13] MEDS: AMIODARONE 200 MG TAB PO SCH (09:48)
[2016-09-13] MEDS: MYCOPHENOLATE (SR) 180 MG TAB PO SCH ×2 (10:31→21:47)
--- NOTE | 2016-09-13 12:48 | PN ---
Date/Time of Note Date/Time of Note DATE: 09/13/16 TIME: 12:40 Assessment/Plan VTE Prophylaxis VTE Prophylaxis Intervention: other (eliquis) Lines/Catheters IV Catheter Type (from Nrs): Peripheral IV Urinary Cath still in place: Yes Reason Cath still needed: other (indicate) (monitor urine output) Assessment/Plan Chief Complaint/Hosp Course A/P.71 years old male with history of CHF, EF 35%, Aortic stenosis, A.fib, CAD, CKD, s/p renal transplant who presented for elective coronary angiogram. 1. s/p coronary angiogram- anatomy was obtained, no PCI/intervention done, will need PIC in near future as he may need Aortic valve surgery. Will continue to monitor kidney function, 2. Respiratory failure- 2ndary to CHF/diastolic dysfunction due to his , continue diuretics, also on antibiotics for possible pneumonia. 3. CKD- with slight worsening- nephrology follow up, continue all post transplant anti rejection meds, monitor. 4. Anti coagulate with Eliquis 5.borderline hypotension- reduced blood pressure meds, can be transferred to tele. 6. Renal 2g Na diet 7.d/w daughter at bedside. 8. protonix for GI prophylaxis. 9.ID- possible pneumonia, follow up serial CXR. noted worsening leukocytosis- may be due to steroids he received. 10. CAD- 2 graft closed, PCI in near future per Dr. Thakur, and then follow up at [facility] for valvular heart surgery. Problems: Subjective 24 Hr Interval Summary Free Text/Dictation The patient seen ,doing better, daughter at bedside, care discussed. On IV lasix, blood pressure is stable, o2 is >90 on NC, patient denies cp or sob. Noted pulmonary, cardiology and nephrology recs. Exam/Review of Systems Vital Signs Vitals Vital Signs Date Time Temp Pulse Resp B/P Pulse Ox O2 Delivery O2 Flow Rate FiO2 09/13/16 12:00 98.6 80 16 107/75 93 Nasal Cannula 09/13/16 03:25 5.0 09/12/16 07:40 100 Intake and Output 09/12/16 09/12/16 09/13/16 15:00 23:00 07:00 Intake Total 856 ml 1040 ml 750 ml Output Total 1075 ml 1000 ml 900 ml Balance -219 ml 40 ml -150 ml Exam Constitutional: alert, No distress Psych: No anxiety, No confusion Head: atraumatic, normocephalic Respiratory: clear to auscultation Cardiovascular: murmurs/extra sounds (systolic murmur harsh throughout) Musculoskeletal: nl extremities to inspection, No swelling Extremities: normal pulses, No clubbing, No edema, No pitting pedal edema Results Result Diagram: 09/13/16 0523 09/13/16 0523 Results 24 hrs Laboratory Tests Test 09/13/16 04:23 09/13/16 05:23 Phosphorus Level 4.8 Magnesium Level 2.3 White Blood Count 13.7 H Red Blood Count 3.90 L Hemoglobin 11.1 L Hematocrit 35.1 L Mean Corpuscular Volume 90.0 Mean Corpuscular Hemoglobin 28.5 L Mean Corpuscular Hemoglobin Concent 31.6 L Red Cell Distribution Width 16.9 H Platelet Count 146 Mean Platelet Volume 12.6 H Neutrophils % 89.7 H Lymphocytes % 1.2 L Monocytes % 7.5 Eosinophils % 0.0 Basophils % 0.1 Nucleated Red Blood Cells % 0.0 Neutrophils # 12.2 H Lymphocytes # 0.2 L Monocytes # 1.0 H Eosinophils # 0.0 Basophils # 0.0 Nucleated Red Blood Cells # 0.0 Sodium Level 142 Potassium Level 3.8 Chloride Level 103 Carbon Dioxide Level 24 Anion Gap 19 H Blood Urea Nitrogen 55 H Creatinine 2.10 H Glucose Level 130 Calcium Level 8.7 Total Bilirubin 0.6 Direct Bilirubin 0.00 Indirect Bilirubin 0.6 Aspartate Amino Transf (AST/SGOT) 12 L Alanine Aminotransferase (ALT/SGPT) 27 Alkaline Phosphatase 48 Creatine Kinase 39 Creatine Kinase Index 2.9 Creatinine Kinase MB (Mass) 1.15 Troponin I 0.067 B-Type Natriuretic Peptide 13365 H Total Protein 6.2 # Albumin 4.0 Globulin 2.20 Albumin/Globulin Ratio 1.81 Triglycerides Level 118 Cholesterol Level 131 LDL Cholesterol, Calculated 59 HDL Cholesterol 48 # Cholesterol/HDL Ratio 2.7 Thyroid Stimulating Hormone (TSH) 3.750 Free Thyroxine 1.48 Digoxin Level 0.7 L Medications Medications Current Medications Miscellaneous Information (* Miscellaneous Pharmacy Order) HOLD all METFORMIN ... ONCE XX ; Start 09/11/16 at 14:30; Stop 09/13/16 at 14:29 Albuterol (Ventolin Hfa) 2 puff Q4H PRN INH SHORTNESS OF BREATH; Start at 14:30 Aspirin (Halfprin) 81 mg DAILY PO Last administered on 09/13/16 09:14; Admin Dose 81 MG; Start 09/12/16 at 09:00 Atorvastatin Calcium (Lipitor) 80 mg QHS PO Last administered on 09/12/16 20: 43; Admin Dose 80 MG; Start 09/11/16 at 21:00 Calcitriol (Rocaltrol) 0.25 mcg DAILY PO Last administered on 09/13/16 09:14; Admin Dose 0.25 MCG; Start 09/12/16 at 09:00 Ferrous Sulfate (Ferrous Sulfate (Ec)) 325 mg DAILY PO Last administered on 09:14; Admin Dose 325 MG; Start 09/12/16 at 09:00 Isosorbide Mononitrate (Imdur) 30 mg DAILY PO Last administered on 09/12/16 08 :29; Admin Dose 30 MG; Start 09/12/16 at 09:00; Status Future Hold Mycophenolate Sodium (Myfortic) 180 mg Q12 PO Last administered on 09/13/16 10 :31; Admin Dose 180 MG; Start 09/11/16 at 21:00 Pantoprazole (Protonix Tab) 40 mg DAILY@06 PO Last administered on 09/13/16 06 :20; Admin Dose 40 MG; Start 09/12/16 at 06:00 Prednisone (Prednisone) 5 mg DAILY PO Last administered on 09/13/16 09:14; Admin Dose 5 MG; Start 09/12/16 at 09:00 Tacrolimus (Prograf) 0.5 mg Q12 PO Last administered on 09/13/16 09:14; Admin Dose 0.5 MG; Start 09/11/16 at 21:00 Acetylcysteine (Nac) 600 mg BID PO Last administered on 09/13/16 09:14; Admin Dose 600 MG; Start 09/11/16 at 15:00 Doxazosin Mesylate 2 mg 2 mg HS PO Last administered on 09/11/16 22:09; Admin Dose 2 MG; Start 09/11/16 at 21:21 Vancomycin HCl (Vancocin) 250 ml @ 125 mls/hr Q36H IVPB Last administered on 06:34; Admin Dose 125 MLS/HR; Start 09/13/16 at 07:00 Apixaban (Eliquis) 2.5 mg BID PO Last administered on 09/13/16 09:16; Admin Dose 2.5 MG; Start 09/12/16 at 10:00 Amiodarone HCl (Cordarone) 400 mg DAILY PO Last administered on 09/13/16 09:48 ; Admin Dose 400 MG; Start 09/13/16 at 09:00 Carvedilol 3.125 mg 3.125 mg BID PO ; Start 09/13/16 at 09:00 Meropenem (Merrem 1 Gm/100 ml (Pmx)) 100 ml @ 200 mls/hr Q12 IVPB Last administered on 09/13/16 09:14; Admin Dose 200 MLS/HR; Start 09/13/16 at 09:00 Miscellaneous Information (*Rx Drug Level Order Reminder*) VANCO TROUGH @ 1, 800 ON... ONCE ONCE XX ; Start 09/14/16 at 18:00; Stop 09/14/16 at 18:01 BRANDY REHMAN MD Sep 13, 2016 12:47
[2016-09-13 15:10] LABS: MICROALBUMIN 0.7 mg/dL
[2016-09-13] MEDS: FUROSEMIDE 40 MG INJ IV SCH (18:41)
[2016-09-13] MEDS: ATORVASTATIN 80 MG TAB PO SCH (21:47)
[2016-09-13] MEDS: DOXAZOSIN 1 MG TAB PO SCH (21:47)
[2016-09-14] VITALS (12 sets, daily range): BP systolic 94–124; BP diastolic 64–77; PULSE 80; RESP 18–19
[2016-09-14] MEDS: FUROSEMIDE 40 MG INJ IV SCH ×2 (05:06→17:46)
[2016-09-14] MEDS: PANTOPRAZOLE (EC) 40 MG TAB PO SCH (05:09)
[2016-09-14 06:35] LABS: ABNORMAL IP MESSAGE 1; BASOPHILS % 0.2 % (0.0-2.0); EOSINOPHILS % 0.1 % (0.0-7.0); HEMATOCRIT 37.8 % (42.0-52.0); HEMOGLOBIN 12.1 g/dl (14.0-18.0); LYMPHOCYTES # 0.3 10^3/ul (0.8-2.9); LYMPHOCYTES % 2.8 % (15.0-51.0); MEAN CORPUSCULAR HEMOGLOBIN 28.9 pg (29.0-33.0); MEAN CORPUSCULAR VOLUME 90.2 fl (82.0-101.0); MEAN PLATELET VOLUME 12.5 fl (7.4-10.4); MONOCYTE # 1.2 10^3/ul (0.3-0.9); MONOCYTES % 9.6 % (0.0-11.0); NEUTROPHIL # 10.4 10^3/ul (1.6-7.5); NEUTROPHILS % 85.4 % (39.0-77.0); PLATELET COUNT 155 10^3/UL (140-415); RED BLOOD COUNT 4.19 10^6/ul (4.70-6.10); RED CELL DISTRIBUTION WIDTH 16.6 % (11.5-14.5); WHITE BLOOD COUNT 12.1 10^3/ul (4.8-10.8)
[2016-09-14] MEDS: LEVOTHYROXINE 100 MCG TAB PO SCH (06:35)
[2016-09-14 07:04] LABS: CALCIUM 8.7 mg/dl (8.4-10.2); CREATININE 2.02 mg/dl (0.61-1.24); MAGNESIUM 2.3 mg/dl (1.7-2.5); PHOSPHORUS 4.1 mg/dl (2.5-4.9); POTASSIUM 4.1 mmol/L (3.5-5.1)
[2016-09-14 07:05] LABS: ADD SCAN DIFF NO
[2016-09-14] MEDS: CALCITRIOL 0.25 MCG CAP PO SCH (08:00)
[2016-09-14] MEDS: ACETYLCYSTEINE 600 MG CAP PO SCH ×2 (08:00→22:11)
[2016-09-14] MEDS: AMIODARONE 200 MG TAB PO SCH (08:00)
[2016-09-14] MEDS: predniSONE 5 MG TAB PO SCH (08:01)
[2016-09-14] MEDS: MYCOPHENOLATE (SR) 180 MG TAB PO SCH ×2 (08:01→21:00)
[2016-09-14] MEDS: FERROUS SULFATE (EC) 325 MG TAB PO SCH (08:01)
[2016-09-14] MEDS: APIXABAN 5 MG TABLET PO SCH ×2 (08:01→22:10)
[2016-09-14] MEDS: TACROLIMUS 0.5 MG CAP PO SCH ×2 (08:01→21:00)
[2016-09-14] MEDS: MEROPENEM 1 GM/100 ML (PMX) 100 ML IVPB SCH (08:06)
[2016-09-14] MEDS: ASPIRIN (EC) 81 MG TAB PO SCH (08:51)
--- NOTE | 2016-09-14 09:20 | PN ---
Date/Time of Note Date/Time of Note DATE: 09/14/16 TIME: 09:18 Assessment/Plan Lines/Catheters IV C[facility]ter Type (from [facility]): [place] Lock Urinary Cath still in place: Yes Assessment/Plan Chief Complaint/Hosp Course 1. Nonoliguric acute kidney injury on top of chronic kidney disease with a baseline creatinine of 1.7 mg/dL. Etiology of current acute kidney injury is likely secondary to hemodynamics, possible CRS. Low suspicion for contrast associated nephropathy given low amount of contrast used in cardiac cath. The possibility of tubular injury is also a consideration. Low suspicion at this point for acute allograft rejection. -Renal function overall stable. -continue diuretic therapy will monitor renal function closely -Would otherwise continue supportive care, renally dose meds, avoid nephrotoxins, continue current immunosuppressive regimen. - f/u Prograf level. 2. History of end-stage renal disease status post a living donor transplant. The patient has a baseline creatinine of 1.7 mg/dL. Currently in acute kidney injury as stated above. - Would continue current plan at this point to treat acute kidney injury as stated above. - Continue current immunosuppressive regimen with Prograf, Myfortic and prednisone. -We will check a Prograf level and monitor closely. 3. Anemia of chronic disease. Monitor hemoglobin and hematocrit levels. 4. Bone mineral disorder. Will monitor calcium and phosphorus levels. 5. Acute chf exacerbation, systolic, diastolic. -Chest x-ray continues to show pulmonary congestion,improving -cont diuretic therapy -monitor strict i/o -f/u cardiology 6. cad. s/p cardiac cath f/u cardiology for further recs 6. Acute hypoxemia with respiratory failure secondary to congestive heart failure. -improving -cont diuretic therapy Patient is clinically improving care. On nasal cannula 7. Cardiomyopathy status post implantable cardioverter defibrillator placement. Continue current medical management. Continue diuretic therapy. Follow up with cardiology. 8. History of hypertension. Continue medical management. 9. Diabetes. Continue current insulin regimen. 10. History of severe aortic stenosis. 11. History of coronary artery bypass 12. Hypernatremia. Improved 13. Hypomagnesemia replete with magnesium sulfate. 14. Leukocytosis. Possibly from steroids. Monitor for possible infection. Patient is on antibiotics. Continue to monitor Problems: Subjective 24 Hr Interval Summary Free Text/Dictation Patient is from ICU to telemetry. Remains on 5 L nasal cannula. Clinically improving Exam/Review of Systems Vital Signs Vitals Vital Signs Date Time Temp Pulse Resp B/P Pulse Ox O2 Delivery O2 Flow Rate FiO2 09/14/16 08:16 80 09/14/16 07:24 98.6 18 111/75 09/14/16 04:00 98 09/13/16 20:00 Nasal Cannula 2.0 09/12/16 07:40 100 Intake and Output 09/13/16 09/13/16 09/14/16 15:00 23:00 07:00 Intake Total 300 ml 200 ml Output Total 725 ml 2500 ml Balance -425 ml -2300 ml Exam HEENT. Head is normocephalic atraumatic Cardiovascular heart tachycardic. Lungs show diminished breath sounds at the base plus rhonchi and crackles Abdomen soft nontender palpation Extremities are negative for clubbing cyanosis trace edema Dermatologically no rashes Musculoskeletal no joint effusions Neurologically no focal deficits. Results Result Diagram: 09/14/16 0539 09/14/16 0539 Results 24 hrs Laboratory Tests Test 09/14/16 05:39 White Blood Count 12.1 H Red Blood Count 4.19 L Hemoglobin 12.1 L Hematocrit 37.8 L Mean Corpuscular Volume 90.2 Mean Corpuscular Hemoglobin 28.9 L Mean Corpuscular Hemoglobin Concent 32.0 Red Cell Distribution Width 16.6 H Platelet Count 155 Mean Platelet Volume 12.5 H Neutrophils % 85.4 H Lymphocytes % 2.8 L Monocytes % 9.6 Eosinophils % 0.1 Basophils % 0.2 Nucleated Red Blood Cells % 0.0 Neutrophils # 10.4 H Lymphocytes # 0.3 L Monocytes # 1.2 H Eosinophils # 0.0 Basophils # 0.0 Nucleated Red Blood Cells # 0.0 Sodium Level 141 Potassium Level 4.1 Chloride Level 101 Carbon Dioxide Level 30 Anion Gap 14 Blood Urea Nitrogen 63 H Creatinine 2.02 H Glucose Level 115 Calcium Level 8.7 Phosphorus Level 4.1 Magnesium Level 2.3 Medications Medications Current Medications Albuterol (Ventolin Hfa) 2 puff Q4H PRN INH SHORTNESS OF BREATH; Start at 14:30 Aspirin (Halfprin) 81 mg DAILY PO Last administered on 09/14/16t 08:51; Admin Dose 81 MG; Start 09/12/16 at 09:00 Atorvastatin Calcium (Lipitor) 80 mg QHS PO Last administered on 09/13/16 21: 47; Admin Dose 80 MG; Start 09/11/16 at 21:00 Calcitriol (Rocaltrol) 0.25 mcg DAILY PO Last administered on 09/14/16 08:00; Admin Dose 0.25 MCG; Start 09/12/16 at 09:00 Ferrous Sulfate (Ferrous Sulfate (Ec)) 325 mg DAILY PO Last administered on 08:01; Admin Dose 325 MG; Start 09/12/16 at 09:00 Isosorbide Mononitrate (Imdur) 30 mg DAILY PO Last administered on 09/12/16 08 :29; Admin Dose 30 MG; Start 09/12/16 at 09:00; Status Future Hold Mycophenolate Sodium (Myfortic) 180 mg Q12 PO Last administered on 09/14/16 08 :01; Admin Dose 180 MG; Start 09/11/16 at 21:00 Pantoprazole (Protonix Tab) 40 mg DAILY@06 PO Last administered on 09/14/16 05 :09; Admin Dose 40 MG; Start 09/12/16 at 06:00 Prednisone (Prednisone) 5 mg DAILY PO Last administered on 09/14/16 08:01; Admin Dose 5 MG; Start 09/12/16 at 09:00 Tacrolimus (Prograf) 0.5 mg Q12 PO Last administered on 09/14/16 08:01; Admin Dose 0.5 MG; Start 09/11/16 at 21:00 Acetylcysteine (Nac) 600 mg BID PO Last administered on 09/14/16 08:00; Admin Dose 600 MG; Start 09/11/16 at 15:00 Doxazosin Mesylate 2 mg 2 mg HS PO Last administered on 09/13/16 21:47; Admin Dose 2 MG; Start 09/11/16 at 21:21 Vancomycin HCl (Vancocin) 250 ml @ 125 mls/hr Q36H IVPB Last administered on 06:34; Admin Dose 125 MLS/HR; Start 09/13/16 at 07:00 Apixaban (Eliquis) 2.5 mg BID PO Last administered on 09/14/16 08:01; Admin Dose 2.5 MG; Start 09/12/16 at 10:00 Amiodarone HCl (Cordarone) 400 mg DAILY PO Last administered on 09/14/16 08:00 ; Admin Dose 400 MG; Start 09/13/16 at 09:00 Carvedilol 3.125 mg 3.125 mg BID PO Last administered on 09/14/16 08:00; Admin Dose 3.125 MG; Start 09/13/16 at 09:00 Meropenem (Merrem 1 Gm/100 ml (Pmx)) 100 ml @ 200 mls/hr Q12 IVPB Last administered on 09/14/16 08:06; Admin Dose 200 MLS/HR; Start 09/13/16 at 09:00 Miscellaneous Information (*Rx Drug Level Order Reminder*) VANCO TROUGH @ 1, 800 ON... ONCE ONCE XX ; Start 09/14/16 at 18:00; Stop 09/14/16 at 18:01 INDIRA NELSON DO Sep 14, 2016 09:20
--- NOTE | 2016-09-14 09:32 | RADRPT ---
PROCEDURE: XR Chest 1 view. CLINICAL INDICATION: Shortness of breath. TECHNIQUE: AP views of the chest were obtained. COMPARISON: September 12, 2016 FINDINGS: The heart is large. Calcified atherosclerosis is noted in the aorta. Left-sided dual chamber, biven tricular pacemaker/defibrillator has its leads over the heart and appears stable. Median sternotomy wires and surgical clips overlie the heart. Mild central pulmonary vascular congestion and interst itial prominence is seen in both lungs. Right lower lobe infiltrates have decreased. Mild residual , combined with small pleural effusion remains. Small left pleural effusion with associated basila r atelectasis appears stable. Osseous structures are intact. IMPRESSION: Cardiomegaly with calcified atherosclerosis in the aorta. Central pulmonary vascular congestion and mild interstitial prominence in both lungs. Interval decrease in right lower lobe infiltrates. Mild residual remains and is combined small pleu ral effusion.. Stable small left pleural effusion with associated basilar atelectasis. RPTAT: AA .Jacoby Diaz MD, Date Time Electronically viewed and signed by .Jacoby Diaz MD, on 09/14/2016 09:32 .P/
--- NOTE | 2016-09-14 10:22 | CONS ---
Date/Time of Note Date/Time of Note DATE: 09/14/16 TIME: 10:20 Assessment/Plan Assessment/Plan Additional Assessment/Plan Assessment recommendations; 1. P patient admitted for suspected pulmonary edema with marked radiological improvement. Chest x-ray from today is markedly improved. 2. Underlying coronary artery disease with graft occlusion. Awaiting further intervention. 3. Severe aortic stenosis. 4. Status post renal transplant patient maintained on chronic immunosuppression. 5. COPD. Continue current treatment. Further workup to be done per cardiology recommendations. Consultation Date/Type/Reason Admit Date/Time Sep 11, 2016 at 16:35 Initial Consult Date 09/12/16 Type of Consultation: Pulmonary/critical care Referring Provider: BRANDY REHMAN MD 24 HR Interval Summary Free Text/Dictation Patient's condition stable. Has been transferred out of ICU to telemetry unit. Denies any chest pain, shortness of breath. General exam; elderly male, awake alert currently in no distress. Exam/Review of Systems Vital Signs Vitals Vital Signs Date Time Temp Pulse Resp B/P Pulse Ox O2 Delivery O2 Flow Rate FiO2 09/14/16 08:16 80 09/14/16 07:24 98.6 18 111/75 09/14/16 04:00 98 09/13/16 20:00 Nasal Cannula 2.0 09/12/16 07:40 100 Intake and Output 09/13/16 09/13/16 09/14/16 15:00 23:00 07:00 Intake Total 300 ml 200 ml Output Total 725 ml 2500 ml Balance -425 ml -2300 ml Exam HEENT exam; supple neck, no JVD. No lymphadenopathy. Midline trachea. No thyromegaly. Pharynx is clear. Patient is edentulous and wears dentures. Pupils are midsize and reactive to light. Chest exam; diminished breath sound bilaterally. S1-S2 audible, there is a loud aortic stenosis murmur grade 3/6. Regular rhythm. There is a well-healed sternal scar. Abdomen exam; soft, no organomegaly. Nontender. Bowel sounds audible. Extremity exam; no peripheral edema. Pulses 1+ bilaterally. [employer] exam; no focal deficit. Results Result Diagram: 09/14/16 0539 09/14/16 0539 Results 24 hrs Laboratory Tests Test 09/14/16 05:39 White Blood Count 12.1 H Red Blood Count 4.19 L Hemoglobin 12.1 L Hematocrit 37.8 L Mean Corpuscular Volume 90.2 Mean Corpuscular Hemoglobin 28.9 L Mean Corpuscular Hemoglobin Concent 32.0 Red Cell Distribution Width 16.6 H Platelet Count 155 Mean Platelet Volume 12.5 H Neutrophils % 85.4 H Lymphocytes % 2.8 L Monocytes % 9.6 Eosinophils % 0.1 Basophils % 0.2 Nucleated Red Blood Cells % 0.0 Neutrophils # 10.4 H Lymphocytes # 0.3 L Monocytes # 1.2 H Eosinophils # 0.0 Basophils # 0.0 Nucleated Red Blood Cells # 0.0 Sodium Level 141 Potassium Level 4.1 Chloride Level 101 Carbon Dioxide Level 30 Anion Gap 14 Blood Urea Nitrogen 63 H Creatinine 2.02 H Glucose Level 115 Calcium Level 8.7 Phosphorus Level 4.1 Magnesium Level 2.3 Medications Medications Current Medications Albuterol (Ventolin Hfa) 2 puff Q4H PRN INH SHORTNESS OF BREATH; Start at 14:30 Aspirin (Halfprin) 81 mg DAILY PO Last administered on 09/14/16 08:51; Admin Dose 81 MG; Start 09/12/16 at 09:00 Atorvastatin Calcium (Lipitor) 80 mg QHS PO Last administered on 09/13/16 21: 47; Admin Dose 80 MG; Start 09/11/16 at 21:00 Calcitriol (Rocaltrol) 0.25 mcg DAILY PO Last administered on 09/14/16 08:00; Admin Dose 0.25 MCG; Start 09/12/16 at 09:00 Ferrous Sulfate (Ferrous Sulfate (Ec)) 325 mg DAILY PO Last administered on 08:01; Admin Dose 325 MG; Start 09/12/16 at 09:00 Isosorbide Mononitrate (Imdur) 30 mg DAILY PO Last administered on 09/12/16 08 :29; Admin Dose 30 MG; Start 09/12/16 at 09:00; Status Future Hold Mycophenolate Sodium (Myfortic) 180 mg Q12 PO Last administered on 09/14/16 08 :01; Admin Dose 180 MG; Start 09/11/16 at 21:00 Pantoprazole (Protonix Tab) 40 mg DAILY@06 PO Last administered on 09/14/16 05 :09; Admin Dose 40 MG; Start 09/12/16 at 06:00 Prednisone (Prednisone) 5 mg DAILY PO Last administered on 09/14/16 08:01; Admin Dose 5 MG; Start 09/12/16 at 09:00 Tacrolimus (Prograf) 0.5 mg Q12 PO Last administered on 09/14/16 08:01; Admin Dose 0.5 MG; Start 09/11/16 at 21:00 Acetylcysteine (Nac) 600 mg BID PO Last administered on 09/14/16 08:00; Admin Dose 600 MG; Start 09/11/16 at 15:00 Doxazosin Mesylate 2 mg 2 mg HS PO Last administered on 09/13/16 21:47; Admin Dose 2 MG; Start 09/11/16 at 21:21 Vancomycin HCl (Vancocin) 250 ml @ 125 mls/hr Q36H IVPB Last administered on 06:34; Admin Dose 125 MLS/HR; Start 09/13/16 at 07:00 Apixaban (Eliquis) 2.5 mg BID PO Last administered on 09/14/16 08:01; Admin Dose 2.5 MG; Start 09/12/16 at 10:00 Amiodarone HCl (Cordarone) 400 mg DAILY PO Last administered on 09/14/16 08:00 ; Admin Dose 400 MG; Start 09/13/16 at 09:00 Carvedilol 3.125 mg 3.125 mg BID PO Last administered on 09/14/16 08:00; Admin Dose 3.125 MG; Start 09/13/16 at 09:00 Meropenem (Merrem 1 Gm/100 ml (Pmx)) 100 ml @ 200 mls/hr Q12 IVPB Last administered on 09/14/16 08:06; Admin Dose 200 MLS/HR; Start 09/13/16 at 09:00 Miscellaneous Information (*Rx Drug Level Order Reminder*) VANCO TROUGH @ 1, 800 ON... ONCE ONCE XX ; Start 09/14/16 at 18:00; Stop 09/14/16 at 18:01 DIXIE MATHEW Sep 14, 2016 10:22
--- NOTE | 2016-09-14 16:11 | OPR ---
Date/Time of Note Date/Time of Note DATE: 09/14/16 TIME: 15:57 Operative Report Procedure Date: Sep 11, 2016 Operative\Procedure Findings Procedure performed: 1. Left and right heart catheterization, selective right and left coronary angiogram 2. right femoral angiogram 3. moderate sedation for more than 90 minutes. 4. Selective graft angiography and left internal mammary artery angiography Billposter: Carmen Thakur MD Indication:: Severe coronary artery disease and aortic stenosis Findin. Left main coronary artery: Is calcified with 40% stenosis. 2. Left anterior descending artery: Its a modereate size vessel. It has 80% calcified stenosis proximally, and 100 % stenosis of the mid LAD. Diagonal has 99% calcified stenosis. GARCIA to LAD is patent. 3. Left circumflex artery: Is nondominant. It has 80% calcified stenosis proximally. Obtuse marginal 1 is 100% occluded. 4. Right coronary artery: Is a dominant vessel. It has 100 % stenosis at mid level 5. SVG to PDA: is patent. 6. other SVG could not be seen: c/w occluded grafts. RHC: RA mean pressure is 12 mmHg RV: 65/12 PA pressure: 54/36 PAWP: 39 LV 163/25, with simultaneous aortic pressure of 126/70. Gradient was 35 mmHg. Calculated aortic valve area was 0.77 centimeters square. Cardiac output is 3.74 Written informed consent with obtained after risks benefits and alternatives discussed with the patient in detail. risks including but not limited to risk of infection vascular complications, bleeding complications, ME stroke arrhythmia renal failure at even were discussed with the patient in detail. Patient was brought into the cardiac molder labels and placed in supine position. Right and left groin area was prepped and draped in regular sterile fashion and then right groin area was anesthetized using 1% lidocaine. Right femoral artery was cannulated and using modified seldinger technique a 6 Ivorian sheath was placed in the right femoral artery. and using a modified seldinger teachnique a 5 F sheath was placed in right femoral vein. PA catheter was advanced under fluoroscopy placed into the pulmonary artery wedge position. Hemodynamics was recorded. They was pulled back into the pulmonary artery. hemodynamic was recorded. Cardiac output was measured. Then he was pulled back into the RV and RA and hemodynamic was recorded. It was removed and Right femoral angiogram was performed. A 5 Ivorian pigtail was advanced into the aorta. He was able to cross the aortic valve. Hemodynamics recorded in the LV gram was not performed. Simultaneous aortic and LV pressure was recorded. Then by pullback aortic pressure was measured the gradient was recorded. JL4 catheter was advanced and engaged into the left main coronary artery and angiographic view was obtained. The JR4 catheter was advanced and engaged right coronary artery angiographic view was obtained. An angiocatheter was advanced and engaged into the saphenous vein graft to right coronary artery. Angiogram was performed. No other graft could be found. Then JR4 catheter was advanced into the left subclavian artery. It was changed to a GARCIA catheter which was engaged into the left internal mammary artery angiogram view was obtained. Cath and Glidewire were removed. Patient tolerated procedure well with no complication. Patient is to be transferred to recovery room in stable condition. contrast used: 35 cc Conclusions: 1. Severe aortic stenosis with aortic valve area of 0.77 cm 2. Severe [place] coronary artery disease. The only 2 patent grafts. Diagonal left cecum and the artery heavily calcified disease Recommendations: Aggressive medical therapy. Staged PCI of left Circumflex artery and diagonal probably Transcutaneous aortic valve replacement after PCI has been done CARMEN THAKUR MD Sep 14, 2016 16:10
--- NOTE | 2016-09-14 16:24 | PN ---
Date/Time of Note Date/Time of Note DATE: 09/14/16 TIME: 16:19 Assessment/Plan VTE Prophylaxis VTE Prophylaxis Intervention: other (eliquis) Lines/Catheters IV Catheter Type (from [facility]): Peripheral IV Urinary Cath still in place: Yes Reason Cath still needed: other (indicate) (discontinue) Assessment/Plan Chief Complaint/Hosp Course A/P.71 years old male with history of CHF, EF 35%, Aortic stenosis, A.fib, CAD, CKD, s/p renal transplant who presented for elective coronary angiogram. 1. s/p coronary angiogram- anatomy was obtained, no PCI/intervention done, will need PCI in near future as he may need Aortic valve surgery. Will continue to monitor kidney function, 2. Respiratory failure- 2ndary to CHF/diastolic dysfunction due to his , continue diuretics, also on antibiotics for possible pneumonia, all resolving. CXR shows significant improvement. 3. acute on CKD- stable- nephrology follow up, continue all post transplant anti rejection meds, monitor. 4. Anti coagulate with Eliquis 5.borderline hypotension- reduced blood pressure meds. 6. Renal 2g Na diet 7.d/w treatment plan. 8. protonix for GI prophylaxis. 9.ID- possible pneumonia,CXR better, de escalate antibiotics soon. 10. CAD- 2 graft closed, PCI in near future per Dr. Thakur, and then follow up at [facility] for valvular heart surgery. 11. OOB as tolerated, discontinue o2 if o2 maintains above 90. Problems: Subjective 24 Hr Interval Summary Free Text/Dictation Patient in Tele unit, comfortable, denies any cp or sob. CXR improved, clinically better, kidney function is stable. Remains on IV lasix. Exam/Review of Systems Vital Signs Vitals Vital Signs Date Time Temp Pulse Resp B/P Pulse Ox O2 Delivery O2 Flow Rate FiO2 09/14/16 16:16 80 09/14/16 16:12 5.0 09/14/16 15:04 98.7 18 119/77 98 09/13/16 20:00 Nasal Cannula 09/12/16 07:40 100 Intake and Output 09/13/16 09/13/16 09/14/16 15:00 23:00 07:00 Intake Total 300 ml 200 ml Output Total 725 ml 2500 ml Balance -425 ml -2300 ml Exam Eyes: other (pale) Cardiovascular: systolic murmur (06/21) Gastrointestinal: No distended, No hepatomegaly, No mass Extremities: No clubbing, No edema, No pitting pedal edema Results Result Diagram: 09/14/16 0539 09/14/16 0539 Results 24 hrs Laboratory Tests Test 09/14/16 05:39 White Blood Count 12.1 H Red Blood Count 4.19 L Hemoglobin 12.1 L Hematocrit 37.8 L Mean Corpuscular Volume 90.2 Mean Corpuscular Hemoglobin 28.9 L Mean Corpuscular Hemoglobin Concent 32.0 Red Cell Distribution Width 16.6 H Platelet Count 155 Mean Platelet Volume 12.5 H Neutrophils % 85.4 H Lymphocytes % 2.8 L Monocytes % 9.6 Eosinophils % 0.1 Basophils % 0.2 Nucleated Red Blood Cells % 0.0 Neutrophils # 10.4 H Lymphocytes # 0.3 L Monocytes # 1.2 H Eosinophils # 0.0 Basophils # 0.0 Nucleated Red Blood Cells # 0.0 Sodium Level 141 Potassium Level 4.1 Chloride Level 101 Carbon Dioxide Level 30 Anion Gap 14 Blood Urea Nitrogen 63 H Creatinine 2.02 H Glucose Level 115 Calcium Level 8.7 Phosphorus Level 4.1 Magnesium Level 2.3 Medications Medications Current Medications Albuterol (Ventolin Hfa) 2 puff Q4H PRN INH SHORTNESS OF BREATH; Start at 14:30 Aspirin (Halfprin) 81 mg DAILY PO Last administered on 09/14/16 08:51; Admin Dose 81 MG; Start 09/12/16 at 09:00 Atorvastatin Calcium (Lipitor) 80 mg QHS PO Last administered on 09/13/16 21: 47; Admin Dose 80 MG; Start 09/11/16 at 21:00 Calcitriol (Rocaltrol) 0.25 mcg DAILY PO Last administered on 09/14/16 08:00; Admin Dose 0.25 MCG; Start 09/12/16 at 09:00 Ferrous Sulfate (Ferrous Sulfate (Ec)) 325 mg DAILY PO Last administered on 08:01; Admin Dose 325 MG; Start 09/12/16 at 09:00 Isosorbide Mononitrate (Imdur) 30 mg DAILY PO Last administered on 09/12/16 08 :29; Admin Dose 30 MG; Start 09/12/16 at 09:00; Status Future Hold Mycophenolate Sodium (Myfortic) 180 mg Q12 PO Last administered on 09/14/16 08 :01; Admin Dose 180 MG; Start 09/11/16 at 21:00 Pantoprazole (Protonix Tab) 40 mg DAILY@06 PO Last administered on 09/14/16 05 :09; Admin Dose 40 MG; Start 09/12/16 at 06:00 Prednisone (Prednisone) 5 mg DAILY PO Last administered on 09/14/16 08:01; Admin Dose 5 MG; Start 09/12/16 at 09:00 Tacrolimus (Prograf) 0.5 mg Q12 PO Last administered on 09/14/16 08:01; Admin Dose 0.5 MG; Start 09/11/16 at 21:00 Acetylcysteine (Nac) 600 mg BID PO Last administered on 09/14/16 08:00; Admin Dose 600 MG; Start 09/11/16 at 15:00 Doxazosin Mesylate 2 mg 2 mg HS PO Last administered on 09/13/16 21:47; Admin Dose 2 MG; Start 09/11/16 at 21:21 Vancomycin HCl (Vancocin) 250 ml @ 125 mls/hr Q36H IVPB Last administered on 06:34; Admin Dose 125 MLS/HR; Start 09/13/16 at 07:00 Apixaban (Eliquis) 2.5 mg BID PO Last administered on 09/14/16 08:01; Admin Dose 2.5 MG; Start 09/12/16 at 10:00 Amiodarone HCl (Cordarone) 400 mg DAILY PO Last administered on 09/14/16 08:00 ; Admin Dose 400 MG; Start 09/13/16 at 09:00 Carvedilol 3.125 mg 3.125 mg BID PO Last administered on 09/14/16 08:00; Admin Dose 3.125 MG; Start 09/13/16 at 09:00 Meropenem (Merrem 1 Gm/100 ml (Pmx)) 100 ml @ 200 mls/hr Q12 IVPB Last administered on 09/14/16 08:06; Admin Dose 200 MLS/HR; Start 09/13/16 at 09:00 Miscellaneous Information (*Rx Drug Level Order Reminder*) VANCO TROUGH @ 1, 800 ON... ONCE ONCE XX ; Start 09/14/16 at 18:00; Stop 09/14/16 at 18:01 BRANDY REHMAN MD Sep 14, 2016 16:24
--- NOTE | 2016-09-14 16:30 | PN ---
Date/Time of Note Date/Time of Note DATE: 09/14/16 TIME: 16:26 Assessment/Plan VTE Prophylaxis VTE Prophylaxis Intervention: other Lines/Catheters IV Catheter Type (from Nrsg): Peripheral IV Urinary Cath still in place: Yes Reason Cath still needed: other (indicate) Assessment/Plan Chief Complaint/Hosp Course 1. CHF: acute on chronic due to systolic heart failure, diastolic heart failure and valvular heart disease 2. SEVERE 3. COPD exacerbation 4. ? pneumonia 5. severe CAD 6. HX CABG 7 HX PCI 8/ PAD 9. CKD: 10/ s/p renal transplant 11. dyslipidemia 12. P AFIB 13. S/P BIV ICD REC: will cont eliquis diuresis as tolerated. will cont lasix O2 Abx as per Dr Jacobs and pulm rec cont anti rejecion meds ( to be adjusted by renal). check procalcitonin level off of hydralazine and due to hypotension Problems: Subjective 24 Hr Interval Summary Free Text/Dictation d/w staff and rhythm was reviewed. pt is out of ICU and feels better no chest pain or pressure or palpitations. no bleeding Exam/Review of Systems Vital Signs Vitals Vital Signs Date Time Temp Pulse Resp B/P Pulse Ox O2 Delivery O2 Flow Rate FiO2 09/14/16 15:04 98.7 79 18 119/77 98 09/13/16 20:00 Nasal Cannula 2.0 09/12/16 07:40 100 Intake and Output 09/13/16 09/13/16 09/14/16 15:00 23:00 07:00 Intake Total 300 ml 200 ml Output Total 725 ml 2500 ml Balance -425 ml -2300 ml Exam neuro: awake and alert, Ox 3 VASCULAR: R femoral no bleeding or hematoma or bruit. Constitutional: alert, frail, oriented. no acute distress Psych: nl mood/affect Head: atraumatic, normocephalic Eyes: EOMI, nl conjunctiva Neck: non-tender, supple Respiratory: + rhonchi more on the right than the left. 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0 Nucleated Red Blood Cells # 0.0 Sodium Level 141 Potassium Level 4.1 Chloride Level 101 Carbon Dioxide Level 30 Anion Gap 14 Blood Urea Nitrogen 63 H Creatinine 2.02 H Glucose Level 115 Calcium Level 8.7 Phosphorus Level 4.1 Magnesium Level 2.3 Medications Medications Current Medications Albuterol (Ventolin Hfa) 2 puff Q4H PRN INH SHORTNESS OF BREATH; Start at 14:30 Aspirin (Halfprin) 81 mg DAILY PO Last administered on 09/14/16 08:51; Admin Dose 81 MG; Start 09/12/16 at 09:00 Atorvastatin Calcium (Lipitor) 80 mg QHS PO Last administered on 09/13/16 21: 47; Admin Dose 80 MG; Start 09/11/16 at 21:00 Calcitriol (Rocaltrol) 0.25 mcg DAILY PO Last administered on 09/14/16 08:00; Admin Dose 0.25 MCG; Start 09/12/16 at 09:00 Ferrous Sulfate (Ferrous Sulfate (Ec)) 325 mg DAILY PO Last administered on 08:01; Admin Dose 325 MG; Start 09/12/16 at 09:00 Isosorbide Mononitrate (Imdur) 30 mg DAILY PO Last administered on 09/12/16 08 :29; Admin Dose 30 MG; Start 09/12/16 at 09:00; Status Future Hold Mycophenolate Sodium (Myfortic) 180 mg Q12 PO Last administered on 09/14/16 08 :01; Admin Dose 180 MG; Start 09/11/16 at 21:00 Pantoprazole (Protonix Tab) 40 mg DAILY@06 PO Last administered on 09/14/16 05 :09; Admin Dose 40 MG; Start 09/12/16 at 06:00 Prednisone (Prednisone) 5 mg DAILY PO Last administered on 09/14/16 08:01; Admin Dose 5 MG; Start 09/12/16 at 09:00 Tacrolimus (Prograf) 0.5 mg Q12 PO Last administered on 09/14/16 08:01; Admin Dose 0.5 MG; Start 09/11/16 at 21:00 Acetylcysteine (Nac) 600 mg BID PO Last administered on 09/14/16 08:00; Admin Dose 600 MG; Start 09/11/16 at 15:00 Doxazosin Mesylate 2 mg 2 mg HS PO Last administered on 09/13/16 21:47; Admin Dose 2 MG; Start 09/11/16 at 21:21 Vancomycin HCl (Vancocin) 250 ml @ 125 mls/hr Q36H IVPB Last administered on 06:34; Admin Dose 125 MLS/HR; Start 09/13/16 at 07:00 Apixaban (Eliquis) 2.5 mg BID PO Last administered on 09/14/16 08:01; Admin Dose 2.5 MG; Start 09/12/16 at 10:00 Amiodarone HCl (Cordarone) 400 mg DAILY PO Last administered on 09/14/16 08:00 ; Admin Dose 400 MG; Start 09/13/16 at 09:00 Carvedilol 3.125 mg 3.125 mg BID PO Last administered on 09/14/16 08:00; Admin Dose 3.125 MG; Start 09/13/16 at 09:00 Meropenem (Merrem 1 Gm/100 ml (Pmx)) 100 ml @ 200 mls/hr Q12 IVPB Last administered on 09/14/16 08:06; Admin Dose 200 MLS/HR; Start 09/13/16 at 09:00 Miscellaneous Information (*Rx Drug Level Order Reminder*) VANCO TROUGH @ 1, 800 ON... ONCE ONCE XX ; Start 09/14/16 at 18:00; Stop 09/14/16 at 18:01 CARMEN JARAMILLO MD Sep 14, 2016 16:29
[2016-09-14] MEDS: ATORVASTATIN 80 MG TAB PO SCH (22:11)
[2016-09-14] MEDS: DOXAZOSIN 1 MG TAB PO SCH (22:12)
[2016-09-14] MEDS: VANCOMYCIN 1 GM in NS 250 ML IVPB SCH (22:22)
[2016-09-15] VITALS (11 sets, daily range): BP systolic 99–134; BP diastolic 57–70; PULSE 80–85; RESP 17–20
[2016-09-15] MEDS: MEROPENEM 1 GM/100 ML (PMX) 100 ML IVPB SCH ×3 (01:05→21:07)
[2016-09-15] MEDS: FUROSEMIDE 40 MG INJ IV SCH (06:11)
[2016-09-15] MEDS: PANTOPRAZOLE (EC) 40 MG TAB PO SCH (06:11)
[2016-09-15] MEDS: LEVOTHYROXINE 100 MCG TAB PO SCH (06:12)
[2016-09-15 07:04] LABS: BASOPHILS % 0.2 % (0.0-2.0); EOSINOPHILS # 0.1 10^3/ul (0.0-0.5); EOSINOPHILS % 1.3 % (0.0-7.0); HEMATOCRIT 40.4 % (42.0-52.0); HEMOGLOBIN 12.8 g/dl (14.0-18.0); LYMPHOCYTES # 0.8 10^3/ul (0.8-2.9); LYMPHOCYTES % 7.6 % (15.0-51.0); MEAN CORPUSCULAR HEMOGLOBIN 28.7 pg (29.0-33.0); MEAN CORPUSCULAR HGB CONC 31.7 g/dl (32.0-37.0); MEAN CORPUSCULAR VOLUME 90.6 fl (82.0-101.0); MEAN PLATELET VOLUME 12.1 fl (7.4-10.4); MONOCYTE # 1.5 10^3/ul (0.3-0.9); MONOCYTES % 13.4 % (0.0-11.0); NEUTROPHIL # 8.2 10^3/ul (1.6-7.5); NEUTROPHILS % 74.1 % (39.0-77.0); PLATELET COUNT 157 10^3/UL (140-415); RED BLOOD COUNT 4.46 10^6/ul (4.70-6.10); RED CELL DISTRIBUTION WIDTH 16.4 % (11.5-14.5)
[2016-09-15] MEDS: APIXABAN 5 MG TABLET PO SCH ×2 (08:06→20:54)
[2016-09-15] MEDS: predniSONE 5 MG TAB PO SCH (08:06)
[2016-09-15] MEDS: FERROUS SULFATE (EC) 325 MG TAB PO SCH (08:06)
[2016-09-15] MEDS: MYCOPHENOLATE (SR) 180 MG TAB PO SCH ×2 (08:06→20:53)
[2016-09-15] MEDS: TACROLIMUS 0.5 MG CAP PO SCH ×2 (08:06→20:53)
[2016-09-15] MEDS: CALCITRIOL 0.25 MCG CAP PO SCH (08:06)
[2016-09-15] MEDS: ACETYLCYSTEINE 600 MG CAP PO SCH ×2 (08:06→20:53)
[2016-09-15] MEDS: ASPIRIN (EC) 81 MG TAB PO SCH (08:06)
[2016-09-15] MEDS: AMIODARONE 200 MG TAB PO SCH (08:07)
[2016-09-15 08:18] LABS: CREATININE 2.06 mg/dl (0.61-1.24); MAGNESIUM 2.1 mg/dl (1.7-2.5); PHOSPHORUS 3.6 mg/dl (2.5-4.9); POTASSIUM 3.8 mmol/L (3.5-5.1)
--- NOTE | 2016-09-15 08:53 | PN ---
Date/Time of Note Date/Time of Note DATE: 09/15/16 TIME: 08:52 Assessment/Plan Lines/Catheters IV C[facility]ter Type (from [facility]): [place] [facility] Urinary Cath still in place: No Assessment/Plan Chief Complaint/Hosp Course 1. Nonoliguric acute kidney injury on top of chronic kidney disease with a baseline creatinine of 1.7 mg/dL. Etiology of current acute kidney injury is likely secondary to hemodynamics, possible CRS. Low suspicion for contrast associated nephropathy given low amount of contrast used in cardiac cath. The possibility of tubular injury is also a consideration. Low suspicion at this point for acute allograft rejection. -Renal function overall stable. -continue diuretic therapy will monitor renal function closely -Would otherwise continue supportive care, renally dose meds, avoid nephrotoxins, continue current immunosuppressive regimen. - f/u Prograf level. 2. History of end-stage renal disease status post a living donor transplant. The patient has a baseline creatinine of 1.7 mg/dL. Currently in acute kidney injury as stated above. - Would continue current plan at this point to treat acute kidney injury as stated above. - Continue current immunosuppressive regimen with Prograf, Myfortic and prednisone. -We will check a Prograf level and monitor closely. 3. Anemia of chronic disease. Monitor hemoglobin and hematocrit levels. 4. Bone mineral disorder. Will monitor calcium and phosphorus levels. 5. Acute chf exacerbation, systolic, diastolic. -Chest x-ray continues to show pulmonary congestion,improving -cont diuretic therapy -monitor strict i/o -f/u cardiology 6. cad. s/p cardiac cath f/u cardiology for further recs 6. Acute hypoxemia with respiratory failure secondary to congestive heart failure. -improving -cont diuretic therapy Patient is clinically improving care. On nasal cannula 7. Cardiomyopathy status post implantable cardioverter defibrillator placement. Continue current medical management. Continue diuretic therapy. Follow up with cardiology. 8. History of hypertension. Continue medical management. 9. Diabetes. Continue current insulin regimen. 10. History of severe aortic stenosis. 11. History of coronary artery bypass 12. Hypernatremia. Improved 13. Hypomagnesemia replete with magnesium sulfate. 14. Leukocytosis. Possibly from steroids. Monitor for possible infection. Patient is on antibiotics. Continue to monitor Problems: Subjective 24 Hr Interval Summary Free Text/Dictation Patient is clinically improving FiO2 levels are decreasing. Exam/Review of Systems Vital Signs Vitals Vital Signs Date Time Temp Pulse Resp B/P Pulse Ox O2 Delivery O2 Flow Rate FiO2 09/15/16 08:00 80 09/15/16 08:00 97.8 20 99/59 94 09/15/16 01:48 3.0 09/14/16 20:00 Nasal Cannula 09/12/16 07:40 100 Intake and Output 09/14/16 09/14/16 09/15/16 15:00 23:00 07:00 Intake Total 720 ml 600 ml Output Total 1200 ml Balance 720 ml -600 ml Exam HEENT. Head is normocephalic atraumatic Cardiovascular heart tachycardic. Lungs show diminished breath sounds at the base plus rhonchi and crackles Abdomen soft nontender palpation Extremities are negative for clubbing cyanosis trace edema Dermatologically no rashes Musculoskeletal no joint effusions Neurologically no focal deficits. Results Result Diagram: 09/15/16 0630 09/15/16 0630 Results 24 hrs Laboratory Tests Test 09/14/16 18:00 09/15/16 06:30 Vancomycin Level Trough 11.8 White Blood Count 11.0 H Red Blood Count 4.46 L Hemoglobin 12.8 L Hematocrit 40.4 L Mean Corpuscular Volume 90.6 Mean Corpuscular Hemoglobin 28.7 L Mean Corpuscular Hemoglobin Concent 31.7 L Red Cell Distribution Width 16.4 H Platelet Count 157 Mean Platelet Volume 12.1 H Neutrophils % 74.1 Lymphocytes % 7.6 L Monocytes % 13.4 H Eosinophils % 1.3 Basophils % 0.2 Nucleated Red Blood Cells % 0.0 Neutrophils # 8.2 H Lymphocytes # 0.8 Monocytes # 1.5 H Eosinophils # 0.1 Basophils # 0.0 Nucleated Red Blood Cells # 0.0 Sodium Level 145 H Potassium Level 3.8 Chloride Level 98 Carbon Dioxide Level 28 Anion Gap 23 #H Blood Urea Nitrogen 69 H Creatinine 2.06 H Glucose Level 87 Calcium Level 9.0 Phosphorus Level 3.6 Magnesium Level 2.1 Medications Medications Current Medications Albuterol (Ventolin Hfa) 2 puff Q4H PRN INH SHORTNESS OF BREATH; Start at 14:30 Aspirin (Halfprin) 81 mg DAILY PO Last administered on 09/15/16t 08:06; Admin Dose 81 MG; Start 09/12/16 at 09:00 Atorvastatin Calcium (Lipitor) 80 mg QHS PO Last administered on 09/14/16 22: 11; Admin Dose 80 MG; Start 09/11/16 at 21:00 Calcitriol (Rocaltrol) 0.25 mcg DAILY PO Last administered on 09/15/16 08:06; Admin Dose 0.25 MCG; Start 09/12/16 at 09:00 Ferrous Sulfate (Ferrous Sulfate (Ec)) 325 mg DAILY PO Last administered on 09/15 08:06; Admin Dose 325 MG; Start 09/12/16 at 09:00 Isosorbide Mononitrate (Imdur) 30 mg DAILY PO Last administered on 09/12/16 08 :29; Admin Dose 30 MG; Start 09/12/16 at 09:00; Status Future Hold Mycophenolate Sodium (Myfortic) 180 mg Q12 PO Last administered on 09/15/16 08: 06; Admin Dose 180 MG; Start 09/11/16 at 21:00 Pantoprazole (Protonix Tab) 40 mg DAILY@06 PO Last administered on 09/15/16 06: 11; Admin Dose 40 MG; Start 09/12/16 at 06:00 Prednisone (Prednisone) 5 mg DAILY PO Last administered on 09/15/16 08:06; Admin Dose 5 MG; Start 09/12/16 at 09:00 Tacrolimus (Prograf) 0.5 mg Q12 PO Last administered on 09/15/16 08:06; Admin Dose 0.5 MG; Start 09/11/16 at 21:00 Acetylcysteine (Nac) 600 mg BID PO Last administered on 09/15/16 08:06; Admin Dose 600 MG; Start 09/11/16 at 15:00 Doxazosin Mesylate 2 mg 2 mg HS PO Last administered on 09/14/16 22:12; Admin Dose 2 MG; Start 09/11/16 at 21:21 Vancomycin HCl (Vancocin) 250 ml @ 125 mls/hr Q36H IVPB Last administered on 22:22; Admin Dose 125 MLS/HR; Start 09/13/16 at 07:00 Apixaban (Eliquis) 2.5 mg BID PO Last administered on 09/15/16 08:06; Admin Dose 2.5 MG; Start 09/12/16 at 10:00 Amiodarone HCl (Cordarone) 400 mg DAILY PO Last administered on 09/14/16 08:00 ; Admin Dose 400 MG; Start 09/13/16 at 09:00 Carvedilol 3.125 mg 3.125 mg BID PO Last administered on 09/14/16 22:11; Admin Dose 3.125 MG; Start 09/13/16 at 09:00 Meropenem (Merrem 1 Gm/100 ml (Pmx)) 100 ml @ 200 mls/hr Q12 IVPB Last administered on 09/15/16 08:06; Admin Dose 200 MLS/HR; Start 09/13/16 at 09:00 INDIRA NELSON DO Sep 15, 2016 08:52
--- NOTE | 2016-09-15 12:10 | PN ---
Date/Time of Note Date/Time of Note DATE: 09/15/16 TIME: 12:04 Assessment/Plan VTE Prophylaxis VTE Prophylaxis Intervention: other (eliquis) Lines/Catheters IV Catheter Type (from [facility]): Peripheral IV Urinary Cath still in place: No Assessment/Plan Chief Complaint/Hosp Course A/P.71 years old male with history of CHF, EF 35%, Aortic stenosis, A.fib, CAD, CKD, s/p renal transplant who presented for elective coronary angiogram. 1. s/p coronary angiogram- anatomy was obtained, no PCI/intervention done, will need PCI in near future as he may need Aortic valve surgery. Will continue to monitor kidney function, 2. Respiratory failure- 2ndary to CHF/diastolic dysfunction due to his , change IV diuretics to oral, also on antibiotics for possible pneumonia, all resolving. CXR shows significant improvement. Lower o2 requirement. 3. acute on CKD- stable- nephrology follow up, continue all post transplant anti rejection meds, monitor. 4. Anti coagulate with Eliquis 5.borderline hypotension- reduced blood pressure meds. 6. Renal 2g Na diet 7.d/w treatment plan. 8. protonix for GI prophylaxis. 9.ID- possible pneumonia,CXR better, de escalate antibiotics soon. 10. CAD- 2 graft closed, PCI in near future per Dr. Thakur, and then follow up at [facility] for valvular heart surgery. 11. OOB as tolerated, discontinue o2 if o2 maintains above 90. 12. DC planning to be discussed with cardiology and nephrology. Problems: Subjective 24 Hr Interval Summary Free Text/Dictation Patient is comfortable, on 4 liter NC, i took o2 off, was saturating 98-99 percent, lowered o2 to 2 liter and will monitor. The patient denies shortness of breath or chest pain. family at bedside, case discussed. Exam/Review of Systems Vital Signs Vitals Vital Signs Date Time Temp Pulse Resp B/P Pulse Ox O2 Delivery O2 Flow Rate FiO2 09/15/16 12:01 98.0 79 19 102/63 95 09/15/16 01:48 3.0 09/14/16 20:00 Nasal Cannula 09/12/16 07:40 100 Intake and Output 09/14/16 09/14/16 09/15/16 15:00 23:00 07:00 Intake Total 720 ml 600 ml Output Total 1200 ml Balance 720 ml -600 ml Exam Constitutional: No distress Neck: No jvd Respiratory: No congested cough, No crackles/rales, No wheezing Cardiovascular: systolic murmur Gastrointestinal: No distended, No tender Musculoskeletal: No joint tenderness Extremities: No clubbing, No cyanosis, No edema Results Result Diagram: 09/15/16 0630 09/15/16 0630 Results 24 hrs Laboratory Tests Test 09/14/16 18:00 09/15/16 06:30 Vancomycin Level Trough 11.8 White Blood Count 11.0 H Red Blood Count 4.46 L Hemoglobin 12.8 L Hematocrit 40.4 L Mean Corpuscular Volume 90.6 Mean Corpuscular Hemoglobin 28.7 L Mean Corpuscular Hemoglobin Concent 31.7 L Red Cell Distribution Width 16.4 H Platelet Count 157 Mean Platelet Volume 12.1 H Neutrophils % 74.1 Lymphocytes % 7.6 L Monocytes % 13.4 H Eosinophils % 1.3 Basophils % 0.2 Nucleated Red Blood Cells % 0.0 Neutrophils # 8.2 H Lymphocytes # 0.8 Monocytes # 1.5 H Eosinophils # 0.1 Basophils # 0.0 Nucleated Red Blood Cells # 0.0 Sodium Level 145 H Potassium Level 3.8 Chloride Level 98 Carbon Dioxide Level 28 Anion Gap 23 #H Blood Urea Nitrogen 69 H Creatinine 2.06 H Glucose Level 87 Calcium Level 9.0 Phosphorus Level 3.6 Magnesium Level 2.1 Medications Medications Current Medications Albuterol (Ventolin Hfa) 2 puff Q4H PRN INH SHORTNESS OF BREATH; Start at 14:30 Aspirin (Halfprin) 81 mg DAILY PO Last administered on 09/15/16 08:06; Admin Dose 81 MG; Start 09/12/16 at 09:00 Atorvastatin Calcium (Lipitor) 80 mg QHS PO Last administered on 09/14/16 22: 11; Admin Dose 80 MG; Start 09/11/16 at 21:00 Calcitriol (Rocaltrol) 0.25 mcg DAILY PO Last administered on 09/15/16 08:06; Admin Dose 0.25 MCG; Start 09/12/16 at 09:00 Ferrous Sulfate (Ferrous Sulfate (Ec)) 325 mg DAILY PO Last administered on 09/15 08:06; Admin Dose 325 MG; Start 09/12/16 at 09:00 Isosorbide Mononitrate (Imdur) 30 mg DAILY PO Last administered on 09/12/16 08 :29; Admin Dose 30 MG; Start 09/12/16 at 09:00; Status Future Hold Mycophenolate Sodium (Myfortic) 180 mg Q12 PO Last administered on 09/15/16 08: 06; Admin Dose 180 MG; Start 09/11/16 at 21:00 Pantoprazole (Protonix Tab) 40 mg DAILY@06 PO Last administered on 09/15/16 06: 11; Admin Dose 40 MG; Start 09/12/16 at 06:00 Prednisone (Prednisone) 5 mg DAILY PO Last administered on 09/15/16 08:06; Admin Dose 5 MG; Start 09/12/16 at 09:00 Tacrolimus (Prograf) 0.5 mg Q12 PO Last administered on 09/15/16 08:06; Admin Dose 0.5 MG; Start 09/11/16 at 21:00 Acetylcysteine (Nac) 600 mg BID PO Last administered on 09/15/16 08:06; Admin Dose 600 MG; Start 09/11/16 at 15:00 Doxazosin Mesylate 2 mg 2 mg HS PO Last administered on 09/14/16 22:12; Admin Dose 2 MG; Start 09/11/16 at 21:21 Vancomycin HCl (Vancocin) 250 ml @ 125 mls/hr Q36H IVPB Last administered on 22:22; Admin Dose 125 MLS/HR; Start 09/13/16 at 07:00 Apixaban (Eliquis) 2.5 mg BID PO Last administered on 09/15/16 08:06; Admin Dose 2.5 MG; Start 09/12/16 at 10:00 Amiodarone HCl (Cordarone) 400 mg DAILY PO Last administered on 09/14/16 08:00 ; Admin Dose 400 MG; Start 09/13/16 at 09:00 Carvedilol 3.125 mg 3.125 mg BID PO Last administered on 09/14/16 22:11; Admin Dose 3.125 MG; Start 09/13/16 at 09:00 Meropenem (Merrem 1 Gm/100 ml (Pmx)) 100 ml @ 200 mls/hr Q12 IVPB Last administered on 09/15/16 08:06; Admin Dose 200 MLS/HR; Start 09/13/16 at 09:00 BRANDY REHMAN MD Sep 15, 2016 12:10
[2016-09-15] MEDS: CLOPIDOGREL 75 MG TAB PO SCH (16:43)
--- NOTE | 2016-09-15 16:54 | PN ---
Date/Time of Note Date/Time of Note DATE: 09/15/16 TIME: 16:50 Assessment/Plan VTE Prophylaxis VTE Prophylaxis Intervention: other Lines/Catheters IV [facility] (from [facility]): Peripheral IV Urinary Cath still in place: No Assessment/Plan Chief Complaint/Hosp Course 1. CHF: acute on chronic due to systolic heart failure, diastolic heart failure and valvular heart disease 2. SEVERE 3. COPD exacerbation 4. ? pneumonia 5. severe CAD 6. CAD: HX CABG 7 HX PCI 8/ PAD 9. CKD: 10/ s/p renal transplant 11. dyslipidemia 12. P AFIB 13. S/P BIV ICD REC: will cont eliquis diuresis as tolerated. will cont lasix PO NOW O2 Abx as per Dr Jacobs and pulm rec cont anti rejecion meds ( to be adjusted by renal). procalcitonin level was ordered but not back yet off of hydralazine and due to hypotension will change ASA to plavix dc planning for tomorrow if stable Problems: Subjective 24 Hr Interval Summary Free Text/Dictation d/w staff and rhythm was reviewed. pt remains in PACED rhythm his breathing has bee stable and he wants to go home on 2 L o2 now no chest pain or pressure or palpitations. Exam/Review of Systems Vital Signs Vitals Vital Signs Date Time Temp Pulse Resp B/P Pulse Ox O2 Delivery O2 Flow Rate FiO2 09/15/16 16:00 80 09/15/16 15:08 97.9 20 125/57 93 09/15/16 01:48 3.0 09/14/16 20:00 Nasal Cannula 09/12/16 07:40 100 Intake and Output 09/14/16 09/14/16 09/15/16 15:00 23:00 07:00 Intake Total 720 ml 600 ml Output Total 1200 ml Balance 720 ml -600 ml Exam neuro: awake and alert, Ox 3 VASCULAR: R femoral no bleeding or hematoma or bruit. Constitutional: alert, frail, oriented. no acute distress Psych: nl mood/affect Head: atraumatic, normocephalic Eyes: EOMI, nl conjunctiva Neck: non-tender, supple Respiratory: minimal rhonchi more on the right than the left. 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 II-XII intact Results Result Diagram: 09/15/16 0630 09/15/16 0630 Results 24 hrs Laboratory Tests Test 09/14/16 18:00 09/15/16 06:30 Vancomycin Level Trough 11.8 White Blood Count 11.0 H Red Blood Count 4.46 L Hemoglobin 12.8 L Hematocrit 40.4 L Mean Corpuscular Volume 90.6 Mean Corpuscular Hemoglobin 28.7 L Mean Corpuscular Hemoglobin Concent 31.7 L Red Cell Distribution Width 16.4 H Platelet Count 157 Mean Platelet Volume 12.1 H Neutrophils % 74.1 Lymphocytes % 7.6 L Monocytes % 13.4 H Eosinophils % 1.3 Basophils % 0.2 Nucleated Red Blood Cells % 0.0 Neutrophils # 8.2 H Lymphocytes # 0.8 Monocytes # 1.5 H Eosinophils # 0.1 Basophils # 0.0 Nucleated Red Blood Cells # 0.0 Sodium Level 145 H Potassium Level 3.8 Chloride Level 98 Carbon Dioxide Level 28 Anion Gap 23 #H Blood Urea Nitrogen 69 H Creatinine 2.06 H Glucose Level 87 Calcium Level 9.0 Phosphorus Level 3.6 Magnesium Level 2.1 Medications Medications Current Medications Albuterol (Ventolin Hfa) 2 puff Q4H PRN INH SHORTNESS OF BREATH; Start at 14:30 Atorvastatin Calcium (Lipitor) 80 mg QHS PO Last administered on 09/14/16 22: 11; Admin Dose 80 MG; Start 09/11/16 at 21:00 Calcitriol (Rocaltrol) 0.25 mcg DAILY PO Last administered on 09/15/16 08:06; Admin Dose 0.25 MCG; Start 09/12/16 at 09:00 Ferrous Sulfate (Ferrous Sulfate (Ec)) 325 mg DAILY PO Last administered on 09/15 08:06; Admin Dose 325 MG; Start 09/12/16 at 09:00 Isosorbide Mononitrate (Imdur) 30 mg DAILY PO Last administered on 09/12/16 08 :29; Admin Dose 30 MG; Start 09/12/16 at 09:00; Status Future Hold Mycophenolate Sodium (Myfortic) 180 mg Q12 PO Last administered on 09/15/16 08: 06; Admin Dose 180 MG; Start 09/11/16 at 21:00 Pantoprazole (Protonix Tab) 40 mg DAILY@06 PO Last administered on 09/15/16 06: 11; Admin Dose 40 MG; Start 09/12/16 at 06:00 Prednisone (Prednisone) 5 mg DAILY PO Last administered on 09/15/16 08:06; Admin Dose 5 MG; Start 09/12/16 at 09:00 Tacrolimus (Prograf) 0.5 mg Q12 PO Last administered on 09/15/16 08:06; Admin Dose 0.5 MG; Start 09/11/16 at 21:00 Acetylcysteine (Nac) 600 mg BID PO Last administered on 09/15/16 08:06; Admin Dose 600 MG; Start 09/11/16 at 15:00 Doxazosin Mesylate 2 mg 2 mg HS PO Last administered on 09/14/16 22:12; Admin Dose 2 MG; Start 09/11/16 at 21:21 Vancomycin HCl (Vancocin) 250 ml @ 125 mls/hr Q36H IVPB Last administered on 22:22; Admin Dose 125 MLS/HR; Start 09/13/16 at 07:00 Apixaban (Eliquis) 2.5 mg BID PO Last administered on 09/15/16 08:06; Admin Dose 2.5 MG; Start 09/12/16 at 10:00 Amiodarone HCl (Cordarone) 400 mg DAILY PO Last administered on 09/14/16 08:00 ; Admin Dose 400 MG; Start 09/13/16 at 09:00 Carvedilol 3.125 mg 3.125 mg BID PO Last administered on 09/14/16 22:11; Admin Dose 3.125 MG; Start 09/13/16 at 09:00 Meropenem (Merrem 1 Gm/100 ml (Pmx)) 100 ml @ 200 mls/hr Q12 IVPB Last administered on 09/15/16 08:06; Admin Dose 200 MLS/HR; Start 09/13/16 at 09:00 Clopidogrel Bisulfate (plaVIX) 75 mg DAILY PO Last administered on 09/15/16 16: 43; Admin Dose 75 MG; Start 09/15/16 at 15:30 CARMEN JARAMILLO MD Sep 15, 2016 16:54
[2016-09-15] MEDS: FUROSEMIDE 40 MG TAB PO SCH (17:23)
--- NOTE | 2016-09-15 18:30 | CONS ---
Date/Time of Note Date/Time of Note DATE: 09/15/16 TIME: 18:28 Consult Date/Type/Reason Admit Date/Time Sep 11, 2016 at 16:35 Initial Consult Date 09/12/16 Type of Consultation: Pulmonary/critical care Ordering Provider: BRANDY REHMAN MD Subjective with out c/o Objective Vital Signs Date Time Temp Pulse Resp B/P Pulse Ox O2 Delivery O2 Flow Rate FiO2 09/15/16 16:00 80 09/15/16 15:08 97.9 20 125/57 93 09/15/16 01:48 3.0 09/14/16 20:00 Nasal Cannula 09/12/16 07:40 100 Intake and Output 09/14/16 09/14/16 09/15/16 15:00 23:00 07:00 Intake Total 720 ml 600 ml Output Total 1200 ml Balance 720 ml -600 ml Exam HEENT: Neck supple; no JVD; no LAD CVS: RRR, S1 and S2, 3/6 GRISELDA CHEST: Clear ABD: Soft, NT, + BS EXT: No c/c/e Results/Medications Result Diagram: 09/15/16 0630 09/15/16 0630 Results 24 hrs Laboratory Tests Test 09/15/16 06:30 White Blood Count 11.0 H Red Blood Count 4.46 L Hemoglobin 12.8 L Hematocrit 40.4 L Mean Corpuscular Volume 90.6 Mean Corpuscular Hemoglobin 28.7 L Mean Corpuscular Hemoglobin Concent 31.7 L Red Cell Distribution Width 16.4 H Platelet Count 157 Mean Platelet Volume 12.1 H Neutrophils % 74.1 Lymphocytes % 7.6 L Monocytes % 13.4 H Eosinophils % 1.3 Basophils % 0.2 Nucleated Red Blood Cells % 0.0 Neutrophils # 8.2 H Lymphocytes # 0.8 Monocytes # 1.5 H Eosinophils # 0.1 Basophils # 0.0 Nucleated Red Blood Cells # 0.0 Sodium Level 145 H Potassium Level 3.8 Chloride Level 98 Carbon Dioxide Level 28 Anion Gap 23 #H Blood Urea Nitrogen 69 H Creatinine 2.06 H Glucose Level 87 Calcium Level 9.0 Phosphorus Level 3.6 Magnesium Level 2.1 Medications Current Medications Albuterol (Ventolin Hfa) 2 puff Q4H PRN INH SHORTNESS OF BREATH; Start at 14:30 Atorvastatin Calcium (Lipitor) 80 mg QHS PO Last administered on 09/14/16 22: 11; Admin Dose 80 MG; Start 09/11/16 at 21:00 Calcitriol (Rocaltrol) 0.25 mcg DAILY PO Last administered on 09/15/16 08:06; Admin Dose 0.25 MCG; Start 09/12/16 at 09:00 Ferrous Sulfate (Ferrous Sulfate (Ec)) 325 mg DAILY PO Last administered on 09/15 08:06; Admin Dose 325 MG; Start 09/12/16 at 09:00 Isosorbide Mononitrate (Imdur) 30 mg DAILY PO Last administered on 09/12/16 08 :29; Admin Dose 30 MG; Start 09/12/16 at 09:00; Status Future Hold Mycophenolate Sodium (Myfortic) 180 mg Q12 PO Last administered on 09/15/16 08: 06; Admin Dose 180 MG; Start 09/11/16 at 21:00 Pantoprazole (Protonix Tab) 40 mg DAILY@06 PO Last administered on 09/15/16 06: 11; Admin Dose 40 MG; Start 09/12/16 at 06:00 Prednisone (Prednisone) 5 mg DAILY PO Last administered on 09/15/16 08:06; Admin Dose 5 MG; Start 09/12/16 at 09:00 Tacrolimus (Prograf) 0.5 mg Q12 PO Last administered on 09/15/16 08:06; Admin Dose 0.5 MG; Start 09/11/16 at 21:00 Acetylcysteine (Nac) 600 mg BID PO Last administered on 09/15/16 08:06; Admin Dose 600 MG; Start 09/11/16 at 15:00 Doxazosin Mesylate 2 mg 2 mg HS PO Last administered on 09/14/16 22:12; Admin Dose 2 MG; Start 09/11/16 at 21:21 Vancomycin HCl (Vancocin) 250 ml @ 125 mls/hr Q36H IVPB Last administered on 22:22; Admin Dose 125 MLS/HR; Start 09/13/16 at 07:00 Apixaban (Eliquis) 2.5 mg BID PO Last administered on 09/15/16 08:06; Admin Dose 2.5 MG; Start 09/12/16 at 10:00 Amiodarone HCl (Cordarone) 400 mg DAILY PO Last administered on 09/14/16 08:00 ; Admin Dose 400 MG; Start 09/13/16 at 09:00 Carvedilol 3.125 mg 3.125 mg BID PO Last administered on 09/14/16 22:11; Admin Dose 3.125 MG; Start 09/13/16 at 09:00 Meropenem (Merrem 1 Gm/100 ml (Pmx)) 100 ml @ 200 mls/hr Q12 IVPB Last administered on 09/15/16 08:06; Admin Dose 200 MLS/HR; Start 09/13/16 at 09:00 Clopidogrel Bisulfate (plaVIX) 75 mg DAILY PO Last administered on 09/15/16 16: 43; Admin Dose 75 MG; Start 09/15/16 at 15:30 Assessment/Plan Additional Assessment/Plan IMP: 1. Resp Insufficiency due to CHF 2. Coronary artery disease with graft occlusion 3. Severe aortic stenosis. 4. Status post renal transplant patient maintained on chronic immunosuppression. 5. COPD 6. CKD RECS: 1. As per Cards 2. Would maintain current Rx 3. Aspiration precautions; BD's prn DUY PINEDA MD Sep 15, 2016 18:29
[2016-09-15] MEDS: ATORVASTATIN 80 MG TAB PO SCH (20:53)
[2016-09-15] MEDS: DOXAZOSIN 1 MG TAB PO SCH (21:07)
[2016-09-16] VITALS (8 sets, daily range): BP systolic 110–119; BP diastolic 62–79; PULSE 80; RESP 16–20
[2016-09-16] MEDS: VANCOMYCIN 1 GM in NS 250 ML IVPB SCH (05:42)
[2016-09-16] MEDS: PANTOPRAZOLE (EC) 40 MG TAB PO SCH (05:42)
[2016-09-16] MEDS: FUROSEMIDE 40 MG TAB PO SCH (05:42)
[2016-09-16] MEDS: LEVOTHYROXINE 100 MCG TAB PO SCH (05:43)
[2016-09-16 06:34] LABS: BASOPHILS % 0.2 % (0.0-2.0); EOSINOPHILS # 0.2 10^3/ul (0.0-0.5); EOSINOPHILS % 1.8 % (0.0-7.0); HEMATOCRIT 44.8 % (42.0-52.0); LYMPHOCYTES # 1.1 10^3/ul (0.8-2.9); LYMPHOCYTES % 9.3 % (15.0-51.0); MEAN CORPUSCULAR HEMOGLOBIN 28.4 pg (29.0-33.0); MEAN CORPUSCULAR HGB CONC 31.3 g/dl (32.0-37.0); MEAN CORPUSCULAR VOLUME 90.9 fl (82.0-101.0); MONOCYTE # 1.4 10^3/ul (0.3-0.9); MONOCYTES % 12.6 % (0.0-11.0); NEUTROPHIL # 8.2 10^3/ul (1.6-7.5); NEUTROPHILS % 71.6 % (39.0-77.0); PLATELET COUNT 173 10^3/UL (140-415); RED BLOOD COUNT 4.93 10^6/ul (4.70-6.10); RED CELL DISTRIBUTION WIDTH 16.2 % (11.5-14.5); WHITE BLOOD COUNT 11.5 10^3/ul (4.8-10.8)
[2016-09-16 06:54] LABS: ALBUMIN 4.5 g/dl (3.3-4.9); ALBUMIN/GLOBULIN RATIO 1.87; BILIRUBIN,INDIRECT 1.1 mg/dl (0-1.1); BILIRUBIN,TOTAL 1.1 mg/dl (0.2-1.3); CALCIUM 8.8 mg/dl (8.4-10.2); CREATININE 2.07 mg/dl (0.61-1.24); POTASSIUM 3.6 mmol/L (3.5-5.1); TOTAL PROTEIN 6.9 g/dl (6.1-8.1)
[2016-09-16 07:10] LABS: ADD SCAN DIFF NO
[2016-09-16 07:33] LABS: MAGNESIUM 2.2 mg/dl (1.7-2.5); PHOSPHORUS 3.6 mg/dl (2.5-4.9)
[2016-09-16] MEDS: CLOPIDOGREL 75 MG TAB PO SCH (08:18)
[2016-09-16] MEDS: FERROUS SULFATE (EC) 325 MG TAB PO SCH (08:19)
[2016-09-16] MEDS: MYCOPHENOLATE (SR) 180 MG TAB PO SCH (08:19)
[2016-09-16] MEDS: AMIODARONE 200 MG TAB PO SCH (08:19)
[2016-09-16] MEDS: TACROLIMUS 0.5 MG CAP PO SCH (08:19)
[2016-09-16] MEDS: ACETYLCYSTEINE 600 MG CAP PO SCH (08:19)
[2016-09-16] MEDS: predniSONE 5 MG TAB PO SCH (08:19)
[2016-09-16] MEDS: APIXABAN 5 MG TABLET PO SCH (08:20)
[2016-09-16] MEDS: CALCITRIOL 0.25 MCG CAP PO SCH (08:20)
[2016-09-16] MEDS: MEROPENEM 1 GM/100 ML (PMX) 100 ML IVPB SCH (08:23)
--- NOTE | 2016-09-16 09:20 | PN ---
Date/Time of Note Date/Time of Note DATE: 09/16/16 TIME: 09:17 Assessment/Plan Lines/Catheters IV Catheter Type (from [facility]): Peripheral IV Urinary Cath still in place: No Assessment/Plan Chief Complaint/Hosp Course 1. Nonoliguric acute kidney injury on top of chronic kidney disease with a baseline creatinine of 1.7 mg/dL. Etiology of current acute kidney injury is likely secondary to hemodynamics . - Low suspicion for contrast associated nephropathy given low amount of contrast used in cardiac cath. -. Low suspicion at this point for acute allograft rejection. -Renal function overall stable. -continue diuretic therapy will monitor renal function closely -Would otherwise continue supportive care, renally dose meds, avoid nephrotoxins, continue current immunosuppressive regimen. - Prograf level is 5.7, at goal 2. History of end-stage renal disease status post a living donor transplant. The patient has a baseline creatinine of 1.7 mg/dL. Currently in acute kidney injury as stated above. - Would continue current plan at this point to treat acute kidney injury as stated above. - Continue current immunosuppressive regimen with Prograf, Myfortic and prednisone. 3. Anemia of chronic disease. Monitor hemoglobin and hematocrit levels. 4. Bone mineral disorder. Will monitor calcium and phosphorus levels. 5. Acute chf exacerbation, systolic, diastolic. -Chest x-ray continues to show pulmonary congestion,improving -cont diuretic therapy -monitor strict i/o -f/u cardiology 6. cad. s/p cardiac cath f/u cardiology for further recs 6. Acute hypoxemia with respiratory failure secondary to congestive heart failure. -improving -cont diuretic therapy Patient is clinically improving care. On nasal cannula 7. Cardiomyopathy status post implantable cardioverter defibrillator placement. Continue current medical management. Continue diuretic therapy. Follow up with cardiology. 8. History of hypertension. Continue medical management. 9. Diabetes. Continue current insulin regimen. 10. History of severe aortic stenosis. 11. History of coronary artery bypass 12. Hypernatremia. Improved 13. Hypomagnesemia replete with magnesium sulfate. 14. Leukocytosis. Possibly from steroids. Monitor for possible infection. Patient is on antibiotics. Continue to monitor Problems: Subjective 24 Hr Interval Summary Free Text/Dictation Patient clinically stable. On 1 L nasal cannula. Exam/Review of Systems Vital Signs Vitals Vital Signs Date Time Temp Pulse Resp B/P Pulse Ox O2 Delivery O2 Flow Rate FiO2 09/16/16 08:45 80 09/16/16 07:38 97.5 20 115/62 100 09/15/16 22:04 3.0 09/15/16 21:00 Nasal Cannula 09/12/16 07:40 100 Intake and Output 09/15/16 09/15/16 09/16/16 15:00 23:00 07:00 Intake Total 980 ml 800 ml Output Total 1100 ml 900 ml Balance -120 ml -100 ml Exam HEENT. Head is normocephalic atraumatic Cardiovascular heart tachycardic. Lungs show diminished breath sounds at the base plus rhonchi and crackles Abdomen soft nontender palpation Extremities are negative for clubbing cyanosis trace edema Dermatologically no rashes Musculoskeletal no joint effusions Neurologically no focal deficits. Results Result Diagram: 09/16/1660409/16/16604 Results 24 hrs Laboratory Tests Test 09/16/16 05:05 09/16/16 06:05 Phosphorus Level 3.6 Magnesium Level 2.2 White Blood Count 11.5 H Red Blood Count 4.93 Hemoglobin 14.0 Hematocrit 44.8 Mean Corpuscular Volume 90.9 Mean Corpuscular Hemoglobin 28.4 L Mean Corpuscular Hemoglobin Concent 31.3 L Red Cell Distribution Width 16.2 H Platelet Count 173 Mean Platelet Volume 12.0 H Neutrophils % 71.6 Lymphocytes % 9.3 L Monocytes % 12.6 H Eosinophils % 1.8 Basophils % 0.2 Nucleated Red Blood Cells % 0.0 Neutrophils # 8.2 H Lymphocytes # 1.1 Monocytes # 1.4 H Eosinophils # 0.2 Basophils # 0.0 Nucleated Red Blood Cells # 0.0 Sodium Level 141 Potassium Level 3.6 Chloride Level 99 Carbon Dioxide Level 30 Anion Gap 16 # Blood Urea Nitrogen 68 H Creatinine 2.07 H Glucose Level 89 Calcium Level 8.8 Total Bilirubin 1.1 Direct Bilirubin 0.00 Indirect Bilirubin 1.1 Aspartate Amino Transf (AST/SGOT) 18 Alanine Aminotransferase (ALT/SGPT) 28 Alkaline Phosphatase 61 B-Type Natriuretic Peptide 7870 H Total Protein 6.9 Albumin 4.5 Globulin 2.40 Albumin/Globulin Ratio 1.87 Medications Medications Current Medications Albuterol (Ventolin Hfa) 2 puff Q4H PRN INH SHORTNESS OF BREATH; Start at 14:30 Atorvastatin Calcium (Lipitor) 80 mg QHS PO Last administered on 09/15/16 20:53 ; Admin Dose 80 MG; Start 09/11/16 at 21:00 Calcitriol (Rocaltrol) 0.25 mcg DAILY PO Last administered on 09/16/16 08:20; Admin Dose 0.25 MCG; Start 09/12/16 at 09:00 Ferrous Sulfate (Ferrous Sulfate (Ec)) 325 mg DAILY PO Last administered on 09/16 08:19; Admin Dose 325 MG; Start 09/12/16 at 09:00 Isosorbide Mononitrate (Imdur) 30 mg DAILY PO Last administered on 09/12/16 08 :29; Admin Dose 30 MG; Start 09/12/16 at 09:00; Status Future Hold Mycophenolate Sodium (Myfortic) 180 mg Q12 PO Last administered on 09/16/16 08: 19; Admin Dose 180 MG; Start 09/11/16 at 21:00 Pantoprazole (Protonix Tab) 40 mg DAILY@06 PO Last administered on 09/16/16 05: 42; Admin Dose 40 MG; Start 09/12/16 at 06:00 Prednisone (Prednisone) 5 mg DAILY PO Last administered on 09/16/16 08:19; Admin Dose 5 MG; Start 09/12/16 at 09:00 Tacrolimus (Prograf) 0.5 mg Q12 PO Last administered on 09/16/16 08:19; Admin Dose 0.5 MG; Start 09/11/16 at 21:00 Acetylcysteine (Nac) 600 mg BID PO Last administered on 09/16/16 08:19; Admin Dose 600 MG; Start 09/11/16 at 15:00 Doxazosin Mesylate 2 mg 2 mg HS PO Last administered on 09/15/16 21:07; Admin Dose 2 MG; Start 09/11/16 at 21:21 Vancomycin HCl (Vancocin) 250 ml @ 125 mls/hr Q36H IVPB Last administered on 05:42; Admin Dose 125 MLS/HR; Start 09/13/16 at 07:00 Apixaban (Eliquis) 2.5 mg BID PO Last administered on 09/16/16 08:20; Admin Dose 2.5 MG; Start 6/28/17 at 10:00 Amiodarone HCl (Cordarone) 400 mg DAILY PO Last administered on 09/16/16 08:19 ; Admin Dose 400 MG; Start 09/13/16 at 09:00 Carvedilol 3.125 mg 3.125 mg BID PO Last administered on 09/16/16 08:19; Admin Dose 3.125 MG; Start 09/13/16 at 09:00 Meropenem (Merrem 1 Gm/100 ml (Pmx)) 100 ml @ 200 mls/hr Q12 IVPB Last administered on 09/16/16 08:23; Admin Dose 200 MLS/HR; Start 09/13/16 at 09:00 Clopidogrel Bisulfate (plaVIX) 75 mg DAILY PO Last administered on 09/16/16 08: 18; Admin Dose 75 MG; Start 09/15/16 at 15:30 INDIRA NELSON DO Sep 16, 2016 09:20
--- NOTE | 2016-09-16 12:40 | PN ---
Date/Time of Note Date/Time of Note DATE: 09/16/16 TIME: 12:38 Assessment/Plan VTE Prophylaxis VTE Prophylaxis Intervention: ambulation, other Lines/Catheters IV Catheter Type (from Nrs): Peripheral IV Urinary Cath still in place: No Assessment/Plan Chief Complaint/Hosp Course 1. CHF: acute on chronic due to systolic heart failure, diastolic heart failure and valvular heart disease 2. SEVERE 3. COPD exacerbation 4. ? pneumonia 5. severe CAD 6. CAD: HX CABG 7 HX PCI 8/ PAD 9. CKD: 10/ s/p renal transplant 11. dyslipidemia 12. P AFIB 13. S/P BIV ICD REC: will cont eliquis will cont lasix PO NOW O2 Abx as per Dr Jacobs and pulm rec cont anti rejecion meds ( to be adjusted by renal). procalcitonin level was ordered but not back yet off of hydralazine and due to hypotension will cont plavix dc planning pt to see me this week Problems: Subjective 24 Hr Interval Summary Free Text/Dictation d/w staff and Dr Jacobs rhythm was reviewed. pt remains in V paced. no chest pain or pressure and denies sob to me. he wants to go home . Exam/Review of Systems Vital Signs Vitals Vital Signs Date Time Temp Pulse Resp B/P Pulse Ox O2 Delivery O2 Flow Rate FiO2 09/16/16 12:32 98.3 69 19 119/79 99 09/16/16 11:13 3.0 09/15/16 21:00 Nasal Cannula 09/12/16 07:40 100 Intake and Output 09/15/16 09/15/16 09/16/16 15:00 23:00 07:00 Intake Total 980 ml 800 ml Output Total 1100 ml 900 ml Balance -120 ml -100 ml Exam neuro: awake and alert, Ox 3 VASCULAR: R femoral no bleeding or hematoma or bruit. Constitutional: alert, frail, oriented. no acute distress Psych: nl mood/affect Head: atraumatic, normocephalic Eyes: EOMI, nl conjunctiva Neck: non-tender, supple Respiratory: minimal rhonchi more on the right than the left. Cardiovascular: regular rate and rhythm, systolic ejection murmur ---> carotid Gastrointestinal: NT, ND. soft Genitourinary - Male: nl penis, nl scrotum Extremities: NO LE EDEMA Neurological: FIRST HELPER II-XII intact Results Result Diagram: 09/16/16 0605 09/16/16 0605 Results 24 hrs Laboratory Tests Test 09/16/16 05:05 09/16/16 06:05 Phosphorus Level 3.6 Magnesium Level 2.2 White Blood Count 11.5 H Red Blood Count 4.93 Hemoglobin 14.0 Hematocrit 44.8 Mean Corpuscular Volume 90.9 Mean Corpuscular Hemoglobin 28.4 L Mean Corpuscular Hemoglobin Concent 31.3 L Red Cell Distribution Width 16.2 H Platelet Count 173 Mean Platelet Volume 12.0 H Neutrophils % 71.6 Lymphocytes % 9.3 L Monocytes % 12.6 H Eosinophils % 1.8 Basophils % 0.2 Nucleated Red Blood Cells % 0.0 Neutrophils # 8.2 H Lymphocytes # 1.1 Monocytes # 1.4 H Eosinophils # 0.2 Basophils # 0.0 Nucleated Red Blood Cells # 0.0 Sodium Level 141 Potassium Level 3.6 Chloride Level 99 Carbon Dioxide Level 30 Anion Gap 16 # Blood Urea Nitrogen 68 H Creatinine 2.07 H Glucose Level 89 Calcium Level 8.8 Total Bilirubin 1.1 Direct Bilirubin 0.00 Indirect Bilirubin 1.1 Aspartate Amino Transf (AST/SGOT) 18 Alanine Aminotransferase (ALT/SGPT) 28 Alkaline Phosphatase 61 B-Type Natriuretic Peptide 7870 H Total Protein 6.9 Albumin 4.5 Globulin 2.40 Albumin/Globulin Ratio 1.87 Medications Medications Current Medications Albuterol (Ventolin Hfa) 2 puff Q4H PRN INH SHORTNESS OF BREATH; Start at 14:30 Atorvastatin Calcium (Lipitor) 80 mg QHS PO Last administered on 09/15/16 20:53 ; Admin Dose 80 MG; Start 09/11/16 at 21:00 Calcitriol (Rocaltrol) 0.25 mcg DAILY PO Last administered on 09/16/16 08:20; Admin Dose 0.25 MCG; Start 09/12/16 at 09:00 Ferrous Sulfate (Ferrous Sulfate (Ec)) 325 mg DAILY PO Last administered on 09/16 08:19; Admin Dose 325 MG; Start 09/12/16 at 09:00 Isosorbide Mononitrate (Imdur) 30 mg DAILY PO Last administered on 09/12/16 08 :29; Admin Dose 30 MG; Start 09/12/16 at 09:00; Status Future Hold Mycophenolate Sodium (Myfortic) 180 mg Q12 PO Last administered on 09/16/16 08: 19; Admin Dose 180 MG; Start 09/11/16 at 21:00 Pantoprazole (Protonix Tab) 40 mg DAILY@06 PO Last administered on 09/16/16 05: 42; Admin Dose 40 MG; Start 09/12/16 at 06:00 Prednisone (Prednisone) 5 mg DAILY PO Last administered on 09/16/16 08:19; Admin Dose 5 MG; Start 09/12/16 at 09:00 Tacrolimus (Prograf) 0.5 mg Q12 PO Last administered on 09/16/16 08:19; Admin Dose 0.5 MG; Start 09/11/16 at 21:00 Acetylcysteine (Nac) 600 mg BID PO Last administered on 09/16/16 08:19; Admin Dose 600 MG; Start 09/11/16 at 15:00 Doxazosin Mesylate 2 mg 2 mg HS PO Last administered on 09/15/16 21:07; Admin Dose 2 MG; Start 09/11/16 at 21:21 Vancomycin HCl (Vancocin) 250 ml @ 125 mls/hr Q36H IVPB Last administered on 05:42; Admin Dose 125 MLS/HR; Start 09/13/16 at 07:00 Apixaban (Eliquis) 2.5 mg BID PO Last administered on 09/16/16 08:20; Admin Dose 2.5 MG; Start 09/12/16 at 10:00 Amiodarone HCl (Cordarone) 400 mg DAILY PO Last administered on 09/16/16 08:19 ; Admin Dose 400 MG; Start 09/13/16 at 09:00 Carvedilol 3.125 mg 3.125 mg BID PO Last administered on 09/16/16 08:19; Admin Dose 3.125 MG; Start 09/13/16 at 09:00 Meropenem (Merrem 1 Gm/100 ml (Pmx)) 100 ml @ 200 mls/hr Q12 IVPB Last administered on 09/16/16 08:23; Admin Dose 200 MLS/HR; Start 09/13/16 at 09:00 Clopidogrel Bisulfate (plaVIX) 75 mg DAILY PO Last administered on 09/16/16 08: 18; Admin Dose 75 MG; Start 09/15/16 at 15:30 CARMEN JARAMILLO MD Sep 16, 2016 12:40
--- NOTE | 2016-09-16 12:49 | PDOCDIS ---
Discharge Instructions DIAGNOSIS Discharge Diagnosis acute respiratory failure acute on chronic diastolic heart failure severe aortic stenosis rule out pneumonia s/p renal transplant acute on chronic renal failure coronary artery disease anemia CONDITION Patient Condition: Stable HOME CARE INSTRUCTIONS: Diet Instructions: 2gm NaSpecial Diet: renal,cardiac ACTIVITY: Activity Restrictions: Slowly Increase Activity FOLLOW UP/APPOINTMENTS Follow-up Plan follow up with Dr. Thakur and PMD within a week, need to monitor kidney function. BRANDY REHMAN MD Sep 16, 2016 12:49
[2016-09-16] MEDS ORDERED: FURO-110 PO (12:57)
[2016-09-16] MEDS ORDERED: AMIO400T5 PO (12:57)
[2016-09-16] MEDS ORDERED: CARV25TA79 PO (12:57)
[2016-09-16] MEDS ORDERED: LEVO250T35 PO (12:58)
--- NOTE | 2016-09-16 13:07 | DS ---
Date/Time of Note Date/Time of Note DATE: 09/16/16 TIME: 13:00 Discharge Summary Admission/Discharge Info Admit Date/Time Sep 11, 2016 at 16:35 Discharge Date/Time Discharge Diagnosis acute respiratory failure acute on chronic diastolic heart failure severe aortic stenosis rule out pneumonia s/p renal transplant acute on chronic renal failure coronary artery disease anemia Patient Condition: Stable Consults cardiology, pulmonology, nephrology Hx of Present Illness The patient is a 71 years old male with history of hypertension, s/p renal transplant 2007, dyslipidemia, Aortic stenosis, P. A.fibrillation on Eliquis, CHF, cardiomyopahty, CAD s/p CABG, EF of 35% s/p AICD placement. Recently admitted for CHF exacerbation. On the day of admission the patient underwent coronary angiogram, no interventions were made. He was admitted for further care as he had slight worsening shortness of breath. In addition his kidney function has to be monitored closely 2ndary to angiogram. Upon arrival to the Tele floor patient was noted to have progressively worsening SOB with significant hypoxia. The patient was transferred to the ICU. CXR showed pulmonary edema and possible right lung infiltrate. The patient was placed on BIPAP, broad spectrum antibiotics and IV LASIX. The patient improved and was weaned off the bipap. CXR showed marked improvement. Kidney function was monitored closely and overall remained stable around a creatinine of 2.0. Patient is saturating 96 on RA, ambulating and feeling much better. Meds were adjusted and blood pressure were decreased secondary to low normal blood pressure. Case discussed with staff and family on routine basis. The patient will be discharged. Prescriptions written. He was instructed to follow closely with his doctors. He will need PCI and Aortic valve surgery in the near future. Hospital Course 1. CHF: acute on chronic due to systolic heart failure, diastolic heart failure and valvular heart disease 2. SEVERE 3. COPD exacerbation 4. ? pneumonia 5. severe CAD 6. CAD: HX CABG 7 HX PCI 8/ PAD 9. CKD: 10/ s/p renal transplant 11. dyslipidemia 12. P AFIB 13. S/P BIV ICD REC: will cont eliquis will cont lasix PO NOW O2 Abx as per Dr Jacobs and pulm rec cont anti rejecion meds ( to be adjusted by renal). procalcitonin level was ordered but not back yet off of hydralazine and due to hypotension will cont plavix dc planning pt to see me this week Home Meds Active Scripts Levofloxacin* (Levaquin*) 250 Mg Tablet, 250 MG PO DAILY for 5 Days, TAB Prov:BRANDY JACOBS MD 09/16/16 Carvedilol* (Carvedilol*) 25 Mg Tablet, 3.125 MG PO BID, #60 TAB Prov:BRANDY JACOBS MD 09/16/16 Furosemide* (Lasix*) 20 Mg Tablet, 40 MG PO BID for 30 Days, TAB Prov:BRANDY JACOBS MD 09/16/16 Amiodarone Hcl* (Amiodarone Hcl*) 400 Mg Tablet, 400 MG PO DAILY for 30 Days, TAB Prov:BRANDY JACOBS MD 09/16/16 Albuterol Sulfate* (Proair HFA*) 8.5 Gm Hfa.aer.ad, 2 PUFF INH Q4 Y for SHORTNESS OF BREATH, #1 INHALER Prov:BRADNY JACOBS MD 08/20/16 Reported Medications Pantoprazole* (Protonix*) 40 Mg Tablet.dr, 40 MG PO DAILY, TAB 08/14/16 Doxazosin Mesylate* (Doxazosin Mesylate*) 2 Mg Tablet, 2 MG PO HS, TAB 08/14/16 Apixaban* (Eliquis*) 2.5 Mg Tablet, 2.5 MG PO BID, TAB 08/14/16 Alendronate Sodium* (Fosamax*) 70 Mg Tablet, 70 MG PO Q7D, #4 TAB 08/14/16 Prednisone* (Prednisone*) 5 Mg Tab, 5 MG PO DAILY, TAB 08/14/16 Atorvastatin* (Atorvastatin*) 80 Mg Tablet, 80 MG PO QHS, #30 TAB 08/23/15 Levothyroxine Sodium* (Levothyroxine Sodium*) 100 Mcg Tablet, 100 MCG PO BEFORE BREAKFAST, #30 TAB 08/23/15 Calcitriol* (Calcitriol*) 0.25 Mcg Capsule, 0.25 MCG PO DAILY, CAP 08/23/15 Mycophenolate Sodium* (Mycophenolic Acid*) 180 Mg Tablet.dr, 180 MG PO Q12, TAB 08/23/15 Tacrolimus* (Tacrolimus*) 0.5 Mg Capsule, 0.5 MG PO Q12, CAP 08/23/15 Discontinued Reported Medications Ferrous Sulfate* (Ferrous Sulfate*) 325 Mg Tabec, 325 MG PO DAILY, TAB 09/11/16 Aspirin (Low Dose Aspirin) 81 Mg Tablet.dr, 81 MG PO DAILY, #30 TAB 09/11/16 Digoxin* (Lanoxin*) 0.125 Mg Tablet, 0.125 MG PO [place]WEDFRI, TAB 08/14/16 Ergocalciferol (Vitamin D2) (VITAMIN D2) 50,000 Unit Capsule, 35120 UNIT PO Q7 DAYS, CAP 08/14/16 Hydralazine Hcl* (Hydralazine Hcl*) 25 Mg Tab, 25 MG PO BID, #60 TAB 08/23/15 Isosorbide Dinitrate* (Isosorbide Dinitrate*) 30 Mg Tablet, 30 MG PO DAILY, TAB 08/23/15 Primary Care Provider Brandy Jacobs MD Time spent on discharge: > 30 minutes Pending Labs Laboratory Tests Test 09/16/16 05:05 09/16/16 06:05 Phosphorus Level 3.6mg/dl (2.5-4.9) Magnesium Level 2.2mg/dl (1.7-2.5) White Blood Count 11.510^3/ul (4.8-10.8) Red Blood Count 4.9310^6/ul (4.70-6.10) Hemoglobin 14.0g/dl (14.0-18.0) Hematocrit 44.8% (42.0-52.0) Mean Corpuscular Volume 90.9fl (82.0-101.0) Mean Corpuscular Hemoglobin 28.4pg (29.0-33.0) Mean Corpuscular Hemoglobin Concent 31.3g/dl (32.0-37.0) Red Cell Distribution Width 16.2% (11.5-14.5) Platelet Count 16691^3/UL (140-415) Mean Platelet Volume 12.0fl (7.4-10.4) Neutrophils % 71.6% (39.0-77.0) Lymphocytes % 9.3% (15.0-51.0) Monocytes % 12.6% (0.0-11.0) Eosinophils % 1.8% (0.0-7.0) Basophils % 0.2% (0.0-2.0) Nucleated Red Blood Cells % 0.0/100WBC (0.0-0.0) Neutrophils # 8.210^3/ul (1.6-7.5) Lymphocytes # 1.110^3/ul (0.8-2.9) Monocytes # 1.410^3/ul (0.3-0.9) Eosinophils # 0.210^3/ul (0.0-0.5) Basophils # 0.010^3/ul (0.0-0.1) Nucleated Red Blood Cells # 0.010^3/ul (0.0-0.0) Sodium Level 141mmol/L (135-144) Potassium Level 3.6mmol/L (3.5-5.1) Chloride Level 99mmol/L (97-110) Carbon Dioxide Level 30mmol/L (21-31) Anion Gap 16 (8-16) Blood Urea Nitrogen 68mg/dl (7-20) Creatinine 2.07mg/dl (0.61-1.24) Glucose Level 89mg/dl (70-220) Calcium Level 8.8mg/dl (8.4-10.2) Total Bilirubin 1.1mg/dl (0.2-1.3) Direct Bilirubin 0.00mg/dl (0.00-0.20) Indirect Bilirubin 1.1mg/dl (0-1.1) Aspartate Amino Transf (AST/SGOT) 18IU/L (15-46) Alanine Aminotransferase (ALT/SGPT) 28IU/L (13-69) Alkaline Phosphatase 61IU/L (42-121) B-Type Natriuretic Peptide 7870PG/ML (0-125) Total Protein 6.9g/dl (6.1-8.1) Albumin 4.5g/dl (3.3-4.9) Globulin 2.40g/dl (1.3-3.2) Albumin/Globulin Ratio 1.87 BRANDY JACOBS MD Sep 16, 2016 13:07
--- NOTE | 2016-09-16 13:39 | CONS ---
Date/Time of Note Date/Time of Note DATE: 09/16/16 TIME: 13:38 Consult Date/Type/Reason Admit Date/Time Sep 11, 2016 at 16:35 Initial Consult Date 09/12/16 Type of Consultation: Pulmonary/critical care Ordering Provider: BRANDY REHMAN MD Subjective No events. Preparing for D/C. Objective Vital Signs Date Time Temp Pulse Resp B/P Pulse Ox O2 Delivery O2 Flow Rate FiO2 09/16/16 12:40 80 09/16/16 12:32 98.3 19 119/79 99 09/16/16 11:13 3.0 09/15/16 21:00 Nasal Cannula 09/12/16 07:40 100 Intake and Output 09/15/16 09/15/16 09/16/16 15:00 23:00 07:00 Intake Total 980 ml 800 ml Output Total 1100 ml 900 ml Balance -120 ml -100 ml Exam HEENT: Neck supple; no JVD; no LAD CVS: RRR, S1 and S2 CHEST: Clear ABD: Soft, NT, + BS EXT: No c/c/e Results/Medications Result Diagram: 09/16/16 0609/16/16 06 Results 24 hrs Laboratory Tests Test 09/16/16 05:05 09/16/16 06:05 Phosphorus Level 3.6 Magnesium Level 2.2 White Blood Count 11.5 H Red Blood Count 4.93 Hemoglobin 14.0 Hematocrit 44.8 Mean Corpuscular Volume 90.9 Mean Corpuscular Hemoglobin 28.4 L Mean Corpuscular Hemoglobin Concent 31.3 L Red Cell Distribution Width 16.2 H Platelet Count 173 Mean Platelet Volume 12.0 H Neutrophils % 71.6 Lymphocytes % 9.3 L Monocytes % 12.6 H Eosinophils % 1.8 Basophils % 0.2 Nucleated Red Blood Cells % 0.0 Neutrophils # 8.2 H Lymphocytes # 1.1 Monocytes # 1.4 H Eosinophils # 0.2 Basophils # 0.0 Nucleated Red Blood Cells # 0.0 Sodium Level 141 Potassium Level 3.6 Chloride Level 99 Carbon Dioxide Level 30 Anion Gap 16 # Blood Urea Nitrogen 68 H Creatinine 2.07 H Glucose Level 89 Calcium Level 8.8 Total Bilirubin 1.1 Direct Bilirubin 0.00 Indirect Bilirubin 1.1 Aspartate Amino Transf (AST/SGOT) 18 Alanine Aminotransferase (ALT/SGPT) 28 Alkaline Phosphatase 61 B-Type Natriuretic Peptide 7870 H Total Protein 6.9 Albumin 4.5 Globulin 2.40 Albumin/Globulin Ratio 1.87 Medications Current Medications Albuterol (Ventolin Hfa) 2 puff Q4H PRN INH SHORTNESS OF BREATH; Start at 14:30 Atorvastatin Calcium (Lipitor) 80 mg QHS PO Last administered on 09/15/16 20:53 ; Admin Dose 80 MG; Start 09/11/16 at 21:00 Calcitriol (Rocaltrol) 0.25 mcg DAILY PO Last administered on 09/16/16 08:20; Admin Dose 0.25 MCG; Start 09/12/16 at 09:00 Ferrous Sulfate (Ferrous Sulfate (Ec)) 325 mg DAILY PO Last administered on 09/16 08:19; Admin Dose 325 MG; Start 09/12/16 at 09:00 Isosorbide Mononitrate (Imdur) 30 mg DAILY PO Last administered on 09/12/16 08 :29; Admin Dose 30 MG; Start 09/12/16 at 09:00; Status Future Hold Mycophenolate Sodium (Myfortic) 180 mg Q12 PO Last administered on 09/16/16 08: 19; Admin Dose 180 MG; Start 09/11/16 at 21:00 Pantoprazole (Protonix Tab) 40 mg DAILY@06 PO Last administered on 09/16/16 05: 42; Admin Dose 40 MG; Start 09/12/16 at 06:00 Prednisone (Prednisone) 5 mg DAILY PO Last administered on 09/16/16 08:19; Admin Dose 5 MG; Start 09/12/16 at 09:00 Tacrolimus (Prograf) 0.5 mg Q12 PO Last administered on 09/16/16 08:19; Admin Dose 0.5 MG; Start 09/11/16 at 21:00 Acetylcysteine (Nac) 600 mg BID PO Last administered on 09/16/16 08:19; Admin Dose 600 MG; Start 09/11/16 at 15:00 Doxazosin Mesylate 2 mg 2 mg HS PO Last administered on 09/15/16 21:07; Admin Dose 2 MG; Start 09/11/16 at 21:21 Vancomycin HCl (Vancocin) 250 ml @ 125 mls/hr Q36H IVPB Last administered on 05:42; Admin Dose 125 MLS/HR; Start 09/13/16 at 07:00 Apixaban (Eliquis) 2.5 mg BID PO Last administered on 09/16/16 08:20; Admin Dose 2.5 MG; Start 09/12/16 at 10:00 Amiodarone HCl (Cordarone) 400 mg DAILY PO Last administered on 09/16/16 08:19 ; Admin Dose 400 MG; Start 09/13/16 at 09:00 Carvedilol 3.125 mg 3.125 mg BID PO Last administered on 09/16/16 08:19; Admin Dose 3.125 MG; Start 09/13/16 at 09:00 Meropenem (Merrem 1 Gm/100 ml (Pmx)) 100 ml @ 200 mls/hr Q12 IVPB Last administered on 09/16/16 08:23; Admin Dose 200 MLS/HR; Start 09/13/16 at 09:00 Clopidogrel Bisulfate (plaVIX) 75 mg DAILY PO Last administered on 09/16/16 08: 18; Admin Dose 75 MG; Start 09/15/16 at 15:30 Assessment/Plan Additional Assessment/Plan IMP: 1. Resp Insufficiency due to CHF 2. Coronary artery disease with graft occlusion 3. Severe aortic stenosis. 4. Status post renal transplant patient maintained on chronic immunosuppression. 5. COPD 6. CKD RECS: 1. As per Cards 2. D/C planning DUY PINEDA MD Sep 16, 2016 13:39
== END 2016-09-16 15:00 | disposition home or self-care (01) | DRG 286 ==
LOC: SDS 10:42 → TEL 16:35 → ICU 21:30 → TEL 09-13 15:28
PROVIDERS: ADMIT Internal Medicine Interventional Cardiology; ATTEND Internal Medicine Interventional Cardiology
PROC: B213YZZ Fluoroscopy of Multiple Coronary Artery Bypass Grafts using Other Contrast (ICD-10-PCS; 2016-09-11)
PROC: B218YZZ Fluoroscopy of Left Internal Mammary Bypass Graft using Other Contrast (ICD-10-PCS; 2016-09-11)
PROC: 5A09357 Assistance with Respiratory Ventilation, Less than 24 Consecutive Hours, Continuous Positive Airway Pressure (ICD-10-PCS; 2016-09-11)
PROC: 4A023N7 Measurement of Cardiac Sampling and Pressure, Left Heart, Percutaneous Approach (ICD-10-PCS; principal; 2016-09-11 12:30)
DX: I13.0 Hypertensive heart and chronic kidney disease with heart failure and stage 1 through stage 4 chronic kidney disease, or unspecified chronic kidney disease (principal); I50.43 Acute on chronic combined systolic (congestive) and diastolic (congestive) heart failure; J96.01 Acute respiratory failure with hypoxia; J18.9 Pneumonia, unspecified organism; N17.9 Acute kidney failure, unspecified; E87.0 Hyperosmolality and hypernatremia; I42.9 Cardiomyopathy, unspecified; D63.8 Anemia in other chronic diseases classified elsewhere; I48.0 Paroxysmal atrial fibrillation; J44.0 Chronic obstructive pulmonary disease with (acute) lower respiratory infection; E83.42 Hypomagnesemia; J44.1 Chronic obstructive pulmonary disease with (acute) exacerbation; Z94.0 Kidney transplant status; D64.9 Anemia, unspecified; I35.0 Nonrheumatic aortic (valve) stenosis; N18.9 Chronic kidney disease, unspecified; I12.9 Hypertensive chronic kidney disease with stage 1 through stage 4 chronic kidney disease, or unspecified chronic kidney disease; I25.10 Atherosclerotic heart disease of native coronary artery without angina pectoris; I73.9 Peripheral vascular disease, unspecified; E83.9 Disorder of mineral metabolism, unspecified; E78.5 Hyperlipidemia, unspecified; Z95.1 Presence of aortocoronary bypass graft; Z95.810 Presence of automatic (implantable) cardiac defibrillator
CPT/HCPCS: 36600; 71010; 80048; 80053; 80061; 80162; 80197; 80202; 81003; 82043; 82550; 82553; 82803; 83735; 83880; 84100; 84145; 84155; 84300; 84439; 84443; 84484; 85025; 85610; 85730; 93461; 94660; 94664; C1769; C1887; C1894; J1644; J1940; J2185; J2250; J2930; J3010; J3370; J3475; J7050; J7070; J7512; Q9967

== ENCOUNTER 2016-11-06 10:01 | Inpatient (IN) | payer MEDICARE, OTHER ==
[2016-11-06] VITALS (32 sets, daily range): BP systolic 70–134; BP diastolic 14–78; PULSE 65–101; RESP 15–39; Ht 167.6 cm; Wt 64.0 kg
[~2016-11-06] VITALS: Ht 167.6 cm; Wt 64.0 kg
[~2016-11-06 10:01] MED LIST changes: -DIGO125T6 PO; -ERGO500037 PO; -HYDR-3671 PO; -ISOS30TA18 PO; +LEVO250T35 PO; -SOD CHLORIDE 0.9% 1,000 ML IV SCH
[2016-11-06 11:25] LABS: BASOPHIL # 0.1 10^3/ul (0.0-0.1); BASOPHILS % 0.5 % (0.0-2.0); EOSINOPHILS # 0.1 10^3/ul (0.0-0.5); EOSINOPHILS % 0.6 % (0.0-7.0); HEMATOCRIT 35.4 % (42.0-52.0); HEMOGLOBIN 11.3 g/dl (14.0-18.0); HOLD TRANSMISSIONS 1; LYMPHOCYTES # 0.7 10^3/ul (0.8-2.9); LYMPHOCYTES % 5.2 % (15.0-51.0); MEAN CORPUSCULAR HEMOGLOBIN 29.4 pg (29.0-33.0); MEAN CORPUSCULAR HGB CONC 31.9 g/dl (32.0-37.0); MEAN CORPUSCULAR VOLUME 92.2 fl (82.0-101.0); MEAN PLATELET VOLUME 12.5 fl (7.4-10.4); MONOCYTE # 0.9 10^3/ul (0.3-0.9); MONOCYTES % 7.1 % (0.0-11.0); NEUTROPHILS % 84.5 % (39.0-77.0); PLATELET COUNT 168 10^3/UL (140-415); RED BLOOD COUNT 3.84 10^6/ul (4.70-6.10); RED CELL DISTRIBUTION WIDTH 16.7 % (11.5-14.5); WHITE BLOOD COUNT 12.8 10^3/ul (4.8-10.8)
[2016-11-06 11:42] LABS: INR 1.01; PARTIAL THROMBOPLASTIN TIME 29.2 Sec (25.0-35.0); PROTIME 13.3 Sec (12.2-14.2)
[2016-11-06 11:43] LABS: ALBUMIN 4.2 g/dl (3.3-4.9); ALBUMIN/GLOBULIN RATIO 1.35; BILIRUBIN,INDIRECT 0.8 mg/dl (0-1.1); BILIRUBIN,TOTAL 0.8 mg/dl (0.2-1.3); CHOL/HDL RATIO 2.6 RATIO; TOTAL PROTEIN 7.3 g/dl (6.1-8.1)
[2016-11-06 11:53] LABS: TROPONIN-I 0.039 ng/ml (0.00-0.12)
[2016-11-06 12:01] LABS: CALCIUM 9.1 mg/dl (8.4-10.2); CK-MB 2.53 ng/ml (0.0-2.4); CREATININE 1.98 mg/dl (0.61-1.24); POTASSIUM 4.9 mmol/L (3.5-5.1)
[2016-11-06] MEDS ORDERED: FENTAnyl 50 MCG/ML VIAL ONE (12:01)
[2016-11-06] MEDS ORDERED: MIDAZOLAM 1 MG/ML 2 ML INJ ONE (12:02)
[2016-11-06] MEDS ORDERED: IODIXANOL LOCM 100 ML BTL ONE (12:02)
[2016-11-06] MEDS ORDERED: IOHEXOL 350MG/ML 50 ML BTL ONE (12:02)
[2016-11-06] MEDS ORDERED: NITROGLYCERIN (IC) 100 MCG/ML INJ ONE (12:03)
[2016-11-06] MEDS ORDERED: VERAPAMIL 5 MG INJ ONE (12:03)
--- NOTE | 2016-11-06 12:58 | RADRPT ---
PROCEDURE: XR Chest. CLINICAL INDICATION: shortness of breath TECHNIQUE: Single portable view of the chest was obtained COMPARISON: 09/14/16 FINDINGS: There is moderate cardiomegaly. There is a left-sided AICD / pacemaker in place. There is moderate pulmonary vascular congestion. There are bilateral perihilar and right lower lobe infiltrates.. There is no pneumothorax. The bones and soft tissues are unremarkable. RPTAT: AA IMPRESSION: Moderate cardiomegaly with pulmonary vascular congestion. Slightly more focal right lower lobe consolidation. Associated underlying pneumonia is not excluded . .You Hammond MD, MD Date Time Electronically viewed and signed by .You Hammond MD, on 11/06/2016 12:58 .S/
[2016-11-06] MEDS ORDERED: LEVALBUTEROL (NEB) 1.25 MG/0.5 ML AMP HHN ONE (13:00)
--- NOTE | 2016-11-06 13:05 | CONS ---
Date/Time of Note Date/Time of Note DATE: 11/06/16 TIME: 12:55 Assessment/Plan Assessment/Plan Chief Complaint/Hosp Course 1. Acute hypoxemic hypercapnic respiratory failure. 2. Congestive heart failure acute on chronic. 3. Severe aortic stenosis 4. COPD 5. History of hypertension 6. Proximal atrial fibrillation 7. Dyslipidemia 8. History of coronary bypass graft 9. Severe coronary artery disease 10. Renal failure chronic status post renal transplant Recommendation: I will continue with the Plavix. Aspirin 81 mg p.o. will be given for now. Patient will be admitted to intensive care unit. Pulmonary/ICU consultation with Dr. barnes, has been putting place already. Renal consultation with Dr. Crowell has been ordered already. I have ordered a chest x-ray. BiPAP as well as nebulizer treatment for now. Cardiac rhythm will be checked again tomorrow and likely will be checked tomorrow to rule out myocardial infarction and correct electrolytes renal function as needed. PCI will be postponed if patient stabilizes. Patient was admitted to intensive care unit for close monitoring. Thank you for his referral will continue to follow along with you. CARMEN JARAMILLO MD FAC Problems: Consultation Date/Type/Reason Admit Date/Time Date of Consultation: Nov 06, 2016 Type of Consultation: CARDIOLOGY Reason for Consultation CHF. resp failure, CAD, Referring Provider: BRANDY REHMAN MD Hx of Present Illness CC: Need coronary angiogram PCI prior to TAVR HPI: Thank you for his referral for this referral. This a 71-year-old gentleman very well known to me with history of coronary artery disease status post coronary bypass graft history of severe aortic stenosis proximal atrial fibrillation congestive heart failure severe cardiomyopathy status with by V ICD COPD and chronic kidney disease who was scheduled for elective PCI prior to his TAVR. However patient was noted to be in severe respiratory distress hypoxemic O2 sat down to 70s. Procedure was canceled before getting started. Patient is being admitted to ICU on BiPAP respiratory care. Patient at this point denies any chest pain patient with does have shortness of breath. Yesterday shortness of breath started this morning again. Denies any cough or fever to me. Discussed with her daughter discussed with her son at the bedside. Her old chart reviewed per discussed multiple physicians include Dr. Mosquera, and Dr. Hernandes. Allergies to enalapril. Medications are medical records are personally reviewed. MEDS reviewed. Social history: Patient is an ex-smoker. Is not actively smoking anymore. Has a very supportive family including daughter. PMH: CAD, s/p CABG CHF, SEVERE cardiomyopathy VT: S/P BIV/ICD CKD: s/p renal transplant, hypertension, severe Aortic stenosis, P. afib, dyslipidemia, CKD. HTN COPD recurrent pneumonia Past Surgical History renal transplant CABG PCI Family history: No reported early coronary artery disease. ROS: As above only he denies all others. Social History Smoking Status: Former smoker Exam/Review of Systems Vital Signs Vitals Vital Signs Date Time Temp Pulse Resp B/P Pulse Ox O2 Delivery O2 Flow Rate FiO2 11/06/16 10:50 98.5 71 19 127/77 98 Room Air Exam General: IN resp distress HEENT: NC/AT. pupils are equal. round. NECK: NO JVD. no stridor. CV: RRR. systolic murmur; no gallop or rubs. PULM: mild wheezing. diffuse rhonchi. GI: SOFT, NT, ND, no rebound or guarding Extremity: trace B/L LE edema. no clubbing. neuro: awake and alert, OX3. Psych: anxious but pleasant rectal: deferred : normal labs reviewed. O2 sat 80% Results Result Diagram: 11/06/16 1105 11/06/16 1105 Results 24 hrs Laboratory Tests Test 11/06/16 11:05 White Blood Count 12.8 H Red Blood Count 3.84 #L Hemoglobin 11.3 L Hematocrit 35.4 #L Mean Corpuscular Volume 92.2 Mean Corpuscular Hemoglobin 29.4 Mean Corpuscular Hemoglobin Concent 31.9 L Red Cell Distribution Width 16.7 H Platelet Count 168 Mean Platelet Volume 12.5 H Neutrophils % 84.5 H Lymphocytes % 5.2 L Monocytes % 7.1 Eosinophils % 0.6 Basophils % 0.5 Nucleated Red Blood Cells % 0.0 Neutrophils # (Manual) 11 H Lymphocytes # 0.7 L Monocytes # 0.9 Eosinophils # 0.1 Basophils # 0.1 Nucleated Red Blood Cells # 0.0 CBC Results Faxed/Phoned 1 *H Prothrombin Time 13.3 Prothrombin Time Ratio 1.0 INR International Normalized Ratio 1.01 Activated Partial Thromboplast Time 29.2 Sodium Level 143 Potassium Level 4.9 Chloride Level 104 Carbon Dioxide Level 23 Anion Gap 21 H Blood Urea Nitrogen 28 H Creatinine 1.98 H Glucose Level 98 Calcium Level 9.1 Total Bilirubin 0.8 Direct Bilirubin 0.00 Indirect Bilirubin 0.8 Aspartate Amino Transf (AST/SGOT) 25 Alanine Aminotransferase (ALT/SGPT) 30 Alkaline Phosphatase 61 Creatine Kinase 89 Creatine Kinase Index 2.8 Creatinine Kinase MB (Mass) 2.53 H Troponin I 0.039 Total Protein 7.3 Albumin 4.2 Globulin 3.10 Albumin/Globulin Ratio 1.35 Triglycerides Level 133 Cholesterol Level 140 LDL Cholesterol, Calculated 60 HDL Cholesterol 53 Cholesterol/HDL Ratio 2.6 Medications Medications Current Medications Sodium Chloride (NS) 1,000 ml @ 70 mls/hr [id number] IV ; Start 11/06/16 at 06:00 Levalbuterol (Xopenex Neb) 1.25 mg ONCE ONCE HHN ; Start 11/06/16 at 13:00; Stop 11/06/16 at 13:01 CARMEN JARAMILLO MD Nov 06, 2016 13:04
[2016-11-06] MEDS ORDERED: ALBUTEROL 18 GM INHALER INH PRN (13:30)
[2016-11-06] MEDS ORDERED: BUMETANIDE 3 MG in DEXTROSE 5% 18 ML IV ONE (13:30)
[2016-11-06] MEDS ORDERED: LIDOCAINE 1% (MPF) 5 ML VIAL SC ONE (15:00)
--- NOTE | 2016-11-06 15:08 | HP ---
Date/Time of Note Date/Time of Note DATE: 11/06/16 TIME: 14:52 Admit Date/Time Admit Date/Time Admit Date/Time History & Physical HPI/ROS HPI Reason for admission: Acute respiratory failure, hypoxia. History of present illness: The patient is a 71 years old male with history of hypertension, s/p renal transplant 2007, dyslipidemia, Aortic stenosis, P. A.fibrillation on Eliquis, CHF, cardiomyopahty, CAD s/p CABG, EF of 35% s/p AICD placement. Recently admitted for CHF exacerbation, as he was planned to undergo PCI, in anticipation for aortic valve surgery to be done at a later time. He was brought to the [facility] for elective PCI, but unfortunately was noted to be hypoxic in the 70s. Procedure was canceled, and patient was placed on BiPAP and transferred to the intensive care unit. Chest x-ray showed significant right-sided congestion and possible consolidation. The patient to be started on a Bumex drip. Case discussed with Dr. Thakur. ROS All systems reviewed and are negative except as per history of present illness. PMHX Primary Care Physician Brandy Rehman MD CAD, CHF, s/p renal transplant, hypertension, Aortic stenosis, P. afib, dyslipidemia, CKD. FmHx CAD, CHF, s/p renal transplant, hypertension, Aortic stenosis, P. afib, dyslipidemia, CKD. FmHx Surgical history- renal transplant, CABG 4 v disease, AICD placement Allergies: Enalapril Social Hx Hx Alcohol Use: Yes (QUIT IN THE 70S) Hx Substance Use: No Hx Tobacco Use: Yes (QUIT) Smoking Status: Former smoker Social Hx Hx Alcohol Use: No Hx Substance Use: No Hx Tobacco Use: Yes Smoking Status: Former smoker Physical Exam Physical Exam Vital Signs Date Time Temp Pulse Resp B/P Pulse Ox O2 Delivery O2 Flow Rate FiO2 11/06/16 13:15 71 11/06/16 13:05 95 40 11/06/16 10:50 98.5 19 127/77 Room Air Const: [XOXOXO] Head: [Atraumatic] Eyes: [Normal Conjunctiva] ENT: [Normal External Ears, Nose and Mouth.] Neck: [Full range of motion. No meningismus.] Resp: [Clear to auscultation bilaterally] Cardio: [Regular rate and rhythm, no murmurs] Abd: [Soft, non tender, non distended. Normal bowel sounds] Skin: [No petechiae or rashes] Back: [No midline or flank tenderness] Ext: [No cyanosis, or edema] Neuro: [Awake and alert] Psych: [Normal Mood and Affect] Result Diagram: 11/06/16 1105 11/06/16 110 VTE Prophylaxis VTE Prophylaxis Intervention: LMWH Assessment/Plan Hospital Course 1. Acute hypoxemic hypercapnic respiratory failure. 2. Congestive heart failure acute on chronic. 3. Severe aortic stenosis 4. COPD 5. History of hypertension 6. Proximal atrial fibrillation 7. Dyslipidemia 8. History of coronary bypass graft 9. Severe coronary artery disease 10. Renal failure chronic status post renal transplant Recommendation: I will continue with the Plavix. Aspirin 81 mg p.o. will be given for now. Patient will be admitted to intensive care unit. Pulmonary/ICU consultation with Dr. barnes, has been putting place already. Renal consultation with Dr. Crowell has been ordered already. I have ordered a chest x-ray. BiPAP as well as nebulizer treatment for now. Cardiac rhythm will be checked again tomorrow and likely will be checked tomorrow to rule out myocardial infarction and correct electrolytes renal function as needed. PCI will be postponed if patient stabilizes. Patient was admitted to intensive care unit for close monitoring. Thank you for his referral will continue to follow along with you. CARMEN THAKUR MD [facility] Problems: (1) CAD (coronary artery disease) (2) CHF (congestive heart failure) (3) Respiratory failure (4) A-fib (5) Chronic kidney disease (CKD) Assessment/Plan A/P.71 years old male with history of CHF, EF 35%, Aortic stenosis, A.fib, CAD, CKD, s/p renal transplant who presented for elective coronary angiogram. 1. Respiratory failure- concerning for CHF, o2 support, breathing tx, IV albumin , BiPAP, pulmonary consult, follow-up a.m. chest x-ray. 2. cardiovascular-patient with respiratory failure likely secondary to CHF exacerbation, PCI deferred as the patient has coronary artery disease to be done when patient is more stable 3. CKD-monitor kidney function is patient to be placed on diuretic therapy. Resume immunosuppressive medication as patient is status post renal transplant. Renally dose all meds. 4. Anti coagulate with Lovenox. 5. Protonix for GI prophylaxis 6. ID. Slight leukocytosis, questionable right-sided consolidation, observe, monitor for fevers,may consider antibiotics, most likely chest congestion from CHF. 7. Consider PICC line placement for easier access. Medications Medications Home Meds Active Scripts Carvedilol* (Carvedilol*) 25 Mg Tablet, 3.125 MG PO BID, #60 TAB Prov:BRANDY REHMAN MD 09/16/16 Furosemide* (Lasix*) 20 Mg Tablet, 40 MG PO BID for 30 Days, TAB Prov:BRANDY REHMAN MD 09/16/16 Amiodarone Hcl* (Amiodarone Hcl*) 400 Mg Tablet, 400 MG PO DAILY for 30 Days, TAB Prov:BRANDY REHMAN MD 09/16/16 Albuterol Sulfate* (Proair HFA*) 8.5 Gm Hfa.aer.ad, 2 PUFF INH Q4 Y for SHORTNESS OF BREATH, #1 INHALER Prov:BRANDY REHMAN MD 08/20/16 Reported Medications Pantoprazole* (Protonix*) 40 Mg Tablet.dr, 40 MG PO DAILY, TAB 08/14/16 Doxazosin Mesylate* (Doxazosin Mesylate*) 2 Mg Tablet, 2 MG PO HS, TAB 08/14/16 Apixaban* (Eliquis*) 2.5 Mg Tablet, 2.5 MG PO BID, TAB 08/14/16 Alendronate Sodium* (Fosamax*) 70 Mg Tablet, 70 MG PO Q7D, #4 TAB 08/14/16 Prednisone* (Prednisone*) 5 Mg Tab, 5 MG PO DAILY, TAB 08/14/16 Atorvastatin* (Atorvastatin*) 80 Mg Tablet, 80 MG PO QHS, #30 TAB 08/23/15 Levothyroxine Sodium* (Levothyroxine Sodium*) 100 Mcg Tablet, 100 MCG PO BEFORE BREAKFAST, #30 TAB 08/23/15 Calcitriol* (Calcitriol*) 0.25 Mcg Capsule, 0.25 MCG PO DAILY, CAP 08/23/15 Mycophenolate Sodium* (Mycophenolic Acid*) 180 Mg Tablet.dr, 180 MG PO Q12, TAB 08/23/15 Tacrolimus* (Tacrolimus*) 0.5 Mg Capsule, 0.5 MG PO Q12, CAP 08/23/15 Discontinued Scripts Levofloxacin* (Levaquin*) 250 Mg Tablet, 250 MG PO DAILY for 5 Days, TAB Prov:BRANDY REHMAN MD 09/16/16 BRANDY REHMAN MD Nov 06, 2016 15:04
--- NOTE | 2016-11-06 16:55 | RADRPT ---
PROCEDURE: XR Chest. CLINICAL INDICATION: Check PICC line position. TECHNIQUE: Single frontal view. COMPARISON: Prior study done earlier the same day. FINDINGS: There is a left arm PICC line with the tip in the cavoatrial junction region. There is moderate cardiomegaly. There is a left-sided AICD / biventricular pacemaker in place. There is moderate pulmonary vascular congestion. There are bilateral perihilar and right lower lobe infiltrates.. There is no pneumothorax. The bones and soft tissues are unremarkable. IMPRESSION: 1. Left arm PICC line tip in satisfactory position. 2. No other change from the prior study done earlier the same day. RPTAT: QQ .Jimmy Tejeda MD, MD Date Time Electronically viewed and signed by .Jimmy Tejeda MD, on 11/06/2016 16:54 .R/
--- NOTE | 2016-11-06 16:57 | RADRPT ---
PROCEDURE: Ultrasound guidance for placement of needle in left upper extremity vein. CLINICAL INDICATION: Venous access. TECHNIQUE: Limited sonography of the left upper extremity was performed. Ultrasound images were recorded and s tored in the patient's medical record. COMPARISON: None. FINDINGS: The ultrasound images demonstrate a patent left upper extremity vein. The PICC line was inserted by the PICC line nurse. IMPRESSION: 1. Ultrasound guidance for a needle placement in a left upper extremity vein. 2. The left upper extremity vein is patent. RPTAT: QQ .Jimmy Tejeda MD, MD Date Time Electronically viewed and signed by .Jimmy Tejeda MD, MD on 11/06/2016 16:57 .R/
--- NOTE | 2016-11-06 17:31 | CONS ---
Date/Time of Note Date/Time of Note DATE: 11/06/16 TIME: 17:27 Assessment/Plan Assessment/Plan Additional Assessment/Plan A/P.71 years old male with history of CHF, EF 35%, Aortic stenosis, A.fib, CAD, CKD, s/p renal transplant who presented for elective coronary angiogram. 1. history of ESRD: s/p living renal transplant with fair allograft function. will continue with diuresis for acute resp failure and pulm edema. will continue immunosuppressants. may need pulse dose steroids if remains hypotensive 2. cardiovascular-patient with respiratory failure likely secondary to CHF exacerbation, PCI deferred as the patient has coronary artery disease to be done when patient is more stable 3. Respiratory failure- concerning for CHF, o2 support, breathing tx, IV albumin, BiPAP, pulmonary consult, follow-up a.m. chest x-ray. 4. Anti coagulate with Lovenox. 5. Protonix for GI prophylaxis 6. ID. Slight leukocytosis, questionable right-sided consolidation, observe, monitor for fevers,may consider antibiotics, most likely chest congestion from CHF. 7. Consider PICC line placement for easier access. Consultation Date/Type/Reason Admit Date/Time Date of Consultation: Nov 06, 2016 Reason for Consultation renal failure Hx of Present Illness Reason for admission: Acute respiratory failure, hypoxia. History of present illness: The patient is a 71 years old male with history of hypertension, s/p renal transplant 2007, dyslipidemia, Aortic stenosis, P. A.fibrillation on Eliquis, CHF, cardiomyopahty, CAD s/p CABG, EF of 35% s/p AICD placement. Recently admitted for CHF exacerbation, as he was planned to undergo PCI, in anticipation for aortic valve surgery to be done at a later time. He was brought to the [facility] for elective PCI, but unfortunately was noted to be hypoxic in the 70s. Procedure was canceled, and patient was placed on BiPAP and transferred to the intensive care unit. Chest x-ray showed significant right-sided congestion and possible consolidation. The patient to be started on a Bumex drip. Case discussed with Dr. Thakur. He has history of ESRD and living related kidney transplant with fair allograft function He is currently on BiPAP ROS All systems reviewed and are negative except as per history of present illness. PMHX Primary Care Physician Greg Jacobs MD CAD, CHF, s/p renal transplant, hypertension, Aortic stenosis, P. afib, dyslipidemia, CKD. FmHx CAD, CHF, s/p renal transplant, hypertension, Aortic stenosis, P. afib, dyslipidemia, CKD. FmHx Surgical history- renal transplant, CABG 4 v disease, AICD placement Allergies: Enalapril Social Hx Hx Alcohol Use: Yes (QUIT IN THE 70S) Hx Substance Use: No Hx Tobacco Use: Yes (QUIT) Smoking Status: Former smoker Social Hx Hx Alcohol Use: No Hx Substance Use: No Hx Tobacco Use: Yes Smoking Status: Former smoker Physical Exam Head: [Atraumatic] Eyes: [Normal Conjunctiva] ENT: [Normal External Ears, Nose and Mouth.] Neck: [Full range of motion. No meningismus.] Resp: [Clear to auscultation bilaterally] Cardio: [Regular rate and rhythm, no murmurs] Abd: [Soft, non tender, non distended. Normal bowel sounds] Skin: [No petechiae or rashes] Back: [No midline or flank tenderness] Ext: [No cyanosis, or edema] Neuro: [Awake and alert] Psych: [Normal Mood and Affect] Result Diagram: Social History Smoking Status: Former smoker Exam/Review of Systems Vital Signs Vitals Vital Signs Date Time Temp Pulse Resp B/P Pulse Ox O2 Delivery O2 Flow Rate FiO2 11/06/16 16:30 80 19 114/54 83 BIPAP 11/06/16 16:00 97.5 11/06/16 14:56 30 Results Result Diagram: 11/06/16 1105 11/06/16 1105 Results 24 hrs Laboratory Tests Test 11/06/16 11:05 White Blood Count 12.8 H Red Blood Count 3.84 #L Hemoglobin 11.3 L Hematocrit 35.4 #L Mean Corpuscular Volume 92.2 Mean Corpuscular Hemoglobin 29.4 Mean Corpuscular Hemoglobin Concent 31.9 L Red Cell Distribution Width 16.7 H Platelet Count 168 Mean Platelet Volume 12.5 H Neutrophils % 84.5 H Lymphocytes % 5.2 L Monocytes % 7.1 Eosinophils % 0.6 Basophils % 0.5 Nucleated Red Blood Cells % 0.0 Neutrophils # (Manual) 11 H Lymphocytes # 0.7 L Monocytes # 0.9 Eosinophils # 0.1 Basophils # 0.1 Nucleated Red Blood Cells # 0.0 CBC Results Faxed/Phoned 1 *H Prothrombin Time 13.3 Prothrombin Time Ratio 1.0 INR International Normalized Ratio 1.01 Activated Partial Thromboplast Time 29.2 Sodium Level 143 Potassium Level 4.9 Chloride Level 104 Carbon Dioxide Level 23 Anion Gap 21 H Blood Urea Nitrogen 28 H Creatinine 1.98 H Glucose Level 98 Calcium Level 9.1 Total Bilirubin 0.8 Direct Bilirubin 0.00 Indirect Bilirubin 0.8 Aspartate Amino Transf (AST/SGOT) 25 Alanine Aminotransferase (ALT/SGPT) 30 Alkaline Phosphatase 61 Creatine Kinase 89 Creatine Kinase Index 2.8 Creatinine Kinase MB (Mass) 2.53 H Troponin I 0.039 Total Protein 7.3 Albumin 4.2 Globulin 3.10 Albumin/Globulin Ratio 1.35 Triglycerides Level 133 Cholesterol Level 140 LDL Cholesterol, Calculated 60 HDL Cholesterol 53 Cholesterol/HDL Ratio 2.6 Medications Medications Current Medications Sodium Chloride (NS) 1,000 ml @ 70 mls/hr [id number] IV ; Start 11/06/16 at 06:00 Albuterol (Ventolin Hfa) 2 puff Q4H PRN INH SHORTNESS OF BREATH; Start at 13:30 Amiodarone HCl (Cordarone) 400 mg DAILY PO ; Start 11/07/16 at 09:00 Atorvastatin Calcium (Lipitor) 80 mg QHS PO ; Start 11/06/16 at 21:00 Calcitriol (Rocaltrol) 0.25 mcg DAILY PO ; Start 11/07/16 at 09:00 Carvedilol (Coreg) 3.125 mg BID PO ; Start 11/06/16 at 21:00 Doxazosin Mesylate (Cardura) 2 mg HS PO ; Start 11/06/16 at 21:00 Mycophenolate Sodium (Myfortic) 180 mg Q12 PO ; Start 11/06/16 at 21:00 Pantoprazole (Protonix Tab) 40 mg DAILY PO ; Start 11/07/16 at 09:00 Prednisone (Prednisone) 5 mg DAILY PO ; Start 11/07/16 at 09:00 Tacrolimus (Prograf) 0.5 mg Q12 PO ; Start 11/06/16 at 21:00 Clopidogrel Bisulfate (plaVIX) 75 mg DAILY PO ; Start 11/06/16 at 13:30 Aspirin (Halfprin) 81 mg DAILY PO ; Start 8/23/17 at 09:00 Enoxaparin Sodium (Lovenox) 30 mg BID SC ; Start 11/06/16 at 13:30 LESLIE MONZON DO Nov 06, 2016 17:31
[2016-11-06] MEDS: CLOPIDOGREL 75 MG TAB PO SCH ×2 (17:37→17:45)
[2016-11-06] MEDS: ENOXAPARIN 30 MG/0.3 ML SYG SC SCH ×2 (17:40→21:51)
[2016-11-06] MEDS: SOD CHLORIDE 0.9% 1,000 ML IV SCH ×2 (17:41→21:47)
[2016-11-06] MEDS: ATORVASTATIN 80 MG TAB PO SCH (21:49)
[2016-11-06] MEDS: DOXAZOSIN 2 MG TAB PO SCH (21:49)
[2016-11-06] MEDS: MYCOPHENOLATE (SR) 180 MG TAB PO SCH (21:54)
[2016-11-06] MEDS: TACROLIMUS 0.5 MG CAP PO SCH (22:24)
[2016-11-07] VITALS (84 sets, daily range): BP systolic 76–143; BP diastolic 19–99; PULSE 68–93; RESP 15–52
[2016-11-07] MEDS ORDERED: SOD CHLORIDE 0.9% 250 ML IV ONE ×2 (01:25→03:40)
--- NOTE | 2016-11-07 03:32 | CONS ---
DATE OF ADMISSION: 11/06/2016 DATE OF CONSULTATION: 11/06/2016 REASON FOR CONSULTATION: Shortness of breath. Thank you, Dr. Thakur for this consultation. HISTORY OF PRESENT ILLNESS: This is a 71-year-old gentleman with multiple medical problems including hypertension, hyperlipidemia, aortic stenosis, atrial fibrillation, CHF with systolic dysfunction with AICD placement. The patient was admitted today for elective cardiac catheterization, however, noted to have significant hypoxemia. Chest x-ray demonstrating congestive cardiac failure. PCI could not be performed. Patient was placed on BiPAP and transferred to intensive care unit where now he is slowly improving. PAST MEDICAL HISTORY: Is as above. MEDICATION: Per chart. ALLERGIES: ENALAPRIL. SOCIAL HISTORY: Ex-smoker. No alcohol. No history of drug use. FAMILY HISTORY: Noncontributory. REVIEW OF SYSTEMS: A 12-point review of systems currently unable to perform. PHYSICAL EXAMINATION: GENERAL APPEARANCE: On examination, chronically ill-appearing gentleman on BiPAP, will answer questions. VITAL SIGNS: Temperature 98, pulse 71, blood pressure 122/77, O2 sat 96 percent on BiPAP. NECK: Supple. No JVD. No lymphadenopathy. HEART: S1, S2. No added sounds or murmurs. CHEST: Diminished air entry bilaterally. ABDOMEN: Soft, nontender. No guarding or rebound. EXTREMITIES: No cyanosis, clubbing or edema. NEUROLOGIC: Neurologically generalized weakness. IMPRESSION: 1. Acute congestive cardiac failure secondary to congestive heart failure with valvular heart disease. 2. Possible underlying coronary artery disease. 3. History of chronic obstructive pulmonary disease. 4. History of coronary artery bypass graft surgery. PLAN: 1. Continue BiPAP. 2. Continue diuretics. 3. IV access. 4. Continue Plavix and aspirin. 5. Aspiration precautions. Dictated By: Brandon Dacosta MD /jack/dread /Document#: [id number]
[2016-11-07 05:22] LABS: ABNORMAL IP MESSAGE 1; BASOPHIL # 0.1 10^3/ul (0.0-0.1); BASOPHILS % 0.3 % (0.0-2.0); HEMATOCRIT 35.5 % (42.0-52.0); HEMOGLOBIN 11.3 g/dl (14.0-18.0); LYMPHOCYTES # 0.6 10^3/ul (0.8-2.9); LYMPHOCYTES % 2.1 % (15.0-51.0); MEAN CORPUSCULAR HEMOGLOBIN 29.1 pg (29.0-33.0); MEAN CORPUSCULAR HGB CONC 31.8 g/dl (32.0-37.0); MEAN CORPUSCULAR VOLUME 91.5 fl (82.0-101.0); MEAN PLATELET VOLUME 12.6 fl (7.4-10.4); MONOCYTE # 2.1 10^3/ul (0.3-0.9); MONOCYTES % 8.1 % (0.0-11.0); NEUTROPHILS % 88.1 % (39.0-77.0); PLATELET COUNT 182 10^3/UL (140-415); POSITIVE DIFF @See below; RED BLOOD COUNT 3.88 10^6/ul (4.70-6.10); RED CELL DISTRIBUTION WIDTH 16.7 % (11.5-14.5); WHITE BLOOD COUNT 25.7 10^3/ul (4.8-10.8)
[2016-11-07 05:32] LABS: ALBUMIN 3.4 g/dl (3.3-4.9); ALBUMIN/GLOBULIN RATIO 1.17; BILIRUBIN,INDIRECT 1.2 mg/dl (0-1.1); BILIRUBIN,TOTAL 1.2 mg/dl (0.2-1.3); CALCIUM 8.5 mg/dl (8.4-10.2); CREATININE 2.08 mg/dl (0.61-1.24); MAGNESIUM 1.8 mg/dl (1.7-2.5); POTASSIUM 4.3 mmol/L (3.5-5.1); TOTAL PROTEIN 6.3 g/dl (6.1-8.1)
[2016-11-07 06:00] LABS: THYROID STIMULATING HORMONE 5.11 MIU/L (0.465-4.680)
[2016-11-07 06:06] LABS: CK-MB 1.79 ng/ml (0.0-2.4)
[2016-11-07 06:08] LABS: TROPONIN-I 0.123 ng/ml (0.00-0.12)
--- NOTE | 2016-11-07 08:01 | CONS ---
Date/Time of Note Date/Time of Note DATE: 11/07/16 TIME: 07:54 Consult Date/Type/Reason Admit Date/Time Nov 06, 2016 at 12:15 Initial Consult Date 11/06/16 Type of Consultation: CARDIOLOGY Ordering Provider: BRANDY REHMAN MD Subjective CARDIOLOGY FOLLOW UP NOTE/ critical care note: d/w staff and rhythm was reviewed. pt remain sin V paced rhythm. he has become hypotensive overnight and had to be started on levophed drip. no chest pain or pressure or palpitations. he is still on BIPAP and attempt overnight to take him off of BIPAP was unsuccessful overnight. he denies any palpitations. OBJECTIVE: General: IN mil dresp distress HEENT: NC/AT. pupils are equal. round. NECK: NO JVD. no stridor. CV: RRR. systolic murmur; no gallop or rubs. PULM: NO wheezing. diffuse rhonchi more on the right side. . GI: SOFT, NT, ND, no rebound or guarding Extremity: trace B/L LE edema. no clubbing. neuro: awake and alert, OX3. Psych: anxious but pleasant rectal: deferred : normal CXR reviewed. Objective Vital Signs Date Time Temp Pulse Resp B/P Pulse Ox O2 Delivery O2 Flow Rate FiO2 11/07/16 06:00 73 21 95/42 100 BIPAP 11/07/16 05:20 30 11/07/16 04:00 99.3 Intake and Output 11/06/16 11/06/16 11/07/16 15:00 23:00 07:00 Intake Total 350 ml 508.74 ml Output Total 1300 ml 900 ml Balance -950 ml -391.26 ml Results/Medications Result Diagram: 11/07/16 0400 11/07/16 0400 Results 24 hrs Laboratory Tests Test 11/06/16 11:05 11/07/16 04:00 White Blood Count 12.8 H 25.7 #H Red Blood Count 3.84 #L 3.88 L Hemoglobin 11.3 L 11.3 L Hematocrit 35.4 #L 35.5 L Mean Corpuscular Volume 92.2 91.5 Mean Corpuscular Hemoglobin 29.4 29.1 Mean Corpuscular Hemoglobin Concent 31.9 L 31.8 L Red Cell Distribution Width 16.7 H 16.7 H Platelet Count 168 182 Mean Platelet Volume 12.5 H 12.6 H Neutrophils % 84.5 H 88.1 H Lymphocytes % 5.2 L 2.1 L Monocytes % 7.1 8.1 Eosinophils % 0.6 0.0 Basophils % 0.5 0.3 Nucleated Red Blood Cells % 0.0 0.0 Neutrophils # (Manual) 11 H 23 H Lymphocytes # 0.7 L 0.6 L Monocytes # 0.9 2.1 H Eosinophils # 0.1 0.0 Basophils # 0.1 0.1 Nucleated Red Blood Cells # 0.0 0.0 CBC Results Faxed/Phoned 1 *H Prothrombin Time 13.3 Prothrombin Time Ratio 1.0 INR International Normalized Ratio 1.01 Activated Partial Thromboplast Time 29.2 Sodium Level 143 147 H Potassium Level 4.9 4.3 Chloride Level 104 104 Carbon Dioxide Level 23 26 Anion Gap 21 H 21 H Blood Urea Nitrogen 28 H 33 H Creatinine 1.98 H 2.08 H Glucose Level 98 92 Calcium Level 9.1 8.5 Total Bilirubin 0.8 1.2 Direct Bilirubin 0.00 0.00 Indirect Bilirubin 0.8 1.2 H Aspartate Amino Transf (AST/SGOT) 25 20 Alanine Aminotransferase (ALT/SGPT) 30 30 Alkaline Phosphatase 61 63 Creatine Kinase 89 184 Creatine Kinase Index 2.8 1.0 Creatinine Kinase MB (Mass) 2.53 H 1.79 Troponin I 0.039 0.123 *H Total Protein 7.3 6.3 # Albumin 4.2 3.4 Globulin 3.10 2.90 Albumin/Globulin Ratio 1.35 1.17 Triglycerides Level 133 Cholesterol Level 140 LDL Cholesterol, Calculated 60 HDL Cholesterol 53 Cholesterol/HDL Ratio 2.6 Magnesium Level 1.8 B-Type Natriuretic Peptide 45615 H Thyroid Stimulating Hormone (TSH) 5.110 H Free Thyroxine 1.77 Digoxin Level < 0.4 L Medications Current Medications Sodium Chloride (NS) 1,000 ml @ 70 mls/hr [id number] IV Last administered on 11/06t 21:47; Admin Dose 70 MLS/HR; Start 11/06/16 at 06:00 Albuterol (Ventolin Hfa) 2 puff Q4H PRN INH SHORTNESS OF BREATH; Start at 13:30 Amiodarone HCl (Cordarone) 400 mg DAILY PO ; Start 11/07/16 at 09:00 Atorvastatin Calcium (Lipitor) 80 mg QHS PO Last administered on 11/06/16 21: 49; Admin Dose 80 MG; Start 11/06/16 at 21:00 Calcitriol (Rocaltrol) 0.25 mcg DAILY PO ; Start 11/07/16 at 09:00 Carvedilol (Coreg) 3.125 mg BID PO ; Start 11/06/16 at 21:00 Doxazosin Mesylate (Cardura) 2 mg HS PO Last administered on 11/06/16 21:49; Admin Dose 2 MG; Start 11/06/16 at 21:00 Mycophenolate Sodium (Myfortic) 180 mg Q12 PO Last administered on 11/06/16 21 :54; Admin Dose 180 MG; Start 11/06/16 at 21:00 Pantoprazole (Protonix Tab) 40 mg DAILY PO ; Start 11/07/16 at 09:00 Prednisone (Prednisone) 5 mg DAILY PO ; Start 11/07/16 at 09:00 Tacrolimus (Prograf) 0.5 mg Q12 PO Last administered on 11/06/16 22:24; Admin Dose 0.5 MG; Start 11/06/16 at 21:00 Clopidogrel Bisulfate (plaVIX) 75 mg DAILY PO ; Start 11/06/16 at 13:30 Aspirin (Halfprin) 81 mg DAILY PO ; Start 11/07/16 at 09:00 Enoxaparin Sodium (Lovenox) 30 mg BID SC Last administered on 11/06/16 21:51; Admin Dose 30 MG; Start 11/06/16 at 13:30 IV Flush 10 ml 10 ml PRN PRN IV IV PROTOCOL; Start 11/06/16 at 18:00 Norepinephrine/ Dextrose (Levophed/D5W) 500 ml @ 1.87 mls/hr TITRATE IV Last administered on 11/07/16 04:17; Admin Dose 4.68 MLS/HR; Start 11/07/16 at 04:00 Assessment/Plan Chief Complaint/Hosp Course 1. Acute hypoxemic hypercapnic respiratory failure: still on BIPAP now 2. Congestive heart failure acute on chronic. 3. Severe aortic stenosis 4. COPD 5. History of hypertension 6. Proximal atrial fibrillation: currently appears to be in NSR . 7. Dyslipidemia 8. History of coronary bypass graft 9. Severe coronary artery disease 10. Renal failure chronic status post renal transplant 11. shock: on levophed drip now 12. ACS Recommendation: I will continue with the Plavix and Aspirin 81 mg p.o. Pulmonary/ICU consultation with Dr. wills and Renal consultation with Dr. Crowell is appreciated. check ABG and titrate off of BIPAP if possible BP meds are on hold now due to low BP. Patient WILL be monitored in intensive care unit for close monitoring. will check ECG today. lovenox. more than 38 minutes of critical care time was spent in management and treatment of this critically ill pt excluding any procedures. Thank you for his referral will continue to follow along with you. CARMEN JARAMILLO MD [facility] Problems: CARMEN JARAMILLO MD Nov 07, 2016 08:01
[2016-11-07] MEDS ORDERED: ASPIRIN (EC) 81 MG TAB PO SCH (09:00)
[2016-11-07] MEDS ORDERED: predniSONE 5 MG TAB PO SCH (09:00)
[2016-11-07] MEDS ORDERED: PANTOPRAZOLE (EC) 40 MG TAB PO SCH (09:00)
[2016-11-07] MEDS: TACROLIMUS 0.5 MG CAP PO SCH (09:08)
[2016-11-07] MEDS: CLOPIDOGREL 75 MG TAB PO SCH (09:08)
[2016-11-07] MEDS: MYCOPHENOLATE (SR) 180 MG TAB PO SCH (09:09)
[2016-11-07] MEDS: AMIODARONE 200 MG TAB PO SCH (09:10)
[2016-11-07] MEDS: CALCITRIOL 0.25 MCG CAP PO SCH (09:11)
[2016-11-07] MEDS: ENOXAPARIN 30 MG/0.3 ML SYG SC SCH ×2 (09:12→21:53)
[2016-11-07] MEDS: LEVOTHYROXINE 100 MCG TAB PO SCH (09:12)
--- NOTE | 2016-11-07 09:12 | RADRPT ---
PROCEDURE: XR Chest. CLINICAL INDICATION: Respiratory failure TECHNIQUE: An AP view of the chest was obtained. COMPARISON: Chest x-ray dated 11/06/2016 FINDINGS: There is a left subclavian biventricular pacemaker AICD. There is a left upper extremity PICC line w ith tip obscured by the pacemaker wires. There are diffuse reticular nodular interstitial opacities with right lower lobe and left perihilar alveolar opacities. No pleural effusion or pneumothorax is seen. The cardiomediastinal silhouett e is moderately enlarged. Calcifications are seen within the aortic arch. There are post cardiac iglesias rgery changes with sternotomy wires. The osseous structures demonstrate senescent changes. IMPRESSION: 1. Findings suggestive of interstitial edema. No significant interval change. 2. Moderate cardiomegaly and aortic atherosclerosis. 3. Tubes and lines, as described above. RPTAT: HH .Elvira Warren MD, MD Date Time Electronically viewed and signed by .Elvira Warren MD, on 11/07/2016 09:11 .G/
--- NOTE | 2016-11-07 09:57 | CONS ---
Date/Time of Note Date/Time of Note DATE: 11/07/16 TIME: 09:54 Consult Date/Type/Reason Admit Date/Time Nov 06, 2016 at 12:15 Initial Consult Date 11/06/16 Type of Consultation: Pulmonary Ordering Provider: BRANDY REHMAN MD Subjective Patient awake alert and oriented this morning switched off BiPAP onto nonrebreather. Objective Vital Signs Date Time Temp Pulse Resp B/P Pulse Ox O2 Delivery O2 Flow Rate FiO2 11/07/16 08:00 73 11/07/16 06:00 21 95/42 100 BIPAP 11/07/16 05:20 30 11/07/16 04:00 99.3 Intake and Output 11/06/16 11/06/16 11/07/16 15:00 23:00 07:00 Intake Total 350 ml 508.74 ml Output Total 1300 ml 900 ml Balance -950 ml -391.26 ml Exam PHYSICAL EXAMINATION: GENERAL APPEARANCE: On examination, chronically ill-appearing on nonrebreather VITAL SIGNS: NECK: Supple. No JVD. No lymphadenopathy. HEART: S1, S2. No added sounds or murmurs. CHEST: Diminished air entry bilaterally. ABDOMEN: Soft, nontender. No guarding or rebound. EXTREMITIES: No cyanosis, clubbing or edema. NEUROLOGIC: Neurologically generalized weakness. Results/Medications Result Diagram: 11/07/16 0400 11/07/16 0400 Results 24 hrs Laboratory Tests Test 11/06/16 11:05 11/07/16 04:00 White Blood Count 12.8 H 25.7 #H Red Blood Count 3.84 #L 3.88 L Hemoglobin 11.3 L 11.3 L Hematocrit 35.4 #L 35.5 L Mean Corpuscular Volume 92.2 91.5 Mean Corpuscular Hemoglobin 29.4 29.1 Mean Corpuscular Hemoglobin Concent 31.9 L 31.8 L Red Cell Distribution Width 16.7 H 16.7 H Platelet Count 168 182 Mean Platelet Volume 12.5 H 12.6 H Neutrophils % 84.5 H 88.1 H Lymphocytes % 5.2 L 2.1 L Monocytes % 7.1 8.1 Eosinophils % 0.6 0.0 Basophils % 0.5 0.3 Nucleated Red Blood Cells % 0.0 0.0 Neutrophils # (Manual) 11 H 23 H Lymphocytes # 0.7 L 0.6 L Monocytes # 0.9 2.1 H Eosinophils # 0.1 0.0 Basophils # 0.1 0.1 Nucleated Red Blood Cells # 0.0 0.0 CBC Results Faxed/Phoned 1 *H Prothrombin Time 13.3 Prothrombin Time Ratio 1.0 INR International Normalized Ratio 1.01 Activated Partial Thromboplast Time 29.2 Sodium Level 143 147 H Potassium Level 4.9 4.3 Chloride Level 104 104 Carbon Dioxide Level 23 26 Anion Gap 21 H 21 H Blood Urea Nitrogen 28 H 33 H Creatinine 1.98 H 2.08 H Glucose Level 98 92 Calcium Level 9.1 8.5 Total Bilirubin 0.8 1.2 Direct Bilirubin 0.00 0.00 Indirect Bilirubin 0.8 1.2 H Aspartate Amino Transf (AST/SGOT) 25 20 Alanine Aminotransferase (ALT/SGPT) 30 30 Alkaline Phosphatase 61 63 Creatine Kinase 89 184 Creatine Kinase Index 2.8 1.0 Creatinine Kinase MB (Mass) 2.53 H 1.79 Troponin I 0.039 0.123 *H Total Protein 7.3 6.3 # Albumin 4.2 3.4 Globulin 3.10 2.90 Albumin/Globulin Ratio 1.35 1.17 Triglycerides Level 133 Cholesterol Level 140 LDL Cholesterol, Calculated 60 HDL Cholesterol 53 Cholesterol/HDL Ratio 2.6 Magnesium Level 1.8 B-Type Natriuretic Peptide 66181 H Thyroid Stimulating Hormone (TSH) 5.110 H Free Thyroxine 1.77 Digoxin Level < 0.4 L Medications Current Medications Sodium Chloride (NS) 1,000 ml @ 70 mls/hr [id number] IV Last administered on 11/06 21:47; Admin Dose 70 MLS/HR; Start 11/06/16 at 06:00 Albuterol (Ventolin Hfa) 2 puff Q4H PRN INH SHORTNESS OF BREATH; Start at 13:30 Amiodarone HCl (Cordarone) 400 mg DAILY PO Last administered on 11/07/16 09:10 ; Admin Dose 400 MG; Start 11/07/16 at 09:00 Atorvastatin Calcium (Lipitor) 80 mg QHS PO Last administered on 11/06/16 21: 49; Admin Dose 80 MG; Start 11/06/16 at 21:00 Calcitriol (Rocaltrol) 0.25 mcg DAILY PO Last administered on 11/07/16 09:11; Admin Dose 0.25 MCG; Start 11/07/16 at 09:00 Carvedilol (Coreg) 3.125 mg BID PO ; Start 11/06/16 at 21:00 Doxazosin Mesylate (Cardura) 2 mg HS PO Last administered on 11/06/16 21:49; Admin Dose 2 MG; Start 11/06/16 at 21:00 Mycophenolate Sodium (Myfortic) 180 mg Q12 PO Last administered on 11/07/16 09 :09; Admin Dose 180 MG; Start 11/06/16 at 21:00 Pantoprazole (Protonix Tab) 40 mg DAILY PO ; Start 11/07/16 at 09:00 Prednisone (Prednisone) 5 mg DAILY PO Last administered on 11/07/16 09:08; Admin Dose 5 MG; Start 11/07/16 at 09:00 Tacrolimus (Prograf) 0.5 mg Q12 PO Last administered on 11/07/16 09:08; Admin Dose 0.5 MG; Start 11/06/16 at 21:00 Clopidogrel Bisulfate (plaVIX) 75 mg DAILY PO Last administered on 11/07/16 09 :08; Admin Dose 75 MG; Start 11/06/16 at 13:30 Aspirin (Halfprin) 81 mg DAILY PO ; Start 11/07/16 at 09:00 Enoxaparin Sodium (Lovenox) 30 mg BID SC Last administered on 11/07/16 09:12; Admin Dose 30 MG; Start 11/06/16 at 13:30 IV Flush 10 ml 10 ml PRN PRN IV IV PROTOCOL; Start 11/06/16 at 18:00 Norepinephrine/ Dextrose (Levophed/D5W) 500 ml @ 1.87 mls/hr TITRATE IV Last administered on 11/07/16 04:17; Admin Dose 4.68 MLS/HR; Start 11/07/16 at 04:00 Assessment/Plan Chief Complaint/Hosp Course IMPRESSION: 1. Acute congestive cardiac failure secondary to congestive heart failure with valvular heart disease. Chest x-ray shows ongoing pulmonary edema possible component of pneumonia also 2. Possible underlying coronary artery disease. 3. History of chronic obstructive pulmonary disease. 4. History of coronary artery bypass graft surgery. PLAN: 1. Continue o2 2. Continue diuretics. Start antibiotics. Trial of cefepime 3. IV access status post PICC line placement 4. Continue Plavix and aspirin. Cardiac catheterization when more stable 5. Aspiration precautions. Problems: MONICA SAMSON MD, [facility] Nov 07, 2016 09:57
[2016-11-07] MEDS: SOD CHLORIDE 0.9% 1,000 ML IV SCH (10:36)
[2016-11-07] MEDS ORDERED: CEFEPIME 2GM/50 ML (PMX) 50 ML IVPB SCH (11:00)
[2016-11-07] MEDS ORDERED: SOD CHLORIDE 0.9% 100 ML ONE (11:39)
[2016-11-07 12:19] LABS: AADO2 Arterial 241.1 mmHg (7.0-24.0); Allen Test ACCEPTAB; Arterial Base Excess -1.2 mmol/L (-3.0-3); Arterial COHb 0.4 % (0.0-3.0); Arterial Fraction of Oxyhgb 95.9 % (93.0-99.0); Arterial HCO3 20.2 mmol/L (22.0-26.0); Arterial MetHb 0.3 % (0.0-1.5); Arterial Total Hemglobin 16.3 g/dl (12.0-18.0); Blood Gas IEPAP 15/5; Blood Gas PS 10; MODE MASK - BIPAP
--- NOTE | 2016-11-07 13:20 | PN ---
DATE: 11/07/2016 SUBJECTIVE DATA: The patient remains critically ill, on presser support on BiPAP. Urinary output has been excellent. No other events noted. OBJECTIVE DATA: VITAL SIGNS: Blood pressure is 87/39, respirations 15, pulse 73, temperature 98.6. HEENT: Head is normocephalic. NECK: Supple. HEART: Regular rate. LUNGS: Show diminished breath sounds at the base. ABDOMEN: Soft, nontender to palpation. No rebound or guarding. EXTREMITIES: Negative for clubbing, cyanosis. No edema. DERMATOLOGIC: Clean. No rashes. MUSCULOSKELETAL: No joint effusion. NEUROLOGIC: No change in exam. MEDICATIONS: Reviewed. LABORATORY AND DIAGNOSTIC DATA: Shows sodium 147, potassium 4.3, chloride 104, BUN 33, creatinine 2.08. White count 25.7, hemoglobin 9.3, hematocrit 25.5, platelet count is 182. ASSESSMENT AND PLAN: 1. Nonoliguric acute kidney injury on top of chronic kidney disease with previous baseline creatinine around 1.7 mg/dL. Etiology of current acute kidney injury secondary to hemodynamics, possible cardiorenal syndrome. The plan at this point is to check urinalysis with micro analysis, check urine lytes. Continue current treatment plan with intravenous pressors. Continue broad-spectrum antibiotics. Continue to renally dose all medications. Avoid nephrotoxins. Monitor renal function closely. 2. History of end-stage renal disease, status post living donor transplant with previous baseline creatinine 1.7 mg/dL. The patient is currently acute kidney injury as stated above. Would continue current treatment plan. Will continue regimen of Prograf, Myfortic and prednisone. Consider checking Prograf level. 3. Hypernatremia. The patient will be placed on hypotonic fluids. Continue to monitor. 4. Mineral bone disorder. Monitor calcium and phosphorus levels. 5. Anemia. Monitor hemoglobin and hematocrit levels. 6. Shock, etiology may be septic versus cardiogenic. The patient is on presser support off diuretic therapy. On broad- spectrum antibiotics, will continue. Continue gentle intravenous hydration monitoring intake and output closely. 7. Acute hypoxemic respiratory failure secondary to pneumonia. Possible congestive heart failure exacerbation. Continue current treatment with intravenous antibiotics. Continue BiPAP. Would consider holding diuretic therapy in the setting of worsening shock. We will monitor closely. We will follow up with cardiology and pulmonary recommendations. 8. Acute congestive heart failure exacerbation. The patient has noted pulmonary edema on exam. Patient is status post diuretic therapy. Will continue follow up with cardiology. 9. Severe aortic stenosis. Continue medical management. 10. Chronic coronary artery disease, status post coronary artery bypass graft. Continue current treatment plan. 11. History of proximal atrial fibrillation, currently in sinus rhythm. Dictated By: Ezra Carpio DO /jack/rommel /Document#: [id number]
[2016-11-07 14:18] LABS: ADD UMIC YES; UR ASCORBIC ACID NEGATIVE (NEGATIVE); UR BILIRUBIN (Dip) NEGATIVE (NEGATIVE); UR BLOOD (Dip) 2+ mg/dL (NEGATIVE); UR BUDDING YEAST FEW /HPF (NONE SEEN); UR CLARITY CLEAR (CLEAR); UR COLOR YELLOW (YELLOW); UR GLUCOSE (Dip) NEGATIVE (NEGATIVE); UR KETONES (Dip) NEGATIVE (NEGATIVE); UR LEUKOCYTE ESTERASE (Dip) 1+ Leu/ul (NEGATIVE); UR NITRITE (Dip) NEGATIVE (NEGATIVE); UR RBC 14 /HPF (0-5); UR RENAL EPITHELIAL CELL FEW /HPF (NONE SEEN); UR SPECIFIC GRAVITY (Dip) 1.012 (1.003-1.030); UR TOTAL PROTEIN (Dip) NEGATIVE (NEGATIVE); UR UROBILINOGEN (Dip) NEGATIVE (NEGATIVE)
[2016-11-07] MEDS ORDERED: VANCOMYCIN IV PER PHARMACY XX SCH (14:30)
[2016-11-07] MEDS: MUPIROCIN 2% 22 GM OINT TOP SCH ×2 (14:30→21:54)
--- NOTE | 2016-11-07 14:52 | PN ---
Date/Time of Note Date/Time of Note DATE: 11/07/16 TIME: 14:39 Assessment/Plan VTE Prophylaxis VTE Prophylaxis Intervention: LMWH Lines/Catheters IV Catheter Type (from Nrs): PICC Line Central line still needed: Yes (Has a PICC line) Urinary Cath still in place: No Assessment/Plan Chief Complaint/Hosp Course 1. Acute hypoxemic hypercapnic respiratory failure. 2. Congestive heart failure acute on chronic. 3. Severe aortic stenosis 4. COPD 5. History of hypertension 6. Proximal atrial fibrillation 7. Dyslipidemia 8. History of coronary bypass graft 9. Severe coronary artery disease 10. Renal failure chronic status post renal transplant Recommendation: I will continue with the Plavix. Aspirin 81 mg p.o. will be given for now. Patient will be admitted to intensive care unit. Pulmonary/ICU consultation with Dr. barnes, has been putting place already. Renal consultation with Dr. Crowell has been ordered already. I have ordered a chest x-ray. BiPAP as well as nebulizer treatment for now. Cardiac rhythm will be checked again tomorrow and likely will be checked tomorrow to rule out myocardial infarction and correct electrolytes renal function as needed. PCI will be postponed if patient stabilizes. Patient was admitted to intensive care unit for close monitoring. Thank you for his referral will continue to follow along with you. CARMEN JARAMILLO MD [facility] Problems: Assessment/Plan A/P. This is a 71 years old male with history of CHF, EF 35%, Aortic stenosis, A.fib, CAD, CKD, s/p renal transplant who presented for elective coronary angiogram. Found to be in respiratory failure 1. Respiratory failure-status post diuretic therapy with Bumex for CHF, patient was now placed on broad-spectrum antibiotics for possible pneumonia. Continue BiPAP. ABG reviewed. Appreciate pulmonary input. Off diuretics secondary to hypotension. 2. cardiovascular-patient with respiratory failure likely secondary to CHF exacerbation, and possible pneumonia. Hold diuretics secondary to hypotension. Continue Levophed and IV fluids. 3. CKD-monitor kidney functions closely, will continue immunosuppressive medications as patient is status post renal transplant, renally dose all meds. 4. Anti coagulate with Lovenox, as patient has history of atrial fibrillation. 5. Protonix for GI prophylaxis 6. ID. Worsening leukocytosis, questionable right-sided consolidation, IV antibiotics with cefepime and vancomycin were initiated. All of WBC, follow-up a.m. chest x-ray.. 7. PICC line placement for easier access was placed. 8. Dysphagia-speech therapy to reassess. 9. Discussed with patient's daughter her name is Mckenzie, she is aware of patient's condition and plan of care. 10. Coronary artery disease-PCI is on hold. 11. Hypothyroidism-continue Synthroid. TSH is at goal. 12. Over 40 minutes spent examining patient discussing with nursing staff, reviewing records and speaking with family. Subjective 24 Hr Interval Summary Free Text/Dictation Patient seen in the intensive care unit. Patient remains in critical condition. Unfortunately yesterday night patient became hypotensive. 2 boluses of 250 cc normal saline were given. Noted increased WBC. Patient was started on cefepime IV. Also was found to have positive MRSA of the nares, so added IV vancomycin. Off the BiPAP patient remained in distress, so the BiPAP was placed back on. Appreciate nephrology cardiology and pulmonary input. Case discussed with patient's daughter in detail. Patient is now on 5 mics of Levophed, and on continuous IV fluid hydration. The patient was seen also by the speech therapist, and had some coughing episodes during the evaluation. Currently hemodynamically stable with all the above care. Subjective hx not possible: pt critical status, other (Slightly anxious) Constitutional: requiring IVF, requiring O2, No disoriented Eyes: No discharge, No redness ENT: No congestion Respiratory: shortness of breath, No pleuritic pain, No wheezing Cardiovascular: No lightheadedness, No orthopenea Genitourinary: other (No Orellana, patient using the urinal), No discharge Musculoskeletal: No neck pain Skin: No other (Skin ecchymosis) Neurologic: other (No weakness and patient speaking appropriately), No focal-weakness Endocrine: No polydypsia Exam/Review of Systems Vital Signs Vitals Vital Signs Date Time Temp Pulse Resp B/P Pulse Ox O2 Delivery O2 Flow Rate FiO2 11/07/16 12:00 80 11/07/16 11:40 30 11/07/16 09:46 15 87/39 100 11/07/16 09:00 BIPAP 11/07/16 08:00 98.2 Intake and Output 11/06/16 11/06/16 11/07/16 15:00 23:00 07:00 Intake Total 350 ml 508.74 ml Output Total 1300 ml 900 ml Balance -950 ml -391.26 ml Exam Patient is on BiPAP, slightly anxious. Constitutional: No non-verbal Psych: No confusion Head: No hematomas, No lacerations Eyes: PERRL ENMT: other (On BiPAP, no JVD) Neck: No bruits, No masses Respiratory: diminished breath sounds, No wheezing Cardiovascular: No irregular rhythm Genitourinary - Male: No CVA tenderness Extremities: No clubbing, No cyanosis, No edema Neurological: other (Weak) Results Result Diagram: 11/07/16 0400 11/07/16 0400 Results 24 hrs Laboratory Tests Test 11/07/16 04:00 11/07/16 07:00 11/07/16 13:48 White Blood Count 25.7 #H Red Blood Count 3.88 L Hemoglobin 11.3 L Hematocrit 35.5 L Mean Corpuscular Volume 91.5 Mean Corpuscular Hemoglobin 29.1 Mean Corpuscular Hemoglobin Concent 31.8 L Red Cell Distribution Width 16.7 H Platelet Count 182 Mean Platelet Volume 12.6 H Neutrophils % 88.1 H Lymphocytes % 2.1 L Monocytes % 8.1 Eosinophils % 0.0 Basophils % 0.3 Nucleated Red Blood Cells % 0.0 Neutrophils # (Manual) 23 H Lymphocytes # 0.6 L Monocytes # 2.1 H Eosinophils # 0.0 Basophils # 0.1 Nucleated Red Blood Cells # 0.0 Sodium Level 147 H Potassium Level 4.3 Chloride Level 104 Carbon Dioxide Level 26 Anion Gap 21 H Blood Urea Nitrogen 33 H Creatinine 2.08 H Glucose Level 92 Calcium Level 8.5 Magnesium Level 1.8 Total Bilirubin 1.2 Direct Bilirubin 0.00 Indirect Bilirubin 1.2 H Aspartate Amino Transf (AST/SGOT) 20 Alanine Aminotransferase (ALT/SGPT) 30 Alkaline Phosphatase 63 Creatine Kinase 184 Creatine Kinase Index 1.0 Creatinine Kinase MB (Mass) 1.79 Troponin I 0.123 *H B-Type Natriuretic Peptide 02222 H Total Protein 6.3 # Albumin 3.4 Globulin 2.90 Albumin/Globulin Ratio 1.17 Thyroid Stimulating Hormone (TSH) 5.110 H Free Thyroxine 1.77 Digoxin Level < 0.4 L Blood Gas Specimen Source Blood arterial Arterial Blood Date Drawn 11/07/2016 8:00:00 AM Arterial Blood pH (Temp corrected) 7.499 H Arterial Blood pCO2 (Temp correct) 26.5 L Arterial Blood pO2 (Temp corrected) 85.6 Arterial Blood HCO3 20.2 L Arterial Blood Base Excess -1.2 Arterial Blood Oxygen Saturation 96.6 Ji Test ACCEPTAB Arterial Blood Gas Puncture Site Left Radial Arterial Blood Carboxyhemoglobin 0.4 Arterial Blood Methemoglobin 0.3 Blood Gas A-a O2 Differential 241.1 H Oxyhemoglobin Percent 95.9 Total Hemoglobin 16.3 Blood Gas Temperature 37.0 Blood Gas Respiration Rate 16.0 Blood Gas Actual Respiration Rate 24 Blood Gas Modality MASK - BIPAP FiO2 50.0 Blood Gas Pressure Support 10 Blood Gas IPAP/EPAP Ratio 15/5 Blood Gas Notified Whom [place] Blood Gas Notified Time 11/07/2016 8:35:00 AM Urine Color YELLOW Urine Clarity CLEAR Urine pH 5.0 Urine Specific [place] 1.012 Urine Ketones NEGATIVE Urine Nitrite NEGATIVE Urine Bilirubin NEGATIVE Urine Urobilinogen NEGATIVE Urine Leukocyte Esterase 1+ H Urine Microscopic RBC 14 H Urine Microscopic WBC 18 H Urine Renal Epithelial Cells FEW A Urine Yeast (Budding) FEW A Urine Hemoglobin 2+ H Urine Random Creatinine 71.79 Urine Random Sodium 107 H Urine Glucose NEGATIVE Urine Total Protein 15.0 H Medications Medications Current Medications Sodium Chloride (NS) 1,000 ml @ 70 mls/hr [id number] IV Last administered on 11/07 10:36; Admin Dose 70 MLS/HR; Start 11/06/16 at 06:00 Albuterol (Ventolin Hfa) 2 puff Q4H PRN INH SHORTNESS OF BREATH; Start at 13:30 Amiodarone HCl (Cordarone) 400 mg DAILY PO Last administered on 11/07/16 09:10 ; Admin Dose 400 MG; Start 11/07/16 at 09:00 Atorvastatin Calcium (Lipitor) 80 mg QHS PO Last administered on 11/06/16 21: 49; Admin Dose 80 MG; Start 11/06/16 at 21:00 Calcitriol (Rocaltrol) 0.25 mcg DAILY PO Last administered on 11/07/16 09:11; Admin Dose 0.25 MCG; Start 11/07/16 at 09:00 Carvedilol (Coreg) 3.125 mg BID PO ; Start 11/06/16 at 21:00 Doxazosin Mesylate (Cardura) 2 mg HS PO Last administered on 11/06/16 21:49; Admin Dose 2 MG; Start 11/06/16 at 21:00 Mycophenolate Sodium (Myfortic) 180 mg Q12 PO Last administered on 11/07/16 09 :09; Admin Dose 180 MG; Start 11/06/16 at 21:00 Pantoprazole (Protonix Tab) 40 mg DAILY PO ; Start 11/07/16 at 09:00 Prednisone (Prednisone) 5 mg DAILY PO Last administered on 11/07/16 09:08; Admin Dose 5 MG; Start 11/07/16 at 09:00 Tacrolimus (Prograf) 0.5 mg Q12 PO Last administered on 11/07/16 09:08; Admin Dose 0.5 MG; Start 11/06/16 at 21:00 Clopidogrel Bisulfate (plaVIX) 75 mg DAILY PO Last administered on 11/07/16 09 :08; Admin Dose 75 MG; Start 11/06/16 at 13:30 Aspirin (Halfprin) 81 mg DAILY PO ; Start 11/07/16 at 09:00 Enoxaparin Sodium (Lovenox) 30 mg BID SC Last administered on 11/07/16 09:12; Admin Dose 30 MG; Start 11/06/16 at 13:30 IV Flush 10 ml 10 ml PRN PRN IV IV PROTOCOL; Start 11/06/16 at 18:00 Norepinephrine 16 mg/Dextrose 500 ml @ 1.87 mls/hr TITRATE IV Last administered on 11/07/16 04:17; Admin Dose 4.68 MLS/HR; Start 11/07/16 at 04:00 Cefepime HCl (Maxipime 2gm/50 ml (Pmx)) 50 ml @ 100 mls/hr Q12 IVPB Last administered on 11/07/16 11:57; Admin Dose 100 MLS/HR; Start 11/07/16 at 11:00 Mupirocin 1 applic 1 applic BID TOP ; Start 11/07/16 at 14:30 Vancomycin HCl 1.25 gm/Sodium Chloride 250 ml @ 83.333 mls/ hr ONCE IVPB ; Start 11/07/16 at 16:00; Stop 11/07/16 at 22:22 Vancomycin HCl/ Sodium Chloride (Vancocin/NS) 150 ml @ 75 mls/hr Q24H IVPB ; Start 11/08/16 at 18:00 BRANDY REHMAN MD Nov 07, 2016 14:51
[2016-11-07] MEDS ORDERED: VANCOMYCIN 1.25 GM in SOD CHLORIDE 0.9% 250 ML IVPB SCH (16:00)
[2016-11-07] MEDS ORDERED: ALPRAZOLAM 0.5 MG TAB PO PRN (16:30)
[2016-11-07] MEDS: SOD CHLORIDE 0.45% 1,000 ML IV SCH (18:53)
[2016-11-07 19:15] LABS: AADO2 Arterial 196.1 mmHg (7.0-24.0); Arterial COHb 0.1 % (0.0-3.0); Arterial Fraction of Oxyhgb 88.6 % (93.0-99.0); Arterial HCO3 20.4 mmol/L (22.0-26.0); Arterial MetHb 0.2 % (0.0-1.5); Arterial Total Hemglobin 12.8 g/dl (12.0-18.0); Blood Gas IEPAP 15/5; Blood Gas PS 10; MODE MASK - BIPAP
[2016-11-07] MEDS: DOXAZOSIN 2 MG TAB PO SCH (21:00)
[2016-11-07] MEDS: ATORVASTATIN 80 MG TAB PO SCH (21:52)
[2016-11-07] MEDS: CEFEPIME 1GM/50 ML IVPB SCH (21:52)
[2016-11-07] MEDS: MYCOPHENOLATE MOFETIL PO SCH (21:53)
[2016-11-08] VITALS (105 sets, daily range): BP systolic 48–126; BP diastolic 17–85; PULSE 69–115; RESP 16–52
[2016-11-08 00:45] LABS: AADO2 Arterial 306.7 mmHg (7.0-24.0); Arterial Base Excess -3.7 mmol/L (-3.0-3); Arterial COHb 0.3 % (0.0-3.0); Arterial HCO3 19.4 mmol/L (22.0-26.0); Arterial MetHb 0.3 % (0.0-1.5); Arterial Total Hemglobin 12.6 g/dl (12.0-18.0); Blood Gas IEPAP 15/5; Blood Gas PS 10; MODE MASK - BIPAP
[2016-11-08] MEDS: TACROLIMUS 1 MG/ML PO SCH ×3 (01:00→21:15)
[2016-11-08 05:35] LABS: ABNORMAL IP MESSAGE 1; BASOPHIL # 0.1 10^3/ul (0.0-0.1); BASOPHILS % 0.2 % (0.0-2.0); HEMATOCRIT 35.4 % (42.0-52.0); LYMPHOCYTES # 0.5 10^3/ul (0.8-2.9); LYMPHOCYTES % 1.6 % (15.0-51.0); MEAN CORPUSCULAR HEMOGLOBIN 28.8 pg (29.0-33.0); MEAN CORPUSCULAR HGB CONC 31.1 g/dl (32.0-37.0); MEAN CORPUSCULAR VOLUME 92.7 fl (82.0-101.0); MEAN PLATELET VOLUME 12.5 fl (7.4-10.4); MONOCYTE # 1.8 10^3/ul (0.3-0.9); MONOCYTES % 6.1 % (0.0-11.0); NEUTROPHILS % 88.2 % (39.0-77.0); PLATELET COUNT 174 10^3/UL (140-415); POSITIVE DIFF @See below; RED BLOOD COUNT 3.82 10^6/ul (4.70-6.10); RED CELL DISTRIBUTION WIDTH 16.8 % (11.5-14.5)
[2016-11-08] MEDS: LANSOPRAZOLE 30 MG CAP PO SCH (06:00)
[2016-11-08 06:05] LABS: TROPONIN-I 0.137 ng/ml (0.00-0.12)
[2016-11-08 06:06] LABS: CK-MB 4.14 ng/ml (0.0-2.4)
[2016-11-08 06:18] LABS: ALBUMIN 3.4 g/dl (3.3-4.9); ALBUMIN/GLOBULIN RATIO 1.13; BILIRUBIN,INDIRECT 1.6 mg/dl (0-1.1); BILIRUBIN,TOTAL 1.6 mg/dl (0.2-1.3); CALCIUM 8.3 mg/dl (8.4-10.2); CREATININE 2.01 mg/dl (0.61-1.24); MAGNESIUM 1.8 mg/dl (1.7-2.5); POTASSIUM 3.9 mmol/L (3.5-5.1); TOTAL PROTEIN 6.4 g/dl (6.1-8.1)
[2016-11-08] MEDS: LEVOTHYROXINE 100 MCG TAB PO SCH (07:00)
[2016-11-08 07:40] LABS: AADO2 Arterial 329.9 mmHg (7.0-24.0); Arterial Base Excess -4.3 mmol/L (-3.0-3); Arterial COHb 0.2 % (0.0-3.0); Arterial Fraction of Oxyhgb 90.8 % (93.0-99.0); Arterial HCO3 19.2 mmol/L (22.0-26.0); Arterial MetHb 0.3 % (0.0-1.5); Arterial Total Hemglobin 12.5 g/dl (12.0-18.0); Blood Gas IEPAP 15/5; Blood Gas PS 10; MODE MASK - BIPAP
--- NOTE | 2016-11-08 08:04 | PN ---
DATE: 11/08/2016 SUBJECTIVE DATA: The patient remains critically ill, on BiPAP overnight. No other acute events noted. No hemoptysis, hematemesis, hematochezia. Please note, overnight the patient's pressor support did increase. OBJECTIVE DATA: VITAL SIGNS: Blood pressure is 95/44, respirations 36, pulse 78, temperature 98.6. HEENT: Head is normocephalic. NECK: Supple. HEART: Regular rate. LUNGS: Show diminished breath sounds at the base. ABDOMEN: Soft, nontender to palpation. No rebound or guarding. EXTREMITIES: Negative for clubbing, cyanosis. No edema. DERMATOLOGIC: Clean. No rashes. MUSCULOSKELETAL: No joint effusion. NEUROLOGIC: No change in exam. MEDICATIONS: Reviewed. LABORATORY AND DIAGNOSTIC DATA: Show sodium 143, potassium 3.9, chloride 109, BUN 25, creatinine 2.01. White count 30.0, hemoglobin 9.0, crit 25.4, platelet count 174. Urinalysis shows a protein/creatinine ratio approximately 250 mg/g of creatinine, greater than 1 percent. ABG was reviewed. Chest x- ray is pending. ASSESSMENT AND PLAN: 1. Nonoliguric acute kidney injury on top of chronic kidney disease with previous baseline creatinine around 1.7 mg/dL. Etiology of acute kidney injury secondary to hemodynamics. The patient's urinalysis was reviewed, no active sediment. The patient has no significant proteinuria. At this point, continue supportive care. Continue pressor support. Maintain mean arterial pressure of 65. Continue broad-spectrum antibiotics. Monitor closely. 2. History of end-stage renal disease, status post living donor transplant with previous baseline creatinine of 1.7 mg/dL. The patient is currently in acute kidney injury as stated above. Continue current treatment plan. Continue current immunosuppressive regimen. 3. Hypernatremia, improved. Continue current intravenous fluids. 4. Mineral bone disorder. Monitor calcium and phosphorus levels. 5. Anemia. Continue to monitor H and H levels. 6. Shock. Etiology is likely septic. Patient remains on broad- spectrum antibiotics and intravenous fluids. Will continue. Cultures have been reviewed. Underlying source likely pneumonia. 7. Acute hypoxemic respiratory failure secondary to pneumonia and congestive heart failure. The patient remains on BiPAP. Continue current treatment plan. Continue antibiotic therapy. Follow up with Pulmonary. 8. Acute congestive heart failure exacerbation. The patient has no pulmonary edema on exam. Continue gentle diuresis. Monitor closely. 9. Shock. 10. Severe aortic stenosis. Continue medical management. 11. History of coronary artery disease, status post coronary artery bypass graft. Continue current treatment plan. 12. History of paroxysmal atrial fibrillation. Currently in sinus rhythm. Dictated By: Ezra Carpio DO /jack/pat /Document#: [id number]
--- NOTE | 2016-11-08 08:17 | RADRPT ---
PROCEDURE: XR Chest. CLINICAL INDICATION: Shortness of breath. TECHNIQUE: Single frontal view. COMPARISON: 11/07/2016. FINDINGS: There is a left subclavian biventricular pacemaker/internal cardiac defibrillator. There is a left upper extremity PICC line with the tip in the upper superior vena cava. Patchy bilateral pulmonary airspace disease consistent with bilateral pneumonia or pulmonary edema is slightly worse. The heart is enlarged. There are sternal wires and mediastinal clips. Calcification is present in the aorta consistent with atherosclerosis. There are small bilateral pleural effusions There is no pneumothorax. IMPRESSION: 1. Slightly worse appearance of the lungs. 2. No other change from 11/07/2016. RPTAT: QQ .Jimmy Tejeda MD, MD Date Time Electronically viewed and signed by .Jimmy Tejeda MD, on 11/08/2016 08:17 .R/
--- NOTE | 2016-11-08 08:36 | CONS ---
Date/Time of Note Date/Time of Note DATE: 11/08/16 TIME: 08:32 Consult Date/Type/Reason Admit Date/Time Nov 06, 2016 at 12:15 Initial Consult Date 11/06/16 Type of Consultation: Pulmonary Ordering Provider: BRANDY REHMAN MD Subjective CARDIOLOGY FOLLOW UP NOTE/ critical care note: d/w staff and rhythm was reviewed. pt remains in V paced rhythm. he has become more hypotensive overnight and had to be increased on levophed drip. no chest pain or pressure or palpitations. he is still on BIPAP and attempt overnight to take him off of BIPAP was unsuccessful overnight. he denies any palpitations. his CXR appears worse today OBJECTIVE: General: IN dresp distress on BIPAP HEENT: NC/AT. pupils are equal. round. NECK: NO JVD. no stridor. CV: RRR. systolic murmur; no gallop or rubs. PULM: NO wheezing. diffuse rhonchi more on the right side. . GI: SOFT, NT, ND, no rebound or guarding Extremity: trace B/L LE edema. no clubbing. neuro: awake and alert, OX3. Psych: anxious but pleasant rectal: deferred : normal CXR reviewed. increased pulm edema ABG was reviewed. Objective Vital Signs Date Time Temp Pulse Resp B/P Pulse Ox O2 Delivery O2 Flow Rate FiO2 11/08/16 05:50 69 100 60 11/08/16 05:30 36 95/44 11/08/16 05:00 BIPAP 11/08/16 04:00 98.6 Intake and Output 11/07/16 11/07/16 11/08/16 15:00 23:00 07:00 Intake Total 754.92 ml 695.93 ml 712.87 ml Output Total 275 ml 400 ml 200 ml Balance 479.92 ml 295.93 ml 512.87 ml Results/Medications Result Diagram: 11/08/16 0425 11/08/16 0425 Results 24 hrs Laboratory Tests Test 11/07/16 13:48 11/07/16 18:45 11/08/16 00:34 11/08/16 04:25 Urine Color YELLOW Urine Clarity CLEAR Urine pH 5.0 Urine Specific [place] 1.012 Urine Ketones NEGATIVE Urine Nitrite NEGATIVE Urine Bilirubin NEGATIVE Urine Urobilinogen NEGATIVE Urine Leukocyte Esterase 1+ H Urine Microscopic RBC 14 H Urine Microscopic WBC 18 H Urine Renal Epithelial Cells FEW A Urine Yeast (Budding) FEW A Urine Hemoglobin 2+ H Urine Random Creatinine 71.79 Urine Random Sodium 107 H Urine Glucose NEGATIVE Urine Total Protein 15.0 H Blood Gas Specimen Source Blood arterial Blood arterial Arterial Blood Date Drawn 11/07/2016 7:00:35 PM 11/08/2016 12:30:57 AM Arterial Blood pH (Temp corrected) 7.477 H 7.434 Arterial Blood pCO2 (Temp correct) 28.2 L 29.6 L Arterial Blood pO2 (Temp corrected) 56.7 L 88.5 Arterial Blood HCO3 20.4 L 19.4 L Arterial Blood Base Excess -2.0 -3.7 L Arterial Blood Oxygen Saturation 88.9 L 96.6 Ji Test N/A N/A Arterial Blood Gas Puncture Site LB Right Brachial Arterial Blood Carboxyhemoglobin 0.1 0.3 Arterial Blood Methemoglobin 0.2 0.3 Blood Gas A-a O2 Differential 196.1 H 306.7 H Oxyhemoglobin Percent 88.6 L 96.0 Total Hemoglobin 12.8 12.6 Blood Gas Temperature 37.0 37.0 Blood Gas Respiration Rate 16.0 16.0 Blood Gas Actual Respiration Rate 36 43 Blood Gas Modality MASK - BIPAP MASK - BIPAP FiO2 40.0 60.0 Blood Gas Pressure Support 10 10 Blood Gas IPAP/EPAP Ratio 30/07 30/07 Blood Gas Notified Whom LEEANNE [place] Blood Gas Notified Time 11/07/2016 7:15:15 PM 11/08/2016 12:45:32 AM White Blood Count 30.0 H Red Blood Count 3.82 L Hemoglobin 11.0 L Hematocrit 35.4 L Mean Corpuscular Volume 92.7 Mean Corpuscular Hemoglobin 28.8 L Mean Corpuscular Hemoglobin Concent 31.1 L Red Cell Distribution Width 16.8 H Platelet Count 174 Mean Platelet Volume 12.5 H Neutrophils % 88.2 H Lymphocytes % 1.6 L Monocytes % 6.1 Eosinophils % 0.0 Basophils % 0.2 Nucleated Red Blood Cells % 0.0 Neutrophils # (Manual) 26 H Lymphocytes # 0.5 L Monocytes # 1.8 H Eosinophils # 0.0 Basophils # 0.1 Nucleated Red Blood Cells # 0.0 Sodium Level 143 Potassium Level 3.9 Chloride Level 109 Carbon Dioxide Level 22 Anion Gap 16 Blood Urea Nitrogen 35 H Creatinine 2.01 H Glucose Level 84 Calcium Level 8.3 L Phosphorus Level 3.0 Magnesium Level 1.8 Total Bilirubin 1.6 H Direct Bilirubin 0.00 Indirect Bilirubin 1.6 H Aspartate Amino Transf (AST/SGOT) 36 # Alanine Aminotransferase (ALT/SGPT) 31 Alkaline Phosphatase 69 Creatine Kinase 510 #H Creatine Kinase Index 0.8 Creatinine Kinase MB (Mass) 4.14 H Troponin I 0.137 *H B-Type Natriuretic Peptide 04270 H Total Protein 6.4 Albumin 3.4 Globulin 3.00 Albumin/Globulin Ratio 1.13 Test 11/08/16 07:18 Blood Gas Specimen Source Blood arterial Arterial Blood Date Drawn 11/08/2016 7:30:59 AM Arterial Blood pH (Temp corrected) 7.414 Arterial Blood pCO2 (Temp correct) 30.7 L Arterial Blood pO2 (Temp corrected) 64.1 L Arterial Blood HCO3 19.2 L Arterial Blood Base Excess -4.3 L Arterial Blood Oxygen Saturation 91.3 L Ji Test N/A Arterial Blood Gas Puncture Site LB Arterial Blood Carboxyhemoglobin 0.2 Arterial Blood Methemoglobin 0.3 Blood Gas A-a O2 Differential 329.9 H Oxyhemoglobin Percent 90.8 L Total Hemoglobin 12.5 Blood Gas Temperature 37.0 Blood Gas Respiration Rate 16.0 Blood Gas Actual Respiration Rate 38 Blood Gas Modality MASK - BIPAP FiO2 60.0 Blood Gas Pressure Support 10 Blood Gas IPAP/EPAP Ratio 15/5 Blood Gas Notified Whom TM Blood Gas Notified Time 11/08/2016 7:40:39 AM Medications Current Medications Albuterol (Ventolin Hfa) 2 puff Q4H PRN INH SHORTNESS OF BREATH; Start at 13:30 Amiodarone HCl (Cordarone) 400 mg DAILY PO Last administered on 11/07/16 09:10 ; Admin Dose 400 MG; Start 11/07/16 at 09:00 Atorvastatin Calcium (Lipitor) 80 mg QHS PO Last administered on 11/07/16 21: 52; Admin Dose 80 MG; Start 11/06/16 at 21:00 Calcitriol (Rocaltrol) 0.25 mcg DAILY PO Last administered on 11/07/16 09:11; Admin Dose 0.25 MCG; Start 11/07/16 at 09:00 Carvedilol (Coreg) 3.125 mg BID PO ; Start 11/06/16 at 21:00 Doxazosin Mesylate (Cardura) 2 mg HS PO Last administered on 11/06/16 21:49; Admin Dose 2 MG; Start 11/06/16 at 21:00 Prednisone (Prednisone) 5 mg DAILY PO Last administered on 11/07/16 09:08; Admin Dose 5 MG; Start 11/07/16 at 09:00 Clopidogrel Bisulfate (plaVIX) 75 mg DAILY PO Last administered on 11/07/16 09 :08; Admin Dose 75 MG; Start 11/06/16 at 13:30 Enoxaparin Sodium (Lovenox) 30 mg BID SC Last administered on 11/07/16 21:53; Admin Dose 30 MG; Start 11/06/16 at 13:30 IV Flush 10 ml 10 ml PRN PRN IV IV PROTOCOL; Start 11/06/16 at 18:00 Norepinephrine/ Dextrose (Levophed/D5W) 500 ml @ 1.87 mls/hr TITRATE IV Last administered on 11/07/16 04:17; Admin Dose 4.68 MLS/HR; Start 11/07/16 at 04:00 Mupirocin (Bactroban) 1 applic BID TOP Last administered on 11/07/16 21:54; Admin Dose 1 APPLIC; Start 11/07/16 at 14:30 Alprazolam 1 mg 1 mg Q6 PRN PO AGITATION/ANXIETY Last administered on 16:41; Admin Dose 1 MG; Start 11/07/16 at 16:30 Sodium Chloride 1,000 ml @ 70 mls/hr [id number] IV Last administered on 18:53; Admin Dose 70 MLS/HR; Start 11/07/16 at 19:00 Cefepime HCl 50 ml @ 100 mls/hr Q12 IVPB Last administered on 11/07/16 21:52 ; Admin Dose 100 MLS/HR; Start 11/07/16 at 21:00 Vancomycin HCl (Vancocin) 250 ml @ 125 mls/hr Q36H IVPB ; Start 11/09/16 at 05: 00 Lansoprazole (Prevacid) 30 mg DAILY@06 PO ; Start 11/08/16 at 06:00 Tacrolimus (Prograf) 0.5 mg Q12 PO Last administered on 11/08/16 01:00; Admin Dose 0.5 MG; Start 11/07/16 at 21:30 Aspirin (Aspirin) 81 mg DAILY PO ; Start 11/08/16 at 09:00 Mycophenolate Mofetil 200 mg 200 mg BID PO Last administered on 11/07/16 21:53 ; Admin Dose 200 MG; Start 11/07/16 at 21:00 Bumetanide/ Dextrose (Bumex/D5W) 60 ml @ 10 mls/hr Q6H ONCE IV ; Start 11/08/16 at 08:30; Stop 11/08/16 at 14:29; Status UNV Assessment/Plan Chief Complaint/Hosp Course 1. Acute hypoxemic hypercapnic respiratory failure: still on BIPAP now 2. Congestive heart failure acute on chronic due to systolic and diastolic heart failure and mostly severe . 3. Severe aortic stenosis 4. COPD 5. History of hypertension 6. Proximal atrial fibrillation: currently appears to be in NSR . 7. Dyslipidemia 8. History of coronary bypass graft 9. Severe coronary artery disease 10. Renal failure chronic status post renal transplant 11. shock: on levophed drip now 12. ACS Recommendation: I will continue with the Plavix and Aspirin 81 mg p.o. BUMEX drip for now. dopmaine drip low dose for now. abx as per IM/ pulm consider high dose/ stress dose steroids? Pulmonary/ICU consultation with Dr. dacosta and Renal consultation with Dr. Crowell is appreciated. check ABG and titrate off of BIPAP if possible BP meds are on hold now due to low BP. Patient WILL be monitored in intensive care unit for close monitoring. will check ECG today. lovenox. d/w Dr Dacosta. may need intubation if does not improve with above treatment cont ICU care more than 40 minutes of critical care time was spent in management and treatment of this critically ill pt excluding any procedures. Thank you for his referral will continue to follow along with you. CARMEN JARAMILLO MD [facility] Problems: CARMEN JARAMILLO MD Nov 08, 2016 08:36
[2016-11-08] MEDS: CEFEPIME 1GM/50 ML IVPB SCH ×2 (08:49→21:15)
[2016-11-08] MEDS: ENOXAPARIN 30 MG/0.3 ML SYG SC SCH ×2 (08:50→21:17)
[2016-11-08] MEDS: MUPIROCIN 2% 22 GM OINT TOP SCH ×2 (08:50→21:16)
[2016-11-08] MEDS: CALCITRIOL 0.25 MCG CAP PO SCH (09:00)
[2016-11-08] MEDS: AMIODARONE 200 MG TAB PO SCH (09:00)
[2016-11-08] MEDS: ASPIRIN 81 MG TAB PO SCH (09:00)
[2016-11-08] MEDS: CLOPIDOGREL 75 MG TAB PO SCH (09:00)
[2016-11-08] MEDS: DOPamine 800 MG in DEXTROSE 5% 230 ML IV SCH (09:23)
[2016-11-08] MEDS: SOD CHLORIDE 0.45% 1,000 ML IV SCH ×2 (09:36→16:46)
[2016-11-08] MEDS ORDERED: BUMETANIDE 6 MG in DEXTROSE 5% 36 ML IV ONE (10:00)
[2016-11-08] MEDS ORDERED: DIGOXIN 500 MCG INJ IV ONE (10:00)
--- NOTE | 2016-11-08 10:53 | CONS ---
Date/Time of Note Date/Time of Note DATE: 11/08/16 TIME: 10:51 Consult Date/Type/Reason Admit Date/Time Nov 06, 2016 at 12:15 Initial Consult Date 11/06/16 Type of Consultation: Pulmonary Ordering Provider: BRANDY REHMAN MD Subjective Still has labored breathing. Requiring BiPAP. Significant desaturation off noninvasive positive pressure ventilation, remains awake and alert. Objective Vital Signs Date Time Temp Pulse Resp B/P Pulse Ox O2 Delivery O2 Flow Rate FiO2 11/08/16 10:30 97 33 91/62 100 11/08/16 10:00 BIPAP 11/08/16 08:00 99.0 11/08/16 05:50 60 Intake and Output 11/07/16 11/07/16 11/08/16 15:00 23:00 07:00 Intake Total 754.92 ml 695.93 ml 712.87 ml Output Total 275 ml 400 ml 200 ml Balance 479.92 ml 295.93 ml 512.87 ml Exam PHYSICAL EXAMINATION: GENERAL APPEARANCE: On examination, chronically ill-appearing BiPAP. VITAL SIGNS: NECK: Supple. No JVD. No lymphadenopathy. HEART: S1, S2. No added sounds or murmurs. CHEST: Diminished air entry bilaterally. ABDOMEN: Soft, nontender. No guarding or rebound. EXTREMITIES: No cyanosis, clubbing or edema. NEUROLOGIC: Neurologically generalized weakness. Results/Medications Result Diagram: 11/08/16 0425 11/08/16 0425 Results 24 hrs Laboratory Tests Test 11/07/16 13:48 11/07/16 18:45 11/08/16 00:34 11/08/16 04:25 Urine Color YELLOW Urine Clarity CLEAR Urine pH 5.0 Urine Specific [place] 1.012 Urine Ketones NEGATIVE Urine Nitrite NEGATIVE Urine Bilirubin NEGATIVE Urine Urobilinogen NEGATIVE Urine Leukocyte Esterase 1+ H Urine Microscopic RBC 14 H Urine Microscopic WBC 18 H Urine Renal Epithelial Cells FEW A Urine Yeast (Budding) FEW A Urine Hemoglobin 2+ H Urine Random Creatinine 71.79 Urine Random Sodium 107 H Urine Glucose NEGATIVE Urine Total Protein 15.0 H Blood Gas Specimen Source Blood arterial Blood arterial Arterial Blood Date Drawn 11/07/2016 7:00:35 PM 11/08/2016 12:30:57 AM Arterial Blood pH (Temp corrected) 7.477 H 7.434 Arterial Blood pCO2 (Temp correct) 28.2 L 29.6 L Arterial Blood pO2 (Temp corrected) 56.7 L 88.5 Arterial Blood HCO3 20.4 L 19.4 L Arterial Blood Base Excess -2.0 -3.7 L Arterial Blood Oxygen Saturation 88.9 L 96.6 Ji Test N/A N/A Arterial Blood Gas Puncture Site LB Right Brachial Arterial Blood Carboxyhemoglobin 0.1 0.3 Arterial Blood Methemoglobin 0.2 0.3 Blood Gas A-a O2 Differential 196.1 H 306.7 H Oxyhemoglobin Percent 88.6 L 96.0 Total Hemoglobin 12.8 12.6 Blood Gas Temperature 37.0 37.0 Blood Gas Respiration Rate 16.0 16.0 Blood Gas Actual Respiration Rate 36 43 Blood Gas Modality MASK - BIPAP MASK - BIPAP FiO2 40.0 60.0 Blood Gas Pressure Support 10 10 Blood Gas IPAP/EPAP Ratio 30/07 30/07 Blood Gas Notified Whom LEEANNE [place] Blood Gas Notified Time 11/07/2016 7:15:15 PM 11/08/2016 12:45:32 AM White Blood Count 30.0 H Red Blood Count 3.82 L Hemoglobin 11.0 L Hematocrit 35.4 L Mean Corpuscular Volume 92.7 Mean Corpuscular Hemoglobin 28.8 L Mean Corpuscular Hemoglobin Concent 31.1 L Red Cell Distribution Width 16.8 H Platelet Count 174 Mean Platelet Volume 12.5 H Neutrophils % 88.2 H Lymphocytes % 1.6 L Monocytes % 6.1 Eosinophils % 0.0 Basophils % 0.2 Nucleated Red Blood Cells % 0.0 Neutrophils # (Manual) 26 H Lymphocytes # 0.5 L Monocytes # 1.8 H Eosinophils # 0.0 Basophils # 0.1 Nucleated Red Blood Cells # 0.0 Sodium Level 143 Potassium Level 3.9 Chloride Level 109 Carbon Dioxide Level 22 Anion Gap 16 Blood Urea Nitrogen 35 H Creatinine 2.01 H Glucose Level 84 Calcium Level 8.3 L Phosphorus Level 3.0 Magnesium Level 1.8 Total Bilirubin 1.6 H Direct Bilirubin 0.00 Indirect Bilirubin 1.6 H Aspartate Amino Transf (AST/SGOT) 36 # Alanine Aminotransferase (ALT/SGPT) 31 Alkaline Phosphatase 69 Creatine Kinase 510 #H Creatine Kinase Index 0.8 Creatinine Kinase MB (Mass) 4.14 H Troponin I 0.137 *H B-Type Natriuretic Peptide 95995 H Total Protein 6.4 Albumin 3.4 Globulin 3.00 Albumin/Globulin Ratio 1.13 Test 11/08/16 07:18 Blood Gas Specimen Source Blood arterial Arterial Blood Date Drawn 11/08/2016 7:30:59 AM Arterial Blood pH (Temp corrected) 7.414 Arterial Blood pCO2 (Temp correct) 30.7 L Arterial Blood pO2 (Temp corrected) 64.1 L Arterial Blood HCO3 19.2 L Arterial Blood Base Excess -4.3 L Arterial Blood Oxygen Saturation 91.3 L Ji Test N/A Arterial Blood Gas Puncture Site LB Arterial Blood Carboxyhemoglobin 0.2 Arterial Blood Methemoglobin 0.3 Blood Gas A-a O2 Differential 329.9 H Oxyhemoglobin Percent 90.8 L Total Hemoglobin 12.5 Blood Gas Temperature 37.0 Blood Gas Respiration Rate 16.0 Blood Gas Actual Respiration Rate 38 Blood Gas Modality MASK - BIPAP FiO2 60.0 Blood Gas Pressure Support 10 Blood Gas IPAP/EPAP Ratio 15/5 Blood Gas Notified Whom TM Blood Gas Notified Time 11/08/2016 7:40:39 AM Medications Current Medications Albuterol (Ventolin Hfa) 2 puff Q4H PRN INH SHORTNESS OF BREATH; Start at 13:30 Amiodarone HCl (Cordarone) 400 mg DAILY PO Last administered on 11/07/16 09:10 ; Admin Dose 400 MG; Start 11/07/16 at 09:00 Atorvastatin Calcium (Lipitor) 80 mg QHS PO Last administered on 11/07/16 21: 52; Admin Dose 80 MG; Start 11/06/16 at 21:00 Calcitriol (Rocaltrol) 0.25 mcg DAILY PO Last administered on 11/07/16 09:11; Admin Dose 0.25 MCG; Start 11/07/16 at 09:00 Carvedilol (Coreg) 3.125 mg BID PO ; Start 11/06/16 at 21:00 Doxazosin Mesylate (Cardura) 2 mg HS PO Last administered on 11/06/16 21:49; Admin Dose 2 MG; Start 11/06/16 at 21:00 Prednisone (Prednisone) 5 mg DAILY PO Last administered on 11/07/16 09:08; Admin Dose 5 MG; Start 11/07/16 at 09:00 Clopidogrel Bisulfate (plaVIX) 75 mg DAILY PO Last administered on 11/07/16 09 :08; Admin Dose 75 MG; Start 11/06/16 at 13:30 Enoxaparin Sodium (Lovenox) 30 mg BID SC Last administered on 11/08/16 08:50; Admin Dose 30 MG; Start 11/06/16 at 13:30 IV Flush 10 ml 10 ml PRN PRN IV IV PROTOCOL; Start 11/06/16 at 18:00 Norepinephrine/ Dextrose (Levophed/D5W) 500 ml @ 1.87 mls/hr TITRATE IV Last administered on 11/07/16 04:17; Admin Dose 4.68 MLS/HR; Start 11/07/16 at 04:00 Mupirocin (Bactroban) 1 applic BID TOP Last administered on 11/08/16 08:50; Admin Dose 1 APPLIC; Start 11/07/16 at 14:30 Alprazolam 1 mg 1 mg Q6 PRN PO AGITATION/ANXIETY Last administered on 16:41; Admin Dose 1 MG; Start 11/07/16 at 16:30 Sodium Chloride 1,000 ml @ 40 mls/hr Q24H IV Last administered on 11/07/16 18 :53; Admin Dose 70 MLS/HR; Start 11/07/16 at 19:00 Cefepime HCl 50 ml @ 100 mls/hr Q12 IVPB Last administered on 11/08/16 08:49 ; Admin Dose 100 MLS/HR; Start 11/07/16 at 21:00 Vancomycin HCl (Vancocin) 250 ml @ 125 mls/hr Q36H IVPB ; Start 11/09/16 at 05: 00 Lansoprazole (Prevacid) 30 mg DAILY@06 PO ; Start 11/08/16 at 06:00 Tacrolimus (Prograf) 0.5 mg Q12 PO Last administered on 11/08/16 01:00; Admin Dose 0.5 MG; Start 11/07/16 at 21:30 Aspirin (Aspirin) 81 mg DAILY PO ; Start 11/08/16 at 09:00 Mycophenolate Mofetil 200 mg 200 mg BID PO Last administered on 11/07/16 21:53 ; Admin Dose 200 MG; Start 11/07/16 at 21:00 Bumetanide 6 mg/ Dextrose 60 ml @ 10 mls/hr Q6H ONCE IV Last administered on 09:22; Admin Dose 10 MLS/HR; Start 11/08/16 at 10:00; Stop 11/08/16 at 15:59 Dopamine HCl/ Dextrose (D5W) 250 ml @ 2.4 mls/hr TITRATE IV Last administered on 11/08/16 09:23; Admin Dose 2.4 MLS/HR; Start 11/08/16 at 08:30 Assessment/Plan Chief Complaint/Hosp Course IMPRESSION: 1. Acute congestive cardiac failure secondary to congestive cardiac failure. 2. Hypoxemic respiratory failure combination of pneumonia, CHF, possible COPD exacerbation. 3. History of chronic obstructive pulmonary disease. 4. History of coronary artery bypass graft surgery. 5. Leukocytosis likely secondary to underlying pneumonia. PLAN: 1. Continue o2 if deteriorates will require intubation. Discussed with patient's daughter at bedside. 2. Increased Bumex per cardiology. Continue antibiotics. 3. IV access status post PICC line placement 4. Continue Plavix and aspirin. 5. Increase steroids. Overall prognosis is guarded. Problems: MONICA SAMSON MD, [facility] Nov 08, 2016 10:53
[2016-11-08] MEDS: morphine 2 MG INJ IV PRN ×2 (11:09→17:44)
--- NOTE | 2016-11-08 11:49 | CONS ---
Date/Time of Note Date/Time of Note DATE: 11/08/16 TIME: 11:49 Consultation Date/Type/Reason Admit Date/Time Nov 06, 2016 at 12:15 Date of Consultation: Nov 08, 2016 Constitutional: requiring IVF, requiring O2, No disoriented Eyes: No discharge, No redness ENT: No congestion Respiratory: shortness of breath, No pleuritic pain, No wheezing Cardiovascular: No lightheadedness, No orthopenea Genitourinary: other (No [place], patient using the urinal), No discharge Musculoskeletal: No neck pain Skin: No other (Skin ecchymosis) Neurologic: other (No weakness and patient speaking appropriately), No focal-weakness Endocrine: No polydypsia Psychological: No confusion Social History Smoking Status: Former smoker Exam/Review of Systems Vital Signs Vitals Vital Signs Date Time Temp Pulse Resp B/P Pulse Ox O2 Delivery O2 Flow Rate FiO2 11/08/16 10:30 97 33 91/62 100 11/08/16 10:00 BIPAP 11/08/16 08:00 99.0 11/08/16 05:50 60 Intake and Output 11/07/16 11/07/16 11/08/16 15:00 23:00 07:00 Intake Total 754.92 ml 695.93 ml 712.87 ml Output Total 275 ml 400 ml 200 ml Balance 479.92 ml 295.93 ml 512.87 ml Results Result Diagram: 11/08/16 0425 11/08/16 0425 Results 24 hrs Laboratory Tests Test 11/07/16 13:48 11/07/16 18:45 11/08/16 00:34 11/08/16 04:25 Urine Color YELLOW Urine Clarity CLEAR Urine pH 5.0 Urine Specific [place] 1.012 Urine Ketones NEGATIVE Urine Nitrite NEGATIVE Urine Bilirubin NEGATIVE Urine Urobilinogen NEGATIVE Urine Leukocyte Esterase 1+ H Urine Microscopic RBC 14 H Urine Microscopic WBC 18 H Urine Renal Epithelial Cells FEW A Urine Yeast (Budding) FEW A Urine Hemoglobin 2+ H Urine Random Creatinine 71.79 Urine Random Sodium 107 H Urine Glucose NEGATIVE Urine Total Protein 15.0 H Blood Gas Specimen Source Blood arterial Blood arterial Arterial Blood Date Drawn 11/07/2016 7:00:35 PM 11/08/2016 12:30:57 AM Arterial Blood pH (Temp corrected) 7.477 H 7.434 Arterial Blood pCO2 (Temp correct) 28.2 L 29.6 L Arterial Blood pO2 (Temp corrected) 56.7 L 88.5 Arterial Blood HCO3 20.4 L 19.4 L Arterial Blood Base Excess -2.0 -3.7 L Arterial Blood Oxygen Saturation 88.9 L 96.6 Ji Test N/A N/A Arterial Blood Gas Puncture Site LB Right Brachial Arterial Blood Carboxyhemoglobin 0.1 0.3 Arterial Blood Methemoglobin 0.2 0.3 Blood Gas A-a O2 Differential 196.1 H 306.7 H Oxyhemoglobin Percent 88.6 L 96.0 Total Hemoglobin 12.8 12.6 Blood Gas Temperature 37.0 37.0 Blood Gas Respiration Rate 16.0 16.0 Blood Gas Actual Respiration Rate 36 43 Blood Gas Modality MASK - BIPAP MASK - BIPAP FiO2 40.0 60.0 Blood Gas Pressure Support 10 10 Blood Gas IPAP/EPAP Ratio 30/07 30/07 Blood Gas Notified Whom LEEANNE LEEANNE Blood Gas Notified Time 11/07/2016 7:15:15 PM 11/08/2016 12:45:32 AM White Blood Count 30.0 H Red Blood Count 3.82 L Hemoglobin 11.0 L Hematocrit 35.4 L Mean Corpuscular Volume 92.7 Mean Corpuscular Hemoglobin 28.8 L Mean Corpuscular Hemoglobin Concent 31.1 L Red Cell Distribution Width 16.8 H Platelet Count 174 Mean Platelet Volume 12.5 H Neutrophils % 88.2 H Lymphocytes % 1.6 L Monocytes % 6.1 Eosinophils % 0.0 Basophils % 0.2 Nucleated Red Blood Cells % 0.0 Neutrophils # (Manual) 26 H Lymphocytes # 0.5 L Monocytes # 1.8 H Eosinophils # 0.0 Basophils # 0.1 Nucleated Red Blood Cells # 0.0 Sodium Level 143 Potassium Level 3.9 Chloride Level 109 Carbon Dioxide Level 22 Anion Gap 16 Blood Urea Nitrogen 35 H Creatinine 2.01 H Glucose Level 84 Calcium Level 8.3 L Phosphorus Level 3.0 Magnesium Level 1.8 Total Bilirubin 1.6 H Direct Bilirubin 0.00 Indirect Bilirubin 1.6 H Aspartate Amino Transf (AST/SGOT) 36 # Alanine Aminotransferase (ALT/SGPT) 31 Alkaline Phosphatase 69 Creatine Kinase 510 #H Creatine Kinase Index 0.8 Creatinine Kinase MB (Mass) 4.14 H Troponin I 0.137 *H B-Type Natriuretic Peptide 02174 H Total Protein 6.4 Albumin 3.4 Globulin 3.00 Albumin/Globulin Ratio 1.13 Test 11/08/16 07:18 Blood Gas Specimen Source Blood arterial Arterial Blood Date Drawn 11/08/2016 7:30:59 AM Arterial Blood pH (Temp corrected) 7.414 Arterial Blood pCO2 (Temp correct) 30.7 L Arterial Blood pO2 (Temp corrected) 64.1 L Arterial Blood HCO3 19.2 L Arterial Blood Base Excess -4.3 L Arterial Blood Oxygen Saturation 91.3 L Ji Test N/A Arterial Blood Gas Puncture Site LB Arterial Blood Carboxyhemoglobin 0.2 Arterial Blood Methemoglobin 0.3 Blood Gas A-a O2 Differential 329.9 H Oxyhemoglobin Percent 90.8 L Total Hemoglobin 12.5 Blood Gas Temperature 37.0 Blood Gas Respiration Rate 16.0 Blood Gas Actual Respiration Rate 38 Blood Gas Modality MASK - BIPAP FiO2 60.0 Blood Gas Pressure Support 10 Blood Gas IPAP/EPAP Ratio 15/5 Blood Gas Notified Whom TM Blood Gas Notified Time 11/08/2016 7:40:39 AM Medications Medications Current Medications Albuterol (Ventolin Hfa) 2 puff Q4H PRN INH SHORTNESS OF BREATH; Start at 13:30 Amiodarone HCl (Cordarone) 400 mg DAILY PO Last administered on 11/07/16 09:10 ; Admin Dose 400 MG; Start 11/07/16 at 09:00 Atorvastatin Calcium (Lipitor) 80 mg QHS PO Last administered on 11/07/16 21: 52; Admin Dose 80 MG; Start 11/06/16 at 21:00 Calcitriol (Rocaltrol) 0.25 mcg DAILY PO Last administered on 11/07/16 09:11; Admin Dose 0.25 MCG; Start 11/07/16 at 09:00 Carvedilol (Coreg) 3.125 mg BID PO ; Start 11/06/16 at 21:00 Doxazosin Mesylate (Cardura) 2 mg HS PO Last administered on 11/06/16 21:49; Admin Dose 2 MG; Start 11/06/16 at 21:00 Clopidogrel Bisulfate (plaVIX) 75 mg DAILY PO Last administered on 11/07/16 09 :08; Admin Dose 75 MG; Start 11/06/16 at 13:30 Enoxaparin Sodium (Lovenox) 30 mg BID SC Last administered on 11/08/16 08:50; Admin Dose 30 MG; Start 11/06/16 at 13:30 IV Flush 10 ml 10 ml PRN PRN IV IV PROTOCOL; Start 11/06/16 at 18:00 Norepinephrine/ Dextrose (Levophed/D5W) 500 ml @ 1.87 mls/hr TITRATE IV Last administered on 11/07/16 04:17; Admin Dose 4.68 MLS/HR; Start 11/07/16 at 04:00 Mupirocin (Bactroban) 1 applic BID TOP Last administered on 11/08/16 08:50; Admin Dose 1 APPLIC; Start 11/07/16 at 14:30 Alprazolam 1 mg 1 mg Q6 PRN PO AGITATION/ANXIETY Last administered on 16:41; Admin Dose 1 MG; Start 11/07/16 at 16:30 Sodium Chloride 1,000 ml @ 40 mls/hr Q24H IV Last administered on 11/07/16 18 :53; Admin Dose 70 MLS/HR; Start 11/07/16 at 19:00 Cefepime HCl 50 ml @ 100 mls/hr Q12 IVPB Last administered on 11/08/16 08:49 ; Admin Dose 100 MLS/HR; Start 11/07/16 at 21:00 Vancomycin HCl (Vancocin) 250 ml @ 125 mls/hr Q36H IVPB ; Start 11/09/16 at 05: 00 Lansoprazole (Prevacid) 30 mg DAILY@06 PO ; Start 11/08/16 at 06:00 Tacrolimus (Prograf) 0.5 mg Q12 PO Last administered on 11/08/16 01:00; Admin Dose 0.5 MG; Start 11/07/16 at 21:30 Aspirin (Aspirin) 81 mg DAILY PO ; Start 11/08/16 at 09:00 Mycophenolate Mofetil 200 mg 200 mg BID PO Last administered on 11/07/16 21:53 ; Admin Dose 200 MG; Start 11/07/16 at 21:00 Bumetanide 6 mg/ Dextrose 60 ml @ 10 mls/hr Q6H ONCE IV Last administered on 09:22; Admin Dose 10 MLS/HR; Start 11/08/16 at 10:00; Stop 11/08/16 at 15:59 Dopamine HCl/ Dextrose (D5W) 250 ml @ 2.4 mls/hr TITRATE IV Last administered on 11/08/16 09:23; Admin Dose 2.4 MLS/HR; Start 11/08/16 at 08:30 Morphine Sulfate (morphine) 1 mg Q4H PRN IV PAIN Last administered on 11:09; Admin Dose 1 MG; Start 11/08/16 at 11:00 Methylprednisolone Sodium Succinate (Solu-Medrol) 60 mg Q8 IV ; Start 11/08/16 at 14:00 LUIS M GUTIERREZ MD Nov 08, 2016 11:49
--- NOTE | 2016-11-08 12:36 | CONS ---
DATE OF ADMISSION: 11/06/2016 DATE OF CONSULTATION: 11/08/2016 REASON FOR CONSULTATION: Antibiotic management. HISTORY OF PRESENT ILLNESS: Stiven Hardin is a 71-year-old male, who was admitted acute respiratory failure and hypoxemia. His past problems include: 1. Hypertension. 2. Status post renal transplant in 2007. 3. Dyslipidemia. 4. Aortic stenosis. 5. Paroxysmal atrial fibrillation, on Eliquis. 6. Congestive heart failure. 7. Cardiomyopathy. 8. Coronary artery disease. 9. Status post coronary artery bypass graft with an ejection fraction 35 percent. 10. Status post AICD placement. Recently he was admitted for CHF exacerbation and was supposed to undergo a PCI in anticipation for aortic valve surgery to be done at a later time. When he was brought to the [facility], he was hypoxic in the 70s. The procedure was canceled and he was placed on BiPAP and transferred to the intensive care unit. Chest x-ray showed significant right-sided congestion, possible consolidation. Patient was started on a Bumex drip. He was seen by Dr. Thakur in cardiac consultation. PAST SURGICAL HISTORY: Status post renal transplant, status post coronary artery bypass graft x4, status post AICD placement. FAMILY HISTORY: Noncontributory. SOCIAL HISTORY: He quit alcohol in the 1970s and quit smoking. He is a former smoker. He does not abuse drugs. ALLERGIES: ENALAPRIL. MEDICATION: Per chart. REVIEW OF SYSTEMS: Noncontributory. LABORATORY: On admission, his white count was 12.8, H and H of 11.3 and 35.4, platelet count 168,000. BUN creatinine 28/1.98. His white count climbed from 12.8 to 25.7, today it is 30,000. His BUN and creatinine is 35/2.01. Urine shows 1+leukocyte esterase, 18 white cells per high-power field, a few yeast, 2+ hemoglobin. His troponin was somewhat elevated at 0.137. His beta-natriuretic peptide is elevated at 44,600, consistent with congestive heart failure. A PICC line was inserted on the and there is a left subclavian biventricular pacemaker/internal cardiac defibrillator. There is a left upper extremity PICC line. There is patchy bilateral pulmonary airspace disease consistent with bilateral pneumonia or pulmonary edema, which is slightly worse. There are sternal wires. Calcification is present in the aorta consistent with atherosclerosis. There is no pneumothorax. The patient is currently on vancomycin. He is also on methylprednisolone 60 mg q.8 and he is on cefepime. Patient has been followed by Dr. Dacosta, Dr. Thakur, Dr. Carpio in pulmonary cardiology and nephrology consultations, respectively. PHYSICAL EXAMINATION: GENERAL: Patient is an ill-appearing male who is awake, responsive, in no acute distress. VITAL SIGNS: Stable. He is afebrile. SKIN: Without generalized rash. HEENT: Within normal limits. NECK: Supple. Lymph nodes nonpalpable. CHEST: Decreased breath sounds at the bases. HEART: Irregularly irregular rhythm. ABDOMEN: Soft, nontender, without organosplenomegaly or masses. EXTREMITIES: Without cyanosis, clubbing, or edema. RECTAL AND GENITAL: Exams deferred. NEUROLOGIC: No focal neurological abnormality. IMPRESSION AND PLAN: Patient has worsening either pulmonary edema or infiltrates. He is on vancomycin and cefepime. He may also have a urinary tract infection with 1+ leukocyte esterase and 18 white cells per high-power field. He is currently on vancomycin and cefepime to which I concur. We will continue him on this regimen. His leukocytosis is due both to infection and to methylprednisolone. I do not believe we have a sputum culture, which may or may not be of any use at this point. If the patient becomes febrile, we will get a few sets of blood cultures. I will dictate my findings to Dr. Jacobs. Dictated By: Vincent Alfonso MD JD/jack/pat /Document#: [id number]
--- NOTE | 2016-11-08 12:42 | PN ---
Date/Time of Note Date/Time of Note DATE: 11/08/16 TIME: 12:29 Assessment/Plan VTE Prophylaxis VTE Prophylaxis Intervention: LMWH Lines/Catheters IV Catheter Type (from Nrs): PICC Line Central line still needed: Yes (PICC Line) Urinary Cath still in place: Yes Reason Cath still needed: other (indicate) (respiratory failure, fluid overaload, multifocal pneumonia) Assessment/Plan Chief Complaint/Hosp Course 1. Acute hypoxemic hypercapnic respiratory failure. 2. Congestive heart failure acute on chronic. 3. Severe aortic stenosis 4. COPD 5. History of hypertension 6. Proximal atrial fibrillation 7. Dyslipidemia 8. History of coronary bypass graft 9. Severe coronary artery disease 10. Renal failure chronic status post renal transplant Recommendation: I will continue with the Plavix. Aspirin 81 mg p.o. will be given for now. Patient will be admitted to intensive care unit. Pulmonary/ICU consultation with Dr. barnes, has been putting place already. Renal consultation with Dr. Crowell has been ordered already. I have ordered a chest x-ray. BiPAP as well as nebulizer treatment for now. Cardiac rhythm will be checked again tomorrow and likely will be checked tomorrow to rule out myocardial infarction and correct electrolytes renal function as needed. PCI will be postponed if patient stabilizes. Patient was admitted to intensive care unit for close monitoring. Thank you for his referral will continue to follow along with you. CARMEN JARAMILLO MD [facility] Problems: Assessment/Plan A/P. This is a 71 years old male with history of CHF, EF 35%, Aortic stenosis, A.fib, CAD, CKD, s/p renal transplant who presented for elective coronary angiogram. Found to be in respiratory failure 1. Respiratory failure-combination of Pneumonia, CHF and ? COPD, steroids, antibiotics and diuretics are being given, follow up daily CXR. Keep on BIPAP 2ndary to hypoxia, may need to be intubated if condition worsens. 2. cardiovascular-patient with respiratory failure likely partly to CHF exacerbation, and possible pneumonia. continue diuretics challenge. Off pressors. On amiodarone, and Coreg. 3. CKD-monitor kidney functions closely, will continue immunosuppressive medications as patient is status post renal transplant, renally dose all Meds. 4. Anti coagulate with Lovenox, as patient has history of atrial fibrillation. 5. Protonix for GI prophylaxis 6. ID. Worsening leukocytosis, WBC=30,000, on Vancomycin and Cefepime, ID to follow, add Levaquin? 7. PICC line placement for easier access was placed. 8. Dysphagia-speech therapy to reassess when more stable. 9. Discussed with patient's daughter her name is Mckenzie, she is aware of patient's condition and plan of care. 10. Coronary artery disease-PCI is on hold. 11. Hypothyroidism-continue Synthroid. TSH is at goal. 12. Over 40 minutes spent examining patient discussing with nursing staff, reviewing records and speaking with family. 13. anxiolytics prn for anxiety. Subjective 24 Hr Interval Summary Free Text/Dictation Patient remains in the intensive care unit. Unfortunately doing worse. ABG shows worsening hypoxia and CXR shows multifocal pneumonia/congestion. Patient was started again on Bumex drip and remains on BIPAP. The patient is alert, tachypneic, in guarded condition. High dose steroids were started as well, and I requested for ID consultation as patients WBC increased to 30,000. Kidney function remains the same. Orellana placed as his condition is worse to monitor output and keep comfortable. Subjective hx not possible: pt critical status Constitutional: requiring O2 (bipap, on 80% FiO2) Eyes: No discharge ENT: other Respiratory: shortness of breath Cardiovascular: No other Gastrointestinal: other (NPO as he remains on BIPAP) Genitourinary: No discharge Musculoskeletal: No neck pain Skin: other (skin echymosis) Neurologic: No focal-weakness Psychological: anxiety Exam/Review of Systems Vital Signs Vitals Vital Signs Date Time Temp Pulse Resp B/P Pulse Ox O2 Delivery O2 Flow Rate FiO2 11/08/16 10:30 97 33 91/62 100 11/08/16 10:00 BIPAP 11/08/16 08:00 99.0 11/08/16 05:50 60 Intake and Output 11/07/16 11/07/16 11/08/16 15:00 23:00 07:00 Intake Total 754.92 ml 695.93 ml 712.87 ml Output Total 275 ml 400 ml 200 ml Balance 479.92 ml 295.93 ml 512.87 ml Exam BIPAP in place, tachypneic and in guarded condition. Constitutional: distress (mild) Eyes: PERRL ENMT: other (on BIPAP) Respiratory: diminished breath sounds Cardiovascular: No irregular rhythm Gastrointestinal: No distended Genitourinary - Male: No CVA tenderness Extremities: No clubbing, No cyanosis, No edema Neurological: No focal weakness Results Result Diagram: 11/08/16 0425 11/08/16 0425 Results 24 hrs Laboratory Tests Test 11/07/16 13:48 11/07/16 18:45 11/08/16 00:34 11/08/16 04:25 Urine Color YELLOW Urine Clarity CLEAR Urine pH 5.0 Urine Specific [place] 1.012 Urine Ketones NEGATIVE Urine Nitrite NEGATIVE Urine Bilirubin NEGATIVE Urine Urobilinogen NEGATIVE Urine Leukocyte Esterase 1+ H Urine Microscopic RBC 14 H Urine Microscopic WBC 18 H Urine Renal Epithelial Cells FEW A Urine Yeast (Budding) FEW A Urine Hemoglobin 2+ H Urine Random Creatinine 71.79 Urine Random Sodium 107 H Urine Glucose NEGATIVE Urine Total Protein 15.0 H Blood Gas Specimen Source Blood arterial Blood arterial Arterial Blood Date Drawn 11/07/2016 7:00:35 PM 11/08/2016 12:30:57 AM Arterial Blood pH (Temp corrected) 7.477 H 7.434 Arterial Blood pCO2 (Temp correct) 28.2 L 29.6 L Arterial Blood pO2 (Temp corrected) 56.7 L 88.5 Arterial Blood HCO3 20.4 L 19.4 L Arterial Blood Base Excess -2.0 -3.7 L Arterial Blood Oxygen Saturation 88.9 L 96.6 Ji Test N/A N/A Arterial Blood Gas Puncture Site LB Right Brachial Arterial Blood Carboxyhemoglobin 0.1 0.3 Arterial Blood Methemoglobin 0.2 0.3 Blood Gas A-a O2 Differential 196.1 H 306.7 H Oxyhemoglobin Percent 88.6 L 96.0 Total Hemoglobin 12.8 12.6 Blood Gas Temperature 37.0 37.0 Blood Gas Respiration Rate 16.0 16.0 Blood Gas Actual Respiration Rate 36 43 Blood Gas Modality MASK - BIPAP MASK - BIPAP FiO2 40.0 60.0 Blood Gas Pressure Support 10 10 Blood Gas IPAP/EPAP Ratio 30/07 30/07 Blood Gas Notified Whom LEEANNE FALLON Blood Gas Notified Time 11/07/2016 7:15:15 PM 11/08/2016 12:45:32 AM White Blood Count 30.0 H Red Blood Count 3.82 L Hemoglobin 11.0 L Hematocrit 35.4 L Mean Corpuscular Volume 92.7 Mean Corpuscular Hemoglobin 28.8 L Mean Corpuscular Hemoglobin Concent 31.1 L Red Cell Distribution Width 16.8 H Platelet Count 174 Mean Platelet Volume 12.5 H Neutrophils % 88.2 H Lymphocytes % 1.6 L Monocytes % 6.1 Eosinophils % 0.0 Basophils % 0.2 Nucleated Red Blood Cells % 0.0 Neutrophils # (Manual) 26 H Lymphocytes # 0.5 L Monocytes # 1.8 H Eosinophils # 0.0 Basophils # 0.1 Nucleated Red Blood Cells # 0.0 Sodium Level 143 Potassium Level 3.9 Chloride Level 109 Carbon Dioxide Level 22 Anion Gap 16 Blood Urea Nitrogen 35 H Creatinine 2.01 H Glucose Level 84 Calcium Level 8.3 L Phosphorus Level 3.0 Magnesium Level 1.8 Total Bilirubin 1.6 H Direct Bilirubin 0.00 Indirect Bilirubin 1.6 H Aspartate Amino Transf (AST/SGOT) 36 # Alanine Aminotransferase (ALT/SGPT) 31 Alkaline Phosphatase 69 Creatine Kinase 510 #H Creatine Kinase Index 0.8 Creatinine Kinase MB (Mass) 4.14 H Troponin I 0.137 *H B-Type Natriuretic Peptide 73789 H Total Protein 6.4 Albumin 3.4 Globulin 3.00 Albumin/Globulin Ratio 1.13 Test 11/08/16 07:18 Blood Gas Specimen Source Blood arterial Arterial Blood Date Drawn 11/08/2016 7:30:59 AM Arterial Blood pH (Temp corrected) 7.414 Arterial Blood pCO2 (Temp correct) 30.7 L Arterial Blood pO2 (Temp corrected) 64.1 L Arterial Blood HCO3 19.2 L Arterial Blood Base Excess -4.3 L Arterial Blood Oxygen Saturation 91.3 L Ji Test N/A Arterial Blood Gas Puncture Site LB Arterial Blood Carboxyhemoglobin 0.2 Arterial Blood Methemoglobin 0.3 Blood Gas A-a O2 Differential 329.9 H Oxyhemoglobin Percent 90.8 L Total Hemoglobin 12.5 Blood Gas Temperature 37.0 Blood Gas Respiration Rate 16.0 Blood Gas Actual Respiration Rate 38 Blood Gas Modality MASK - BIPAP FiO2 60.0 Blood Gas Pressure Support 10 Blood Gas IPAP/EPAP Ratio 15/5 Blood Gas Notified Whom TM Blood Gas Notified Time 11/08/2016 7:40:39 AM Medications Medications Current Medications Albuterol (Ventolin Hfa) 2 puff Q4H PRN INH SHORTNESS OF BREATH; Start at 13:30 Amiodarone HCl (Cordarone) 400 mg DAILY PO Last administered on 11/07/16 09:10 ; Admin Dose 400 MG; Start 11/07/16 at 09:00 Atorvastatin Calcium (Lipitor) 80 mg QHS PO Last administered on 11/07/16 21: 52; Admin Dose 80 MG; Start 11/06/16 at 21:00 Calcitriol (Rocaltrol) 0.25 mcg DAILY PO Last administered on 11/07/16 09:11; Admin Dose 0.25 MCG; Start 11/07/16 at 09:00 Carvedilol (Coreg) 3.125 mg BID PO ; Start 11/06/16 at 21:00 Doxazosin Mesylate (Cardura) 2 mg HS PO Last administered on 11/06/16 21:49; Admin Dose 2 MG; Start 11/06/16 at 21:00 Clopidogrel Bisulfate (plaVIX) 75 mg DAILY PO Last administered on 11/07/16 09 :08; Admin Dose 75 MG; Start 11/06/16 at 13:30 Enoxaparin Sodium (Lovenox) 30 mg BID SC Last administered on 11/08/16 08:50; Admin Dose 30 MG; Start 11/06/16 at 13:30 IV Flush 10 ml 10 ml PRN PRN IV IV PROTOCOL; Start 11/06/16 at 18:00 Norepinephrine/ Dextrose (Levophed/D5W) 500 ml @ 1.87 mls/hr TITRATE IV Last administered on 11/07/16 04:17; Admin Dose 4.68 MLS/HR; Start 11/07/16 at 04:00 Mupirocin (Bactroban) 1 applic BID TOP Last administered on 11/08/16 08:50; Admin Dose 1 APPLIC; Start 11/07/16 at 14:30 Alprazolam 1 mg 1 mg Q6 PRN PO AGITATION/ANXIETY Last administered on 16:41; Admin Dose 1 MG; Start 11/07/16 at 16:30 Sodium Chloride 1,000 ml @ 40 mls/hr Q24H IV Last administered on 11/07/16 18 :53; Admin Dose 70 MLS/HR; Start 11/07/16 at 19:00 Cefepime HCl 50 ml @ 100 mls/hr Q12 IVPB Last administered on 11/08/16 08:49 ; Admin Dose 100 MLS/HR; Start 11/07/16 at 21:00 Vancomycin HCl (Vancocin) 250 ml @ 125 mls/hr Q36H IVPB ; Start 11/09/16 at 05: 00 Lansoprazole (Prevacid) 30 mg DAILY@06 PO ; Start 11/08/16 at 06:00 Tacrolimus (Prograf) 0.5 mg Q12 PO Last administered on 11/08/16 01:00; Admin Dose 0.5 MG; Start 11/07/16 at 21:30 Aspirin (Aspirin) 81 mg DAILY PO ; Start 11/08/16 at 09:00 Mycophenolate Mofetil 200 mg 200 mg BID PO Last administered on 11/07/16 21:53 ; Admin Dose 200 MG; Start 11/07/16 at 21:00 Bumetanide 6 mg/ Dextrose 60 ml @ 10 mls/hr Q6H ONCE IV Last administered on 09:22; Admin Dose 10 MLS/HR; Start 11/08/16 at 10:00; Stop 11/08/16 at 15:59 Dopamine HCl/ Dextrose (D5W) 250 ml @ 2.4 mls/hr TITRATE IV Last administered on 11/08/16 09:23; Admin Dose 2.4 MLS/HR; Start 11/08/16 at 08:30 Morphine Sulfate (morphine) 1 mg Q4H PRN IV PAIN Last administered on 11:09; Admin Dose 1 MG; Start 11/08/16 at 11:00 Methylprednisolone Sodium Succinate (Solu-Medrol) 60 mg Q8 IV ; Start 11/08/16 at 14:00 BRANDY REHMAN MD Nov 08, 2016 12:39
[2016-11-08 13:02] LABS: MICROALBUMIN 2.2 mg/dL
[2016-11-08 13:36] LABS: AADO2 Arterial 447.6 mmHg (7.0-24.0); Arterial Base Excess -1.8 mmol/L (-3.0-3); Arterial COHb 0 % (0.0-3.0); Arterial Fraction of Oxyhgb 96.3 % (93.0-99.0); Arterial HCO3 21.6 mmol/L (22.0-26.0); Arterial MetHb 0.3 % (0.0-1.5); Arterial Total Hemglobin 12.8 g/dl (12.0-18.0); Blood Gas IEPAP 15/5; Blood Gas PS 10; MODE MASK - BIPAP
[2016-11-08] MEDS: METHYLPREDNISOLONE 125 MG INJ IV SCH ×2 (14:01→21:15)
[2016-11-08] MEDS: LEVOFLOXACIN 250MG/D5W (PMX) 50 ML IVPB SCH (14:01)
[2016-11-08] MEDS: MYCOPHENOLATE MOFETIL PO SCH ×2 (14:11→21:15)
[2016-11-08] MEDS ORDERED: VANCOMYCIN 750 MG in SOD CHLORIDE 0.9% 150 ML IVPB SCH (18:00)
[2016-11-08] MEDS: DOXAZOSIN 2 MG TAB PO SCH (21:00)
[2016-11-08] MEDS: ATORVASTATIN 80 MG TAB PO SCH (21:00)
[2016-11-09] VITALS (76 sets, daily range): BP systolic 75–120; BP diastolic 42–89; PULSE 75–124; RESP 17–30
[2016-11-09] MEDS: LANSOPRAZOLE 30 MG CAP PO SCH (05:15)
[2016-11-09 05:22] LABS: ABNORMAL IP MESSAGE 1; BASOPHILS % 0.1 % (0.0-2.0); HEMATOCRIT 36.1 % (42.0-52.0); HEMOGLOBIN 11.4 g/dl (14.0-18.0); LYMPHOCYTES # 0.1 10^3/ul (0.8-2.9); LYMPHOCYTES % 0.4 % (15.0-51.0); MEAN CORPUSCULAR HEMOGLOBIN 28.9 pg (29.0-33.0); MEAN CORPUSCULAR HGB CONC 31.6 g/dl (32.0-37.0); MEAN CORPUSCULAR VOLUME 91.4 fl (82.0-101.0); MEAN PLATELET VOLUME 12.1 fl (7.4-10.4); MONOCYTE # 1.1 10^3/ul (0.3-0.9); MONOCYTES % 4.9 % (0.0-11.0); NEUTROPHILS % 90.9 % (39.0-77.0); PLATELET COUNT 143 10^3/UL (140-415); POSITIVE DIFF @See below; RED BLOOD COUNT 3.95 10^6/ul (4.70-6.10); RED CELL DISTRIBUTION WIDTH 16.5 % (11.5-14.5); WHITE BLOOD COUNT 23.2 10^3/ul (4.8-10.8)
[2016-11-09] MEDS: METHYLPREDNISOLONE 125 MG INJ IV SCH ×3 (05:33→20:19)
[2016-11-09] MEDS: VANCOMYCIN 1 GM in NS 250 ML IVPB SCH (05:34)
[2016-11-09 05:41] LABS: PHOSPHORUS 3.4 mg/dl (2.5-4.9)
[2016-11-09 05:50] LABS: ALBUMIN 3.1 g/dl (3.3-4.9); ALBUMIN/GLOBULIN RATIO 1.06; CALCIUM 7.9 mg/dl (8.4-10.2); CREATININE 2.03 mg/dl (0.61-1.24); POTASSIUM 4.1 mmol/L (3.5-5.1)
[2016-11-09] MEDS: LEVOTHYROXINE 100 MCG TAB PO SCH (07:00)
--- NOTE | 2016-11-09 07:42 | PN ---
DATE: 11/09/2016 SUBJECTIVE DATA: The patient remains on BiPAP, stable. The patient was weaned off pressor support. The patient was placed on Bumex drip with excellent urinary output. No other acute events noted. No hemoptysis, hematemesis, hematochezia. No other events noted. OBJECTIVE DATA: VITAL SIGNS: Blood pressure is 97/63, respirations 23, pulse 77, temperature 98.6. HEENT: Head is normocephalic. NECK: Supple. HEART: Regular rate. LUNGS: Show diminished breath sounds at the base. ABDOMEN: Soft, nontender to palpation. No rebound or guarding. EXTREMITIES: Negative for clubbing, cyanosis. No edema. DERMATOLOGIC: Clean. No rashes. MUSCULOSKELETAL: No joint effusion. NEUROLOGIC: No change in exam. MEDICATIONS: Reviewed. LABORATORY AND DIAGNOSTIC DATA: Showed sodium 143, potassium 4.1, chloride 102, BUN 47, creatinine 2.03. White count 23.2, hemoglobin 11.4, crit 36.1, platelet count is 143. Chest x-ray on 11/08 showed worsening appearance of the lungs. Patient's BNP level is at 78,000. ASSESSMENT AND PLAN: 1. Nonoliguric acute kidney injury on top of chronic kidney disease with a previous baseline creatinine 1.7 mg/dL. Etiology of acute kidney injury secondary to hemodynamics, cardiorenal syndrome. The patient's renal function has been stable. The patient was placed on Bumex drip yesterday with excellent urinary output. At this point, would continue current treatment plan. Continue supportive care. Continue diuretic therapy per Cardiology. 2. History of end-stage renal disease, status post living donor transplant with previous baseline creatinine 1.7 mg/dL. The patient is currently in acute kidney injury stated above. Continue current treatment plan. Continue current immunosuppressive regimen. 3. Hyponatremia, improved. 4. Mineral bone disorder. Continue to monitor calcium and phosphorus levels. 5. Anemia. Continue to monitor H and H levels. 6. Shock. Etiology may be multifactorial, septic, cardiogenic. The patient has clinically improved on diuretic therapy, suggesting of possible cardiogenic etiology. Continue to monitor. Continue broad-spectrum antibiotics. 7. Acute hypoxemic respiratory failure secondary to pneumonia, congestive heart failure. The patient remains on BiPAP. Continue current treatment plan. Continue current antibiotic regimen. Follow up with Pulmonary. 8. Acute congestive heart failure exacerbation. The patient has positive edema on exam. Continue Bumex drip per our Cardiology. 9. Severe aortic stenosis. 10. History of coronary artery disease, status post coronary artery bypass graft. Continue medical management. 11. Atrial fibrillation, currently in sinus rhythm. Dictated By: Ezra Carpio DO /jack/pat /Document#: [id number]
[2016-11-09 07:49] LABS: AADO2 Arterial 271.5 mmHg (7.0-24.0); Arterial Base Excess 0.3 mmol/L (-3.0-3); Arterial COHb 0.1 % (0.0-3.0); Arterial HCO3 23.8 mmol/L (22.0-26.0); Arterial MetHb 0.2 % (0.0-1.5); Arterial Total Hemglobin 12.5 g/dl (12.0-18.0); Blood Gas IEPAP 15/5; Blood Gas PS 10; MODE MASK - BIPAP
[2016-11-09] MEDS: AMIODARONE 200 MG TAB PO SCH (09:00)
[2016-11-09] MEDS: CLOPIDOGREL 75 MG TAB PO SCH (09:00)
[2016-11-09] MEDS: CALCITRIOL 0.25 MCG CAP PO SCH (09:00)
[2016-11-09] MEDS: ASPIRIN 81 MG TAB PO SCH (09:00)
[2016-11-09] MEDS: TACROLIMUS 1 MG/ML PO SCH ×2 (09:36→20:20)
[2016-11-09] MEDS: LEVOTHYROXINE 100 MCG VIAL IV SCH (09:36)
[2016-11-09] MEDS: CEFEPIME 1GM/50 ML IVPB SCH ×2 (09:36→20:21)
[2016-11-09] MEDS: MYCOPHENOLATE MOFETIL PO SCH ×2 (09:37→20:20)
[2016-11-09] MEDS: ENOXAPARIN 30 MG/0.3 ML SYG SC SCH ×2 (09:38→20:23)
[2016-11-09] MEDS: DOPamine 800 MG in DEXTROSE 5% 230 ML IV SCH ×2 (09:39→17:13)
[2016-11-09] MEDS: MUPIROCIN 2% 22 GM OINT TOP SCH ×2 (09:39→20:19)
--- NOTE | 2016-11-09 09:49 | RADRPT ---
PROCEDURE: XR Chest 1 view. CLINICAL INDICATION: Shortness of breath TECHNIQUE: AP views of the chest was obtained. COMPARISON: Yesterday FINDINGS: The heart is large. Calcified atherosclerosis is noted in the aorta. Median sternotomy wires and iglesias rgical clips overlie the heart. Left-sided dual chamber, biventricular pacemaker/defibrillator has its leads over the heart and appears stable. Central pulmonary vascular congestion and interstitial prominence continues to be seen in both lungs. Patchy infiltrates in both lungs have decreased. M oderate residual remains. Left-sided PICC line is stable. The osseous structures are unchanged. IMPRESSION: Cardiomegaly with calcified atherosclerosis in the aorta. Central pulmonary vascular congestion and interstitial prominence is seen in both lungs. Interval decrease in patchy infiltrates throughout both lungs. Moderate residual remains. RPTAT: AA .Jacoby Diaz MD, Date Time Electronically viewed and signed by .Jacoby Diaz MD, on 11/09/2016 09:48 .P/
--- NOTE | 2016-11-09 10:45 | CONS ---
Date/Time of Note Date/Time of Note DATE: 11/09/16 TIME: 09:53 Consult Date/Type/Reason Admit Date/Time Nov 06, 2016 at 12:15 Initial Consult Date 11/06/16 Type of Consultation: Pulmonary Ordering Provider: BRANDY REHMAN MD Subjective Patient is comfortable this morning continues BiPAP. Objective Vital Signs Date Time Temp Pulse Resp B/P Pulse Ox O2 Delivery O2 Flow Rate FiO2 11/09/16 06:00 77 23 97/63 98 BIPAP 11/09/16 05:31 60 11/09/16 04:00 99.1 Intake and Output 11/08/16 11/08/16 11/09/16 15:00 23:00 07:00 Intake Total 652.52 ml 570.69 ml 491.06 ml Output Total 1760 ml 1590 ml 800 ml Balance -1107.48 ml -1019.31 ml -308.94 ml Exam GENERAL: Well-nourished well-developed gentleman on mechanical ventilation. VITAL SIGNS: per chart NECK: Supple. No JVD or lymphadenopathy. CARDIAC EXAM: S1, S2. No added sounds or murmurs. CHEST: clear bilaterally, No added sounds, rales or wheezes ABDOMEN: Soft, nontender. No guarding or rebound. EXTREMITIES: No cyanosis, clubbing or edema. NEUROLOGIC: Generalized weakness. No focal deficits. Results/Medications Result Diagram: 11/09/16 0430 11/09/16 0430 Results 24 hrs cxr FINDINGS: The heart is large. Calcified atherosclerosis is noted in the aorta. Median sternotomy wires and surgical clips overlie the heart. Left-sided dual chamber , biventricular pacemaker/defibrillator has its leads over the heart and appears stable. Central pulmonary vascular congestion and interstitial prominence continues to be seen in both lungs. Patchy infiltrates in both lungs have decreased. Moderate residual remains. Left-sided PICC line is stable. The osseous structures are unchanged. IMPRESSION: Cardiomegaly with calcified atherosclerosis in the aorta. Central pulmonary vascular congestion and interstitial prominence is seen in both lungs. Interval decrease in patchy infiltrates throughout both lungs. Moderate residual remains. Laboratory Tests Test 11/08/16 13:00 11/09/16 04:30 11/09/16 07:00 Blood Gas Specimen Source Blood arterial Blood arterial Arterial Blood Date Drawn 11/08/2016 1:28:46 PM 11/09/2016 7:20:50 AM Arterial Blood pH (Temp corrected) 7.436 7.453 H Arterial Blood pCO2 (Temp correct) 32.9 L 34.8 L Arterial Blood pO2 (Temp corrected) 88.3 118.0 H Arterial Blood HCO3 21.6 L 23.8 Arterial Blood Base Excess -1.8 0.3 Arterial Blood Oxygen Saturation 96.6 98.3 H Ji Test N/A N/A Arterial Blood Gas Puncture Site LB LB Arterial Blood Carboxyhemoglobin 0 0.1 Arterial Blood Methemoglobin 0.3 0.2 Blood Gas A-a O2 Differential 447.6 H 271.5 H Oxyhemoglobin Percent 96.3 98.0 Total Hemoglobin 12.8 12.5 Blood Gas Temperature 37.0 37.0 Blood Gas Respiration Rate 16.0 16.0 Blood Gas Actual Respiration Rate 34 24 Blood Gas Modality MASK - BIPAP MASK - BIPAP FiO2 80.0 60.0 Blood Gas Pressure Support 10 10 Blood Gas IPAP/EPAP Ratio 1530/07 Blood Gas Notified Whom TM TM Blood Gas Notified Time 11/08/2016 1:36:21 PM 11/09/2016 7:49:36 AM White Blood Count 23.2 #H Red Blood Count 3.95 L Hemoglobin 11.4 L Hematocrit 36.1 L Mean Corpuscular Volume 91.4 Mean Corpuscular Hemoglobin 28.9 L Mean Corpuscular Hemoglobin Concent 31.6 L Red Cell Distribution Width 16.5 H Platelet Count 143 Mean Platelet Volume 12.1 H Neutrophils % 90.9 H Lymphocytes % 0.4 L Monocytes % 4.9 Eosinophils % 0.0 Basophils % 0.1 Nucleated Red Blood Cells % 0.0 Neutrophils # (Manual) 21.1 H Lymphocytes # 0.1 L Monocytes # 1.1 H Eosinophils # 0.0 Basophils # 0.0 Nucleated Red Blood Cells # 0.0 Sodium Level 143 Potassium Level 4.1 Chloride Level 102 Carbon Dioxide Level 27 Anion Gap 18 H Blood Urea Nitrogen 47 #H Creatinine 2.03 H Glucose Level 127 # Calcium Level 7.9 L Phosphorus Level 3.4 Magnesium Level 2.0 Total Bilirubin 1.0 Direct Bilirubin 0.00 Indirect Bilirubin 1.0 Aspartate Amino Transf (AST/SGOT) 30 Alanine Aminotransferase (ALT/SGPT) 32 Alkaline Phosphatase 79 B-Type Natriuretic Peptide 16743 H Total Protein 6.0 L Albumin 3.1 L Globulin 2.90 Albumin/Globulin Ratio 1.06 Medications Current Medications Albuterol (Ventolin Hfa) 2 puff Q4H PRN INH SHORTNESS OF BREATH; Start at 13:30 Amiodarone HCl (Cordarone) 400 mg DAILY PO Last administered on 11/07/16 09:10 ; Admin Dose 400 MG; Start 11/07/16 at 09:00 Atorvastatin Calcium (Lipitor) 80 mg QHS PO Last administered on 11/07/16 21: 52; Admin Dose 80 MG; Start 11/06/16 at 21:00 Calcitriol (Rocaltrol) 0.25 mcg DAILY PO Last administered on 11/07/16 09:11; Admin Dose 0.25 MCG; Start 11/07/16 at 09:00 Carvedilol (Coreg) 3.125 mg BID PO ; Start 11/06/16 at 21:00 Doxazosin Mesylate (Cardura) 2 mg HS PO Last administered on 11/06/16 21:49; Admin Dose 2 MG; Start 11/06/16 at 21:00 Clopidogrel Bisulfate (plaVIX) 75 mg DAILY PO Last administered on 11/07/16 09 :08; Admin Dose 75 MG; Start 11/06/16 at 13:30 Enoxaparin Sodium (Lovenox) 30 mg BID SC Last administered on 11/09/16 09:38; Admin Dose 30 MG; Start 11/06/16 at 13:30 IV Flush 10 ml 10 ml PRN PRN IV IV PROTOCOL; Start 11/06/16 at 18:00 Norepinephrine/ Dextrose (Levophed/D5W) 500 ml @ 1.87 mls/hr TITRATE IV Last administered on 11/09/16 08:20; Admin Dose 3.75 MLS/HR; Start 11/07/16 at 04:00 Mupirocin (Bactroban) 1 applic BID TOP Last administered on 11/09/16 09:39; Admin Dose 1 APPLIC; Start 11/07/16 at 14:30 Alprazolam 1 mg 1 mg Q6 PRN PO AGITATION/ANXIETY Last administered on 16:41; Admin Dose 1 MG; Start 11/07/16 at 16:30 Sodium Chloride 1,000 ml @ 40 mls/hr Q24H IV Last administered on 11/08/16 16 :46; Admin Dose 40 MLS/HR; Start 11/07/16 at 19:00 Cefepime HCl 50 ml @ 100 mls/hr Q12 IVPB Last administered on 11/09/16 09:36 ; Admin Dose 100 MLS/HR; Start 11/07/16 at 21:00 Vancomycin HCl (Vancocin) 250 ml @ 125 mls/hr Q36H IVPB Last administered on 05:34; Admin Dose 125 MLS/HR; Start 11/09/16 at 05:00 Lansoprazole (Prevacid) 30 mg DAILY@06 PO ; Start 11/08/16 at 06:00 Tacrolimus (Prograf) 0.5 mg Q12 PO Last administered on 11/09/16 09:36; Admin Dose 0.5 MG; Start 11/07/16 at 21:30 Aspirin (Aspirin) 81 mg DAILY PO ; Start 11/08/16 at 09:00 Mycophenolate Mofetil 200 mg 200 mg BID PO Last administered on 11/09/16 09:37 ; Admin Dose 200 MG; Start 11/07/16 at 21:00 Dopamine HCl/ Dextrose (D5W) 250 ml @ 2.4 mls/hr TITRATE IV Last administered on 11/09/16 09:39; Admin Dose 2.4 MLS/HR; Start 11/08/16 at 08:30 Morphine Sulfate (morphine) 1 mg Q4H PRN IV PAIN Last administered on 17:44; Admin Dose 1 MG; Start 11/08/16 at 11:00 Methylprednisolone Sodium Succinate 60 mg 60 mg Q8 IV Last administered on 11/09 05:33; Admin Dose 60 MG; Start 11/08/16 at 14:00 Levofloxacin/ Dextrose (Levaquin 250 Mg/ D5W 50 ml (Pmx)) 50 ml @ 50 mls/hr Q24H IVPB Last administered on 11/08/16 14:01; Admin Dose 50 MLS/HR; Start at 13:00 Levothyroxine Sodium (Synthroid Iv) 100 mcg DAILY@06 IV Last administered on 09:36; Admin Dose 100 MCG; Start 11/09/16 at 09:00 Assessment/Plan Chief Complaint/Hosp Course IMPRESSION: 1. Acute congestive cardiac failure secondary to congestive cardiac failure. Significant radiographic improvement 2. Hypoxemic respiratory failure combination of pneumonia, CHF, possible COPD exacerbation. 3. History of chronic obstructive pulmonary disease. 4. History of coronary artery bypass graft surgery. 5. Leukocytosis likely secondary to underlying pneumonia. Continues antibiotics of cefepime and vancomycin PLAN: 1. Trial of high flow O2 2. Diuretics per cardiology 3. Aspiration precautions 4. Continue Plavix and aspirin. 5. Continue IV steroids, possible component of cryptogenic organizing pneumonia given rapid response to intravenous steroids Overall prognosis is guarded. Problems: MONICA SAMSON MD, [facility] Nov 09, 2016 10:03
[2016-11-09] MEDS: LEVOFLOXACIN 250MG/D5W (PMX) 50 ML IVPB SCH (13:26)
--- NOTE | 2016-11-09 14:03 | CONS ---
Date/Time of Note Date/Time of Note DATE: 11/09/16 TIME: 13:58 Consult Date/Type/Reason Admit Date/Time Nov 06, 2016 at 12:15 Initial Consult Date 11/06/16 Type of Consultation: Pulmonary Ordering Provider: BRANDY REHMAN MD Subjective CARDIOLOGY FOLLOW UP NOTE/ critical care note: d/w staff and rhythm was reviewed. pt remains in V paced rhythm. he is less hypotensive overnight and was weaned off of levophed drip. no chest pain or pressure or palpitations. he is off of BIPAP now and on high flow O2 he denies any palpitations. OBJECTIVE: General: IN mild dresp distress on O2 HEENT: NC/AT. pupils are equal. round. NECK: NO JVD. no stridor. CV: RRR. systolic murmur; no gallop or rubs. PULM: NO wheezing. diffuse rhonchi more on the right side. . GI: SOFT, NT, ND, no rebound or guarding Extremity: trace B/L LE edema. no clubbing. neuro: awake and alert, OX3. Psych: anxious but pleasant rectal: deferred : normal CXR reviewed. + pulm edema Objective Vital Signs Date Time Temp Pulse Resp B/P Pulse Ox O2 Delivery O2 Flow Rate FiO2 11/09/16 12:00 87 11/09/16 09:45 17 100/82 100 11/09/16 09:00 BIPAP 11/09/16 08:00 70 11/09/16 08:00 97.9 Intake and Output 11/08/16 11/08/16 11/09/16 15:00 23:00 07:00 Intake Total 652.52 ml 570.69 ml 491.06 ml Output Total 1760 ml 1590 ml 850 ml Balance -1107.48 ml -1019.31 ml -358.94 ml Results/Medications Result Diagram: 11/09/16 0430 11/09/16 0430 Results 24 hrs Laboratory Tests Test 11/09/16 04:30 11/09/16 07:00 White Blood Count 23.2 #H Red Blood Count 3.95 L Hemoglobin 11.4 L Hematocrit 36.1 L Mean Corpuscular Volume 91.4 Mean Corpuscular Hemoglobin 28.9 L Mean Corpuscular Hemoglobin Concent 31.6 L Red Cell Distribution Width 16.5 H Platelet Count 143 Mean Platelet Volume 12.1 H Neutrophils % 90.9 H Lymphocytes % 0.4 L Monocytes % 4.9 Eosinophils % 0.0 Basophils % 0.1 Nucleated Red Blood Cells % 0.0 Neutrophils # (Manual) 21.1 H Lymphocytes # 0.1 L Monocytes # 1.1 H Eosinophils # 0.0 Basophils # 0.0 Nucleated Red Blood Cells # 0.0 Sodium Level 143 Potassium Level 4.1 Chloride Level 102 Carbon Dioxide Level 27 Anion Gap 18 H Blood Urea Nitrogen 47 #H Creatinine 2.03 H Glucose Level 127 # Calcium Level 7.9 L Phosphorus Level 3.4 Magnesium Level 2.0 Total Bilirubin 1.0 Direct Bilirubin 0.00 Indirect Bilirubin 1.0 Aspartate Amino Transf (AST/SGOT) 30 Alanine Aminotransferase (ALT/SGPT) 32 Alkaline Phosphatase 79 B-Type Natriuretic Peptide 01066 H Total Protein 6.0 L Albumin 3.1 L Globulin 2.90 Albumin/Globulin Ratio 1.06 Blood Gas Specimen Source Blood arterial Arterial Blood Date Drawn 11/09/2016 7:20:50 AM Arterial Blood pH (Temp corrected) 7.453 H Arterial Blood pCO2 (Temp correct) 34.8 L Arterial Blood pO2 (Temp corrected) 118.0 H Arterial Blood HCO3 23.8 Arterial Blood Base Excess 0.3 Arterial Blood Oxygen Saturation 98.3 H Ji Test N/A Arterial Blood Gas Puncture Site LB Arterial Blood Carboxyhemoglobin 0.1 Arterial Blood Methemoglobin 0.2 Blood Gas A-a O2 Differential 271.5 H Oxyhemoglobin Percent 98.0 Total Hemoglobin 12.5 Blood Gas Temperature 37.0 Blood Gas Respiration Rate 16.0 Blood Gas Actual Respiration Rate 24 Blood Gas Modality MASK - BIPAP FiO2 60.0 Blood Gas Pressure Support 10 Blood Gas IPAP/EPAP Ratio 15/5 Blood Gas Notified Whom TM Blood Gas Notified Time 11/09/2016 7:49:36 AM Medications Current Medications Albuterol (Ventolin Hfa) 2 puff Q4H PRN INH SHORTNESS OF BREATH; Start at 13:30 Amiodarone HCl (Cordarone) 400 mg DAILY PO Last administered on 11/07/16 09:10 ; Admin Dose 400 MG; Start 11/07/16 at 09:00 Atorvastatin Calcium (Lipitor) 80 mg QHS PO Last administered on 11/07/16 21: 52; Admin Dose 80 MG; Start 11/06/16 at 21:00 Calcitriol (Rocaltrol) 0.25 mcg DAILY PO Last administered on 11/07/16 09:11; Admin Dose 0.25 MCG; Start 11/07/16 at 09:00 Carvedilol (Coreg) 3.125 mg BID PO ; Start 11/06/16 at 21:00 Doxazosin Mesylate (Cardura) 2 mg HS PO Last administered on 11/06/16 21:49; Admin Dose 2 MG; Start 11/06/16 at 21:00 Clopidogrel Bisulfate (plaVIX) 75 mg DAILY PO Last administered on 11/07/16 09 :08; Admin Dose 75 MG; Start 11/06/16 at 13:30 Enoxaparin Sodium (Lovenox) 30 mg BID SC Last administered on 11/09/16 09:38; Admin Dose 30 MG; Start 11/06/16 at 13:30 IV Flush 10 ml 10 ml PRN PRN IV IV PROTOCOL; Start 11/06/16 at 18:00 Norepinephrine/ Dextrose (Levophed/D5W) 500 ml @ 1.87 mls/hr TITRATE IV Last administered on 11/09/16 08:20; Admin Dose 3.75 MLS/HR; Start 11/07/16 at 04:00 Mupirocin (Bactroban) 1 applic BID TOP Last administered on 11/09/16 09:39; Admin Dose 1 APPLIC; Start 11/07/16 at 14:30 Alprazolam 1 mg 1 mg Q6 PRN PO AGITATION/ANXIETY Last administered on 16:41; Admin Dose 1 MG; Start 11/07/16 at 16:30 Sodium Chloride 1,000 ml @ 40 mls/hr Q24H IV Last administered on 11/08/16 16 :46; Admin Dose 40 MLS/HR; Start 11/07/16 at 19:00 Cefepime HCl 50 ml @ 100 mls/hr Q12 IVPB Last administered on 11/09/16 09:36 ; Admin Dose 100 MLS/HR; Start 11/07/16 at 21:00 Vancomycin HCl (Vancocin) 250 ml @ 125 mls/hr Q36H IVPB Last administered on 05:34; Admin Dose 125 MLS/HR; Start 11/09/16 at 05:00 Lansoprazole (Prevacid) 30 mg DAILY@06 PO ; Start 11/08/16 at 06:00 Tacrolimus (Prograf) 0.5 mg Q12 PO Last administered on 11/09/16 09:36; Admin Dose 0.5 MG; Start 11/07/16 at 21:30 Aspirin (Aspirin) 81 mg DAILY PO ; Start 11/08/16 at 09:00 Mycophenolate Mofetil 200 mg 200 mg BID PO Last administered on 11/09/16 09:37 ; Admin Dose 200 MG; Start 11/07/16 at 21:00 Dopamine HCl/ Dextrose (D5W) 250 ml @ 2.4 mls/hr TITRATE IV Last administered on 11/09/16 09:39; Admin Dose 2.4 MLS/HR; Start 11/08/16 at 08:30 Morphine Sulfate (morphine) 1 mg Q4H PRN IV PAIN Last administered on 17:44; Admin Dose 1 MG; Start 11/08/16 at 11:00 Methylprednisolone Sodium Succinate 60 mg 60 mg Q8 IV Last administered on 11/09 13:26; Admin Dose 60 MG; Start 11/08/16 at 14:00 Levofloxacin/ Dextrose (Levaquin 250 Mg/ D5W 50 ml (Pmx)) 50 ml @ 50 mls/hr Q24H IVPB Last administered on 11/09/16 13:26; Admin Dose 50 MLS/HR; Start at 13:00 Levothyroxine Sodium (Synthroid Iv) 100 mcg DAILY@06 IV Last administered on 09:36; Admin Dose 100 MCG; Start 11/09/16 at 09:00 Miscellaneous Information (*Rx Drug Level Order Reminder*) 1 ONCE ONCE XX ; Start 11/10/16 at 16:00; Stop 11/10/16 at 16:01 Assessment/Plan Chief Complaint/Hosp Course 1. Acute hypoxemic hypercapnic respiratory failure: 2. Congestive heart failure acute on chronic due to systolic and diastolic heart failure and mostly severe . 3. Severe aortic stenosis 4. COPD 5. History of hypertension 6. Proximal atrial fibrillation: currently appears to be in NSR . 7. Dyslipidemia 8. History of coronary bypass graft 9. Severe coronary artery disease 10. Renal failure chronic status post renal transplant 11. shock: on levophed drip now 12. ACS Recommendation: I will continue with the Plavix and Aspirin 81 mg p.o. BUMEX drip for now. dopmaine drip low dose for another day. abx as per IM/ pulm consider high dose/ stress dose steroids? Pulmonary/ICU consultation with Dr. wills and Renal consultation with Dr. Crowell is appreciated. BP meds are on hold now due to low BP. Patient WILL be monitored in intensive care unit for close monitoring. will check ECG today. katalina. albino./ w DR Anderson at [facility] who agreed to accept pt for TAVR. I have placed the call to transfer center at [facility] already for transferring for higher level of care for TAVR cont ICU care more than 36 minutes of critical care time was spent in management and treatment of this critically ill pt excluding any procedures. Thank you for his referral will continue to follow along with you. CARMEN JARAMILLO MD [facility] Problems: CARMEN JARAMILLO MD Nov 09, 2016 14:03
--- NOTE | 2016-11-09 14:53 | PN ---
Date/Time of Note Date/Time of Note DATE: 11/09/16 TIME: 14:41 Assessment/Plan VTE Prophylaxis VTE Prophylaxis Intervention: LMWH Lines/Catheters IV Catheter Type (from Nrs): PICC Line Central line still needed: No (Has a PICC line) Urinary Cath still in place: Yes Reason Cath still needed: other (indicate) (Guarded condition) Assessment/Plan Chief Complaint/Hosp Course 1. Acute hypoxemic hypercapnic respiratory failure. 2. Congestive heart failure acute on chronic. 3. Severe aortic stenosis 4. COPD 5. History of hypertension 6. Proximal atrial fibrillation 7. Dyslipidemia 8. History of coronary bypass graft 9. Severe coronary artery disease 10. Renal failure chronic status post renal transplant Recommendation: I will continue with the Plavix. Aspirin 81 mg p.o. will be given for now. Patient will be admitted to intensive care unit. Pulmonary/ICU consultation with Dr. barnes, has been putting place already. Renal consultation with Dr. Crowell has been ordered already. I have ordered a chest x-ray. BiPAP as well as nebulizer treatment for now. Cardiac rhythm will be checked again tomorrow and likely will be checked tomorrow to rule out myocardial infarction and correct electrolytes renal function as needed. PCI will be postponed if patient stabilizes. Patient was admitted to intensive care unit for close monitoring. Thank you for his referral will continue to follow along with you. CARMEN THAKUR MD [facility] Problems: Assessment/Plan A/P. This is a 71 years old male with history of CHF, EF 35%, Aortic stenosis, A.fib, CAD, CKD, s/p renal transplant who presented for elective coronary angiogram. Found to be in respiratory failure 1. Respiratory failure-combination of Pneumonia, CHF and ? COPD, steroids, antibiotics and diuretics are being given, chest x-ray much improved. Now off BiPAP on high flow oxygen at 50% FiO2. 2. cardiovascular-patient with respiratory failure likely partly to CHF exacerbation, and possible pneumonia. continue diuretics challenge. Off pressors. On amiodarone, Bumex drip and Coreg. Plan for transfer to [facility] for aortic valve procedure. 3. CKD-monitor kidney functions closely, will continue immunosuppressive medications as patient is status post renal transplant, renally dose all Meds. Kidney function remained stable 4. Anti coagulate with Lovenox, as patient has history of atrial fibrillation. 5. Protonix for GI prophylaxis 6. ID. WBC is better on Vancomycin, Levaquin and Cefepime, ID to follow, follow up on cultures. Chest x-ray much improved. 7. PICC line placement for easier access was placed. 8. Dysphagia-restart diet with a clear liquid diet. Speech therapy to follow this patient is clinically better. 9. We will communicate with family regarding patient's improvement and plan of care. 10. Coronary artery disease-PCI is on hold. Will defer to cardiology at [facility] once patient is transferred 11. Hypothyroidism-continue IV Synthroid. TSH is at goal. 12. Over 40 minutes spent examining patient discussing with nursing staff, physicians , and reviewing records. 13. anxiolytics prn for anxiety. 14. Clinically much better. Subjective 24 Hr Interval Summary Free Text/Dictation Patient is doing much better, now off the BiPAP. Patient responded very well to the IV steroids and addition of Levaquin IV. Case discussed in detail with Dr. Thakur. Plan for possible transfer to [facility] for higher level of care for possible aortic valve surgery. Patient is now on high flow oxygen. I appreciate cardiology and pulmonary input. Reviewed consultation recommendations, chest x-ray and labs. Subjective hx not possible: pt critical status Constitutional: requiring O2 Eyes: No discharge ENT: No congestion Respiratory: No pleuritic pain Cardiovascular: No lightheadedness Gastrointestinal: decreased appetite Genitourinary: No flank pain Musculoskeletal: No neck pain Neurologic: No focal-weakness Psychological: No confusion Exam/Review of Systems Vital Signs Vitals Vital Signs Date Time Temp Pulse Resp B/P Pulse Ox O2 Delivery O2 Flow Rate FiO2 11/09/16 12:00 87 11/09/16 09:45 17 100/82 100 11/09/16 09:00 BIPAP 11/09/16 08:00 70 11/09/16 08:00 97.9 Intake and Output 11/08/16 11/08/16 11/09/16 15:00 23:00 07:00 Intake Total 652.52 ml 570.69 ml 533.46 ml Output Total 1760 ml 1590 ml 850 ml Balance -1107.48 ml -1019.31 ml -316.54 ml Exam Pale, high flow oxygen, 15 L 50% FiO2 Constitutional: other (Looks much better appears comfortable), No distress Head: No lacerations Eyes: PERRL ENMT: other (Nasal cannula high flow) Neck: No bruits, No jvd, No masses Respiratory: diminished breath sounds, No crackles/rales Gastrointestinal: No hepatomegaly Genitourinary - Male: No CVA tenderness Musculoskeletal: muscle tone (Decreased) Extremities: No clubbing, No cyanosis, No edema Neurological: No confused Skin: ecchymosis (Of the skin) Results Result Diagram: 11/09/16 04311/09/16 0430 Results 24 hrs Laboratory Tests Test 11/09/16 04:30 11/09/16 07:00 White Blood Count 23.2 #H Red Blood Count 3.95 L Hemoglobin 11.4 L Hematocrit 36.1 L Mean Corpuscular Volume 91.4 Mean Corpuscular Hemoglobin 28.9 L Mean Corpuscular Hemoglobin Concent 31.6 L Red Cell Distribution Width 16.5 H Platelet Count 143 Mean Platelet Volume 12.1 H Neutrophils % 90.9 H Lymphocytes % 0.4 L Monocytes % 4.9 Eosinophils % 0.0 Basophils % 0.1 Nucleated Red Blood Cells % 0.0 Neutrophils # (Manual) 21.1 H Lymphocytes # 0.1 L Monocytes # 1.1 H Eosinophils # 0.0 Basophils # 0.0 Nucleated Red Blood Cells # 0.0 Sodium Level 143 Potassium Level 4.1 Chloride Level 102 Carbon Dioxide Level 27 Anion Gap 18 H Blood Urea Nitrogen 47 #H Creatinine 2.03 H Glucose Level 127 # Calcium Level 7.9 L Phosphorus Level 3.4 Magnesium Level 2.0 Total Bilirubin 1.0 Direct Bilirubin 0.00 Indirect Bilirubin 1.0 Aspartate Amino Transf (AST/SGOT) 30 Alanine Aminotransferase (ALT/SGPT) 32 Alkaline Phosphatase 79 B-Type Natriuretic Peptide 70771 H Total Protein 6.0 L Albumin 3.1 L Globulin 2.90 Albumin/Globulin Ratio 1.06 Blood Gas Specimen Source Blood arterial Arterial Blood Date Drawn 11/09/2016 7:20:50 AM Arterial Blood pH (Temp corrected) 7.453 H Arterial Blood pCO2 (Temp correct) 34.8 L Arterial Blood pO2 (Temp corrected) 118.0 H Arterial Blood HCO3 23.8 Arterial Blood Base Excess 0.3 Arterial Blood Oxygen Saturation 98.3 H Ji Test N/A Arterial Blood Gas Puncture Site LB Arterial Blood Carboxyhemoglobin 0.1 Arterial Blood Methemoglobin 0.2 Blood Gas A-a O2 Differential 271.5 H Oxyhemoglobin Percent 98.0 Total Hemoglobin 12.5 Blood Gas Temperature 37.0 Blood Gas Respiration Rate 16.0 Blood Gas Actual Respiration Rate 24 Blood Gas Modality MASK - BIPAP FiO2 60.0 Blood Gas Pressure Support 10 Blood Gas IPAP/EPAP Ratio 15/5 Blood Gas Notified Whom TM Blood Gas Notified Time 11/09/2016 7:49:36 AM Medications Medications Current Medications Albuterol (Ventolin Hfa) 2 puff Q4H PRN INH SHORTNESS OF BREATH; Start at 13:30 Amiodarone HCl (Cordarone) 400 mg DAILY PO Last administered on 11/07/16 09:10 ; Admin Dose 400 MG; Start 11/07/16 at 09:00 Atorvastatin Calcium (Lipitor) 80 mg QHS PO Last administered on 11/07/16 21: 52; Admin Dose 80 MG; Start 11/06/16 at 21:00 Calcitriol (Rocaltrol) 0.25 mcg DAILY PO Last administered on 11/07/16 09:11; Admin Dose 0.25 MCG; Start 11/07/16 at 09:00 Carvedilol (Coreg) 3.125 mg BID PO ; Start 11/06/16 at 21:00 Doxazosin Mesylate (Cardura) 2 mg HS PO Last administered on 11/06/16 21:49; Admin Dose 2 MG; Start 11/06/16 at 21:00 Clopidogrel Bisulfate (plaVIX) 75 mg DAILY PO Last administered on 11/07/16 09 :08; Admin Dose 75 MG; Start 11/06/16 at 13:30 Enoxaparin Sodium (Lovenox) 30 mg BID SC Last administered on 11/09/16 09:38; Admin Dose 30 MG; Start 11/06/16 at 13:30 IV Flush 10 ml 10 ml PRN PRN IV IV PROTOCOL; Start 11/06/16 at 18:00 Norepinephrine/ Dextrose (Levophed/D5W) 500 ml @ 1.87 mls/hr TITRATE IV Last administered on 11/09/16 08:20; Admin Dose 3.75 MLS/HR; Start 11/07/16 at 04:00 Mupirocin (Bactroban) 1 applic BID TOP Last administered on 11/09/16 09:39; Admin Dose 1 APPLIC; Start 11/07/16 at 14:30 Alprazolam 1 mg 1 mg Q6 PRN PO AGITATION/ANXIETY Last administered on 16:41; Admin Dose 1 MG; Start 11/07/16 at 16:30 Sodium Chloride 1,000 ml @ 40 mls/hr Q24H IV Last administered on 11/08/16 16 :46; Admin Dose 40 MLS/HR; Start 11/07/16 at 19:00 Cefepime HCl 50 ml @ 100 mls/hr Q12 IVPB Last administered on 11/09/16 09:36 ; Admin Dose 100 MLS/HR; Start 11/07/16 at 21:00 Vancomycin HCl (Vancocin) 250 ml @ 125 mls/hr Q36H IVPB Last administered on 05:34; Admin Dose 125 MLS/HR; Start 11/09/16 at 05:00 Lansoprazole (Prevacid) 30 mg DAILY@06 PO ; Start 11/08/16 at 06:00 Tacrolimus (Prograf) 0.5 mg Q12 PO Last administered on 11/09/16 09:36; Admin Dose 0.5 MG; Start 11/07/16 at 21:30 Aspirin (Aspirin) 81 mg DAILY PO ; Start 11/08/16 at 09:00 Mycophenolate Mofetil 200 mg 200 mg BID PO Last administered on 11/09/16 09:37 ; Admin Dose 200 MG; Start 11/07/16 at 21:00 Dopamine HCl/ Dextrose (D5W) 250 ml @ 2.4 mls/hr TITRATE IV Last administered on 11/09/16 09:39; Admin Dose 2.4 MLS/HR; Start 11/08/16 at 08:30 Morphine Sulfate (morphine) 1 mg Q4H PRN IV PAIN Last administered on 17:44; Admin Dose 1 MG; Start 11/08/16 at 11:00 Methylprednisolone Sodium Succinate 60 mg 60 mg Q8 IV Last administered on 11/09 13:26; Admin Dose 60 MG; Start 11/08/16 at 14:00 Levofloxacin/ Dextrose (Levaquin 250 Mg/ D5W 50 ml (Pmx)) 50 ml @ 50 mls/hr Q24H IVPB Last administered on 11/09/16 13:26; Admin Dose 50 MLS/HR; Start at 13:00 Levothyroxine Sodium (Synthroid Iv) 100 mcg DAILY@06 IV Last administered on 09:36; Admin Dose 100 MCG; Start 11/09/16 at 09:00 Miscellaneous Information 1 ONCE ONCE XX ; Start 11/10/16 at 16:00; Stop at 16:01 Bumetanide/ Dextrose (Bumex/D5W) 30 ml @ 16.667 mls/ hr Q1H48M IV ; Start 11/09 at 15:30; Stop 11/09/16 at 17:16 BRANDY REHMAN MD Nov 09, 2016 14:53
[2016-11-09] MEDS ORDERED: BUMETANIDE 3 MG in DEXTROSE 5% 18 ML IV SCH (15:30)
--- NOTE | 2016-11-09 17:13 | RADRPT ---
Vent Rate: 91 bpm RR Interval: 0 msec CA Interval: 158 msec QRS Duration: 196 msec QT Interval: 480 msec QTC Interval: 590 msec P-R-T [place]: 84 - -85 - 74 degrees Electronic ventricular pacemaker Electronically Signed By: Dominick Meier [id number]
--- NOTE | 2016-11-09 19:26 | PN ---
DATE: 11/09/2016 SUBJECTIVE DATA: The patient is on BiPAP, lethargic but arousable, and follows commands. He is on dopamine and Levophed drips. Daughter is at bedside. VITAL SIGNS: T-max 99.9, temperature current 97.9, pulse 86, respirations 17, blood pressure 100/82, saturation 100 percent on BiPAP. LABORATORY AND DIAGNOSTIC DATA: WBC 23.2, hemoglobin 11.4, hematocrit 36.1, platelets 143,000, neutrophils 90.9, BUN , creatinine 2.03. MICROBIOLOGY: Urine culture negative. MRSA swab came back positive. DIAGNOSTICS: Chest x-ray revealed cardiomegaly, central pulmonary vascular congestion, and interstitial prominence in both lungs. Interval decrease in patchy infiltrates throughout both lungs. INDWELLING: Patient has a PICC line placed on November 06 and [place]rell[place] catheter. ANTIMICROBIALS: The patient is on: 1. IV vancomycin. 2. IV Levaquin. 3. Cefepime. 4. Of note, he is also on steroids. PHYSICAL EXAMINATION: GENERAL: This is a fragile, elderly man who is in no distress. HEENT: Head atraumatic, normocephalic. Sclerae anicteric. Buccal mucosa dry. NECK: Supple. CHEST: Rise symmetrical. Breath sounds diminished at bases. HEART: S1, S2. ABDOMEN: Soft, bowel sounds present. EXTREMITIES: Without cyanosis. ASSESSMENT: 1. Shock, multifactorial. 2. Acute respiratory failure secondary to congestive heart failure (CHF) exacerbation and possible chronic obstructive pulmonary disease (COPD) exacerbation. 3. Methicillin-resistant Staphylococcus aureus (MRSA) nares colonization. 4. Coronary artery disease, history of coronary artery bypass grafting (CABG). 5. Chronic kidney disease, history of kidney transplant in 2007. 6. Aortic stenosis and cardiomyopathy. 7. Status post AICD. PLAN: The patient remains unchanged on multiple pressors. Cardiology, pulmonary and nephrology team follows him. He is on broad-spectrum antibiotics. He is getting Bactroban to nares. We will continue observing him on current regimen. Dictated By: Mahad Aaron NP /jack/todd /Document#: [id number]
[2016-11-09] MEDS: DOXAZOSIN 2 MG TAB PO SCH (20:24)
[2016-11-09] MEDS: ATORVASTATIN 80 MG TAB PO SCH (20:24)
[2016-11-09] MEDS ORDERED: SOD CHLORIDE 0.9% 1,000 ML IV ONE (23:53)
[2016-11-10] VITALS (34 sets, daily range): BP systolic 87–135; BP diastolic 41–93; PULSE 60–99; RESP 17–29
[2016-11-10] MEDS: morphine 2 MG INJ IV PRN (03:23)
[2016-11-10 05:34] LABS: ABNORMAL IP MESSAGE 1; HEMATOCRIT 32.5 % (42.0-52.0); HEMOGLOBIN 10.3 g/dl (14.0-18.0); LYMPHOCYTES # 0.1 10^3/ul (0.8-2.9); LYMPHOCYTES % 0.9 % (15.0-51.0); MEAN CORPUSCULAR HEMOGLOBIN 28.5 pg (29.0-33.0); MEAN CORPUSCULAR HGB CONC 31.7 g/dl (32.0-37.0); MEAN PLATELET VOLUME 12.6 fl (7.4-10.4); MONOCYTE # 0.5 10^3/ul (0.3-0.9); MONOCYTES % 4.9 % (0.0-11.0); NEUTROPHILS % 92.9 % (39.0-77.0); PLATELET COUNT 144 10^3/UL (140-415); POSITIVE DIFF @See below; RED BLOOD COUNT 3.61 10^6/ul (4.70-6.10); RED CELL DISTRIBUTION WIDTH 16.4 % (11.5-14.5); WHITE BLOOD COUNT 10.8 10^3/ul (4.8-10.8)
[2016-11-10 05:55] LABS: ALBUMIN/GLOBULIN RATIO 1.07; BILIRUBIN,INDIRECT 0.4 mg/dl (0-1.1); BILIRUBIN,TOTAL 0.4 mg/dl (0.2-1.3); CALCIUM 7.5 mg/dl (8.4-10.2); CREATININE 2.09 mg/dl (0.61-1.24); POTASSIUM 3.8 mmol/L (3.5-5.1); TOTAL PROTEIN 5.8 g/dl (6.1-8.1)
[2016-11-10 05:56] LABS: CALCIUM 7.6 mg/dl (8.4-10.2); CREATININE 2.19 mg/dl (0.61-1.24); MAGNESIUM 2.1 mg/dl (1.7-2.5); PHOSPHORUS 4.2 mg/dl (2.5-4.9); POTASSIUM 3.6 mmol/L (3.5-5.1)
[2016-11-10] MEDS: LANSOPRAZOLE 30 MG CAP PO SCH (06:00)
[2016-11-10] MEDS: LEVOTHYROXINE 100 MCG VIAL IV SCH (06:00)
[2016-11-10] MEDS: METHYLPREDNISOLONE 125 MG INJ IV SCH ×3 (06:00→21:08)
--- NOTE | 2016-11-10 08:24 | RADRPT ---
PROCEDURE: XR Chest. CLINICAL INDICATION: Shortness of breath. TECHNIQUE: Single frontal view. COMPARISON: 11/09/2016. FINDINGS: There is bilateral air space and interstitial disease consistent with pulmonary edema, slightly wors e than seen previously. The heart is enlarged. There are sternal wires and mediastinal clips from previous CABG. Calcifica tion is present in the aorta consistent with atherosclerosis. There is a left-sided biventricular p acemaker/internal cardiac defibrillator, unchanged. There are small bilateral pleural effusions. There is no pneumothorax. IMPRESSION: 1. Slightly worse appearance of the lungs. 2. No other change from 11/09/2016. RPTAT: QQ .Jimmy Tejeda MD, MD Date Time Electronically viewed and signed by .Jimmy Tejeda MD, MD on 11/10/2016 08:23 .R/
--- NOTE | 2016-11-10 08:26 | PN ---
DATE: 11/10/2016 SUBJECTIVE DATA: The patient is clinically improving. Currently on high-flow oxygen. The patient is pending possible transfer to [facility] for surgical correction of aortic stenosis. No other events noted. OBJECTIVE DATA: VITAL SIGNS: Blood pressure is 115/74, respirations 27, pulse 85, temperature 98.6. I's and Os', the patient had 1.2 liters in, with 1.6 liters out. HEENT: Head is normocephalic. NECK: Supple. HEART: Regular rate. Positive murmur. LUNGS: Diminished breath sounds at the base, positive crackles. ABDOMEN: Soft, nontender to palpation. No rebound or guarding. EXTREMITIES: Negative for clubbing, cyanosis. No edema. DERMATOLOGIC: No rashes. MUSCULOSKELETAL: No joint effusion. NEUROLOGIC: No change in exam. MEDICATIONS: Reviewed. LABORATORY AND DIAGNOSTIC DATA: Shows a sodium 147, potassium 3.8, chloride 104, BUN 75, creatinine 2.09. White count 10.8, hemoglobin 10.3, hematocrit 32.5 and platelet count is 144,000. Patient's chest x-ray of 11/09/2016 shows vascular congestion and decrease in patchy infiltrates. MEDICATIONS: The patient's medications have been reviewed. ASSESSMENT AND PLAN: 1. Nonoliguric acute kidney injury on top of chronic kidney disease/chronic allograft failure with a previous baseline creatinine 1.7 mg/dL. Etiology of chronic acute kidney injury is secondary to hemodynamic cardiorenal syndrome. The patient's creatinine has been stable over the last 48 hours. The patient does have a progressive azotemia, likely due to underlying diuretic therapy, steroids, hyper catabolic state. At this point, continue current treatment plan. Continue diuretic therapy. Monitor renal function closely. 2. History of end-stage renal disease, status post-living donor transplant with previous baseline creatinine of 1.7 mg/dL. The patient is chronic acute kidney as stated above. Continue current treatment plan. Continue current immunosuppressive regimen. 3. Hypernatremia, continue current free water intake. 4. Mineral bone disorder. Monitor calcium and phosphorus levels. 5. Anemia. Monitor hemoglobin and hematocrit levels. 6. Shock. Etiology is likely cardiogenic, questionable sepsis. The patient is on dopamine, broad-spectrum antibiotics and diuretic therapy. Will continue. 7. Acute decompensated heart failure. The patient has noted congestion on x-rays, improving. Continue current medical management. Follow up Cardiology. Diuretics per Cardiology. 8. Acute hypoxemic respiratory failure, secondary to congestive heart failure, possible pneumonia. Continue current medical management. Continue current antibiotic regimen. Follow up Pulmonary. 9. Severe aortic stenosis. The patient is pending possible transfer to [facility] for surgical correction. 10. History of chronic disease status post-coronary artery bypass graft. Continue medical management. 11. Atrial fibrillation. Currently in sinus rhythm. Continue current treatment plan. Dictated By: Ezra Carpio DO /jack/emmanuelle /Document#: [id number]
[2016-11-10 08:47] LABS: AADO2 Arterial 251.5 mmHg (7.0-24.0); Allen Test ACCEPTAB; Arterial Base Excess -0.1 mmol/L (-3.0-3); Arterial COHb 0.3 % (0.0-3.0); Arterial HCO3 23.4 mmol/L (22.0-26.0); Arterial MetHb 0.2 % (0.0-1.5); Arterial Total Hemglobin 13.4 g/dl (12.0-18.0); MODE HFNC
[2016-11-10] MEDS: CALCITRIOL 0.25 MCG CAP PO SCH (08:52)
[2016-11-10] MEDS: ASPIRIN 81 MG TAB PO SCH (08:52)
[2016-11-10] MEDS: MYCOPHENOLATE MOFETIL PO SCH ×2 (08:53→20:59)
[2016-11-10] MEDS: CLOPIDOGREL 75 MG TAB PO SCH (08:53)
[2016-11-10] MEDS: CEFEPIME 1GM/50 ML IVPB SCH ×2 (08:53→20:59)
[2016-11-10] MEDS: ENOXAPARIN 30 MG/0.3 ML SYG SC SCH ×2 (08:55→21:08)
[2016-11-10] MEDS: MUPIROCIN 2% 22 GM OINT TOP SCH ×2 (09:01→21:00)
[2016-11-10] MEDS: AMIODARONE 200 MG TAB PO SCH (09:01)
--- NOTE | 2016-11-10 09:14 | CONS ---
Date/Time of Note Date/Time of Note DATE: 11/10/16 TIME: 09:09 Assessment/Plan Assessment/Plan Chief Complaint/Hosp Course ID PROGRESS NOTE CURRENT ABX=> Day # Vanco IV + Levaquin + Cefepime + Bactroban to nares 24H INTERVAL SUMMARY/HOSPITAL COURSE * A/A/O, VSS, NAD, no complaints offered, no fevers * Overall feeling much better PHYSICAL EXAMINATION: GENERAL: VSS, NAD HEENT: Unremarkable, except for O2 via NC NECK: Supple CHEST: Rise symmetrical bilaterally, without dyspnea on observation CV: RRR -- Pacing on Tele ABDOMEN: Soft EXTREMITIES: Warm, moves extremities ID ASSESSMENT: 71 yo M admit with: 1. Shock, multifactorial => Cardio + Sepsis * Leukocytosis => Normalized 11/10 / Partial IV steroids demargination * Fevers => Resolved 2. Acute hypoxic respiratory failure secondary #3; #4; #5 3. RLL consolidating PNA on admission per CXR 4. Acute exacerbation chronic COPD 5 Acute congestive heart failure (CHF) exacerbation 6. Coronary artery disease, history of coronary artery bypass grafting (CABG). 7. Aortic stenosis and cardiomyopathy. 8. Status post AICD. 9. Chronic kidney disease, history of kidney transplant in 2007. 10. 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 Continue current ABX over the weekend . Problems: Consultation Date/Type/Reason Admit Date/Time Nov 06, 2016 at 12:15 Initial Consult Date 11/08/16 Type of Consultation: ID Referring Provider: BRANDY REHMAN MD Exam/Review of Systems Vital Signs Vitals Vital Signs Date Time Temp Pulse Resp B/P Pulse Ox O2 Delivery O2 Flow Rate FiO2 11/10/16 05:42 99 50 11/09/16 21:00 85 27 115/74 High Flow 11/09/16 20:07 15.0 11/09/16 20:00 98.5 Intake and Output 11/09/16 11/09/16 11/10/16 15:00 23:00 07:00 Intake Total 600.05 ml 524.667 ml 124.4 ml Output Total 550 ml 530 ml 505 ml Balance 50.05 ml -5.333 ml -380.6 ml Results Result Diagram: 11/10/16 0430 11/10/16 0430 Results 24 hrs Laboratory Tests Test 11/10/16 04:30 11/10/16 07:00 White Blood Count 10.8 # Red Blood Count 3.61 L Hemoglobin 10.3 L Hematocrit 32.5 L Mean Corpuscular Volume 90.0 Mean Corpuscular Hemoglobin 28.5 L Mean Corpuscular Hemoglobin Concent 31.7 L Red Cell Distribution Width 16.4 H Platelet Count 144 Mean Platelet Volume 12.6 H Neutrophils % 92.9 H Lymphocytes % 0.9 L Monocytes % 4.9 Eosinophils % 0.0 Basophils % 0.0 Nucleated Red Blood Cells % 0.0 Neutrophils # (Manual) 10.0 H Lymphocytes # 0.1 L Monocytes # 0.5 Eosinophils # 0.0 Basophils # 0.0 Nucleated Red Blood Cells # 0.0 Sodium Level 147 H Potassium Level 3.8 Chloride Level 104 Carbon Dioxide Level 25 Anion Gap 22 H Blood Urea Nitrogen 75 H Creatinine 2.09 H Glucose Level 132 Calcium Level 7.5 L Phosphorus Level 4.2 Magnesium Level 2.1 Total Bilirubin 0.4 Direct Bilirubin 0.00 Indirect Bilirubin 0.4 Aspartate Amino Transf (AST/SGOT) 27 Alanine Aminotransferase (ALT/SGPT) 40 Alkaline Phosphatase 68 B-Type Natriuretic Peptide 17441 H Total Protein 5.8 L Albumin 3.0 L Globulin 2.80 Albumin/Globulin Ratio 1.07 Blood Gas Specimen Source Blood arterial Arterial Blood Date Drawn 11/10/2016 8:30:35 AM Arterial Blood pH (Temp corrected) 7.447 Arterial Blood pCO2 (Temp correct) 34.7 L Arterial Blood pO2 (Temp corrected) 66.0 L Arterial Blood HCO3 23.4 Arterial Blood Base Excess -0.1 Arterial Blood Oxygen Saturation 92.5 L Ji Test ACCEPTAB Arterial Blood Gas Puncture Site OTHER Arterial Blood Carboxyhemoglobin 0.3 Arterial Blood Methemoglobin 0.2 Blood Gas A-a O2 Differential 251.5 H Oxyhemoglobin Percent 92.0 L Total Hemoglobin 13.4 Blood Gas Temperature 37.0 Blood Gas Modality HFNC FiO2 50.0 Blood Gas Notified Whom DT Blood Gas Notified Time 11/10/2016 8:46:51 AM Medications Medications Current Medications Albuterol (Ventolin Hfa) 2 puff Q4H PRN INH SHORTNESS OF BREATH; Start at 13:30 Amiodarone HCl (Cordarone) 400 mg DAILY PO Last administered on 11/10/16 09:01 ; Admin Dose 400 MG; Start 11/07/16 at 09:00 Atorvastatin Calcium (Lipitor) 80 mg QHS PO Last administered on 11/07/16 21: 52; Admin Dose 80 MG; Start 11/06/16 at 21:00 Calcitriol (Rocaltrol) 0.25 mcg DAILY PO Last administered on 11/10/16 08:52; Admin Dose 0.25 MCG; Start 11/07/16 at 09:00 Carvedilol (Coreg) 3.125 mg BID PO Last administered on 11/10/16 08:52; Admin Dose 3.125 MG; Start 11/06/16 at 21:00 Doxazosin Mesylate (Cardura) 2 mg HS PO Last administered on 11/06/16 21:49; Admin Dose 2 MG; Start 11/06/16 at 21:00 Clopidogrel Bisulfate (plaVIX) 75 mg DAILY PO Last administered on 11/10/16 08 :53; Admin Dose 75 MG; Start 11/06/16 at 13:30 Enoxaparin Sodium (Lovenox) 30 mg BID SC Last administered on 11/10/16 08:55; Admin Dose 30 MG; Start 11/06/16 at 13:30 IV Flush 10 ml 10 ml PRN PRN IV IV PROTOCOL; Start 11/06/16 at 18:00 Norepinephrine/ Dextrose (Levophed/D5W) 500 ml @ 1.87 mls/hr TITRATE IV Last administered on 11/09/16 19:08; Admin Dose 3.75 MLS/HR; Start 11/07/16 at 04:00 Mupirocin (Bactroban) 1 applic BID TOP Last administered on 11/10/16 09:01; Admin Dose 1 APPLIC; Start 11/07/16 at 14:30 Alprazolam 1 mg 1 mg Q6 PRN PO AGITATION/ANXIETY Last administered on 16:41; Admin Dose 1 MG; Start 11/07/16 at 16:30 Sodium Chloride 1,000 ml @ 40 mls/hr Q24H IV Last administered on 11/08/16 16 :46; Admin Dose 40 MLS/HR; Start 11/07/16 at 19:00 Cefepime HCl 50 ml @ 100 mls/hr Q12 IVPB Last administered on 11/10/16 08:53 ; Admin Dose 100 MLS/HR; Start 11/07/16 at 21:00 Vancomycin HCl (Vancocin) 250 ml @ 125 mls/hr Q36H IVPB Last administered on 05:34; Admin Dose 125 MLS/HR; Start 11/09/16 at 05:00 Lansoprazole (Prevacid) 30 mg DAILY@06 PO ; Start 11/08/16 at 06:00 Tacrolimus (Prograf) 0.5 mg Q12 PO Last administered on 11/09/16 20:20; Admin Dose 0.5 MG; Start 11/07/16 at 21:30 Aspirin (Aspirin) 81 mg DAILY PO Last administered on 11/10/16 08:52; Admin Dose 81 MG; Start 11/08/16 at 09:00 Mycophenolate Mofetil 200 mg 200 mg BID PO Last administered on 11/10/16 08:53 ; Admin Dose 200 MG; Start 11/07/16 at 21:00 Dopamine HCl/ Dextrose (D5W) 250 ml @ 2.4 mls/hr TITRATE IV Last administered on 11/09/16 17:13; Admin Dose 2.4 MLS/HR; Start 11/08/16 at 08:30 Morphine Sulfate (morphine) 1 mg Q4H PRN IV PAIN Last administered on 03:23; Admin Dose 1 MG; Start 11/08/16 at 11:00 Methylprednisolone Sodium Succinate 60 mg 60 mg Q8 IV Last administered on 11/09 20:19; Admin Dose 60 MG; Start 11/08/16 at 14:00 Levofloxacin/ Dextrose (Levaquin 250 Mg/ D5W 50 ml (Pmx)) 50 ml @ 50 mls/hr Q24H IVPB Last administered on 11/09/16 13:26; Admin Dose 50 MLS/HR; Start at 13:00 Levothyroxine Sodium (Synthroid Iv) 100 mcg DAILY@06 IV Last administered on t 09:36; Admin Dose 100 MCG; Start 11/09/16 at 09:00 Miscellaneous Information (*Rx Drug Level Order Reminder*) 1 ONCE ONCE XX ; Start 11/10/16 at 16:00; Stop 11/10/16 at 16:01 MYRNA HOLT NP Nov 10, 2016 09:14
[2016-11-10] MEDS: TACROLIMUS 1 MG/ML PO SCH ×2 (09:56→21:07)
[2016-11-10] MEDS: SOD CHLORIDE 0.45% 1,000 ML IV SCH (09:57)
--- NOTE | 2016-11-10 11:48 | PN ---
Date/Time of Note Date/Time of Note DATE: 11/10/16 TIME: 11:41 Assessment/Plan VTE Prophylaxis VTE Prophylaxis Intervention: LMWH Lines/Catheters IV [facility] PICC Line Central line still needed: No Urinary Cath still in place: Yes Reason Cath still needed: other (indicate) (monitor urine output) Assessment/Plan Chief Complaint/Hosp Course 1. Acute hypoxemic hypercapnic respiratory failure. 2. Congestive heart failure acute on chronic. 3. Severe aortic stenosis 4. COPD 5. History of hypertension 6. Proximal atrial fibrillation 7. Dyslipidemia 8. History of coronary bypass graft 9. Severe coronary artery disease 10. Renal failure chronic status post renal transplant Recommendation: I will continue with the Plavix. Aspirin 81 mg p.o. will be given for now. Patient will be admitted to intensive care unit. Pulmonary/ICU consultation with Dr. barnes, has been putting place already. Renal consultation with Dr. Crowell has been ordered already. I have ordered a chest x-ray. BiPAP as well as nebulizer treatment for now. Cardiac rhythm will be checked again tomorrow and likely will be checked tomorrow to rule out myocardial infarction and correct electrolytes renal function as needed. PCI will be postponed if patient stabilizes. Patient was admitted to intensive care unit for close monitoring. Thank you for his referral will continue to follow along with you. CARMEN JARAMILLO MD [facility] Problems: Assessment/Plan A/P. This is a 71 years old male with history of CHF, EF 35%, Aortic stenosis, A.fib, CAD, CKD, s/p renal transplant who presented for elective coronary angiogram. Found to be in respiratory failure 1. Respiratory failure-combination of Pneumonia, CHF and ? COPD, steroids, antibiotics and diuretics are being given, chest x-ray much improved. Now off BiPAP on high flow oxygen at 50% FiO2. Clinically looks improved, comfortable. X-ray results today shows slight worsening, will monitor. 2. cardiovascular-patient with respiratory failure likely partly to CHF exacerbation, and pneumonia. Diuretics per cardiology and nephrology. Off pressors. Plan for transfer to [facility] for aortic valve procedure. 3. CKD-monitor kidney functions closely, will continue immunosuppressive medications as patient is status post renal transplant, renally dose all Meds. Kidney function remained stable 4. Anti coagulate with Lovenox, as patient has history of atrial fibrillation. 5. Protonix for GI prophylaxis 6. ID. WBC is normal on Vancomycin, Levaquin and Cefepime, ID to follow, follow up on cultures. follow up serial chest x-rays 7. PICC line placement for easier access was placed. 8. Dysphagia-advance diet to soft mechanical diet 2 g sodium. As tolerated 9. We will communicate with family regarding patient's improvement and plan of care. 10. Coronary artery disease-PCI is on hold. Will defer to cardiology at [facility] once patient is transferred 11. Hypothyroidism-continue IV Synthroid. TSH is at goal. 12. Over 40 minutes spent examining patient discussing with nursing staff, physicians , and reviewing records. 13. anxiolytics prn for anxiety. 14. Clinically better. Subjective 24 Hr Interval Summary Free Text/Dictation Remains in the intensive care unit on high flow oxygen via nasal cannula. Patient with no specific complaints. Discussed with nursing staff regarding advancing diet. Overall improving. WBC is now normal. Subjective hx not possible: pt critical status Constitutional: requiring O2 Eyes: No discharge, No pain ENT: No congestion Respiratory: shortness of breath Gastrointestinal: decreased appetite Genitourinary: No discharge Musculoskeletal: No neck pain Skin: other (Ecchymosis), No laceration Neurologic: No focal-weakness Lymphatic: No lymphadema, No tender nodes Psychological: No confusion Immunologic: No pruritis Exam/Review of Systems Vital Signs Vitals Vital Signs Date Time Temp Pulse Resp B/P Pulse Ox O2 Delivery O2 Flow Rate FiO2 11/10/16 08:00 Vapotherm 15.0 11/10/16 05:42 99 50 11/09/16 21:00 85 27 115/74 11/09/16 20:00 98.5 Intake and Output 11/09/16 11/09/16 11/10/16 15:00 23:00 07:00 Intake Total 600.05 ml 524.667 ml 126.8 ml Output Total 550 ml 530 ml 505 ml Balance 50.05 ml -5.333 ml -378.2 ml Exam Nasal cannula in place patient is on high flow. 50% FiO2 Constitutional: No distress, No non-verbal Psych: No confusion Head: No lacerations Eyes: PERRL ENMT: other (high flow oxygen) Neck: No bruits Cardiovascular: systolic murmur Gastrointestinal: No hepatomegaly Genitourinary - Male: No CVA tenderness Extremities: No calf tenderness, No clubbing, No cyanosis, No edema Results Result Diagram: 11/10/16 0430 11/10/16 0430 Results 24 hrs Laboratory Tests Test 11/10/16 04:30 11/10/16 07:00 White Blood Count 10.8 # Red Blood Count 3.61 L Hemoglobin 10.3 L Hematocrit 32.5 L Mean Corpuscular Volume 90.0 Mean Corpuscular Hemoglobin 28.5 L Mean Corpuscular Hemoglobin Concent 31.7 L Red Cell Distribution Width 16.4 H Platelet Count 144 Mean Platelet Volume 12.6 H Neutrophils % 92.9 H Lymphocytes % 0.9 L Monocytes % 4.9 Eosinophils % 0.0 Basophils % 0.0 Nucleated Red Blood Cells % 0.0 Neutrophils # (Manual) 10.0 H Lymphocytes # 0.1 L Monocytes # 0.5 Eosinophils # 0.0 Basophils # 0.0 Nucleated Red Blood Cells # 0.0 Sodium Level 147 H Potassium Level 3.8 Chloride Level 104 Carbon Dioxide Level 25 Anion Gap 22 H Blood Urea Nitrogen 75 H Creatinine 2.09 H Glucose Level 132 Calcium Level 7.5 L Phosphorus Level 4.2 Magnesium Level 2.1 Total Bilirubin 0.4 Direct Bilirubin 0.00 Indirect Bilirubin 0.4 Aspartate Amino Transf (AST/SGOT) 27 Alanine Aminotransferase (ALT/SGPT) 40 Alkaline Phosphatase 68 B-Type Natriuretic Peptide 94915 H Total Protein 5.8 L Albumin 3.0 L Globulin 2.80 Albumin/Globulin Ratio 1.07 Blood Gas Specimen Source Blood arterial Arterial Blood Date Drawn 11/10/2016 8:30:35 AM Arterial Blood pH (Temp corrected) 7.447 Arterial Blood pCO2 (Temp correct) 34.7 L Arterial Blood pO2 (Temp corrected) 66.0 L Arterial Blood HCO3 23.4 Arterial Blood Base Excess -0.1 Arterial Blood Oxygen Saturation 92.5 L Ji Test ACCEPTAB Arterial Blood Gas Puncture Site OTHER Arterial Blood Carboxyhemoglobin 0.3 Arterial Blood Methemoglobin 0.2 Blood Gas A-a O2 Differential 251.5 H Oxyhemoglobin Percent 92.0 L Total Hemoglobin 13.4 Blood Gas Temperature 37.0 Blood Gas Modality HFNC FiO2 50.0 Blood Gas Notified Whom DT Blood Gas Notified Time 11/10/2016 8:46:51 AM Medications Medications Current Medications Albuterol (Ventolin Hfa) 2 puff Q4H PRN INH SHORTNESS OF BREATH; Start at 13:30 Amiodarone HCl (Cordarone) 400 mg DAILY PO Last administered on 11/10/16 09:01 ; Admin Dose 400 MG; Start 11/07/16 at 09:00 Atorvastatin Calcium (Lipitor) 80 mg QHS PO Last administered on 11/07/16 21: 52; Admin Dose 80 MG; Start 11/06/16 at 21:00 Calcitriol (Rocaltrol) 0.25 mcg DAILY PO Last administered on 11/10/16 08:52; Admin Dose 0.25 MCG; Start 11/07/16 at 09:00 Carvedilol (Coreg) 3.125 mg BID PO Last administered on 11/10/16 08:52; Admin Dose 3.125 MG; Start 11/06/16 at 21:00 Doxazosin Mesylate (Cardura) 2 mg HS PO Last administered on 11/06/16 21:49; Admin Dose 2 MG; Start 11/06/16 at 21:00 Clopidogrel Bisulfate (plaVIX) 75 mg DAILY PO Last administered on 11/10/16 08 :53; Admin Dose 75 MG; Start 11/06/16 at 13:30 Enoxaparin Sodium (Lovenox) 30 mg BID SC Last administered on 11/10/16 08:55; Admin Dose 30 MG; Start 11/06/16 at 13:30 IV Flush 10 ml 10 ml PRN PRN IV IV PROTOCOL; Start 11/06/16 at 18:00 Norepinephrine/ Dextrose (Levophed/D5W) 500 ml @ 1.87 mls/hr TITRATE IV Last administered on 11/09/16 19:08; Admin Dose 3.75 MLS/HR; Start 11/07/16 at 04:00 Mupirocin (Bactroban) 1 applic BID TOP Last administered on 11/10/16 09:01; Admin Dose 1 APPLIC; Start 11/07/16 at 14:30 Alprazolam 1 mg 1 mg Q6 PRN PO AGITATION/ANXIETY Last administered on 16:41; Admin Dose 1 MG; Start 11/07/16 at 16:30 Sodium Chloride 1,000 ml @ 40 mls/hr Q24H IV Last administered on 11/10/16 09 :57; Admin Dose 40 MLS/HR; Start 11/07/16 at 19:00 Cefepime HCl 50 ml @ 100 mls/hr Q12 IVPB Last administered on 11/10/16 08:53 ; Admin Dose 100 MLS/HR; Start 11/07/16 at 21:00 Vancomycin HCl (Vancocin) 250 ml @ 125 mls/hr Q36H IVPB Last administered on 05:34; Admin Dose 125 MLS/HR; Start 11/09/16 at 05:00 Lansoprazole (Prevacid) 30 mg DAILY@06 PO ; Start 11/08/16 at 06:00 Tacrolimus (Prograf) 0.5 mg Q12 PO Last administered on 11/10/16 09:56; Admin Dose 0.5 MG; Start 11/07/16 at 21:30 Aspirin (Aspirin) 81 mg DAILY PO Last administered on 11/10/16 08:52; Admin Dose 81 MG; Start 11/08/16 at 09:00 Mycophenolate Mofetil 200 mg 200 mg BID PO Last administered on 11/10/16 08:53 ; Admin Dose 200 MG; Start 11/07/16 at 21:00 Dopamine HCl/ Dextrose (D5W) 250 ml @ 2.4 mls/hr TITRATE IV Last administered on 11/09/16 17:13; Admin Dose 2.4 MLS/HR; Start 11/08/16 at 08:30 Morphine Sulfate (morphine) 1 mg Q4H PRN IV PAIN Last administered on 03:23; Admin Dose 1 MG; Start 11/08/16 at 11:00 Methylprednisolone Sodium Succinate 60 mg 60 mg Q8 IV Last administered on 11/09 20:19; Admin Dose 60 MG; Start 11/08/16 at 14:00 Levofloxacin/ Dextrose (Levaquin 250 Mg/ D5W 50 ml (Pmx)) 50 ml @ 50 mls/hr Q24H IVPB Last administered on 11/09/16 13:26; Admin Dose 50 MLS/HR; Start at 13:00 Levothyroxine Sodium (Synthroid Iv) 100 mcg DAILY@06 IV Last administered on 09:36; Admin Dose 100 MCG; Start 11/09/16 at 09:00 Miscellaneous Information (*Rx Drug Level Order Reminder*) 1 ONCE ONCE XX ; Start 11/10/16 at 16:00; Stop 11/10/16 at 16:01 BRANDY REHMAN MD Nov 10, 2016 11:48
--- NOTE | 2016-11-10 12:23 | CONS ---
Date/Time of Note Date/Time of Note DATE: 11/10/16 TIME: 12:21 Consult Date/Type/Reason Admit Date/Time Nov 06, 2016 at 12:15 Initial Consult Date 11/06/16 Type of Consultation: CARDIOLOGY Ordering Provider: BRANDY REHMAN MD Subjective CARDIOLOGY FOLLOW UP NOTE/ critical care note: d/w staff and rhythm was reviewed. pt remains in V paced rhythm with P afib. d/w son and daughter. no chest pain or pressure or palpitations. he is off of BIPAP now and on high flow O2 he denies any palpitations. he still has sob. OBJECTIVE: General: IN mild dresp distress on O2 HEENT: NC/AT. pupils are equal. round. NECK: NO JVD. no stridor. CV: RRR. systolic murmur; no gallop or rubs. PULM: NO wheezing. diffuse rhonchi more on the right side. . GI: SOFT, NT, ND, no rebound or guarding Extremity: trace B/L LE edema. no clubbing. neuro: awake and alert, OX3. Psych: anxious but pleasant rectal: deferred : normal CXR reviewed. + pulm edema Objective Vital Signs Date Time Temp Pulse Resp B/P Pulse Ox O2 Delivery O2 Flow Rate FiO2 11/10/16 08:00 Vapotherm 15.0 11/10/16 05:42 99 50 11/09/16 21:00 85 27 115/74 11/09/16 20:00 98.5 Intake and Output 11/09/16 11/09/16 11/10/16 15:00 23:00 07:00 Intake Total 600.05 ml 524.667 ml 126.8 ml Output Total 550 ml 530 ml 505 ml Balance 50.05 ml -5.333 ml -378.2 ml Results/Medications Result Diagram: 11/10/16 0430 11/10/16 0430 Results 24 hrs Laboratory Tests Test 11/10/16 04:30 11/10/16 07:00 White Blood Count 10.8 # Red Blood Count 3.61 L Hemoglobin 10.3 L Hematocrit 32.5 L Mean Corpuscular Volume 90.0 Mean Corpuscular Hemoglobin 28.5 L Mean Corpuscular Hemoglobin Concent 31.7 L Red Cell Distribution Width 16.4 H Platelet Count 144 Mean Platelet Volume 12.6 H Neutrophils % 92.9 H Lymphocytes % 0.9 L Monocytes % 4.9 Eosinophils % 0.0 Basophils % 0.0 Nucleated Red Blood Cells % 0.0 Neutrophils # (Manual) 10.0 H Lymphocytes # 0.1 L Monocytes # 0.5 Eosinophils # 0.0 Basophils # 0.0 Nucleated Red Blood Cells # 0.0 Sodium Level 147 H Potassium Level 3.8 Chloride Level 104 Carbon Dioxide Level 25 Anion Gap 22 H Blood Urea Nitrogen 75 H Creatinine 2.09 H Glucose Level 132 Calcium Level 7.5 L Phosphorus Level 4.2 Magnesium Level 2.1 Total Bilirubin 0.4 Direct Bilirubin 0.00 Indirect Bilirubin 0.4 Aspartate Amino Transf (AST/SGOT) 27 Alanine Aminotransferase (ALT/SGPT) 40 Alkaline Phosphatase 68 B-Type Natriuretic Peptide 03021 H Total Protein 5.8 L Albumin 3.0 L Globulin 2.80 Albumin/Globulin Ratio 1.07 Blood Gas Specimen Source Blood arterial Arterial Blood Date Drawn 11/10/2016 8:30:35 AM Arterial Blood pH (Temp corrected) 7.447 Arterial Blood pCO2 (Temp correct) 34.7 L Arterial Blood pO2 (Temp corrected) 66.0 L Arterial Blood HCO3 23.4 Arterial Blood Base Excess -0.1 Arterial Blood Oxygen Saturation 92.5 L Ji Test ACCEPTAB Arterial Blood Gas Puncture Site OTHER Arterial Blood Carboxyhemoglobin 0.3 Arterial Blood Methemoglobin 0.2 Blood Gas A-a O2 Differential 251.5 H Oxyhemoglobin Percent 92.0 L Total Hemoglobin 13.4 Blood Gas Temperature 37.0 Blood Gas Modality HFNC FiO2 50.0 Blood Gas Notified Whom DT Blood Gas Notified Time 11/10/2016 8:46:51 AM Medications Current Medications Albuterol (Ventolin Hfa) 2 puff Q4H PRN INH SHORTNESS OF BREATH; Start at 13:30 Amiodarone HCl (Cordarone) 400 mg DAILY PO Last administered on 11/10/16 09:01 ; Admin Dose 400 MG; Start 11/07/16 at 09:00 Atorvastatin Calcium (Lipitor) 80 mg QHS PO Last administered on 11/07/16 21: 52; Admin Dose 80 MG; Start 11/06/16 at 21:00 Calcitriol (Rocaltrol) 0.25 mcg DAILY PO Last administered on 11/10/16 08:52; Admin Dose 0.25 MCG; Start 11/07/16 at 09:00 Carvedilol (Coreg) 3.125 mg BID PO Last administered on 11/10/16 08:52; Admin Dose 3.125 MG; Start 11/06/16 at 21:00 Doxazosin Mesylate (Cardura) 2 mg HS PO Last administered on 11/06/16 21:49; Admin Dose 2 MG; Start 11/06/16 at 21:00 Clopidogrel Bisulfate (plaVIX) 75 mg DAILY PO Last administered on 11/10/16 08 :53; Admin Dose 75 MG; Start 11/06/16 at 13:30 Enoxaparin Sodium (Lovenox) 30 mg BID SC Last administered on 11/10/16 08:55; Admin Dose 30 MG; Start 11/06/16 at 13:30 IV Flush 10 ml 10 ml PRN PRN IV IV PROTOCOL; Start 11/06/16 at 18:00 Norepinephrine/ Dextrose (Levophed/D5W) 500 ml @ 1.87 mls/hr TITRATE IV Last administered on 11/09/16 19:08; Admin Dose 3.75 MLS/HR; Start 11/07/16 at 04:00 Mupirocin (Bactroban) 1 applic BID TOP Last administered on 11/10/16 09:01; Admin Dose 1 APPLIC; Start 11/07/16 at 14:30 Alprazolam 1 mg 1 mg Q6 PRN PO AGITATION/ANXIETY Last administered on 16:41; Admin Dose 1 MG; Start 11/07/16 at 16:30 Sodium Chloride 1,000 ml @ 40 mls/hr Q24H IV Last administered on 11/10/16 09 :57; Admin Dose 40 MLS/HR; Start 11/07/16 at 19:00 Cefepime HCl 50 ml @ 100 mls/hr Q12 IVPB Last administered on 11/10/16 08:53 ; Admin Dose 100 MLS/HR; Start 11/07/16 at 21:00 Vancomycin HCl (Vancocin) 250 ml @ 125 mls/hr Q36H IVPB Last administered on 05:34; Admin Dose 125 MLS/HR; Start 11/09/16 at 05:00 Lansoprazole (Prevacid) 30 mg DAILY@06 PO ; Start 11/08/16 at 06:00 Tacrolimus (Prograf) 0.5 mg Q12 PO Last administered on 11/10/16 09:56; Admin Dose 0.5 MG; Start 11/07/16 at 21:30 Aspirin (Aspirin) 81 mg DAILY PO Last administered on 11/10/16 08:52; Admin Dose 81 MG; Start 11/08/16 at 09:00 Mycophenolate Mofetil 200 mg 200 mg BID PO Last administered on 11/10/16 08:53 ; Admin Dose 200 MG; Start 11/07/16 at 21:00 Dopamine HCl/ Dextrose (D5W) 250 ml @ 2.4 mls/hr TITRATE IV Last administered on 11/09/16 17:13; Admin Dose 2.4 MLS/HR; Start 11/08/16 at 08:30 Morphine Sulfate (morphine) 1 mg Q4H PRN IV PAIN Last administered on 03:23; Admin Dose 1 MG; Start 11/08/16 at 11:00 Methylprednisolone Sodium Succinate 60 mg 60 mg Q8 IV Last administered on 11/09 20:19; Admin Dose 60 MG; Start 11/08/16 at 14:00 Levofloxacin/ Dextrose (Levaquin 250 Mg/ D5W 50 ml (Pmx)) 50 ml @ 50 mls/hr Q24H IVPB Last administered on 11/09/16 13:26; Admin Dose 50 MLS/HR; Start at 13:00 Levothyroxine Sodium (Synthroid Iv) 100 mcg DAILY@06 IV Last administered on 09:36; Admin Dose 100 MCG; Start 11/09/16 at 09:00 Miscellaneous Information (*Rx Drug Level Order Reminder*) 1 ONCE ONCE XX ; Start 11/10/16 at 16:00; Stop 11/10/16 at 16:01 Assessment/Plan Chief Complaint/Hosp Course 1. Acute hypoxemic hypercapnic respiratory failure: 2. Congestive heart failure acute on chronic due to systolic and diastolic heart failure and mostly severe . 3. Severe aortic stenosis 4. COPD 5. History of hypertension 6. Proximal atrial fibrillation: currently appears to be in NSR . 7. Dyslipidemia 8. History of coronary bypass graft 9. Severe coronary artery disease 10. Renal failure chronic status post renal transplant 11. shock: on levophed drip now 12. ACS Recommendation: I will continue with the Plavix and Aspirin 81 mg p.o. BUMEX drip for now. will dc dopmaine drip abx as per IM/ pulm consider high dose/ stress dose steroids as per pulm Pulmonary/ICU consultation with Dr. wills and Renal consultation with Dr. Carpio is appreciated. Patient WILL be monitored in intensive care unit for close monitoring. katalina. asif/ w DR Santos Anderson at [facility] on who agreed to accept pt for TAVR. I have placed the call to transfer center at [facility] already for transferring for higher level of care for TAVR cont ICU care Thank you for his referral will continue to follow along with you. CARMEN JARAMILLO MD [facility] Problems: CARMEN JARAMILLO MD Nov 10, 2016 12:23
--- NOTE | 2016-11-10 13:11 | CONS ---
Date/Time of Note Date/Time of Note DATE: 11/10/16 TIME: 13:08 Consult Date/Type/Reason Admit Date/Time Nov 06, 2016 at 12:15 Initial Consult Date 11/08/16 Type of Consultation: Pulm/CCM Ordering Provider: BRANDY REHMAN MD Subjective On high flow NC. Doing okay. Objective Vital Signs Date Time Temp Pulse Resp B/P Pulse Ox O2 Delivery O2 Flow Rate FiO2 11/10/16 08:00 Vapotherm 15.0 11/10/16 05:42 99 50 11/09/16 21:00 85 27 115/74 11/09/16 20:00 98.5 Intake and Output 11/09/16 11/09/16 11/10/16 15:00 23:00 07:00 Intake Total 600.05 ml 524.667 ml 126.8 ml Output Total 550 ml 530 ml 505 ml Balance 50.05 ml -5.333 ml -378.2 ml Exam NECK: Supple. No JVD or lymphadenopathy. CARDIAC EXAM: S1, S2. No added sounds or murmurs. CHEST: Bibasilar rales ABDOMEN: Soft, nontender. No guarding or rebound. EXTREMITIES: No cyanosis, clubbing or edema. Results/Medications Result Diagram: 11/10/16 0430 11/10/16 0430 Results 24 hrs Laboratory Tests Test 11/10/16 04:30 11/10/16 07:00 White Blood Count 10.8 # Red Blood Count 3.61 L Hemoglobin 10.3 L Hematocrit 32.5 L Mean Corpuscular Volume 90.0 Mean Corpuscular Hemoglobin 28.5 L Mean Corpuscular Hemoglobin Concent 31.7 L Red Cell Distribution Width 16.4 H Platelet Count 144 Mean Platelet Volume 12.6 H Neutrophils % 92.9 H Lymphocytes % 0.9 L Monocytes % 4.9 Eosinophils % 0.0 Basophils % 0.0 Nucleated Red Blood Cells % 0.0 Neutrophils # (Manual) 10.0 H Lymphocytes # 0.1 L Monocytes # 0.5 Eosinophils # 0.0 Basophils # 0.0 Nucleated Red Blood Cells # 0.0 Sodium Level 147 H Potassium Level 3.8 Chloride Level 104 Carbon Dioxide Level 25 Anion Gap 22 H Blood Urea Nitrogen 75 H Creatinine 2.09 H Glucose Level 132 Calcium Level 7.5 L Phosphorus Level 4.2 Magnesium Level 2.1 Total Bilirubin 0.4 Direct Bilirubin 0.00 Indirect Bilirubin 0.4 Aspartate Amino Transf (AST/SGOT) 27 Alanine Aminotransferase (ALT/SGPT) 40 Alkaline Phosphatase 68 B-Type Natriuretic Peptide 97864 H Total Protein 5.8 L Albumin 3.0 L Globulin 2.80 Albumin/Globulin Ratio 1.07 Blood Gas Specimen Source Blood arterial Arterial Blood Date Drawn 11/10/2016 8:30:35 AM Arterial Blood pH (Temp corrected) 7.447 Arterial Blood pCO2 (Temp correct) 34.7 L Arterial Blood pO2 (Temp corrected) 66.0 L Arterial Blood HCO3 23.4 Arterial Blood Base Excess -0.1 Arterial Blood Oxygen Saturation 92.5 L Ji Test ACCEPTAB Arterial Blood Gas Puncture Site OTHER Arterial Blood Carboxyhemoglobin 0.3 Arterial Blood Methemoglobin 0.2 Blood Gas A-a O2 Differential 251.5 H Oxyhemoglobin Percent 92.0 L Total Hemoglobin 13.4 Blood Gas Temperature 37.0 Blood Gas Modality HFNC FiO2 50.0 Blood Gas Notified Whom DT Blood Gas Notified Time 11/10/2016 8:46:51 AM Medications Current Medications Albuterol (Ventolin Hfa) 2 puff Q4H PRN INH SHORTNESS OF BREATH; Start at 13:30 Amiodarone HCl (Cordarone) 400 mg DAILY PO Last administered on 11/10/16 09:01 ; Admin Dose 400 MG; Start 11/07/16 at 09:00 Atorvastatin Calcium (Lipitor) 80 mg QHS PO Last administered on 11/07/16 21: 52; Admin Dose 80 MG; Start 11/06/16 at 21:00 Calcitriol (Rocaltrol) 0.25 mcg DAILY PO Last administered on 11/10/16 08:52; Admin Dose 0.25 MCG; Start 11/07/16 at 09:00 Carvedilol (Coreg) 3.125 mg BID PO Last administered on 11/10/16 08:52; Admin Dose 3.125 MG; Start 11/06/16 at 21:00 Doxazosin Mesylate (Cardura) 2 mg HS PO Last administered on 11/06/16 21:49; Admin Dose 2 MG; Start 11/06/16 at 21:00 Clopidogrel Bisulfate (plaVIX) 75 mg DAILY PO Last administered on 11/10/16 08 :53; Admin Dose 75 MG; Start 11/06/16 at 13:30 Enoxaparin Sodium (Lovenox) 30 mg BID SC Last administered on 11/10/16 08:55; Admin Dose 30 MG; Start 11/06/16 at 13:30 IV Flush 10 ml 10 ml PRN PRN IV IV PROTOCOL; Start 11/06/16 at 18:00 Norepinephrine/ Dextrose (Levophed/D5W) 500 ml @ 1.87 mls/hr TITRATE IV Last administered on 11/09/16 19:08; Admin Dose 3.75 MLS/HR; Start 11/07/16 at 04:00 Mupirocin (Bactroban) 1 applic BID TOP Last administered on 11/10/16 09:01; Admin Dose 1 APPLIC; Start 11/07/16 at 14:30 Alprazolam 1 mg 1 mg Q6 PRN PO AGITATION/ANXIETY Last administered on 16:41; Admin Dose 1 MG; Start 11/07/16 at 16:30 Sodium Chloride 1,000 ml @ 40 mls/hr Q24H IV Last administered on 11/10/16 09 :57; Admin Dose 40 MLS/HR; Start 11/07/16 at 19:00 Cefepime HCl 50 ml @ 100 mls/hr Q12 IVPB Last administered on 11/10/16 08:53 ; Admin Dose 100 MLS/HR; Start 11/07/16 at 21:00 Vancomycin HCl (Vancocin) 250 ml @ 125 mls/hr Q36H IVPB Last administered on 05:34; Admin Dose 125 MLS/HR; Start 11/09/16 at 05:00 Lansoprazole (Prevacid) 30 mg DAILY@06 PO ; Start 11/08/16 at 06:00 Tacrolimus (Prograf) 0.5 mg Q12 PO Last administered on 11/10/16 09:56; Admin Dose 0.5 MG; Start 11/07/16 at 21:30 Aspirin (Aspirin) 81 mg DAILY PO Last administered on 11/10/16 08:52; Admin Dose 81 MG; Start 11/08/16 at 09:00 Mycophenolate Mofetil 200 mg 200 mg BID PO Last administered on 11/10/16 08:53 ; Admin Dose 200 MG; Start 11/07/16 at 21:00 Dopamine HCl/ Dextrose (D5W) 250 ml @ 2.4 mls/hr TITRATE IV Last administered on 11/09/16 17:13; Admin Dose 2.4 MLS/HR; Start 11/08/16 at 08:30 Morphine Sulfate (morphine) 1 mg Q4H PRN IV PAIN Last administered on 03:23; Admin Dose 1 MG; Start 11/08/16 at 11:00 Methylprednisolone Sodium Succinate 60 mg 60 mg Q8 IV Last administered on 11/09 20:19; Admin Dose 60 MG; Start 11/08/16 at 14:00 Levofloxacin/ Dextrose (Levaquin 250 Mg/ D5W 50 ml (Pmx)) 50 ml @ 50 mls/hr Q24H IVPB Last administered on 11/09/16 13:26; Admin Dose 50 MLS/HR; Start at 13:00 Levothyroxine Sodium (Synthroid Iv) 100 mcg DAILY@06 IV Last administered on 09:36; Admin Dose 100 MCG; Start 11/09/16 at 09:00 Miscellaneous Information 1 ONCE ONCE XX ; Start 11/10/16 at 16:00; Stop at 16:01 Bumetanide/ Dextrose (Bumex/D5W) 30 ml @ 16.667 mls/ hr Q1H48M ONCE IV ; Start 11/10/16 at 14:00; Stop 11/10/16 at 15:47 Assessment/Plan Additional Assessment/Plan IMPRESSION: 1. Hypoxemic Resp Insufficiency--due to CHF superimposed on severe emphysema 2. CHF/Pna 3. History of chronic obstructive pulmonary disease. 4. History of coronary artery bypass graft surgery. 5. Leukocytosis likely secondary to underlying pneumonia. Continues antibiotics of cefepime and vancomycin PLAN: 1. Trial of high flow O2--> titrate to SpO2 88-92% 2. Diuretics per cardiology 3. Aspiration precautions 4. Continue Plavix and aspirin. 5. Continue IV steroids and BD's 6. Mobilize OOB 35 min cc time DUY PINEDA MD Nov 10, 2016 13:11
[2016-11-10] MEDS: LEVOFLOXACIN 250MG/D5W (PMX) 50 ML IVPB SCH (13:59)
[2016-11-10] MEDS ORDERED: BUMETANIDE 3 MG in DEXTROSE 5% 18 ML IV ONE (14:00)
--- NOTE | 2016-11-10 14:50 | RADRPT ---
Vent Rate: 122 bpm RR Interval: 0 msec IN Interval: 0 msec QRS Duration: 182 msec QT Interval: 462 msec QTC Interval: 658 msec P-R-T [place]: 0 - -3 - 0 degrees Wide QRS tachycardia VT could not be excluded vs SVT Right bundle branch block left [place] Deviation bifacsicular block Inferior infarct , age undetermined Anteroseptal infarct , age undetermined T wave abnormality, consider lateral ischemia Abnormal ECG No previous tracing available for comparison Electronically Signed By: Negro Nelson [id number]
--- NOTE | 2016-11-10 14:53 | RADRPT ---
Vent Rate: 111 bpm RR Interval: 0 msec AL Interval: 160 msec QRS Duration: 174 msec QT Interval: 418 msec QTC Interval: 568 msec P-R-T [place]: 0 - -47 - 76 degrees Electronic ventricular pacemaker Probable underlying Afib No previous tracing available for comparison Electronically Signed By: Negro Nelson [id number]
[2016-11-10] MEDS: VANCOMYCIN 1 GM in NS 250 ML IVPB SCH ×2 (17:12→18:30)
[2016-11-10] MEDS: ATORVASTATIN 80 MG TAB PO SCH (20:59)
[2016-11-10] MEDS: DOXAZOSIN 2 MG TAB PO SCH (21:00)
[2016-11-11] VITALS (22 sets, daily range): BP systolic 87–133; BP diastolic 35–78; PULSE 60–66; RESP 18–31
[2016-11-11 05:35] LABS: ABNORMAL IP MESSAGE 1; HEMATOCRIT 30.1 % (42.0-52.0); HEMOGLOBIN 9.4 g/dl (14.0-18.0); LYMPHOCYTES # 0.1 10^3/ul (0.8-2.9); LYMPHOCYTES % 1.6 % (15.0-51.0); MEAN CORPUSCULAR HEMOGLOBIN 28.2 pg (29.0-33.0); MEAN CORPUSCULAR HGB CONC 31.2 g/dl (32.0-37.0); MEAN CORPUSCULAR VOLUME 90.4 fl (82.0-101.0); MEAN PLATELET VOLUME 12.7 fl (7.4-10.4); MONOCYTE # 0.3 10^3/ul (0.3-0.9); MONOCYTES % 4.7 % (0.0-11.0); NEUTROPHILS % 92.7 % (39.0-77.0); PLATELET COUNT 126 10^3/UL (140-415); POSITIVE DIFF @See below; RED BLOOD COUNT 3.33 10^6/ul (4.70-6.10); RED CELL DISTRIBUTION WIDTH 16.4 % (11.5-14.5); WHITE BLOOD COUNT 6.9 10^3/ul (4.8-10.8)
[2016-11-11 05:59] LABS: ALBUMIN 2.7 g/dl (3.3-4.9); BILIRUBIN,INDIRECT 0.3 mg/dl (0-1.1); BILIRUBIN,TOTAL 0.3 mg/dl (0.2-1.3); CALCIUM 7.5 mg/dl (8.4-10.2); CREATININE 2.36 mg/dl (0.61-1.24); POTASSIUM 3.6 mmol/L (3.5-5.1); TOTAL PROTEIN 5.4 g/dl (6.1-8.1)
[2016-11-11 06:09] LABS: CALCIUM 7.3 mg/dl (8.4-10.2); CREATININE 2.43 mg/dl (0.61-1.24); MAGNESIUM 2.3 mg/dl (1.7-2.5); PHOSPHORUS 5.3 mg/dl (2.5-4.9); POTASSIUM 3.7 mmol/L (3.5-5.1)
[2016-11-11] MEDS: LANSOPRAZOLE 30 MG CAP PO SCH (06:24)
[2016-11-11] MEDS: METHYLPREDNISOLONE 125 MG INJ IV SCH ×3 (06:24→21:19)
[2016-11-11] MEDS: LEVOTHYROXINE 100 MCG VIAL IV SCH (06:24)
[2016-11-11] MEDS: ASPIRIN 81 MG TAB PO SCH (09:36)
[2016-11-11] MEDS: CEFEPIME 1GM/50 ML IVPB SCH (09:36)
[2016-11-11] MEDS: CALCITRIOL 0.25 MCG CAP PO SCH (09:37)
[2016-11-11] MEDS: CLOPIDOGREL 75 MG TAB PO SCH (09:37)
[2016-11-11] MEDS: MYCOPHENOLATE MOFETIL PO SCH ×2 (09:37→23:05)
[2016-11-11] MEDS: MUPIROCIN 2% 22 GM OINT TOP SCH ×2 (09:38→23:05)
[2016-11-11] MEDS: AMIODARONE 200 MG TAB PO SCH (09:38)
[2016-11-11] MEDS: ENOXAPARIN 30 MG/0.3 ML SYG SC SCH ×2 (09:39→21:58)
--- NOTE | 2016-11-11 09:39 | PN ---
DATE: 11/11/2016 SUBJECTIVE DATA: The patient is clinically improving. Currently on 4 L nasal cannula. Urinary output has been excellent. No other acute events noted. No hemoptysis, hematemesis, hematochezia. OBJECTIVE DATA: VITAL SIGNS: Blood pressure is 96/59, respirations 20, pulse 60, temperature 98.0. Input and output; the patient had 1.2 L in, 1.6 L out. HEENT: Head is normocephalic. NECK: Supple. HEART: Regular rate. LUNGS: Diminished breath sounds at the base. ABDOMEN: Soft. Nontender to palpation. No rebound or guarding. EXTREMITIES: Negative for clubbing or cyanosis. No edema. DERMATOLOGIC: Clean. No rashes. MUSCULOSKELETAL: No joint effusion. NEUROLOGIC: Unchanged exam. MEDICATIONS: Reviewed. LABORATORY AND DIAGNOSTIC DATA: Sodium 141, potassium 3.6, chloride 100, BUN 100, creatinine 2.36, calcium 2.5. White count 6.9, hemoglobin 9.4, hematocrit 28.1, platelet count is 126,000. DIAGNOSTIC DATA: Chest x-ray on 11/10 shows slightly worse appearance of the lungs, findings consistent with pulmonary edema. ASSESSMENT AND PLAN: 1. 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 Etiology of current acute kidney injury secondary to cardiorenal syndrome, diuretics. The patient's renal function has declined in the last 24 hours as creatinine increased to 2.36 with significant azotemia. Etiology of azotemia is due to cardiorenal syndrome, hypercatabolic state and steroids. There is low suspicion for acute rejection at this time as the patient had a bland urinary sediment. However, will check a Prograf level, will repeat urinalysis. Would otherwise continue supportive care. Renally dose all meds. Would differ diuretic therapy at this time. Will further also recommend transfer to a tertiary center. 2. History of end-stage renal disease status post transplant with previous baseline creatinine 1.7 mg/dL. The patient's acute kidney injury stated above. At this point, continue current treatment plan. Continue immune suppressive regimen. 3. Hypernatremia, improved. Continue free water intake. 4. Mineral bone disorder. Monitor calcium and phosphorus levels. 5. Anemia. Monitor hemoglobin and hematocrit levels. 6. Shock. Etiology is cardiogenic. Possible sepsis. The patient is being weaned off dopamine. Continue broad-spectrum antibiotics. 7. Acute decompensated heart failure. The patient continues to have congestion on chest x-ray; however, currently now nasal cannula. Would hold diuretic therapy today given worsening renal function. 8. Severe aortic stenosis. The patient is pending possible transfer to [facility]. 9. History of coronary artery disease status post coronary artery bypass graft. Continue medical management. 10. Atrial fibrillation. Currently in sinus rhythm. Dictated By: Ezra Carpio DO /jack/vasyl /Document#: [id number]
[2016-11-11] MEDS: TACROLIMUS 1 MG/ML PO SCH ×2 (10:11→23:05)
--- NOTE | 2016-11-11 11:29 | CONS ---
Date/Time of Note Date/Time of Note DATE: 11/11/16 TIME: 11:27 Consult Date/Type/Reason Admit Date/Time Nov 06, 2016 at 12:15 Initial Consult Date 11/08/16 Type of Consultation: Pulm/CCM Ordering Provider: BRANDY REHMAN MD Subjective Doing much better. Off high-flow NC. Objective Vital Signs Date Time Temp Pulse Resp B/P Pulse Ox O2 Delivery O2 Flow Rate FiO2 11/11/16 08:00 Nasal Cannula 4.0 11/11/16 08:00 61 11/11/16 06:00 103/56 11/11/16 05:00 21 100 11/11/16 04:00 98.0 11/10/16 17:30 35 Intake and Output 11/10/16 11/10/16 11/11/16 15:00 23:00 07:00 Intake Total 287.6 ml 1055 ml 405 ml Output Total 1285 ml 610 ml Balance 287.6 ml -230 ml -205 ml Exam NECK: Supple. No JVD or lymphadenopathy. CARDIAC EXAM: paced S1, S2. CHEST: Bibasilar rales ABDOMEN: Soft, nontender. No guarding or rebound. EXTREMITIES: No cyanosis, clubbing or edema. Results/Medications Result Diagram: 11/11/16 0430 11/11/16 0430 Results 24 hrs Laboratory Tests Test 11/10/16 16:40 11/11/16 04:30 Vancomycin Level Trough 13.1 White Blood Count 6.9 # Red Blood Count 3.33 L Hemoglobin 9.4 L Hematocrit 30.1 L Mean Corpuscular Volume 90.4 Mean Corpuscular Hemoglobin 28.2 L Mean Corpuscular Hemoglobin Concent 31.2 L Red Cell Distribution Width 16.4 H Platelet Count 126 L Mean Platelet Volume 12.7 H Neutrophils % 92.7 H Lymphocytes % 1.6 L Monocytes % 4.7 Eosinophils % 0.0 Basophils % 0.0 Nucleated Red Blood Cells % 0.0 Neutrophils # (Manual) 6.4 Lymphocytes # 0.1 L Monocytes # 0.3 Eosinophils # 0.0 Basophils # 0.0 Nucleated Red Blood Cells # 0.0 Sodium Level 141 Potassium Level 3.6 Chloride Level 100 Carbon Dioxide Level 25 Anion Gap 20 H Blood Urea Nitrogen 100 H Creatinine 2.36 H Glucose Level 146 Calcium Level 7.5 L Phosphorus Level 5.3 H Magnesium Level 2.3 Total Bilirubin 0.3 Direct Bilirubin 0.00 Indirect Bilirubin 0.3 Aspartate Amino Transf (AST/SGOT) 28 Alanine Aminotransferase (ALT/SGPT) 48 Alkaline Phosphatase 55 B-Type Natriuretic Peptide 72710 H Total Protein 5.4 L Albumin 2.7 L Globulin 2.70 Albumin/Globulin Ratio 1.00 Digoxin Level 0.5 L Medications Current Medications Albuterol (Ventolin Hfa) 2 puff Q4H PRN INH SHORTNESS OF BREATH; Start at 13:30 Amiodarone HCl (Cordarone) 400 mg DAILY PO Last administered on 11/11/16 09:38 ; Admin Dose 400 MG; Start 11/07/16 at 09:00 Atorvastatin Calcium (Lipitor) 80 mg QHS PO Last administered on 11/10/16 20: 59; Admin Dose 80 MG; Start 11/06/16 at 21:00 Calcitriol (Rocaltrol) 0.25 mcg DAILY PO Last administered on 11/11/16 09:37; Admin Dose 0.25 MCG; Start 11/07/16 at 09:00 Carvedilol (Coreg) 3.125 mg BID PO Last administered on 11/10/16 08:52; Admin Dose 3.125 MG; Start 11/06/16 at 21:00 Doxazosin Mesylate (Cardura) 2 mg HS PO Last administered on 11/06/16 21:49; Admin Dose 2 MG; Start 11/06/16 at 21:00 Clopidogrel Bisulfate (plaVIX) 75 mg DAILY PO Last administered on 11/11/16 09 :37; Admin Dose 75 MG; Start 11/06/16 at 13:30 Enoxaparin Sodium (Lovenox) 30 mg BID SC Last administered on 11/11/16 09:39; Admin Dose 30 MG; Start 11/06/16 at 13:30 IV Flush 10 ml 10 ml PRN PRN IV IV PROTOCOL; Start 11/06/16 at 18:00 Norepinephrine/ Dextrose (Levophed/D5W) 500 ml @ 1.87 mls/hr TITRATE IV Last administered on 11/09/16 19:08; Admin Dose 3.75 MLS/HR; Start 11/07/16 at 04:00 Mupirocin (Bactroban) 1 applic BID TOP Last administered on 11/11/16 09:38; Admin Dose 1 APPLIC; Start 11/07/16 at 14:30 Alprazolam 1 mg 1 mg Q6 PRN PO AGITATION/ANXIETY Last administered on 16:41; Admin Dose 1 MG; Start 11/07/16 at 16:30 Vancomycin HCl (Vancocin) 250 ml @ 125 mls/hr Q36H IVPB Last administered on 18:30; Admin Dose 125 MLS/HR; Start 11/09/16 at 05:00 Lansoprazole (Prevacid) 30 mg DAILY@06 PO Last administered on 11/11/16 06:24 ; Admin Dose 30 MG; Start 11/08/16 at 06:00 Tacrolimus (Prograf) 0.5 mg Q12 PO Last administered on 11/11/16 10:11; Admin Dose 0.5 MG; Start 11/07/16 at 21:30 Aspirin (Aspirin) 81 mg DAILY PO Last administered on 11/11/16 09:36; Admin Dose 81 MG; Start 11/08/16 at 09:00 Mycophenolate Mofetil 200 mg 200 mg BID PO Last administered on 11/11/16 09:37 ; Admin Dose 200 MG; Start 11/07/16 at 21:00 Dopamine HCl/ Dextrose (D5W) 250 ml @ 2.4 mls/hr TITRATE IV Last administered on 11/09/16 17:13; Admin Dose 2.4 MLS/HR; Start 11/08/16 at 08:30 Morphine Sulfate (morphine) 1 mg Q4H PRN IV PAIN Last administered on 03:23; Admin Dose 1 MG; Start 11/08/16 at 11:00 Methylprednisolone Sodium Succinate 60 mg 60 mg Q8 IV Last administered on 11/11 06:24; Admin Dose 60 MG; Start 11/08/16 at 14:00 Levofloxacin/ Dextrose (Levaquin 250 Mg/ D5W 50 ml (Pmx)) 50 ml @ 50 mls/hr Q24H IVPB Last administered on 11/10/16 13:59; Admin Dose 50 MLS/HR; Start at 13:00 Levothyroxine Sodium 100 mcg 100 mcg DAILY@06 IV Last administered on 06:24; Admin Dose 100 MCG; Start 11/09/16 at 09:00 Cefepime HCl (Maxipime 1gm/50 ml (Pmx)) 50 ml @ 100 mls/hr Q24H IVPB ; Start at 21:00 Assessment/Plan Additional Assessment/Plan IMPRESSION: 1. Hypoxemic Resp Insufficiency--due to CHF superimposed on severe emphysema 2. CHF 3. History of chronic obstructive pulmonary disease. 4. History of coronary artery bypass graft surgery. 5. ROMAN PLAN: 1. O2--> titrate to SpO2 88-92% 2. Diuretics 3. Aspiration precautions 4. Continue Plavix and aspirin 5. Continue IV steroids and BD's 6. Mobilize OOB/PT/OT eval 7. Okay for telemetry 35 min cc time DUY PINEDA MD Nov 11, 2016 11:29
--- NOTE | 2016-11-11 12:18 | CONS ---
Date/Time of Note Date/Time of Note DATE: 11/11/16 TIME: 12:16 Consult Date/Type/Reason Admit Date/Time Nov 06, 2016 at 12:15 Initial Consult Date 11/06/16 Type of Consultation: Pulm/CCM Ordering Provider: BRANDY REHMAN MD Subjective CARDIOLOGY FOLLOW UP NOTE: d/w staff and rhythm was reviewed. pt remains in V paced rhythm with P afib. d/w Dr Rehman no chest pain or pressure or palpitations. he is off of BIPAP now and on NC O2 only and his O2 sat has improved. he denies any palpitations. he has less sob. OBJECTIVE: General: in mild dresp distress on O2 HEENT: NC/AT. pupils are equal. round. NECK: NO JVD. no stridor. CV: RRR. systolic murmur; no gallop or rubs. PULM: NO wheezing. diffuse rhonchi more on the right side. . GI: SOFT, NT, ND, no rebound or guarding Extremity: trace B/L LE edema. no clubbing. neuro: awake and alert, OX3. Psych: anxious but pleasant rectal: deferred : normal Objective Vital Signs Date Time Temp Pulse Resp B/P Pulse Ox O2 Delivery O2 Flow Rate FiO2 11/11/16 11:00 61 23 124/49 100 Nasal Cannula 4.0 11/11/16 08:00 97.6 11/10/16 17:30 35 Intake and Output 11/10/16 11/10/16 11/11/16 15:00 23:00 07:00 Intake Total 287.6 ml 1055 ml 405 ml Output Total 1285 ml 610 ml Balance 287.6 ml -230 ml -205 ml Results/Medications Result Diagram: 11/11/16 0430 11/11/16 0430 Results 24 hrs Laboratory Tests Test 11/10/16 16:40 11/11/16 04:30 Vancomycin Level Trough 13.1 White Blood Count 6.9 # Red Blood Count 3.33 L Hemoglobin 9.4 L Hematocrit 30.1 L Mean Corpuscular Volume 90.4 Mean Corpuscular Hemoglobin 28.2 L Mean Corpuscular Hemoglobin Concent 31.2 L Red Cell Distribution Width 16.4 H Platelet Count 126 L Mean Platelet Volume 12.7 H Neutrophils % 92.7 H Lymphocytes % 1.6 L Monocytes % 4.7 Eosinophils % 0.0 Basophils % 0.0 Nucleated Red Blood Cells % 0.0 Neutrophils # (Manual) 6.4 Lymphocytes # 0.1 L Monocytes # 0.3 Eosinophils # 0.0 Basophils # 0.0 Nucleated Red Blood Cells # 0.0 Sodium Level 141 Potassium Level 3.6 Chloride Level 100 Carbon Dioxide Level 25 Anion Gap 20 H Blood Urea Nitrogen 100 H Creatinine 2.36 H Glucose Level 146 Calcium Level 7.5 L Phosphorus Level 5.3 H Magnesium Level 2.3 Total Bilirubin 0.3 Direct Bilirubin 0.00 Indirect Bilirubin 0.3 Aspartate Amino Transf (AST/SGOT) 28 Alanine Aminotransferase (ALT/SGPT) 48 Alkaline Phosphatase 55 B-Type Natriuretic Peptide 89599 H Total Protein 5.4 L Albumin 2.7 L Globulin 2.70 Albumin/Globulin Ratio 1.00 Digoxin Level 0.5 L Medications Current Medications Albuterol (Ventolin Hfa) 2 puff Q4H PRN INH SHORTNESS OF BREATH; Start at 13:30 Amiodarone HCl (Cordarone) 400 mg DAILY PO Last administered on 11/11/16 09:38 ; Admin Dose 400 MG; Start 11/07/16 at 09:00 Atorvastatin Calcium (Lipitor) 80 mg QHS PO Last administered on 11/10/16 20: 59; Admin Dose 80 MG; Start 11/06/16 at 21:00 Calcitriol (Rocaltrol) 0.25 mcg DAILY PO Last administered on 11/11/16 09:37; Admin Dose 0.25 MCG; Start 11/07/16 at 09:00 Carvedilol (Coreg) 3.125 mg BID PO Last administered on 11/10/16 08:52; Admin Dose 3.125 MG; Start 11/06/16 at 21:00 Doxazosin Mesylate (Cardura) 2 mg HS PO Last administered on 11/06/16 21:49; Admin Dose 2 MG; Start 11/06/16 at 21:00 Clopidogrel Bisulfate (plaVIX) 75 mg DAILY PO Last administered on 11/11/16 09 :37; Admin Dose 75 MG; Start 11/06/16 at 13:30 Enoxaparin Sodium (Lovenox) 30 mg BID SC Last administered on 11/11/16 09:39; Admin Dose 30 MG; Start 11/06/16 at 13:30 IV Flush 10 ml 10 ml PRN PRN IV IV PROTOCOL; Start 11/06/16 at 18:00 Norepinephrine/ Dextrose (Levophed/D5W) 500 ml @ 1.87 mls/hr TITRATE IV Last administered on 11/09/16 19:08; Admin Dose 3.75 MLS/HR; Start 11/07/16 at 04:00 Mupirocin (Bactroban) 1 applic BID TOP Last administered on 11/11/16 09:38; Admin Dose 1 APPLIC; Start 11/07/16 at 14:30 Alprazolam 1 mg 1 mg Q6 PRN PO AGITATION/ANXIETY Last administered on 16:41; Admin Dose 1 MG; Start 11/07/16 at 16:30 Vancomycin HCl (Vancocin) 250 ml @ 125 mls/hr Q36H IVPB Last administered on 18:30; Admin Dose 125 MLS/HR; Start 11/09/16 at 05:00 Lansoprazole (Prevacid) 30 mg DAILY@06 PO Last administered on 11/11/16 06:24 ; Admin Dose 30 MG; Start 11/08/16 at 06:00 Tacrolimus (Prograf) 0.5 mg Q12 PO Last administered on 11/11/16 10:11; Admin Dose 0.5 MG; Start 11/07/16 at 21:30 Aspirin (Aspirin) 81 mg DAILY PO Last administered on 11/11/16 09:36; Admin Dose 81 MG; Start 11/08/16 at 09:00 Mycophenolate Mofetil 200 mg 200 mg BID PO Last administered on 11/11/16 09:37 ; Admin Dose 200 MG; Start 11/07/16 at 21:00 Dopamine HCl/ Dextrose (D5W) 250 ml @ 2.4 mls/hr TITRATE IV Last administered on 11/09/16 17:13; Admin Dose 2.4 MLS/HR; Start 11/08/16 at 08:30 Morphine Sulfate (morphine) 1 mg Q4H PRN IV PAIN Last administered on 03:23; Admin Dose 1 MG; Start 11/08/16 at 11:00 Methylprednisolone Sodium Succinate 60 mg 60 mg Q8 IV Last administered on 8/27 /17at 06:24; Admin Dose 60 MG; Start 11/08/16 at 14:00 Levofloxacin/ Dextrose (Levaquin 250 Mg/ D5W 50 ml (Pmx)) 50 ml @ 50 mls/hr Q24H IVPB Last administered on 11/10/16 13:59; Admin Dose 50 MLS/HR; Start at 13:00 Levothyroxine Sodium 100 mcg 100 mcg DAILY@06 IV Last administered on 06:24; Admin Dose 100 MCG; Start 11/09/16 at 09:00 Cefepime HCl (Maxipime 1gm/50 ml (Pmx)) 50 ml @ 100 mls/hr Q24H IVPB ; Start at 21:00 Assessment/Plan Chief Complaint/Hosp Course 1. Acute hypoxemic hypercapnic respiratory failure: 2. Congestive heart failure acute on chronic due to systolic and diastolic heart failure and mostly severe . 3. Severe aortic stenosis 4. COPD 5. History of hypertension 6. Proximal atrial fibrillation: currently appears to be in NSR . 7. Dyslipidemia 8. History of coronary bypass graft 9. Severe coronary artery disease 10. Renal failure chronic status post renal transplant 11. shock: on levophed drip now 12. ACS Recommendation: I will continue with the Plavix and Aspirin 81 mg p.o. BUMEX po for now. off of dopmaine drip abx as per IM/ pulm steroids as per pulm Pulmonary/ICU consultation with Dr. wills and Renal consultation with Dr. Carpio is appreciated. lovenox. ok to transfer to tele. case has been d./w DR Santos Anderson at [facility] on who agreed to accept pt for TAVR. I have placed the call to transfer center at [facility] already for transferring for higher level of care for TAVR Thank you for his referral will continue to follow along with you. CARMEN JARAMILLO MD [facility] Problems: CARMEN JARAMILLO MD Nov 11, 2016 12:18
[2016-11-11] MEDS ORDERED: POTASSIUM CHLORIDE (SR) 20 MEQ TAB PO STA (12:26)
--- NOTE | 2016-11-11 12:41 | PN ---
Date/Time of Note Date/Time of Note DATE: 11/11/16 TIME: 12:31 Assessment/Plan VTE Prophylaxis VTE Prophylaxis Intervention: LMWH Lines/Catheters IV Catheter Type (from Nrs): PICC Line Central line still needed: No Urinary Cath still in place: Yes Reason Cath still needed: other (indicate) (To monitor urine output) Assessment/Plan Chief Complaint/Hosp Course 1. Acute hypoxemic hypercapnic respiratory failure. 2. Congestive heart failure acute on chronic. 3. Severe aortic stenosis 4. COPD 5. History of hypertension 6. Proximal atrial fibrillation 7. Dyslipidemia 8. History of coronary bypass graft 9. Severe coronary artery disease 10. Renal failure chronic status post renal transplant Recommendation: I will continue with the Plavix. Aspirin 81 mg p.o. will be given for now. Patient will be admitted to intensive care unit. Pulmonary/ICU consultation with Dr. barnes, has been putting place already. Renal consultation with Dr. Crowell has been ordered already. I have ordered a chest x-ray. BiPAP as well as nebulizer treatment for now. Cardiac rhythm will be checked again tomorrow and likely will be checked tomorrow to rule out myocardial infarction and correct electrolytes renal function as needed. PCI will be postponed if patient stabilizes. Patient was admitted to intensive care unit for close monitoring. Thank you for his referral will continue to follow along with you. CARMEN JARAMILLO MD [facility] Problems: Assessment/Plan A/P. This is a 71 years old male with history of CHF, EF 35%, Aortic stenosis, A.fib, CAD, CKD, s/p renal transplant who presented for elective coronary angiogram. Found to be in respiratory failure 1. Respiratory failure-combination of Pneumonia, CHF and ? COPD, tapered down steroids, antibiotics and oral diuretics are being given, follow chest x-ray results. off BiPAP and off high flow oxygen. Nasal cannula to keep saturation greater than or equal to 89. clinically looks improved, comfortable. 2. cardiovascular-patient with respiratory failure likely partly to CHF exacerbation, and pneumonia. Diuretics per cardiology and nephrology. Off pressors. Plan for transfer to [facility] for aortic valve procedure. Stable to telemetry. 3. CKD-monitor kidney functions closely, will continue immunosuppressive medications as patient is status post renal transplant, renally dose all Meds. Kidney function slightly worse and elevated BUN is noted 4. Anti coagulate with Lovenox, as patient has history of atrial fibrillation. 5. Protonix for GI prophylaxis 6. ID. WBC is normal on Vancomycin, Levaquin and Cefepime, ID to follow, follow up on cultures. follow up serial chest x-rays. Urine culture shows Germania glabrata. Start antifungals per ID. 7. PICC line placement for easier access was placed. 8. Dysphagia-advance diet to soft mechanical diet 2 g sodium. As tolerated 9. Family aware. 10. Coronary artery disease-PCI is on hold. Will defer to cardiology at [facility] once patient is transferred 11. Hypothyroidism-continue IV Synthroid. TSH is at goal. 12. Over 30 minutes spent examining patient discussing with nursing staff, physicians , and reviewing records. 13. anxiolytics prn for anxiety. 14. Clinically better. Subjective 24 Hr Interval Summary Free Text/Dictation She is seen at bedside, remains in the intensive care unit. Now off high flow oxygen. Doing much better. No specific complaints. Hemodynamically stable. Sinus rhythm. Poor appetite. Subjective hx not possible: pt critical status Constitutional: requiring O2 Eyes: No discharge ENT: No congestion Respiratory: No pleuritic pain, No wheezing Gastrointestinal: decreased appetite, No diarrhea Genitourinary: No discharge Musculoskeletal: No neck pain Skin: No laceration Neurologic: No focal-weakness Endocrine: No polydypsia Lymphatic: No tender nodes Psychological: No confusion Exam/Review of Systems Vital Signs Vitals Vital Signs Date Time Temp Pulse Resp B/P Pulse Ox O2 Delivery O2 Flow Rate FiO2 11/11/16 11:00 61 23 124/49 100 Nasal Cannula 4.0 11/11/16 08:00 97.6 11/10/16 17:30 35 Intake and Output 11/10/16 11/10/16 11/11/16 15:00 23:00 07:00 Intake Total 287.6 ml 1055 ml 405 ml Output Total 1285 ml 610 ml Balance 287.6 ml -230 ml -205 ml Exam Alert appears comfortable in no distress. Has a nasal cannula in place. Constitutional: No non-verbal Eyes: PERRL ENMT: other (Nasal Cannula), No intubated Neck: No bruits Respiratory: diminished breath sounds, No crackles/rales, No wheezing Gastrointestinal: No distended Genitourinary - Male: No CVA tenderness Musculoskeletal: muscle tone (Decreased muscle tone) Extremities: other (skin\ ecchymosis), No clubbing, No cyanosis, No edema Neurological: No numbness Skin: ecchymosis Lymph: No nontender Results Result Diagram: 11/11/16 0430 11/11/16 0430 Results 24 hrs Laboratory Tests Test 11/10/16 16:40 11/11/16 04:30 Vancomycin Level Trough 13.1 White Blood Count 6.9 # Red Blood Count 3.33 L Hemoglobin 9.4 L Hematocrit 30.1 L Mean Corpuscular Volume 90.4 Mean Corpuscular Hemoglobin 28.2 L Mean Corpuscular Hemoglobin Concent 31.2 L Red Cell Distribution Width 16.4 H Platelet Count 126 L Mean Platelet Volume 12.7 H Neutrophils % 92.7 H Lymphocytes % 1.6 L Monocytes % 4.7 Eosinophils % 0.0 Basophils % 0.0 Nucleated Red Blood Cells % 0.0 Neutrophils # (Manual) 6.4 Lymphocytes # 0.1 L Monocytes # 0.3 Eosinophils # 0.0 Basophils # 0.0 Nucleated Red Blood Cells # 0.0 Sodium Level 141 Potassium Level 3.6 Chloride Level 100 Carbon Dioxide Level 25 Anion Gap 20 H Blood Urea Nitrogen 100 H Creatinine 2.36 H Glucose Level 146 Calcium Level 7.5 L Phosphorus Level 5.3 H Magnesium Level 2.3 Total Bilirubin 0.3 Direct Bilirubin 0.00 Indirect Bilirubin 0.3 Aspartate Amino Transf (AST/SGOT) 28 Alanine Aminotransferase (ALT/SGPT) 48 Alkaline Phosphatase 55 B-Type Natriuretic Peptide 38648 H Total Protein 5.4 L Albumin 2.7 L Globulin 2.70 Albumin/Globulin Ratio 1.00 Digoxin Level 0.5 L Medications Medications Current Medications Albuterol (Ventolin Hfa) 2 puff Q4H PRN INH SHORTNESS OF BREATH; Start at 13:30 Amiodarone HCl (Cordarone) 400 mg DAILY PO Last administered on 11/11/16 09:38 ; Admin Dose 400 MG; Start 11/07/16 at 09:00 Atorvastatin Calcium (Lipitor) 80 mg QHS PO Last administered on 11/10/16 20: 59; Admin Dose 80 MG; Start 11/06/16 at 21:00 Calcitriol (Rocaltrol) 0.25 mcg DAILY PO Last administered on 11/11/16 09:37; Admin Dose 0.25 MCG; Start 11/07/16 at 09:00 Carvedilol (Coreg) 3.125 mg BID PO Last administered on 11/10/16 08:52; Admin Dose 3.125 MG; Start 11/06/16 at 21:00 Doxazosin Mesylate (Cardura) 2 mg HS PO Last administered on 11/06/16 21:49; Admin Dose 2 MG; Start 11/06/16 at 21:00 Clopidogrel Bisulfate (plaVIX) 75 mg DAILY PO Last administered on 11/11/16 09 :37; Admin Dose 75 MG; Start 11/06/16 at 13:30 Enoxaparin Sodium (Lovenox) 30 mg BID SC Last administered on 11/11/16 09:39; Admin Dose 30 MG; Start 11/06/16 at 13:30 IV Flush 10 ml 10 ml PRN PRN IV IV PROTOCOL; Start 11/06/16 at 18:00 Norepinephrine/ Dextrose (Levophed/D5W) 500 ml @ 1.87 mls/hr TITRATE IV Last administered on 11/09/16 19:08; Admin Dose 3.75 MLS/HR; Start 11/07/16 at 04:00 Mupirocin (Bactroban) 1 applic BID TOP Last administered on 11/11/16 09:38; Admin Dose 1 APPLIC; Start 11/07/16 at 14:30 Alprazolam 1 mg 1 mg Q6 PRN PO AGITATION/ANXIETY Last administered on 16:41; Admin Dose 1 MG; Start 11/07/16 at 16:30 Vancomycin HCl (Vancocin) 250 ml @ 125 mls/hr Q36H IVPB Last administered on 18:30; Admin Dose 125 MLS/HR; Start 11/09/16 at 05:00 Lansoprazole (Prevacid) 30 mg DAILY@06 PO Last administered on 11/11/16 06:24 ; Admin Dose 30 MG; Start 11/08/16 at 06:00 Tacrolimus (Prograf) 0.5 mg Q12 PO Last administered on 11/11/16 10:11; Admin Dose 0.5 MG; Start 11/07/16 at 21:30 Aspirin (Aspirin) 81 mg DAILY PO Last administered on 11/11/16 09:36; Admin Dose 81 MG; Start 11/08/16 at 09:00 Mycophenolate Mofetil 200 mg 200 mg BID PO Last administered on 11/11/16 09:37 ; Admin Dose 200 MG; Start 11/07/16 at 21:00 Dopamine HCl/ Dextrose (D5W) 250 ml @ 2.4 mls/hr TITRATE IV Last administered on 11/09/16 17:13; Admin Dose 2.4 MLS/HR; Start 11/08/16 at 08:30 Morphine Sulfate (morphine) 1 mg Q4H PRN IV PAIN Last administered on 03:23; Admin Dose 1 MG; Start 11/08/16 at 11:00 Methylprednisolone Sodium Succinate 60 mg 60 mg Q8 IV Last administered on 11/11 06:24; Admin Dose 60 MG; Start 11/08/16 at 14:00 Levofloxacin/ Dextrose (Levaquin 250 Mg/ D5W 50 ml (Pmx)) 50 ml @ 50 mls/hr Q24H IVPB Last administered on 11/10/16 13:59; Admin Dose 50 MLS/HR; Start at 13:00 Levothyroxine Sodium 100 mcg 100 mcg DAILY@06 IV Last administered on 06:24; Admin Dose 100 MCG; Start 11/09/16 at 09:00 Cefepime HCl (Maxipime 1gm/50 ml (Pmx)) 50 ml @ 100 mls/hr Q24H IVPB ; Start at 21:00 Bumetanide (Bumex) 1 mg DAILY@06 PO ; Start 11/11/16 at 13:00 BRANDY REHMAN MD Nov 11, 2016 12:41
[2016-11-11] MEDS: LEVOFLOXACIN 250MG/D5W (PMX) 50 ML IVPB SCH (13:13)
[2016-11-11] MEDS: BUMETANIDE 1 MG TAB PO SCH (14:37)
--- NOTE | 2016-11-11 16:48 | CONS ---
Date/Time of Note Date/Time of Note DATE: 11/11/16 TIME: 16:46 Assessment/Plan Assessment/Plan Chief Complaint/Hosp Course ID PROGRESS NOTE CURRENT ABX=> Day # Vanco IV + Levaquin + Cefepime + Bactroban to nares 24H INTERVAL SUMMARY/HOSPITAL COURSE * Improving -- weaning supplemental O2 down to 1L * A/A/O, VSS, NAD, no complaints offered, no fevers * Still has FC -- does he need this for I/O's -- he says he used to take Flomax no longer ? PHYSICAL EXAMINATION: GENERAL: VSS, NAD HEENT: Unremarkable, except for O2 via NC NECK: Supple CHEST: Rise symmetrical bilaterally, without dyspnea on observation CV: RRR -- Pacing on Tele ABDOMEN: Soft EXTREMITIES: Warm, moves extremities ID ASSESSMENT: 71 yo M admit with: 1. Shock, multifactorial => Cardio + Sepsis => RESOLVING * Leukocytosis => Normalized 11/10 / Partial IV steroids demargination * Fevers => Resolved 2. Acute hypoxic respiratory failure secondary #3; #4; #5 3. RLL consolidating PNA on admission per CXR 4. Acute exacerbation chronic COPD 5 Acute congestive heart failure (CHF) exacerbation 6. Coronary artery disease, history of coronary artery bypass grafting (CABG). 7. Aortic stenosis and cardiomyopathy. 8. Status post AICD. 9. Chronic kidney disease, history of kidney transplant in 2007. 10. 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 11. Hx of BPH ? (+) MRSA Nares ->Bactroban INVASIVES: PIV ABX ALLERGY: None to ABX CURRENT ABX=> Vanco IV + Levaquin + Cefepime + Bactroban to nares ID PLAN 1. Continue current ABX over the weekend 2. Still has FC -- does he need this for I/O's -- he says he used to take Flomax no longer ? . Problems: Consultation Date/Type/Reason Admit Date/Time Nov 06, 2016 at 12:15 Initial Consult Date 11/08/16 Type of Consultation: ID Referring Provider: BRANDY REHMAN MD Exam/Review of Systems Vital Signs Vitals Vital Signs Date Time Temp Pulse Resp B/P Pulse Ox O2 Delivery O2 Flow Rate FiO2 11/11/16 12:00 2.0 11/11/16 12:00 60 11/11/16 11:00 23 124/49 100 Nasal Cannula 11/11/16 08:00 97.6 11/10/16 17:30 35 Intake and Output 11/10/16 11/10/16 11/11/16 15:00 23:00 07:00 Intake Total 287.6 ml 1055 ml 405 ml Output Total 1285 ml 610 ml Balance 287.6 ml -230 ml -205 ml Results Result Diagram: 11/11/16 0430 11/11/16 0430 Results 24 hrs Laboratory Tests Test 11/11/16 04:30 White Blood Count 6.9 # Red Blood Count 3.33 L Hemoglobin 9.4 L Hematocrit 30.1 L Mean Corpuscular Volume 90.4 Mean Corpuscular Hemoglobin 28.2 L Mean Corpuscular Hemoglobin Concent 31.2 L Red Cell Distribution Width 16.4 H Platelet Count 126 L Mean Platelet Volume 12.7 H Neutrophils % 92.7 H Lymphocytes % 1.6 L Monocytes % 4.7 Eosinophils % 0.0 Basophils % 0.0 Nucleated Red Blood Cells % 0.0 Neutrophils # (Manual) 6.4 Lymphocytes # 0.1 L Monocytes # 0.3 Eosinophils # 0.0 Basophils # 0.0 Nucleated Red Blood Cells # 0.0 Sodium Level 141 Potassium Level 3.6 Chloride Level 100 Carbon Dioxide Level 25 Anion Gap 20 H Blood Urea Nitrogen 100 H Creatinine 2.36 H Glucose Level 146 Calcium Level 7.5 L Phosphorus Level 5.3 H Magnesium Level 2.3 Total Bilirubin 0.3 Direct Bilirubin 0.00 Indirect Bilirubin 0.3 Aspartate Amino Transf (AST/SGOT) 28 Alanine Aminotransferase (ALT/SGPT) 48 Alkaline Phosphatase 55 B-Type Natriuretic Peptide 57121 H Total Protein 5.4 L Albumin 2.7 L Globulin 2.70 Albumin/Globulin Ratio 1.00 Digoxin Level 0.5 L Medications Medications Current Medications Albuterol (Ventolin Hfa) 2 puff Q4H PRN INH SHORTNESS OF BREATH; Start at 13:30 Amiodarone HCl (Cordarone) 400 mg DAILY PO Last administered on 11/11/16t 09:38 ; Admin Dose 400 MG; Start 11/07/16 at 09:00 Atorvastatin Calcium (Lipitor) 80 mg QHS PO Last administered on 11/10/16 20: 59; Admin Dose 80 MG; Start 11/06/16 at 21:00 Calcitriol (Rocaltrol) 0.25 mcg DAILY PO Last administered on 11/11/16 09:37; Admin Dose 0.25 MCG; Start 11/07/16 at 09:00 Carvedilol (Coreg) 3.125 mg BID PO Last administered on 11/10/16 08:52; Admin Dose 3.125 MG; Start 11/06/16 at 21:00 Doxazosin Mesylate (Cardura) 2 mg HS PO Last administered on 11/06/16 21:49; Admin Dose 2 MG; Start 11/06/16 at 21:00 Clopidogrel Bisulfate (plaVIX) 75 mg DAILY PO Last administered on 11/11/16 09 :37; Admin Dose 75 MG; Start 11/06/16 at 13:30 Enoxaparin Sodium (Lovenox) 30 mg BID SC Last administered on 11/11/16 09:39; Admin Dose 30 MG; Start 11/06/16 at 13:30 IV Flush (NS 10 ml) 10 ml PRN PRN IV IV PROTOCOL; Start 11/06/16 at 18:00 Mupirocin (Bactroban) 1 applic BID TOP Last administered on 11/11/16 09:38; Admin Dose 1 APPLIC; Start 11/07/16 at 14:30 Alprazolam 1 mg 1 mg Q6 PRN PO AGITATION/ANXIETY Last administered on 16:41; Admin Dose 1 MG; Start 11/07/16 at 16:30 Vancomycin HCl (Vancocin) 250 ml @ 125 mls/hr Q36H IVPB Last administered on 18:30; Admin Dose 125 MLS/HR; Start 11/09/16 at 05:00 Lansoprazole (Prevacid) 30 mg DAILY@06 PO Last administered on 11/11/16 06:24 ; Admin Dose 30 MG; Start 11/08/16 at 06:00 Tacrolimus (Prograf) 0.5 mg Q12 PO Last administered on 11/11/16 10:11; Admin Dose 0.5 MG; Start 11/07/16 at 21:30 Aspirin (Aspirin) 81 mg DAILY PO Last administered on 11/11/16 09:36; Admin Dose 81 MG; Start 11/08/16 at 09:00 Mycophenolate Mofetil (Cellcept) 200 mg BID PO Last administered on 11/11/16 09:37; Admin Dose 200 MG; Start 11/07/16 at 21:00 Morphine Sulfate (morphine) 1 mg Q4H PRN IV PAIN Last administered on 03:23; Admin Dose 1 MG; Start 11/08/16 at 11:00 Methylprednisolone Sodium Succinate 60 mg 60 mg Q8 IV Last administered on 11/11 13:28; Admin Dose 60 MG; Start 11/08/16 at 14:00 Levofloxacin/ Dextrose (Levaquin 250 Mg/ D5W 50 ml (Pmx)) 50 ml @ 50 mls/hr Q24H IVPB Last administered on 11/11/16 13:13; Admin Dose 50 MLS/HR; Start at 13:00 Levothyroxine Sodium 100 mcg 100 mcg DAILY@06 IV Last administered on 06:24; Admin Dose 100 MCG; Start 11/09/16 at 09:00 Cefepime HCl (Maxipime 1gm/50 ml (Pmx)) 50 ml @ 100 mls/hr Q24H IVPB ; Start at 21:00 Bumetanide (Bumex) 1 mg DAILY@06 PO Last administered on 11/11/16 14:37; Admin Dose 1 MG; Start 11/11/16 at 13:00 MYRNA HOLT NP Nov 11, 2016 16:48
[2016-11-11] MEDS: ATORVASTATIN 80 MG TAB PO SCH (21:19)
[2016-11-11] MEDS: DOXAZOSIN 2 MG TAB PO SCH (23:04)
[2016-11-12] VITALS (12 sets, daily range): BP systolic 89–131; BP diastolic 52–77; PULSE 60; RESP 18
[2016-11-12] MEDS: BUMETANIDE 1 MG TAB PO SCH (05:16)
[2016-11-12] MEDS: METHYLPREDNISOLONE 125 MG INJ IV SCH ×2 (05:16→13:24)
[2016-11-12] MEDS: LEVOTHYROXINE 100 MCG VIAL IV SCH (05:16)
[2016-11-12] MEDS: VANCOMYCIN 1 GM in NS 250 ML IVPB SCH (05:16)
[2016-11-12] MEDS: LANSOPRAZOLE 30 MG CAP PO SCH (05:17)
[2016-11-12 07:02] LABS: ABNORMAL IP MESSAGE 1; HEMATOCRIT 30.2 % (42.0-52.0); HEMOGLOBIN 9.7 g/dl (14.0-18.0); LYMPHOCYTES # 0.1 10^3/ul (0.8-2.9); LYMPHOCYTES % 2.5 % (15.0-51.0); MEAN CORPUSCULAR HGB CONC 32.1 g/dl (32.0-37.0); MEAN CORPUSCULAR VOLUME 90.4 fl (82.0-101.0); MEAN PLATELET VOLUME 12.7 fl (7.4-10.4); MONOCYTE # 0.3 10^3/ul (0.3-0.9); MONOCYTES % 5.1 % (0.0-11.0); NEUTROPHILS % 91.7 % (39.0-77.0); PLATELET COUNT 132 10^3/UL (140-415); POSITIVE DIFF @See below; RED BLOOD COUNT 3.34 10^6/ul (4.70-6.10); RED CELL DISTRIBUTION WIDTH 15.9 % (11.5-14.5); WHITE BLOOD COUNT 5.7 10^3/ul (4.8-10.8)
[2016-11-12 07:27] LABS: CALCIUM 7.2 mg/dl (8.4-10.2); CREATININE 2.79 mg/dl (0.61-1.24); MAGNESIUM 2.4 mg/dl (1.7-2.5); PHOSPHORUS 5.8 mg/dl (2.5-4.9); POTASSIUM 3.9 mmol/L (3.5-5.1)
[2016-11-12 08:13] LABS: ALBUMIN 3.1 g/dl (3.3-4.9); BILIRUBIN,INDIRECT 0.3 mg/dl (0-1.1); BILIRUBIN,TOTAL 0.3 mg/dl (0.2-1.3); TOTAL PROTEIN 6.2 g/dl (6.1-8.1)
[2016-11-12] MEDS: CLOPIDOGREL 75 MG TAB PO SCH (09:07)
[2016-11-12] MEDS: AMIODARONE 200 MG TAB PO SCH (09:07)
[2016-11-12] MEDS: CALCITRIOL 0.25 MCG CAP PO SCH (09:07)
[2016-11-12] MEDS: ASPIRIN 81 MG TAB PO SCH (09:07)
[2016-11-12] MEDS: MYCOPHENOLATE MOFETIL PO SCH ×2 (09:08→20:56)
[2016-11-12] MEDS: MUPIROCIN 2% 22 GM OINT TOP SCH ×2 (09:09→21:00)
[2016-11-12] MEDS: ENOXAPARIN 30 MG/0.3 ML SYG SC SCH ×2 (09:16→21:56)
[2016-11-12] MEDS: TACROLIMUS 1 MG/ML PO SCH ×2 (09:24→20:56)
--- NOTE | 2016-11-12 09:43 | PN ---
DATE: 11/12/2016 SUBJECTIVE DATA: The patient was transferred from intensive care unit to telemetry. Overnight the patient has been stable on 4 L nasal cannula. No other events noted. No hemoptysis, hematemesis, hematochezia. OBJECTIVE DATA: VITAL SIGNS: Blood pressure 03/24/52, respirations 18, pulse 62, temperature 98.6. HEENT: Head is normocephalic. NECK: Supple. HEART: Regular rate. LUNGS: Showed diminished breath sounds at the base. ABDOMEN: Soft, nontender to palpation. No rebound or guarding. EXTREMITIES: Negative for clubbing, cyanosis. No edema. DERMATOLOGIC: No rashes. MUSCULOSKELETAL: No joint effusion. NEUROLOGIC: Unchanged exam. MEDICATIONS: Reviewed. LABORATORY AND DIAGNOSTIC DATA: Shows white count 5.7, hemoglobin 9.7, hematocrit 30.2, platelet count is 132. Sodium 145, potassium 3.9, chloride 101, BUN 115, creatinine 2.79. The patient's chest x-ray was reviewed. ASSESSMENT AND PLAN: 1. 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 Etiology of acute kidney injury secondary to cardiorenal syndrome. Diuretics. The patient's renal functions continued to decline. His creatinine is increased 2.7 mg/dL. The patient also had a significant azotemia due to underlying steroids, hypercatabolic state, acute kidney injury. The patient's Prograf level currently pending. At this point, would continue current treatment plan. Supportive care. Renally dose all meds. Would hold diuretic therapy. Would also recommend further transfer to a tertiary center for higher level of care. 2. History of end-stage renal disease. Status post renal transplant with previous baseline creatinine 1.7 mg/dL. The patient is currently acute kidney injury as stated above. Continue current treatment plan. Continue current immunosuppressive regimen. 3. Hyponatremia, improved. 4. Mineral bone disorder. Monitor calcium and phosphorus levels. 5. Anemia. Monitor H and H levels. 6. Status post shock like likely multifactorial cardiogenic septic. The patient remains on broad-spectrum antibiotics. Continue to monitor. 7. Acute decompensated heart failure. The patient remains decompensated, however improved. The patient was then diuresed well. Continue to monitor closely. 8. Severe aortic stenosis. The patient is pending possible transferred to [facility]. 9. History of chronic disease status post coronary artery bypass graft. Continue medical management. 10. Atrial fibrillation, currently in sinus rhythm. Continue current treatment plan. Dictated By: Ezra Carpio DO /[email or web address] /Document#: [id number]
--- NOTE | 2016-11-12 10:49 | CONS ---
Date/Time of Note Date/Time of Note DATE: 11/12/16 TIME: 10:48 Consult Date/Type/Reason Admit Date/Time Nov 06, 2016 at 12:15 Initial Consult Date 11/06/16 Type of Consultation: Pulm Ordering Provider: BRANDY REHMAN MD Subjective Comfortable this morning. Less shortness of breath, Objective Vital Signs Date Time Temp Pulse Resp B/P Pulse Ox O2 Delivery O2 Flow Rate FiO2 11/12/16 08:10 Nasal Cannula 2.0 11/12/16 08:03 60 11/12/16 07:21 98.6 18 107/52 91 11/10/16 17:30 35 Intake and Output 11/11/16 11/11/16 11/12/16 15:00 23:00 07:00 Intake Total 820 ml 500 ml Output Total 490 ml 325 ml 800 ml Balance 330 ml -325 ml -300 ml Exam Exam NECK: Supple. No JVD or lymphadenopathy. CARDIAC EXAM: paced S1, S2. CHEST: Bibasilar rales ABDOMEN: Soft, nontender. No guarding or rebound. EXTREMITIES: No cyanosis, clubbing or edema. Results/Medications Result Diagram: 11/12/16 0610 11/12/16 0610 Results 24 hrs Laboratory Tests Test 11/12/16 06:10 White Blood Count 5.7 Red Blood Count 3.34 L Hemoglobin 9.7 L Hematocrit 30.2 L Mean Corpuscular Volume 90.4 Mean Corpuscular Hemoglobin 29.0 Mean Corpuscular Hemoglobin Concent 32.1 Red Cell Distribution Width 15.9 H Platelet Count 132 L Mean Platelet Volume 12.7 H Neutrophils % 91.7 H Lymphocytes % 2.5 L Monocytes % 5.1 Eosinophils % 0.0 Basophils % 0.0 Nucleated Red Blood Cells % 0.0 Neutrophils # (Manual) 5.2 Lymphocytes # 0.1 L Monocytes # 0.3 Eosinophils # 0.0 Basophils # 0.0 Nucleated Red Blood Cells # 0.0 Sodium Level 145 H Potassium Level 3.9 Chloride Level 101 Carbon Dioxide Level 25 Anion Gap 23 H Blood Urea Nitrogen 115 H Creatinine 2.79 H Glucose Level 170 Calcium Level 7.2 L Phosphorus Level 5.8 H Magnesium Level 2.4 Total Bilirubin 0.3 Direct Bilirubin 0.00 Indirect Bilirubin 0.3 Aspartate Amino Transf (AST/SGOT) 18 Alanine Aminotransferase (ALT/SGPT) 49 Alkaline Phosphatase 55 B-Type Natriuretic Peptide 21665 H Total Protein 6.2 Albumin 3.1 L Medications Current Medications Albuterol (Ventolin Hfa) 2 puff Q4H PRN INH SHORTNESS OF BREATH; Start at 13:30 Amiodarone HCl (Cordarone) 400 mg DAILY PO Last administered on 11/12/16 09:07 ; Admin Dose 400 MG; Start 11/07/16 at 09:00 Atorvastatin Calcium (Lipitor) 80 mg QHS PO Last administered on 11/11/16 21: 19; Admin Dose 80 MG; Start 11/06/16 at 21:00 Calcitriol (Rocaltrol) 0.25 mcg DAILY PO Last administered on 11/12/16 09:07; Admin Dose 0.25 MCG; Start 11/07/16 at 09:00 Carvedilol (Coreg) 3.125 mg BID PO Last administered on 11/11/16 21:19; Admin Dose 3.125 MG; Start 11/06/16 at 21:00 Doxazosin Mesylate (Cardura) 2 mg HS PO Last administered on 11/11/16 23:04; Admin Dose 2 MG; Start 11/06/16 at 21:00 Clopidogrel Bisulfate (plaVIX) 75 mg DAILY PO Last administered on 11/12/16 09 :07; Admin Dose 75 MG; Start 11/06/16 at 13:30 Enoxaparin Sodium (Lovenox) 30 mg BID SC Last administered on 11/12/16 09:16; Admin Dose 30 MG; Start 11/06/16 at 13:30 IV Flush (NS 10 ml) 10 ml PRN PRN IV IV PROTOCOL; Start 11/06/16 at 18:00 Mupirocin (Bactroban) 1 applic BID TOP Last administered on 11/12/16 09:09; Admin Dose 1 APPLIC; Start 11/07/16 at 14:30 Alprazolam 1 mg 1 mg Q6 PRN PO AGITATION/ANXIETY Last administered on 16:41; Admin Dose 1 MG; Start 11/07/16 at 16:30 Vancomycin HCl (Vancocin) 250 ml @ 125 mls/hr Q36H IVPB Last administered on 05:16; Admin Dose 125 MLS/HR; Start 11/09/16 at 05:00 Lansoprazole (Prevacid) 30 mg DAILY@06 PO Last administered on 11/12/16 05:17 ; Admin Dose 30 MG; Start 11/08/16 at 06:00 Tacrolimus (Prograf) 0.5 mg Q12 PO Last administered on 11/12/16 09:24; Admin Dose 0.5 MG; Start 11/07/16 at 21:30 Aspirin (Aspirin) 81 mg DAILY PO Last administered on 11/12/16 09:07; Admin Dose 81 MG; Start 11/08/16 at 09:00 Mycophenolate Mofetil (Cellcept) 200 mg BID PO Last administered on 11/12/16 09:08; Admin Dose 200 MG; Start 11/07/16 at 21:00 Morphine Sulfate (morphine) 1 mg Q4H PRN IV PAIN Last administered on 03:23; Admin Dose 1 MG; Start 11/08/16 at 11:00 Methylprednisolone Sodium Succinate 60 mg 60 mg Q8 IV Last administered on 11/12 05:16; Admin Dose 60 MG; Start 11/08/16 at 14:00 Levofloxacin/ Dextrose (Levaquin 250 Mg/ D5W 50 ml (Pmx)) 50 ml @ 50 mls/hr Q24H IVPB Last administered on 11/11/16 13:13; Admin Dose 50 MLS/HR; Start at 13:00 Levothyroxine Sodium 100 mcg 100 mcg DAILY@06 IV Last administered on 05:16; Admin Dose 100 MCG; Start 11/09/16 at 09:00 Cefepime HCl (Maxipime 1gm/50 ml (Pmx)) 50 ml @ 100 mls/hr Q24H IVPB ; Start at 21:00 Bumetanide (Bumex) 1 mg DAILY@06 PO Last administered on 11/12/16 05:16; Admin Dose 1 MG; Start 11/11/16 at 13:00 Assessment/Plan Chief Complaint/Hosp Course IMPRESSION: 1. Hypoxemic Resp Insufficiency--due to CHF superimposed on severe emphysema 2. CHF 3. History of chronic obstructive pulmonary disease. 4. History of coronary artery bypass graft surgery. 5. ROMAN PLAN: 1. O2--> titrate to SpO2 88-92% 2. Diuretics 3. Aspiration precautions 4. Continue Plavix and aspirin 5. Continue IV steroids and BD's 6. Mobilize OOB/PT/OT eval Problems: MONICA SAMSON MD, [facility] Nov 12, 2016 10:49
[2016-11-12] MEDS: LEVOFLOXACIN 250MG/D5W (PMX) 50 ML IVPB SCH (13:24)
[2016-11-12 13:57] LABS: ADD UMIC YES; UR ASCORBIC ACID NEGATIVE (NEGATIVE); UR BACTERIA FEW /HPF (NONE SEEN); UR BILIRUBIN (Dip) NEGATIVE (NEGATIVE); UR BLOOD (Dip) 1+ mg/dL (NEGATIVE); UR BUDDING YEAST FEW /HPF (NONE SEEN); UR CLARITY SLIGHTLY CLOUDY (CLEAR); UR COLOR YELLOW (YELLOW); UR GLUCOSE (Dip) NEGATIVE (NEGATIVE); UR KETONES (Dip) NEGATIVE (NEGATIVE); UR LEUKOCYTE ESTERASE (Dip) NEGATIVE Leu/ul (NEGATIVE); UR MUCUS FEW /HPF (NONE SEEN); UR NITRITE (Dip) NEGATIVE (NEGATIVE); UR RBC 4 /HPF (0-5); UR SPECIFIC GRAVITY (Dip) 1.012 (1.003-1.030); UR SQUAMOUS EPITHELIAL CELL FEW /HPF (FEW); UR TOTAL PROTEIN (Dip) NEGATIVE (NEGATIVE); UR UROBILINOGEN (Dip) NEGATIVE (NEGATIVE)
--- NOTE | 2016-11-12 14:35 | PN ---
Date/Time of Note Date/Time of Note DATE: 11/12/16 TIME: 14:14 Assessment/Plan VTE Prophylaxis VTE Prophylaxis Intervention: LMWH Lines/Catheters IV Catheter Type (from Nrs): PICC Line Central line still needed: No Urinary Cath still in place: Yes Reason Cath still needed: other (indicate) (Monitor urine output) Assessment/Plan Chief Complaint/Hosp Course 1. Acute hypoxemic hypercapnic respiratory failure. 2. Congestive heart failure acute on chronic. 3. Severe aortic stenosis 4. COPD 5. History of hypertension 6. Proximal atrial fibrillation 7. Dyslipidemia 8. History of coronary bypass graft 9. Severe coronary artery disease 10. Renal failure chronic status post renal transplant Recommendation: I will continue with the Plavix. Aspirin 81 mg p.o. will be given for now. Patient will be admitted to intensive care unit. Pulmonary/ICU consultation with Dr. barnes, has been putting place already. Renal consultation with Dr. Crowell has been ordered already. I have ordered a chest x-ray. BiPAP as well as nebulizer treatment for now. Cardiac rhythm will be checked again tomorrow and likely will be checked tomorrow to rule out myocardial infarction and correct electrolytes renal function as needed. PCI will be postponed if patient stabilizes. Patient was admitted to intensive care unit for close monitoring. Thank you for his referral will continue to follow along with you. CARMEN JARAMILLO MD [facility] Problems: Assessment/Plan A/P. This is a 71 years old male with history of CHF, EF 35%, Aortic stenosis, A.fib, CAD, CKD, s/p renal transplant who presented for elective coronary angiogram. Found to be in respiratory failure. 1. Respiratory failure-combination of Pneumonia, CHF and ? COPD, will tape down patients steroids, antibiotics to continue, may hold bumex 2ndarty to worsening renal function. follow chest x-ray results. off BiPAP and off high flow oxygen. Nasal cannula to keep saturation greater than or equal to 89. clinically looks improved, comfortable. 2. cardiovascular-patient with respiratory failure likely partly to CHF exacerbation, and pneumonia. Hold diuretics 2ndary to uremia, and worsening kidney function. Plan for transfer to [facility] for aortic valve procedure. 3. CKD-monitor kidney functions closely, will continue immunosuppressive medications as patient is status post renal transplant, renally dose all Meds. Kidney function slightly worse and elevated BUN is noted, hold diuretics. 4. Anti coagulate with Lovenox, as patient has history of atrial fibrillation. 5. Protonix for GI prophyl 6. ID. WBC is normal on Vancomycin, Levaquin and Cefepime, ID to follow, follow up on cultures. follow up serial chest x-rays. Urine culture shows Germania glabrata. Start antifungals per ID? 7. PICC line placement for easier access was placed. 8. Dysphagia-advance diet to soft mechanical diet 2 g sodium. As tolerated, and ensure. 9. Family aware. 10. Coronary artery disease-PCI is on hold. Will defer to cardiology at [facility] once patient is transferred 11. Hypothyroidism-on IV Synthroid, will switch to oral Synthroid. TSH is at goal. 12. Over 30 minutes spent examining patient discussing with family and case manger plan of care. 13. anxiolytics prn for anxiety. 14. Clinically better. 15. Appreciate physical therapy follow up. Subjective 24 Hr Interval Summary Free Text/Dictation Patient was transferred to the telemetry unit. Patient is in no distress appears comfortable. Noted worsening kidney function and increased BUN. Awaiting transfer to [facility]. I spoke with case finisher regarding transfer. Patient with marginal p.o. intake. Constitutional: poor po, No disoriented Eyes: No discharge ENT: No congestion, No dysphagia Respiratory: other (On nasal cannula), No pleuritic pain, No shortness of breath Cardiovascular: No edema, No lightheadedness, No orthopenea Gastrointestinal: decreased appetite, No nausea Genitourinary: No discharge Musculoskeletal: No neck pain Skin: other (Skin ecchymosis), No laceration Neurologic: No focal-weakness Psychological: anxiety (Slightly anxious of the unknown), depression ( Depressed mood noted), No confusion Exam/Review of Systems Vital Signs Vitals Vital Signs Date Time Temp Pulse Resp B/P Pulse Ox O2 Delivery O2 Flow Rate FiO2 11/12/16 12:02 60 11/12/16 11:17 11/12/16 08:10 Nasal Cannula 2.0 11/10/16 17:30 35 Intake and Output 11/11/16 11/11/16 11/12/16 15:00 23:00 07:00 Intake Total 820 ml 500 ml Output Total 490 ml 325 ml 800 ml Balance 330 ml -325 ml -300 ml Exam Constitutional: No non-verbal Psych: No confusion Head: No lacerations Eyes: PERRL ENMT: No intubated Neck: No bruits, No masses Respiratory: diminished breath sounds, No congested cough, No wheezing Cardiovascular: systolic murmur, No gallop, No irregular rhythm Genitourinary - Male: No CVA tenderness Extremities: No clubbing, No cyanosis, No edema Neurological: No confused Skin: No ecchymosis Lymph: No nontender Results Result Diagram: 11/12/16 0610 11/12/16 0610 Results 24 hrs Laboratory Tests Test 11/12/16 06:10 11/12/16 13:15 White Blood Count 5.7 Red Blood Count 3.34 L Hemoglobin 9.7 L Hematocrit 30.2 L Mean Corpuscular Volume 90.4 Mean Corpuscular Hemoglobin 29.0 Mean Corpuscular Hemoglobin Concent 32.1 Red Cell Distribution Width 15.9 H Platelet Count 132 L Mean Platelet Volume 12.7 H Neutrophils % 91.7 H Lymphocytes % 2.5 L Monocytes % 5.1 Eosinophils % 0.0 Basophils % 0.0 Nucleated Red Blood Cells % 0.0 Neutrophils # (Manual) 5.2 Lymphocytes # 0.1 L Monocytes # 0.3 Eosinophils # 0.0 Basophils # 0.0 Nucleated Red Blood Cells # 0.0 Sodium Level 145 H Potassium Level 3.9 Chloride Level 101 Carbon Dioxide Level 25 Anion Gap 23 H Blood Urea Nitrogen 115 H Creatinine 2.79 H Glucose Level 170 Calcium Level 7.2 L Phosphorus Level 5.8 H Magnesium Level 2.4 Total Bilirubin 0.3 Direct Bilirubin 0.00 Indirect Bilirubin 0.3 Aspartate Amino Transf (AST/SGOT) 18 Alanine Aminotransferase (ALT/SGPT) 49 Alkaline Phosphatase 55 B-Type Natriuretic Peptide 42070 H Total Protein 6.2 Albumin 3.1 L Urine Color YELLOW Urine Clarity SLIGHTLY CLOUDY A Urine pH 5.0 Urine Specific [place] 1.012 Urine Ketones NEGATIVE Urine Nitrite NEGATIVE Urine Bilirubin NEGATIVE Urine Urobilinogen NEGATIVE Urine Leukocyte Esterase NEGATIVE Urine Microscopic RBC 4 Urine Microscopic WBC 6 H Urine Squamous Epithelial Cells FEW Urine Bacteria FEW A Urine Mucus FEW A Urine Yeast (Budding) FEW A Urine Hemoglobin 1+ H Urine Random Creatinine 33.09 Urine Random Sodium 61 Urine Glucose NEGATIVE Urine Total Protein 23.0 H Medications Medications Current Medications Albuterol (Ventolin Hfa) 2 puff Q4H PRN INH SHORTNESS OF BREATH; Start at 13:30 Amiodarone HCl (Cordarone) 400 mg DAILY PO Last administered on 11/12/16 09:07 ; Admin Dose 400 MG; Start 11/07/16 at 09:00 Atorvastatin Calcium (Lipitor) 80 mg QHS PO Last administered on 11/11/16 21: 19; Admin Dose 80 MG; Start 11/06/16 at 21:00 Calcitriol (Rocaltrol) 0.25 mcg DAILY PO Last administered on 11/12/16 09:07; Admin Dose 0.25 MCG; Start 11/07/16 at 09:00 Carvedilol (Coreg) 3.125 mg BID PO Last administered on 11/11/16 21:19; Admin Dose 3.125 MG; Start 11/06/16 at 21:00 Doxazosin Mesylate (Cardura) 2 mg HS PO Last administered on 11/11/16 23:04; Admin Dose 2 MG; Start 11/06/16 at 21:00 Clopidogrel Bisulfate (plaVIX) 75 mg DAILY PO Last administered on 11/12/16 09 :07; Admin Dose 75 MG; Start 11/06/16 at 13:30 Enoxaparin Sodium (Lovenox) 30 mg BID SC Last administered on 11/12/16 09:16; Admin Dose 30 MG; Start 11/06/16 at 13:30 IV Flush (NS 10 ml) 10 ml PRN PRN IV IV PROTOCOL; Start 11/06/16 at 18:00 Mupirocin (Bactroban) 1 applic BID TOP Last administered on 11/12/16 09:09; Admin Dose 1 APPLIC; Start 11/07/16 at 14:30 Alprazolam (Xanax) 1 mg Q6 PRN PO AGITATION/ANXIETY Last administered on 16:41; Admin Dose 1 MG; Start 11/07/16 at 16:30 Lansoprazole (Prevacid) 30 mg DAILY@06 PO Last administered on 11/12/16 05:17 ; Admin Dose 30 MG; Start 11/08/16 at 06:00 Tacrolimus (Prograf) 0.5 mg Q12 PO Last administered on 11/12/16 09:24; Admin Dose 0.5 MG; Start 11/07/16 at 21:30 Aspirin (Aspirin) 81 mg DAILY PO Last administered on 11/12/16 09:07; Admin Dose 81 MG; Start 11/08/16 at 09:00 Mycophenolate Mofetil (Cellcept) 200 mg BID PO Last administered on 11/12/16 09:08; Admin Dose 200 MG; Start 11/07/16 at 21:00 Morphine Sulfate 1 mg 1 mg Q4H PRN IV PAIN Last administered on 11/10/16 03:23 ; Admin Dose 1 MG; Start 11/08/16 at 11:00 Levofloxacin/ Dextrose 50 ml @ 50 mls/hr Q24H IVPB Last administered on 13:24; Admin Dose 50 MLS/HR; Start 11/08/16 at 13:00 Cefepime HCl (Maxipime 1gm/50 ml (Pmx)) 50 ml @ 100 mls/hr Q24H IVPB ; Start at 21:00 Bumetanide 1 mg 1 mg DAILY@06 PO Last administered on 11/12/16 05:16; Admin Dose 1 MG; Start 11/11/16 at 13:00 Vancomycin HCl (Vancocin) 250 ml @ 125 mls/hr Q48H IVPB ; Start 11/14/16 at 05: 00 Methylprednisolone Sodium Succinate (Solu-Medrol) 40 mg Q12 IV ; Start 11/12/16 at 21:00; Status UNV Levothyroxine Sodium (Synthroid) 100 mcg DAILY@06 PO ; Start 11/13/16 at 06:00; Status UNV BRANDY REHMAN MD Nov 12, 2016 14:34
--- NOTE | 2016-11-12 16:37 | CONS ---
Date/Time of Note Date/Time of Note DATE: 11/12/16 TIME: 16:35 Consult Date/Type/Reason Admit Date/Time Nov 06, 2016 at 12:15 Initial Consult Date 11/06/16 Type of Consultation: CARDIOLOGY Reason for Consultation CARDIOLOGY FOLLOW UP NOTE: d/w staff and rhythm was reviewed. pt remains in AV paced rhythm mostly with P afib. no chest pain or pressure or palpitations. he is off of BIPAP now and on NC O2 only and his O2 sat has improved. he denies any palpitations. he has less sob. OBJECTIVE: General: in mild dresp distress on O2 HEENT: NC/AT. pupils are equal. round. NECK: NO JVD. no stridor. CV: RRR. systolic murmur; no gallop or rubs. PULM: NO wheezing. diffuse rhonchi more on the right side. . GI: SOFT, NT, ND, no rebound or guarding Extremity: trace B/L LE edema. no clubbing. neuro: awake and alert, OX3. Psych: depressed mood but pleasant rectal: deferred : normal Ordering Provider: BRANDY REHMAN MD Objective Vital Signs Date Time Temp Pulse Resp B/P Pulse Ox O2 Delivery O2 Flow Rate FiO2 11/12/16 14:56 98.6 63 18 131/77 94 11/12/16 08:10 Nasal Cannula 2.0 11/10/16 17:30 35 Intake and Output 11/11/16 11/11/16 11/12/16 15:00 23:00 07:00 Intake Total 820 ml 500 ml Output Total 490 ml 325 ml 800 ml Balance 330 ml -325 ml -300 ml Results/Medications Result Diagram: 11/12/16 0610 11/12/16 0610 Results 24 hrs Laboratory Tests Test 11/12/16 06:10 11/12/16 13:15 White Blood Count 5.7 Red Blood Count 3.34 L Hemoglobin 9.7 L Hematocrit 30.2 L Mean Corpuscular Volume 90.4 Mean Corpuscular Hemoglobin 29.0 Mean Corpuscular Hemoglobin Concent 32.1 Red Cell Distribution Width 15.9 H Platelet Count 132 L Mean Platelet Volume 12.7 H Neutrophils % 91.7 H Lymphocytes % 2.5 L Monocytes % 5.1 Eosinophils % 0.0 Basophils % 0.0 Nucleated Red Blood Cells % 0.0 Neutrophils # (Manual) 5.2 Lymphocytes # 0.1 L Monocytes # 0.3 Eosinophils # 0.0 Basophils # 0.0 Nucleated Red Blood Cells # 0.0 Sodium Level 145 H Potassium Level 3.9 Chloride Level 101 Carbon Dioxide Level 25 Anion Gap 23 H Blood Urea Nitrogen 115 H Creatinine 2.79 H Glucose Level 170 Calcium Level 7.2 L Phosphorus Level 5.8 H Magnesium Level 2.4 Total Bilirubin 0.3 Direct Bilirubin 0.00 Indirect Bilirubin 0.3 Aspartate Amino Transf (AST/SGOT) 18 Alanine Aminotransferase (ALT/SGPT) 49 Alkaline Phosphatase 55 B-Type Natriuretic Peptide 95204 H Total Protein 6.2 Albumin 3.1 L Urine Color YELLOW Urine Clarity SLIGHTLY CLOUDY A Urine pH 5.0 Urine Specific [place] 1.012 Urine Ketones NEGATIVE Urine Nitrite NEGATIVE Urine Bilirubin NEGATIVE Urine Urobilinogen NEGATIVE Urine Leukocyte Esterase NEGATIVE Urine Microscopic RBC 4 Urine Microscopic WBC 6 H Urine Squamous Epithelial Cells FEW Urine Bacteria FEW A Urine Mucus FEW A Urine Yeast (Budding) FEW A Urine Hemoglobin 1+ H Urine Random Creatinine 33.09 Urine Random Sodium 61 Urine Glucose NEGATIVE Urine Total Protein 23.0 H Medications Current Medications Albuterol (Ventolin Hfa) 2 puff Q4H PRN INH SHORTNESS OF BREATH; Start at 13:30 Amiodarone HCl (Cordarone) 400 mg DAILY PO Last administered on 11/12/16 09:07 ; Admin Dose 400 MG; Start 11/07/16 at 09:00 Atorvastatin Calcium (Lipitor) 80 mg QHS PO Last administered on 11/11/16 21: 19; Admin Dose 80 MG; Start 11/06/16 at 21:00 Calcitriol (Rocaltrol) 0.25 mcg DAILY PO Last administered on 11/12/16 09:07; Admin Dose 0.25 MCG; Start 11/07/16 at 09:00 Carvedilol (Coreg) 3.125 mg BID PO Last administered on 11/11/16 21:19; Admin Dose 3.125 MG; Start 11/06/16 at 21:00 Doxazosin Mesylate (Cardura) 2 mg HS PO Last administered on 11/11/16 23:04; Admin Dose 2 MG; Start 11/06/16 at 21:00 Clopidogrel Bisulfate (plaVIX) 75 mg DAILY PO Last administered on 11/12/16 09 :07; Admin Dose 75 MG; Start 11/06/16 at 13:30 Enoxaparin Sodium (Lovenox) 30 mg BID SC Last administered on 11/12/16 09:16; Admin Dose 30 MG; Start 11/06/16 at 13:30 IV Flush (NS 10 ml) 10 ml PRN PRN IV IV PROTOCOL; Start 11/06/16 at 18:00 Mupirocin (Bactroban) 1 applic BID TOP Last administered on 11/12/16 09:09; Admin Dose 1 APPLIC; Start 11/07/16 at 14:30 Alprazolam (Xanax) 1 mg Q6 PRN PO AGITATION/ANXIETY Last administered on 16:41; Admin Dose 1 MG; Start 11/07/16 at 16:30 Lansoprazole (Prevacid) 30 mg DAILY@06 PO Last administered on 11/12/16 05:17 ; Admin Dose 30 MG; Start 11/08/16 at 06:00 Tacrolimus (Prograf) 0.5 mg Q12 PO Last administered on 11/12/16 09:24; Admin Dose 0.5 MG; Start 11/07/16 at 21:30 Aspirin (Aspirin) 81 mg DAILY PO Last administered on 11/12/16 09:07; Admin Dose 81 MG; Start 11/08/16 at 09:00 Mycophenolate Mofetil (Cellcept) 200 mg BID PO Last administered on 11/12/16 09:08; Admin Dose 200 MG; Start 11/07/16 at 21:00 Morphine Sulfate 1 mg 1 mg Q4H PRN IV PAIN Last administered on 11/10/16 03:23 ; Admin Dose 1 MG; Start 11/08/16 at 11:00 Levofloxacin/ Dextrose 50 ml @ 50 mls/hr Q24H IVPB Last administered on 13:24; Admin Dose 50 MLS/HR; Start 11/08/16 at 13:00 Cefepime HCl 50 ml @ 100 mls/hr Q24H IVPB ; Start 11/12/16 at 21:00 Vancomycin HCl (Vancocin) 250 ml @ 125 mls/hr Q48H IVPB ; Start 11/14/16 at 05: 00 Methylprednisolone Sodium Succinate (Solu-Medrol) 40 mg Q12 IV ; Start 11/12/16 at 21:00 Levothyroxine Sodium (Synthroid) 100 mcg DAILY@06 PO ; Start 11/13/16 at 06:00 Assessment/Plan Chief Complaint/Hosp Course 1. Acute hypoxemic hypercapnic respiratory failure: 2. Congestive heart failure acute on chronic due to systolic and diastolic heart failure and mostly severe . 3. Severe aortic stenosis 4. COPD 5. History of hypertension 6. Proximal atrial fibrillation: currently appears to be in NSR . 7. Dyslipidemia 8. History of coronary bypass graft 9. Severe coronary artery disease 10. Renal failure chronic status post renal transplant 11. shock: on levophed drip now 12. ACS Recommendation: I will continue with the Plavix and Aspirin 81 mg p.o. will hold BUMEX for now. off of dopmaine drip abx as per IM/ pulm steroids as per pulm Pulmonary/ICU consultation with Dr. wills and Renal consultation with Dr. Carpio is appreciated. lovenox. ok to transfer to tele. case has been d./w DR Santos Anderson at [facility] on who agreed to accept pt for TAVR. I have placed the call to transfer center at [facility] already for transferring for higher level of care for TAVR. awaiting transfer Thank you for his referral will continue to follow along with you. CARMEN JARAMILLO MD [facility] Problems: CARMEN JARAMILLO MD Nov 12, 2016 16:37
[2016-11-12] MEDS ORDERED: CASPOFUNGIN 70 MG in SOD CHLORIDE 0.9% 250 ML IVPB ONE (20:00)
[2016-11-12] MEDS: METHYLPREDNISOLONE 40 MG INJ IV SCH (20:55)
[2016-11-12] MEDS: CEFEPIME 1GM/50 ML IVPB SCH (20:56)
[2016-11-12] MEDS: ATORVASTATIN 80 MG TAB PO SCH (20:56)
[2016-11-12] MEDS: DOXAZOSIN 2 MG TAB PO SCH ×2 (20:57→20:59)
[2016-11-13] VITALS (12 sets, daily range): BP systolic 98–118; BP diastolic 57–76; PULSE 60–65; RESP 18
--- NOTE | 2016-11-13 02:39 | PN ---
DATE: 11/12/2016 SUBJECTIVE DATA: No acute changes overnight. No fevers. The patient is alert, tachypneic with exertion, but in no distress. OBJECTIVE DATA: He is afebrile. Temperature 98.6, pulse 63, respirations 18, blood pressure 131/77, saturation 94 percent on 2 L. LABORATORY AND DIAGNOSTIC DATA: WBC 5.7, H and H 9.7 and 30.2, platelets 132, neutrophils 91.7. BUN 115, creatinine 2.79. MICROBIOLOGY: Urine culture on November 08 grew Germania glabrata. ANTIMICROBIALS: Patient remains on vancomycin and cefepime and Levaquin. He is also on steroids. INDWELLING: PICC line. PHYSICAL EXAMINATION: GENERAL: This is a chronically ill-appearing, cachectic, elderly man, who is awake, in no distress. HEENT: Head atraumatic, normocephalic. Sclerae anicteric. Buccal mucosa dry. NECK: Supple. RESPIRATORY: Chest rise symmetrical. Breath sounds diminished at the bases. HEART: S1, S2. ABDOMEN: Soft, bowel sounds present. EXTREMITIES: Without cyanosis. ASSESSMENT: 1. Status post shock, multifactorial. 2. Status post leukocytosis, partial intravenous steroid demargination. Right lower lobe consolidation on admission. 3. [id number] obstructive pulmonary disease. 4. Congestive heart failure exacerbation. 5. Methicillin-resistant Staphylococcus aureus nares colonization. 6. History of coronary artery bypass grafting. 7. Chronic kidney disease, status post kidney transplant in 2007, on immunosuppressive therapy. 8. Aortic stenosis. 9. Cardiomyopathy. 10. Status post automatic implantable cardioverter- defibrillator. PLAN: Patient remains stable. White blood cell count normalized. He is getting Bactroban to nares. He is on antibiotics day #6. We are going to start him on Cancidas for presence of Germania glabrata in the urine. We will discontinue Levaquin. Continue present care. Follow chest x-ray. Follow recommendations of consultants. Dictated By: Mahad Aaron NP /jack/pat /Document#: [id number] VERO
[2016-11-13] MEDS: LANSOPRAZOLE 30 MG CAP PO SCH (05:43)
[2016-11-13] MEDS: LEVOTHYROXINE 100 MCG TAB PO SCH (05:43)
[2016-11-13 07:47] LABS: ABNORMAL IP MESSAGE 1; BASOPHILS % 0.1 % (0.0-2.0); HEMATOCRIT 30.6 % (42.0-52.0); HEMOGLOBIN 9.8 g/dl (14.0-18.0); LYMPHOCYTES # 0.1 10^3/ul (0.8-2.9); LYMPHOCYTES % 1.4 % (15.0-51.0); MEAN CORPUSCULAR HEMOGLOBIN 28.6 pg (29.0-33.0); MEAN CORPUSCULAR VOLUME 89.2 fl (82.0-101.0); MEAN PLATELET VOLUME 12.8 fl (7.4-10.4); MONOCYTE # 0.3 10^3/ul (0.3-0.9); MONOCYTES % 4.6 % (0.0-11.0); NEUTROPHILS % 92.9 % (39.0-77.0); PLATELET COUNT 125 10^3/UL (140-415); POSITIVE DIFF @See below; RED BLOOD COUNT 3.43 10^6/ul (4.70-6.10); RED CELL DISTRIBUTION WIDTH 15.9 % (11.5-14.5)
[2016-11-13 08:18] LABS: ALBUMIN 3.2 g/dl (3.3-4.9); ALBUMIN/GLOBULIN RATIO 1.06; BILIRUBIN,INDIRECT 0.2 mg/dl (0-1.1); BILIRUBIN,TOTAL 0.2 mg/dl (0.2-1.3); CREATININE 2.73 mg/dl (0.61-1.24); POTASSIUM 3.9 mmol/L (3.5-5.1); TOTAL PROTEIN 6.2 g/dl (6.1-8.1)
[2016-11-13] MEDS: METHYLPREDNISOLONE 40 MG INJ IV SCH ×2 (09:07→21:47)
[2016-11-13] MEDS: ASPIRIN 81 MG TAB PO SCH (09:08)
[2016-11-13] MEDS: MYCOPHENOLATE MOFETIL PO SCH ×2 (09:08→21:47)
[2016-11-13] MEDS: AMIODARONE 200 MG TAB PO SCH (09:09)
[2016-11-13] MEDS: CLOPIDOGREL 75 MG TAB PO SCH (09:10)
[2016-11-13] MEDS: CALCITRIOL 0.25 MCG CAP PO SCH (09:10)
[2016-11-13] MEDS: TACROLIMUS 1 MG/ML PO SCH ×2 (09:10→21:47)
[2016-11-13] MEDS: MUPIROCIN 2% 22 GM OINT TOP SCH ×2 (09:11→21:50)
[2016-11-13 09:40] LABS: MAGNESIUM 2.6 mg/dl (1.7-2.5); PHOSPHORUS 6.3 mg/dl (2.5-4.9)
--- NOTE | 2016-11-13 10:04 | RADRPT ---
PROCEDURE: XR Chest. CLINICAL INDICATION: CHF TECHNIQUE: AP Portable chest. COMPARISON: 11/10/2016 FINDINGS: Left-sided AICD device is unchanged. Sternotomy wires mediastinal clips are visualized. The cardiac silhouette is enlarged. The aortic arch is calcified. No pneumothorax is seen. Edema, bilateral interstitial densities and pleural effusions appear decreased.. Right basilar opacity is m ore pronounced, likely atelectasis. The osseous structures are intact. IMPRESSION: Mild decrease CHF, and bilateral small pleural effusions. Basilar infiltrate atelectasis. Cardiomegaly. Physician Jihan Date Time Electronically viewed and signed by Physician Jihan on 11/13/2016 10:04 CS/
[2016-11-13] MEDS: ENOXAPARIN 30 MG/0.3 ML SYG SC SCH ×2 (10:06→22:11)
--- NOTE | 2016-11-13 10:28 | PN ---
DATE: 11/13/2016 SUBJECTIVE DATA: The patient is stable. No events overnight. No fevers, chills, nausea, vomiting. No shortness of breath. OBJECTIVE DATA: VITAL SIGNS: Blood pressure 118/76, respirations 18, pulse 56, and temperature 97.8. HEENT: Head is normocephalic. NECK: Supple. HEART: Regular rate. LUNGS: Show diminished breath sounds at the base. ABDOMEN: Soft, nontender to palpation. No rebound or guarding. EXTREMITIES: Negative for clubbing, cyanosis. No edema. DERMATOLOGIC: Clean. No rashes. MUSCULOSKELETAL: No joint effusion. NEUROLOGIC: Unchanged exam. MEDICATIONS: Reviewed. LABORATORY AND DIAGNOSTIC DATA: Shows a white count 7.9, hemoglobin 9.8, crit 30.6, platelet count is 125. Sodium 144, potassium 3.9, chloride 99, BUN 116, creatinine 2.73. ASSESSMENT AND PLAN: 1. 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 Etiology of acute kidney injury secondary to cardiorenal syndrome. The patient's renal function was stable in the last 24 hours at 2.7 mg/dL. The patient also has a significant azotemia due to underlying steroids, hypercatabolic state, acute kidney injury. At this point, continue current treatment plan. Continue supportive care. Renally dose medications. We will hold diuretic therapy for another 24 hours. Prograf levels pending. Would recommend transfer to tertiary center for higher of level. 2. History of end-stage renal disease, status post kidney transplant. The patient is currently in acute injury as stated above. Continue immunosuppressive regimen. 3. Hypernatremia, improved. 4. Mineral bone disorder. Continue to monitor calcium and phosphorus levels. 5. Anemia. monitor H and H levels. 6. Status post shock. Etiology is likely multifactorial, cardiogenic, septic. Continue broad-spectrum antibiotics. 7. Acute decompensated heart failure. The patient remains decompensated. Continue intermittent diuretic therapy. Currently on hold due to worsening renal function. 8. Severe aortic stenosis. The patient is pending possible transfer [facility] for definitive surgery. 9. History of coronary artery disease, status post coronary artery bypass graft. Continue medical management. 10. Atrial fibrillation. Currently in sinus rhythm. Continue current treatment plan. Dictated By: Ezra Carpio DO /jack/pat /Document#: [id number]
--- NOTE | 2016-11-13 10:45 | CONS ---
Date/Time of Note Date/Time of Note DATE: 11/13/16 TIME: 10:44 Consult Date/Type/Reason Admit Date/Time Nov 06, 2016 at 12:15 Initial Consult Date 11/06/16 Type of Consultation: Pulm Ordering Provider: BRANDY REHMAN MD Subjective Continues to slowly improve. Objective Vital Signs Date Time Temp Pulse Resp B/P Pulse Ox O2 Delivery O2 Flow Rate FiO2 11/13/16 08:56 60 11/13/16 07:06 97.8 18 118/76 98 11/12/16 21:18 4.0 11/12/16 21:00 Nasal Cannula 11/10/16 17:30 35 Intake and Output 11/12/16 11/12/16 11/13/16 15:00 23:00 07:00 Intake Total 300 ml 650 ml 800 ml Output Total 800 ml 400 ml Balance 300 ml -150 ml 400 ml Results/Medications Result Diagram: 11/13/16 0630 11/13/16 0630 Results 24 hrs cxr IMPRESSION: Mild decrease CHF, and bilateral small pleural effusions. Basilar infiltrate atelectasis. Cardiomegaly. Laboratory Tests Test 11/12/16 13:15 11/13/16 06:30 Urine Color YELLOW Urine Clarity SLIGHTLY CLOUDY A Urine pH 5.0 Urine Specific [place] 1.012 Urine Ketones NEGATIVE Urine Nitrite NEGATIVE Urine Bilirubin NEGATIVE Urine Urobilinogen NEGATIVE Urine Leukocyte Esterase NEGATIVE Urine Microscopic RBC 4 Urine Microscopic WBC 6 H Urine Squamous Epithelial Cells FEW Urine Bacteria FEW A Urine Mucus FEW A Urine Yeast (Budding) FEW A Urine Hemoglobin 1+ H Urine Random Creatinine 33.09 Urine Random Sodium 61 Urine Glucose NEGATIVE Urine Total Protein 23.0 H White Blood Count 7.0 # Red Blood Count 3.43 L Hemoglobin 9.8 L Hematocrit 30.6 L Mean Corpuscular Volume 89.2 Mean Corpuscular Hemoglobin 28.6 L Mean Corpuscular Hemoglobin Concent 32.0 Red Cell Distribution Width 15.9 H Platelet Count 125 L Mean Platelet Volume 12.8 H Neutrophils % 92.9 H Lymphocytes % 1.4 L Monocytes % 4.6 Eosinophils % 0.0 Basophils % 0.1 Nucleated Red Blood Cells % 0.0 Neutrophils # (Manual) 6.5 Lymphocytes # 0.1 L Monocytes # 0.3 Eosinophils # 0.0 Basophils # 0.0 Nucleated Red Blood Cells # 0.0 Sodium Level 144 Potassium Level 3.9 Chloride Level 99 Carbon Dioxide Level 25 Anion Gap 24 H Blood Urea Nitrogen 116 H Creatinine 2.73 H Glucose Level 185 Calcium Level 7.0 L Phosphorus Level 6.3 H Magnesium Level 2.6 H Total Bilirubin 0.2 Direct Bilirubin 0.00 Indirect Bilirubin 0.2 Aspartate Amino Transf (AST/SGOT) 14 L Alanine Aminotransferase (ALT/SGPT) 43 Alkaline Phosphatase 53 B-Type Natriuretic Peptide 03121 H Total Protein 6.2 Albumin 3.2 L Globulin 3.00 Albumin/Globulin Ratio 1.06 Medications Current Medications Albuterol (Ventolin Hfa) 2 puff Q4H PRN INH SHORTNESS OF BREATH; Start at 13:30 Amiodarone HCl (Cordarone) 400 mg DAILY PO Last administered on 11/13/16 09:09 ; Admin Dose 400 MG; Start 11/07/16 at 09:00 Atorvastatin Calcium (Lipitor) 80 mg QHS PO Last administered on 11/12/16 20: 56; Admin Dose 80 MG; Start 11/06/16 at 21:00 Calcitriol (Rocaltrol) 0.25 mcg DAILY PO Last administered on 11/13/16 09:10; Admin Dose 0.25 MCG; Start 11/07/16 at 09:00 Carvedilol (Coreg) 3.125 mg BID PO Last administered on 11/13/16 09:10; Admin Dose 3.125 MG; Start 11/06/16 at 21:00 Doxazosin Mesylate (Cardura) 2 mg HS PO Last administered on 11/11/16 23:04; Admin Dose 2 MG; Start 11/06/16 at 21:00 Clopidogrel Bisulfate (plaVIX) 75 mg DAILY PO Last administered on 11/13/16 09 :10; Admin Dose 75 MG; Start 11/06/16 at 13:30 Enoxaparin Sodium (Lovenox) 30 mg BID SC Last administered on 11/13/16 10:06; Admin Dose 30 MG; Start 11/06/16 at 13:30 IV Flush (NS 10 ml) 10 ml PRN PRN IV IV PROTOCOL; Start 11/06/16 at 18:00 Mupirocin (Bactroban) 1 applic BID TOP Last administered on 11/13/16 09:11; Admin Dose 1 APPLIC; Start 11/07/16 at 14:30 Alprazolam (Xanax) 1 mg Q6 PRN PO AGITATION/ANXIETY Last administered on 16:41; Admin Dose 1 MG; Start 11/07/16 at 16:30 Lansoprazole (Prevacid) 30 mg DAILY@06 PO Last administered on 11/13/16 05:43 ; Admin Dose 30 MG; Start 11/08/16 at 06:00 Tacrolimus (Prograf) 0.5 mg Q12 PO Last administered on 11/13/16 09:10; Admin Dose 0.5 MG; Start 11/07/16 at 21:30 Aspirin (Aspirin) 81 mg DAILY PO Last administered on 11/13/16 09:08; Admin Dose 81 MG; Start 11/08/16 at 09:00 Mycophenolate Mofetil (Cellcept) 200 mg BID PO Last administered on 11/13/16 09:08; Admin Dose 200 MG; Start 11/07/16 at 21:00 Morphine Sulfate 1 mg 1 mg Q4H PRN IV PAIN Last administered on 11/10/16 03:23 ; Admin Dose 1 MG; Start 11/08/16 at 11:00 Cefepime HCl 50 ml @ 100 mls/hr Q24H IVPB Last administered on 11/12/16 20:56 ; Admin Dose 100 MLS/HR; Start 11/12/16 at 21:00 Vancomycin HCl (Vancocin) 250 ml @ 125 mls/hr Q48H IVPB ; Start 11/14/16 at 05: 00 Methylprednisolone Sodium Succinate (Solu-Medrol) 40 mg Q12 IV Last administered on 11/13/16 09:07; Admin Dose 40 MG; Start 11/12/16 at 21:00 Levothyroxine Sodium 100 mcg 100 mcg DAILY@06 PO Last administered on 05:43; Admin Dose 100 MCG; Start 11/13/16 at 06:00 Caspofungin/ Sodium Chloride (Cancidas/NS) 250 ml @ 250 mls/hr Q24H IVPB ; Start 11/13/16 at 20:00 Assessment/Plan Chief Complaint/Hosp Course IMPRESSION: 1. Hypoxemic Resp Insufficiency--due to CHF superimposed on severe emphysema, radiographic and clinical improvement 2. CHF 3. History of chronic obstructive pulmonary disease. 4. History of coronary artery bypass graft surgery. 5. ROMAN PLAN: 1. O2--> titrate to SpO2 88-92% 2. Diuretics 3. Aspiration precautions 4. Continue Plavix and aspirin 5. Continue IV steroids and BD's 6. Mobilize OOB/PT/OT pending transfer to tertiary care center. Problems: MONICA SAMSON MD, [facility] Nov 13, 2016 10:45
--- NOTE | 2016-11-13 12:52 | CONS ---
Date/Time of Note Date/Time of Note DATE: 11/13/16 TIME: 12:48 Assessment/Plan Assessment/Plan Chief Complaint/Hosp Course SUBJECTIVE DATA: No acute changes overnight. No fevers. The patient is alert, just finished PT session, family at bedside, looks comfortable MICROBIOLOGY: Urine culture on November 08 grew Germania glabrata. ANTIMICROBIALS: Cancidas#2 vancomycin,and cefepime #7 INDWELLING: PICC line. PHYSICAL EXAMINATION: GENERAL: This is a chronically ill-appearing, cachectic, elderly man, who is awake, in no distress. HEENT: Head atraumatic, normocephalic. Sclerae anicteric. Buccal mucosa dry. NECK: Supple. RESPIRATORY: Chest rise symmetrical. Breath sounds diminished at the bases. HEART: S1, S2. ABDOMEN: Soft, bowel sounds present. EXTREMITIES: Without cyanosis. ASSESSMENT: 1. Status post shock, multifactorial. 2. Status post leukocytosis, partial intravenous steroid demargination. 3. Right lower lobe consolidation on admission with [id number] obstructive pulmonary disease. 4. Congestive heart failure exacerbation. 5. Methicillin-resistant Staphylococcus aureus nares colonization. 6. History of coronary artery bypass grafting. 7. Chronic kidney disease, status post kidney transplant in 2007, on immunosuppressive therapy. 8. Aortic stenosis. 9. Cardiomyopathy. 10. Status post automatic implantable cardioverter- defibrillator. PLAN: Patient remains stable. Continue present care, abx, continue PT. Follow recommendations of consultants. DW pt Problems: Consultation Date/Type/Reason Admit Date/Time Nov 06, 2016 at 12:15 Initial Consult Date 11/08/16 Type of Consultation: ID Referring Provider: BRANDY REHMAN MD Exam/Review of Systems Vital Signs Vitals Vital Signs Date Time Temp Pulse Resp B/P Pulse Ox O2 Delivery O2 Flow Rate FiO2 11/13/16 12:07 65 11/13/16 11:39 98.1 18 116/65 98 11/13/16 09:07 Nasal Cannula 2.0 11/10/16 17:30 35 Intake and Output 11/12/16 11/12/16 11/13/16 15:00 23:00 07:00 Intake Total 300 ml 650 ml 800 ml Output Total 800 ml 400 ml Balance 300 ml -150 ml 400 ml Results Result Diagram: 11/13/16 0630 11/13/16 0630 Results 24 hrs Laboratory Tests Test 11/12/16 13:15 11/13/16 06:30 Urine Color YELLOW Urine Clarity SLIGHTLY CLOUDY A Urine pH 5.0 Urine Specific [place] 1.012 Urine Ketones NEGATIVE Urine Nitrite NEGATIVE Urine Bilirubin NEGATIVE Urine Urobilinogen NEGATIVE Urine Leukocyte Esterase NEGATIVE Urine Microscopic RBC 4 Urine Microscopic WBC 6 H Urine Squamous Epithelial Cells FEW Urine Bacteria FEW A Urine Mucus FEW A Urine Yeast (Budding) FEW A Urine Hemoglobin 1+ H Urine Random Creatinine 33.09 Urine Random Sodium 61 Urine Glucose NEGATIVE Urine Total Protein 23.0 H White Blood Count 7.0 # Red Blood Count 3.43 L Hemoglobin 9.8 L Hematocrit 30.6 L Mean Corpuscular Volume 89.2 Mean Corpuscular Hemoglobin 28.6 L Mean Corpuscular Hemoglobin Concent 32.0 Red Cell Distribution Width 15.9 H Platelet Count 125 L Mean Platelet Volume 12.8 H Neutrophils % 92.9 H Lymphocytes % 1.4 L Monocytes % 4.6 Eosinophils % 0.0 Basophils % 0.1 Nucleated Red Blood Cells % 0.0 Neutrophils # (Manual) 6.5 Lymphocytes # 0.1 L Monocytes # 0.3 Eosinophils # 0.0 Basophils # 0.0 Nucleated Red Blood Cells # 0.0 Sodium Level 144 Potassium Level 3.9 Chloride Level 99 Carbon Dioxide Level 25 Anion Gap 24 H Blood Urea Nitrogen 116 H Creatinine 2.73 H Glucose Level 185 Calcium Level 7.0 L Phosphorus Level 6.3 H Magnesium Level 2.6 H Total Bilirubin 0.2 Direct Bilirubin 0.00 Indirect Bilirubin 0.2 Aspartate Amino Transf (AST/SGOT) 14 L Alanine Aminotransferase (ALT/SGPT) 43 Alkaline Phosphatase 53 B-Type Natriuretic Peptide 39271 H Total Protein 6.2 Albumin 3.2 L Globulin 3.00 Albumin/Globulin Ratio 1.06 Medications Medications Current Medications Albuterol (Ventolin Hfa) 2 puff Q4H PRN INH SHORTNESS OF BREATH; Start at 13:30 Amiodarone HCl (Cordarone) 400 mg DAILY PO Last administered on 11/13/16 09:09 ; Admin Dose 400 MG; Start 11/07/16 at 09:00 Atorvastatin Calcium (Lipitor) 80 mg QHS PO Last administered on 11/12/16 20: 56; Admin Dose 80 MG; Start 11/06/16 at 21:00 Calcitriol (Rocaltrol) 0.25 mcg DAILY PO Last administered on 11/13/16 09:10; Admin Dose 0.25 MCG; Start 11/07/16 at 09:00 Carvedilol (Coreg) 3.125 mg BID PO Last administered on 11/13/16 09:10; Admin Dose 3.125 MG; Start 11/06/16 at 21:00 Doxazosin Mesylate (Cardura) 2 mg HS PO Last administered on 11/11/16 23:04; Admin Dose 2 MG; Start 11/06/16 at 21:00 Clopidogrel Bisulfate (plaVIX) 75 mg DAILY PO Last administered on 11/13/16 09 :10; Admin Dose 75 MG; Start 11/06/16 at 13:30 Enoxaparin Sodium (Lovenox) 30 mg BID SC Last administered on 11/13/16 10:06; Admin Dose 30 MG; Start 11/06/16 at 13:30 IV Flush (NS 10 ml) 10 ml PRN PRN IV IV PROTOCOL; Start 11/06/16 at 18:00 Mupirocin (Bactroban) 1 applic BID TOP Last administered on 11/13/16 09:11; Admin Dose 1 APPLIC; Start 11/07/16 at 14:30 Alprazolam (Xanax) 1 mg Q6 PRN PO AGITATION/ANXIETY Last administered on 16:41; Admin Dose 1 MG; Start 11/07/16 at 16:30 Lansoprazole (Prevacid) 30 mg DAILY@06 PO Last administered on 11/13/16 05:43 ; Admin Dose 30 MG; Start 11/08/16 at 06:00 Tacrolimus (Prograf) 0.5 mg Q12 PO Last administered on 11/13/16 09:10; Admin Dose 0.5 MG; Start 11/07/16 at 21:30 Aspirin (Aspirin) 81 mg DAILY PO Last administered on 11/13/16 09:08; Admin Dose 81 MG; Start 11/08/16 at 09:00 Mycophenolate Mofetil (Cellcept) 200 mg BID PO Last administered on 11/13/16 09:08; Admin Dose 200 MG; Start 11/07/16 at 21:00 Morphine Sulfate 1 mg 1 mg Q4H PRN IV PAIN Last administered on 11/10/16 03:23 ; Admin Dose 1 MG; Start 11/08/16 at 11:00 Cefepime HCl 50 ml @ 100 mls/hr Q24H IVPB Last administered on 11/12/16 20:56 ; Admin Dose 100 MLS/HR; Start 11/12/16 at 21:00 Vancomycin HCl (Vancocin) 250 ml @ 125 mls/hr Q48H IVPB ; Start 11/14/16 at 05: 00 Methylprednisolone Sodium Succinate (Solu-Medrol) 40 mg Q12 IV Last administered on 11/13/16 09:07; Admin Dose 40 MG; Start 11/12/16 at 21:00 Levothyroxine Sodium 100 mcg 100 mcg DAILY@06 PO Last administered on 05:43; Admin Dose 100 MCG; Start 11/13/16 at 06:00 Caspofungin/ Sodium Chloride (Cancidas/NS) 250 ml @ 250 mls/hr Q24H IVPB ; Start 11/13/16 at 20:00 KENDRA MORROW NP Nov 13, 2016 12:52
--- NOTE | 2016-11-13 14:16 | PN ---
Date/Time of Note Date/Time of Note DATE: 11/13/16 TIME: 14:12 Assessment/Plan VTE Prophylaxis VTE Prophylaxis Intervention: LMWH Lines/Catheters IV [facility] [place] line still needed: No Urinary Cath still in place: Yes Reason Cath still needed: other (indicate) (monitor urine output) Assessment/Plan Chief Complaint/Hosp Course 1. Acute hypoxemic hypercapnic respiratory failure. 2. Congestive heart failure acute on chronic. 3. Severe aortic stenosis 4. COPD 5. History of hypertension 6. Proximal atrial fibrillation 7. Dyslipidemia 8. History of coronary bypass graft 9. Severe coronary artery disease 10. Renal failure chronic status post renal transplant Recommendation: I will continue with the Plavix. Aspirin 81 mg p.o. will be given for now. Patient will be admitted to intensive care unit. Pulmonary/ICU consultation with Dr. barnes, has been putting place already. Renal consultation with Dr. Crowell has been ordered already. I have ordered a chest x-ray. BiPAP as well as nebulizer treatment for now. Cardiac rhythm will be checked again tomorrow and likely will be checked tomorrow to rule out myocardial infarction and correct electrolytes renal function as needed. PCI will be postponed if patient stabilizes. Patient was admitted to intensive care unit for close monitoring. Thank you for his referral will continue to follow along with you. CARMEN JARAMILLO MD [facility] Problems: Assessment/Plan A/P. This is a 71 years old male with history of CHF, EF 35%, Aortic stenosis, A.fib, CAD, CKD, s/p renal transplant who presented for elective coronary angiogram. Found to be in respiratory failure. 1. Respiratory failure-combination of Pneumonia, CHF and ? COPD, will tape down patients steroids, antibiotics to continue, continue to hold bumex 2ndarty to worsening renal function. CXR slightly better. off BiPAP and off high flow oxygen. Nasal cannula to keep saturation greater than or equal to 89. clinically looks improved, comfortable. 2. cardiovascular-patient with respiratory failure likely partly to CHF exacerbation, and pneumonia. Hold diuretics 2ndary to uremia, and worsening kidney function. Plan for transfer to [facility] for aortic valve procedure. 3. CKD-monitor kidney functions closely, will continue immunosuppressive medications as patient is status post renal transplant, renally dose all Meds. Kidney function slightly worse and elevated BUN is noted, hold diuretics. 4. Anti coagulate with Lovenox, as patient has history of atrial fibrillation. 5. Protonix for GI prophylaxis. 6. ID. WBC is normal on Vancomycin, Levaquin and Cefepime, ID to follow, follow up on cultures. follow up serial chest x-rays. Urine culture shows Germania glabrata, Cancidas added. 7. PICC line placement for easier access was placed. 8. Dysphagia-advance diet to soft mechanical diet 2 g sodium. As tolerated, and ensure. 9. Family aware. 10. Coronary artery disease-PCI is on hold. Will defer to cardiology at [facility] once patient is transferred 11. Hypothyroidism-continue oral Synthroid. TSH is at goal. 12. Over 30 minutes spent examining patient discussing with family and case manger plan of care. 13. anxiolytics prn for anxiety. 14. Clinically better. 15. Appreciate physical therapy follow up. Subjective 24 Hr Interval Summary Free Text/Dictation Patient see, comfortable on NC o2. no acute events, awaiting transfer to tertiary care/[facility]. Case d/w case coordinator. Subjective hx not possible: pt critical status Constitutional: requiring O2, No disoriented Eyes: No discharge ENT: No congestion Respiratory: No pleuritic pain Cardiovascular: No chest pain, No edema Gastrointestinal: decreased appetite (family brought ice cream, eating better) Genitourinary: No discharge Musculoskeletal: No neck pain Skin: No laceration Neurologic: No focal-weakness Endocrine: No polydypsia Lymphatic: No tender nodes Psychological: No confusion Immunologic: No pruritis Exam/Review of Systems Vital Signs Vitals Vital Signs Date Time Temp Pulse Resp B/P Pulse Ox O2 Delivery O2 Flow Rate FiO2 11/13/16 12:07 65 11/13/16 11:39 98.1 18 116/65 98 11/13/16 09:07 Nasal Cannula 2.0 11/10/16 17:30 35 Intake and Output 11/12/16 11/12/16 11/13/16 14:59 22:59 06:59 Intake Total 300 ml 650 ml 800 ml Output Total 800 ml 400 ml Balance 300 ml -150 ml 400 ml Exam thin, pale, temporal wasting Constitutional: No non-verbal Psych: No confusion Head: No lacerations Eyes: PERRL ENMT: No intubated Neck: No bruits, No jvd, No thyromegaly Respiratory: No intercostal retraction, No labored breathing Cardiovascular: systolic murmur Genitourinary - Male: No CVA tenderness Musculoskeletal: No muscle tone Extremities: No clubbing, No cyanosis, No edema Neurological: No confused Results Result Diagram: 11/13/16 0630 11/13/16 0630 Results 24 hrs Laboratory Tests Test 11/13/16 06:30 White Blood Count 7.0 # Red Blood Count 3.43 L Hemoglobin 9.8 L Hematocrit 30.6 L Mean Corpuscular Volume 89.2 Mean Corpuscular Hemoglobin 28.6 L Mean Corpuscular Hemoglobin Concent 32.0 Red Cell Distribution Width 15.9 H Platelet Count 125 L Mean Platelet Volume 12.8 H Neutrophils % 92.9 H Lymphocytes % 1.4 L Monocytes % 4.6 Eosinophils % 0.0 Basophils % 0.1 Nucleated Red Blood Cells % 0.0 Neutrophils # (Manual) 6.5 Lymphocytes # 0.1 L Monocytes # 0.3 Eosinophils # 0.0 Basophils # 0.0 Nucleated Red Blood Cells # 0.0 Sodium Level 144 Potassium Level 3.9 Chloride Level 99 Carbon Dioxide Level 25 Anion Gap 24 H Blood Urea Nitrogen 116 H Creatinine 2.73 H Glucose Level 185 Calcium Level 7.0 L Phosphorus Level 6.3 H Magnesium Level 2.6 H Total Bilirubin 0.2 Direct Bilirubin 0.00 Indirect Bilirubin 0.2 Aspartate Amino Transf (AST/SGOT) 14 L Alanine Aminotransferase (ALT/SGPT) 43 Alkaline Phosphatase 53 B-Type Natriuretic Peptide 60586 H Total Protein 6.2 Albumin 3.2 L Globulin 3.00 Albumin/Globulin Ratio 1.06 Medications Medications Current Medications Albuterol (Ventolin Hfa) 2 puff Q4H PRN INH SHORTNESS OF BREATH; Start at 13:30 Amiodarone HCl (Cordarone) 400 mg DAILY PO Last administered on 11/13/16 09:09 ; Admin Dose 400 MG; Start 11/07/16 at 09:00 Atorvastatin Calcium (Lipitor) 80 mg QHS PO Last administered on 11/12/16 20: 56; Admin Dose 80 MG; Start 11/06/16 at 21:00 Calcitriol (Rocaltrol) 0.25 mcg DAILY PO Last administered on 11/13/16 09:10; Admin Dose 0.25 MCG; Start 11/07/16 at 09:00 Carvedilol (Coreg) 3.125 mg BID PO Last administered on 11/13/16 09:10; Admin Dose 3.125 MG; Start 11/06/16 at 21:00 Doxazosin Mesylate (Cardura) 2 mg HS PO Last administered on 11/11/16 23:04; Admin Dose 2 MG; Start 11/06/16 at 21:00 Clopidogrel Bisulfate (plaVIX) 75 mg DAILY PO Last administered on 11/13/16 09 :10; Admin Dose 75 MG; Start 11/06/16 at 13:30 Enoxaparin Sodium (Lovenox) 30 mg BID SC Last administered on 11/13/16 10:06; Admin Dose 30 MG; Start 11/06/16 at 13:30 IV Flush (NS 10 ml) 10 ml PRN PRN IV IV PROTOCOL; Start 11/06/16 at 18:00 Mupirocin (Bactroban) 1 applic BID TOP Last administered on 11/13/16 09:11; Admin Dose 1 APPLIC; Start 11/07/16 at 14:30 Alprazolam (Xanax) 1 mg Q6 PRN PO AGITATION/ANXIETY Last administered on 16:41; Admin Dose 1 MG; Start 11/07/16 at 16:30 Lansoprazole (Prevacid) 30 mg DAILY@06 PO Last administered on 11/13/16 05:43 ; Admin Dose 30 MG; Start 11/08/16 at 06:00 Tacrolimus (Prograf) 0.5 mg Q12 PO Last administered on 11/13/16 09:10; Admin Dose 0.5 MG; Start 11/07/16 at 21:30 Aspirin (Aspirin) 81 mg DAILY PO Last administered on 11/13/16 09:08; Admin Dose 81 MG; Start 11/08/16 at 09:00 Mycophenolate Mofetil (Cellcept) 200 mg BID PO Last administered on 11/13/16 09:08; Admin Dose 200 MG; Start 11/07/16 at 21:00 Morphine Sulfate 1 mg 1 mg Q4H PRN IV PAIN Last administered on 11/10/16 03:23 ; Admin Dose 1 MG; Start 11/08/16 at 11:00 Cefepime HCl 50 ml @ 100 mls/hr Q24H IVPB Last administered on 11/12/16 20:56 ; Admin Dose 100 MLS/HR; Start 11/12/16 at 21:00 Vancomycin HCl (Vancocin) 250 ml @ 125 mls/hr Q48H IVPB ; Start 11/14/16 at 05: 00 Methylprednisolone Sodium Succinate (Solu-Medrol) 40 mg Q12 IV Last administered on 11/13/16 09:07; Admin Dose 40 MG; Start 11/12/16 at 21:00 Levothyroxine Sodium 100 mcg 100 mcg DAILY@06 PO Last administered on 05:43; Admin Dose 100 MCG; Start 11/13/16 at 06:00 Caspofungin/ Sodium Chloride (Cancidas/NS) 250 ml @ 250 mls/hr Q24H IVPB ; Start 11/13/16 at 20:00 BRANDY REHMAN MD Nov 13, 2016 14:16
--- NOTE | 2016-11-13 16:05 | CONS ---
Date/Time of Note Date/Time of Note DATE: 11/13/16 TIME: 16:03 Consult Date/Type/Reason Admit Date/Time Nov 06, 2016 at 12:15 Initial Consult Date 11/06/16 Type of Consultation: CARDIOLOGY Ordering Provider: BRANDY REHMAN MD Subjective CARDIOLOGY FOLLOW UP NOTE: d/w staff and rhythm was reviewed. pt remains in AV paced rhythm mostly D/W Dr Dacosta. d/w Dr Anderson who has reported pt should be able to be transferred tonight to [facility]. . no chest pain or pressure or palpitations. he is off of BIPAP now and on NC O2 only and his O2 sat has improved. he denies any palpitations. he has less sob. OBJECTIVE: General: in no dresp distress on O2 HEENT: NC/AT. pupils are equal. round. NECK: NO JVD. no stridor. CV: RRR. systolic murmur; no gallop or rubs. PULM: NO wheezing. mild rhonchi . . GI: SOFT, NT, ND, no rebound or guarding Extremity: trace B/L LE edema. no clubbing. neuro: awake and alert, OX3. Psych: depressed mood but pleasant rectal: deferred : normal Objective Vital Signs Date Time Temp Pulse Resp B/P Pulse Ox O2 Delivery O2 Flow Rate FiO2 11/13/16 15:35 98.3 63 18 100/57 95 11/13/16 09:07 Nasal Cannula 2.0 11/10/16 17:30 35 Intake and Output 11/12/16 11/12/16 11/13/16 15:00 23:00 07:00 Intake Total 300 ml 650 ml 800 ml Output Total 800 ml 400 ml Balance 300 ml -150 ml 400 ml Results/Medications Result Diagram: 11/13/16 0630 11/13/16 0630 Results 24 hrs Laboratory Tests Test 11/13/16 06:30 White Blood Count 7.0 # Red Blood Count 3.43 L Hemoglobin 9.8 L Hematocrit 30.6 L Mean Corpuscular Volume 89.2 Mean Corpuscular Hemoglobin 28.6 L Mean Corpuscular Hemoglobin Concent 32.0 Red Cell Distribution Width 15.9 H Platelet Count 125 L Mean Platelet Volume 12.8 H Neutrophils % 92.9 H Lymphocytes % 1.4 L Monocytes % 4.6 Eosinophils % 0.0 Basophils % 0.1 Nucleated Red Blood Cells % 0.0 Neutrophils # (Manual) 6.5 Lymphocytes # 0.1 L Monocytes # 0.3 Eosinophils # 0.0 Basophils # 0.0 Nucleated Red Blood Cells # 0.0 Sodium Level 144 Potassium Level 3.9 Chloride Level 99 Carbon Dioxide Level 25 Anion Gap 24 H Blood Urea Nitrogen 116 H Creatinine 2.73 H Glucose Level 185 Calcium Level 7.0 L Phosphorus Level 6.3 H Magnesium Level 2.6 H Total Bilirubin 0.2 Direct Bilirubin 0.00 Indirect Bilirubin 0.2 Aspartate Amino Transf (AST/SGOT) 14 L Alanine Aminotransferase (ALT/SGPT) 43 Alkaline Phosphatase 53 B-Type Natriuretic Peptide 97864 H Total Protein 6.2 Albumin 3.2 L Globulin 3.00 Albumin/Globulin Ratio 1.06 Medications Current Medications Albuterol (Ventolin Hfa) 2 puff Q4H PRN INH SHORTNESS OF BREATH; Start at 13:30 Amiodarone HCl (Cordarone) 400 mg DAILY PO Last administered on 11/13/16 09:09 ; Admin Dose 400 MG; Start 11/07/16 at 09:00 Atorvastatin Calcium (Lipitor) 80 mg QHS PO Last administered on 11/12/16 20: 56; Admin Dose 80 MG; Start 11/06/16 at 21:00 Calcitriol (Rocaltrol) 0.25 mcg DAILY PO Last administered on 11/13/16 09:10; Admin Dose 0.25 MCG; Start 11/07/16 at 09:00 Carvedilol (Coreg) 3.125 mg BID PO Last administered on 11/13/16 09:10; Admin Dose 3.125 MG; Start 11/06/16 at 21:00 Doxazosin Mesylate (Cardura) 2 mg HS PO Last administered on 11/11/16 23:04; Admin Dose 2 MG; Start 11/06/16 at 21:00 Clopidogrel Bisulfate (plaVIX) 75 mg DAILY PO Last administered on 11/13/16 09 :10; Admin Dose 75 MG; Start 11/06/16 at 13:30 Enoxaparin Sodium (Lovenox) 30 mg BID SC Last administered on 11/13/16 10:06; Admin Dose 30 MG; Start 11/06/16 at 13:30 IV Flush (NS 10 ml) 10 ml PRN PRN IV IV PROTOCOL; Start 11/06/16 at 18:00 Mupirocin (Bactroban) 1 applic BID TOP Last administered on 11/13/16 09:11; Admin Dose 1 APPLIC; Start 11/07/16 at 14:30 Alprazolam (Xanax) 1 mg Q6 PRN PO AGITATION/ANXIETY Last administered on 16:41; Admin Dose 1 MG; Start 11/07/16 at 16:30 Lansoprazole (Prevacid) 30 mg DAILY@06 PO Last administered on 11/13/16 05:43 ; Admin Dose 30 MG; Start 11/08/16 at 06:00 Tacrolimus (Prograf) 0.5 mg Q12 PO Last administered on 11/13/16 09:10; Admin Dose 0.5 MG; Start 11/07/16 at 21:30 Aspirin (Aspirin) 81 mg DAILY PO Last administered on 11/13/16 09:08; Admin Dose 81 MG; Start 11/08/16 at 09:00 Mycophenolate Mofetil (Cellcept) 200 mg BID PO Last administered on 11/13/16 09:08; Admin Dose 200 MG; Start 11/07/16 at 21:00 Morphine Sulfate 1 mg 1 mg Q4H PRN IV PAIN Last administered on 11/10/16 03:23 ; Admin Dose 1 MG; Start 11/08/16 at 11:00 Cefepime HCl 50 ml @ 100 mls/hr Q24H IVPB Last administered on 11/12/16 20:56 ; Admin Dose 100 MLS/HR; Start 11/12/16 at 21:00 Vancomycin HCl (Vancocin) 250 ml @ 125 mls/hr Q48H IVPB ; Start 11/14/16 at 05: 00 Methylprednisolone Sodium Succinate (Solu-Medrol) 40 mg Q12 IV Last administered on 11/13/16 09:07; Admin Dose 40 MG; Start 11/12/16 at 21:00 Levothyroxine Sodium 100 mcg 100 mcg DAILY@06 PO Last administered on 05:43; Admin Dose 100 MCG; Start 11/13/16 at 06:00 Caspofungin/ Sodium Chloride (Cancidas/NS) 250 ml @ 250 mls/hr Q24H IVPB ; Start 11/13/16 at 20:00 Assessment/Plan Chief Complaint/Hosp Course 1. Acute hypoxemic hypercapnic respiratory failure: 2. Congestive heart failure acute on chronic due to systolic and diastolic heart failure and mostly severe . 3. Severe aortic stenosis 4. COPD 5. History of hypertension 6. Proximal atrial fibrillation: currently appears to be in NSR/ AV paced. . 7. Dyslipidemia 8. History of coronary bypass graft 9. Severe coronary artery disease 10. Renal failure chronic status post renal transplant 11. shock: on levophed drip now 12. ACS Recommendation: I will continue with the Plavix and Aspirin 81 mg p.o. will hold BUMEX for now to be reassessed daily off of dopmaine drip abx as per IM/ pulm steroids as per pulm Pulmonary/ICU consultation with Dr. dacosta and Renal consultation with Dr. Carpio is appreciated. cont lovenox. awaiting to be transferred to [facility]. case has been d./w DR Santos Anderson at [facility] on who agreed to accept pt for TAVR. I have placed the call to transfer center at [facility] already for transferring for higher level of care for TAVR. awaiting transfer Thank you for his referral will continue to follow along with you. CARMEN JARAMILLO MD [facility] Problems: CARMEN JARAMILLO MD Nov 13, 2016 16:05
[2016-11-13] MEDS ORDERED: CASPOFUNGIN 50 MG in SOD CHLORIDE 0.9% 250 ML IVPB SCH (20:00)
[2016-11-13] MEDS: CEFEPIME 1GM/50 ML IVPB SCH (21:47)
[2016-11-13] MEDS: ATORVASTATIN 80 MG TAB PO SCH (21:48)
[2016-11-13] MEDS: DOXAZOSIN 2 MG TAB PO SCH (21:49)
[2016-11-14] VITALS (9 sets, daily range): BP systolic 108–117; BP diastolic 62–70; PULSE 60–64; RESP 18
[2016-11-14] MEDS ORDERED: VANCOMYCIN 1 GM in NS 250 ML IVPB SCH (05:00)
[2016-11-14] MEDS: LANSOPRAZOLE 30 MG CAP PO SCH (05:44)
[2016-11-14] MEDS: LEVOTHYROXINE 100 MCG TAB PO SCH (05:45)
[2016-11-14] MEDS ORDERED: ALTEPLASE (CATHFLO) 2 MG INJ CATHETER PRN (06:30)
[2016-11-14 08:20] LABS: WHITE BLOOD COUNT 8.8 10^3/ul (4.8-10.8)
[2016-11-14 08:21] LABS: ABNORMAL IP MESSAGE 1; BASOPHILS % 0.1 % (0.0-2.0); HEMATOCRIT 29.3 % (42.0-52.0); HEMOGLOBIN 9.8 g/dl (14.0-18.0); LYMPHOCYTES # 0.2 10^3/ul (0.8-2.9); LYMPHOCYTES % 1.7 % (15.0-51.0); MEAN CORPUSCULAR HEMOGLOBIN 29.5 pg (29.0-33.0); MEAN CORPUSCULAR HGB CONC 33.4 g/dl (32.0-37.0); MEAN CORPUSCULAR VOLUME 88.3 fl (82.0-101.0); MEAN PLATELET VOLUME 12.6 fl (7.4-10.4); MONOCYTE # 0.3 10^3/ul (0.3-0.9); MONOCYTES % 3.3 % (0.0-11.0); PLATELET COUNT 119 10^3/UL (140-415); POSITIVE DIFF @See below; RED BLOOD COUNT 3.32 10^6/ul (4.70-6.10); RED CELL DISTRIBUTION WIDTH 15.6 % (11.5-14.5)
[2016-11-14 08:50] LABS: ALBUMIN 3.1 g/dl (3.3-4.9); ALBUMIN/GLOBULIN RATIO 1.1; BILIRUBIN,INDIRECT 0.3 mg/dl (0-1.1); BILIRUBIN,TOTAL 0.3 mg/dl (0.2-1.3); CALCIUM 6.9 mg/dl (8.4-10.2); CREATININE 2.23 mg/dl (0.61-1.24); POTASSIUM 3.9 mmol/L (3.5-5.1); TOTAL PROTEIN 5.9 g/dl (6.1-8.1)
--- NOTE | 2016-11-14 09:01 | CONS ---
Date/Time of Note Date/Time of Note DATE: 11/14/16 TIME: 09:00 Consult Date/Type/Reason Admit Date/Time Nov 06, 2016 at 12:15 Initial Consult Date 11/06/16 Type of Consultation: CARDIOLOGY Ordering Provider: BRANDY REHMAN MD Subjective CARDIOLOGY FOLLOW UP NOTE: d/w staff and rhythm was reviewed. pt remains in AV paced rhythm mostly no chest pain or pressure or palpitations. he is on NC O2 only and his O2 sat is stable now he denies any palpitations. he has less sob. OBJECTIVE: General: in no dresp distress on O2 HEENT: NC/AT. pupils are equal. round. NECK: NO JVD. no stridor. CV: RRR. systolic murmur; no gallop or rubs. PULM: NO wheezing. mild rhonchi . . GI: SOFT, NT, ND, no rebound or guarding Extremity: trace B/L LE edema. no clubbing. neuro: awake and alert, OX3. Psych: depressed mood but pleasant rectal: deferred : normal Objective Vital Signs Date Time Temp Pulse Resp B/P Pulse Ox O2 Delivery O2 Flow Rate FiO2 11/14/16 08:29 61 11/14/16 07:52 Nasal Cannula 2.0 11/14/16 07:08 97.8 18 111/68 99 11/10/16 17:30 35 Intake and Output 11/13/16 11/13/16 11/14/16 15:00 23:00 07:00 Intake Total 1250 ml 1175 ml Output Total 700 ml 1300 ml Balance 550 ml -125 ml Results/Medications Result Diagram: 11/14/16 0656 11/13/16 0630 Results 24 hrs Laboratory Tests Test 11/14/16 06:56 White Blood Count 8.8 # Red Blood Count 3.32 L Hemoglobin 9.8 L Hematocrit 29.3 L Mean Corpuscular Volume 88.3 Mean Corpuscular Hemoglobin 29.5 Mean Corpuscular Hemoglobin Concent 33.4 Red Cell Distribution Width 15.6 H Platelet Count 119 L Mean Platelet Volume 12.6 H Neutrophils % 93.0 H Lymphocytes % 1.7 L Monocytes % 3.3 Eosinophils % 0.0 Basophils % 0.1 Nucleated Red Blood Cells % 0.0 Neutrophils # (Manual) 8.1 H Lymphocytes # 0.2 L Monocytes # 0.3 Eosinophils # 0.0 Basophils # 0.0 Nucleated Red Blood Cells # 0.0 Medications Current Medications Albuterol (Ventolin Hfa) 2 puff Q4H PRN INH SHORTNESS OF BREATH; Start at 13:30 Amiodarone HCl (Cordarone) 400 mg DAILY PO Last administered on 11/13/16 09:09 ; Admin Dose 400 MG; Start 11/07/16 at 09:00 Atorvastatin Calcium (Lipitor) 80 mg QHS PO Last administered on 11/13/16 21: 48; Admin Dose 80 MG; Start 11/06/16 at 21:00 Calcitriol (Rocaltrol) 0.25 mcg DAILY PO Last administered on 11/13/16 09:10; Admin Dose 0.25 MCG; Start 11/07/16 at 09:00 Carvedilol (Coreg) 3.125 mg BID PO Last administered on 11/13/16 21:49; Admin Dose 3.125 MG; Start 11/06/16 at 21:00 Doxazosin Mesylate (Cardura) 2 mg HS PO Last administered on 11/13/16 21:49; Admin Dose 2 MG; Start 11/06/16 at 21:00 Clopidogrel Bisulfate (plaVIX) 75 mg DAILY PO Last administered on 11/13/16 09 :10; Admin Dose 75 MG; Start 11/06/16 at 13:30 Enoxaparin Sodium (Lovenox) 30 mg BID SC Last administered on 11/13/16 22:11; Admin Dose 30 MG; Start 11/06/16 at 13:30 IV Flush (NS 10 ml) 10 ml PRN PRN IV IV PROTOCOL; Start 11/06/16 at 18:00 Mupirocin (Bactroban) 1 applic BID TOP Last administered on 11/13/16 21:50; Admin Dose 1 APPLIC; Start 11/07/16 at 14:30 Alprazolam (Xanax) 1 mg Q6 PRN PO AGITATION/ANXIETY Last administered on 16:41; Admin Dose 1 MG; Start 11/07/16 at 16:30 Lansoprazole (Prevacid) 30 mg DAILY@06 PO Last administered on 11/14/16 05:44 ; Admin Dose 30 MG; Start 11/08/16 at 06:00 Tacrolimus (Prograf) 0.5 mg Q12 PO Last administered on 11/13/16 21:47; Admin Dose 0.5 MG; Start 11/07/16 at 21:30 Aspirin (Aspirin) 81 mg DAILY PO Last administered on 11/13/16 09:08; Admin Dose 81 MG; Start 11/08/16 at 09:00 Mycophenolate Mofetil (Cellcept) 200 mg BID PO Last administered on 11/13/16 21:47; Admin Dose 200 MG; Start 11/07/16 at 21:00 Morphine Sulfate 1 mg 1 mg Q4H PRN IV PAIN Last administered on 11/10/16 03:23 ; Admin Dose 1 MG; Start 11/08/16 at 11:00 Cefepime HCl 50 ml @ 100 mls/hr Q24H IVPB Last administered on 11/13/16 21:47 ; Admin Dose 100 MLS/HR; Start 11/12/16 at 21:00 Vancomycin HCl (Vancocin) 250 ml @ 125 mls/hr Q48H IVPB Last administered on 05:43; Admin Dose 125 MLS/HR; Start 11/14/16 at 05:00 Methylprednisolone Sodium Succinate (Solu-Medrol) 40 mg Q12 IV Last administered on 11/13/16 21:47; Admin Dose 40 MG; Start 11/12/16 at 21:00 Levothyroxine Sodium 100 mcg 100 mcg DAILY@06 PO Last administered on 05:45; Admin Dose 100 MCG; Start 11/13/16 at 06:00 Caspofungin/ Sodium Chloride (Cancidas/NS) 250 ml @ 250 mls/hr Q24H IVPB Last administered on 11/13/16 22:05; Admin Dose 250 MLS/HR; Start 11/13/16 at 20:00 Assessment/Plan Chief Complaint/Hosp Course 1. Acute hypoxemic hypercapnic respiratory failure: 2. Congestive heart failure acute on chronic due to systolic and diastolic heart failure and mostly severe . 3. Severe aortic stenosis 4. COPD 5. History of hypertension 6. Proximal atrial fibrillation: currently appears to be in NSR/ AV paced. . 7. Dyslipidemia 8. History of coronary bypass graft 9. Severe coronary artery disease 10. Renal failure chronic status post renal transplant 11. shock: on levophed drip now 12. ACS Recommendation: I will continue with the Plavix and Aspirin 81 mg p.o. will hold BUMEX for now to be reassessed daily. AM LABS are still pending off of dopmaine drip abx as per IM/ pulm steroids as per pulm. consider weaning down cont lovenox. awaiting to be transferred to [facility]. case has been d./w DR Santos Anderson at [facility] on who agreed to accept pt for TAVR. I have placed the call to transfer center at [facility] already for transferring for higher level of care for TAVR. awaiting transfer Thank you for his referral will continue to follow along with you. CARMEN JARAMILLO MD [facility] Problems: CARMEN JARAMILLO MD Nov 14, 2016 09:01
[2016-11-14] MEDS: METHYLPREDNISOLONE 40 MG INJ IV SCH (09:06)
[2016-11-14] MEDS: ASPIRIN 81 MG TAB PO SCH (09:07)
[2016-11-14] MEDS: MYCOPHENOLATE MOFETIL PO SCH (09:07)
[2016-11-14] MEDS: AMIODARONE 200 MG TAB PO SCH (09:08)
[2016-11-14 09:09] LABS: MAGNESIUM 2.6 mg/dl (1.7-2.5); PHOSPHORUS 5.5 mg/dl (2.5-4.9)
[2016-11-14] MEDS: CALCITRIOL 0.25 MCG CAP PO SCH (09:09)
[2016-11-14] MEDS: CLOPIDOGREL 75 MG TAB PO SCH (09:09)
[2016-11-14] MEDS: TACROLIMUS 1 MG/ML PO SCH (09:09)
[2016-11-14] MEDS: MUPIROCIN 2% 22 GM OINT TOP SCH (09:10)
[2016-11-14] MEDS: ENOXAPARIN 30 MG/0.3 ML SYG SC SCH (10:35)
--- NOTE | 2016-11-14 11:00 | PN ---
DATE: 11/14/2016 SUBJECTIVE: Patient is stable. No events overnight. No fevers, chills, nausea, vomiting. OBJECTIVE DATA: VITAL SIGNS: Blood pressure is 111/63, respirations 18, pulse 64, temperature 97.8. I's and O's; the patient had 2.4 L in, 2 L out. HEENT: Head is normocephalic. NECK: Supple. HEART: Regular rate. LUNGS: Diminished breath sounds at the base. ABDOMEN: Soft, nontender to palpation. No rebound or guarding. EXTREMITIES: Negative for clubbing, cyanosis. No edema. DERMATOLOGIC: Clean. No rashes. MUSCULOSKELETAL: No joint effusion. NEUROLOGIC: No change in exam. MEDICATIONS: Reviewed. LABORATORY AND DIAGNOSTIC DATA: Sodium 144, potassium 3.9, chloride 100, BUN 101, creatinine 2.23. White count 8.8, hemoglobin 9.8, hematocrit 29.3, platelet count is 119,000. ASSESSMENT AND PLAN: 1. 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 Etiology of acute kidney injury secondary to cardiorenal syndrome. The patient's renal function has been slowly improving after holding diuretic therapy. Azotemia is slowly resolving. At this point, continue current treatment. Supportive care. Renally dose all meds. The patient's Prograf level is pending. The patient is pending transfer to a tertiary center for higher level of care. 2. History of end-stage renal disease, status post kidney transplant. The patient is currently in acute kidney injury stated above. Continue current immunosuppressive regimen. 3. Hyponatremia, improved. 4. Mineral bone disorder. Monitor calcium and phosphorus levels. 5. Anemia. Monitor hemoglobin and hematocrit levels. 6. Status post shock. Etiology is likely multifactorial. 7. Acute decompensated heart failure. Continue medical management per Cardiology. Continue intermittent diuretic therapy, currently on hold. 8. Severe aortic stenosis. The patient is pending possible transfer to [facility] for definitive surgery. 9. History of coronary artery disease status post coronary artery bypass graft. Continue medical management. 10. Atrial fibrillation. Currently in sinus rhythm. Continue current treatment plan. Dictated By: Ezra Carpio DO /jack/vasyl /Document#: [id number]
[2016-11-14 13:49] LABS: MICROALBUMIN 1.6 mg/dL
[2016-11-14] MEDS ORDERED: DOXYCYCLINE 100 MG TAB PO SCH (14:00)
--- NOTE | 2016-11-14 14:40 | PDOCDIS ---
Discharge Instructions CONDITION Patient Condition: Stable HOME CARE INSTRUCTIONS: Special Diet: SOFT, RENAL, CARDIAC ACTIVITY: Activity Restrictions: Slowly Increase Activity FOLLOW UP/APPOINTMENTS Follow-up Plan discharge to [facility], copy chart for [facility] doctors to review, see reconciliation BRANDY REHMAN MD Nov 14, 2016 14:40
--- NOTE | 2016-11-14 15:09 | CONS ---
Date/Time of Note Date/Time of Note DATE: 11/14/16 TIME: 15:08 Consult Date/Type/Reason Admit Date/Time Nov 06, 2016 at 12:15 Initial Consult Date 11/06/16 Type of Consultation: Pulmonary Ordering Provider: BRANDY REHMAN MD Subjective Remains stable, less shortness of breath. Objective Vital Signs Date Time Temp Pulse Resp B/P Pulse Ox O2 Delivery O2 Flow Rate FiO2 11/14/16 12:26 61 11/14/16 12:07 97.7 18 117/70 99 11/14/16 07:52 Nasal Cannula 2.0 11/10/16 17:30 35 Intake and Output 11/13/16 11/13/16 11/14/16 14:59 22:59 06:59 Intake Total 1250 ml 1175 ml Output Total 700 ml 1300 ml Balance 550 ml -125 ml Exam HEENT: Neck supple; no JVD; no LAD CVS: Irreg irreg, S1 and S2 CHEST: Clear ABD: Soft, NT, + BS EXT: No c/c/e Results/Medications Result Diagram: 11/14/16 0656 11/14/16 0656 Results 24 hrs Laboratory Tests Test 11/14/16 06:45 11/14/16 06:56 Phosphorus Level 5.5 H Magnesium Level 2.6 H White Blood Count 8.8 # Red Blood Count 3.32 L Hemoglobin 9.8 L Hematocrit 29.3 L Mean Corpuscular Volume 88.3 Mean Corpuscular Hemoglobin 29.5 Mean Corpuscular Hemoglobin Concent 33.4 Red Cell Distribution Width 15.6 H Platelet Count 119 L Mean Platelet Volume 12.6 H Neutrophils % 93.0 H Lymphocytes % 1.7 L Monocytes % 3.3 Eosinophils % 0.0 Basophils % 0.1 Nucleated Red Blood Cells % 0.0 Neutrophils # (Manual) 8.1 H Lymphocytes # 0.2 L Monocytes # 0.3 Eosinophils # 0.0 Basophils # 0.0 Nucleated Red Blood Cells # 0.0 Sodium Level 144 Potassium Level 3.9 Chloride Level 100 Carbon Dioxide Level 27 Anion Gap 21 H Blood Urea Nitrogen 101 H Creatinine 2.23 H Glucose Level 160 Calcium Level 6.9 L Total Bilirubin 0.3 Direct Bilirubin 0.00 Indirect Bilirubin 0.3 Aspartate Amino Transf (AST/SGOT) 15 Alanine Aminotransferase (ALT/SGPT) 46 Alkaline Phosphatase 50 B-Type Natriuretic Peptide 29803 H Total Protein 5.9 L Albumin 3.1 L Globulin 2.80 Albumin/Globulin Ratio 1.10 Medications Current Medications Albuterol (Ventolin Hfa) 2 puff Q4H PRN INH SHORTNESS OF BREATH; Start at 13:30 Amiodarone HCl (Cordarone) 400 mg DAILY PO Last administered on 11/14/16 09:08 ; Admin Dose 400 MG; Start 11/07/16 at 09:00 Atorvastatin Calcium (Lipitor) 80 mg QHS PO Last administered on 11/13/16 21: 48; Admin Dose 80 MG; Start 11/06/16 at 21:00 Calcitriol (Rocaltrol) 0.25 mcg DAILY PO Last administered on 11/14/16 09:09; Admin Dose 0.25 MCG; Start 11/07/16 at 09:00 Carvedilol (Coreg) 3.125 mg BID PO Last administered on 11/14/16 09:09; Admin Dose 3.125 MG; Start 11/06/16 at 21:00 Doxazosin Mesylate (Cardura) 2 mg HS PO Last administered on 11/13/16 21:49; Admin Dose 2 MG; Start 11/06/16 at 21:00 Clopidogrel Bisulfate (plaVIX) 75 mg DAILY PO Last administered on 11/14/16 09 :09; Admin Dose 75 MG; Start 11/06/16 at 13:30 Enoxaparin Sodium (Lovenox) 30 mg BID SC Last administered on 11/14/16 10:35; Admin Dose 30 MG; Start 11/06/16 at 13:30 IV Flush (NS 10 ml) 10 ml PRN PRN IV IV PROTOCOL; Start 11/06/16 at 18:00 Mupirocin (Bactroban) 1 applic BID TOP Last administered on 11/14/16 09:10; Admin Dose 1 APPLIC; Start 11/07/16 at 14:30 Alprazolam (Xanax) 1 mg Q6 PRN PO AGITATION/ANXIETY Last administered on 16:41; Admin Dose 1 MG; Start 11/07/16 at 16:30 Lansoprazole (Prevacid) 30 mg DAILY@06 PO Last administered on 11/14/16 05:44 ; Admin Dose 30 MG; Start 11/08/16 at 06:00 Tacrolimus (Prograf) 0.5 mg Q12 PO Last administered on 11/14/16 09:09; Admin Dose 0.5 MG; Start 11/07/16 at 21:30 Aspirin (Aspirin) 81 mg DAILY PO Last administered on 11/14/16 09:07; Admin Dose 81 MG; Start 11/08/16 at 09:00 Mycophenolate Mofetil (Cellcept) 200 mg BID PO Last administered on 11/14/16 09:07; Admin Dose 200 MG; Start 11/07/16 at 21:00 Morphine Sulfate 1 mg 1 mg Q4H PRN IV PAIN Last administered on 11/10/16 03:23 ; Admin Dose 1 MG; Start 11/08/16 at 11:00 Cefepime HCl (Maxipime 1gm/50 ml (Pmx)) 50 ml @ 100 mls/hr Q24H IVPB Last administered on 11/13/16 21:47; Admin Dose 100 MLS/HR; Start 11/12/16 at 21:00 Methylprednisolone Sodium Succinate (Solu-Medrol) 40 mg Q12 IV Last administered on 11/14/16 09:06; Admin Dose 40 MG; Start 11/12/16 at 21:00 Levothyroxine Sodium 100 mcg 100 mcg DAILY@06 PO Last administered on 05:45; Admin Dose 100 MCG; Start 11/13/16 at 06:00 Caspofungin/ Sodium Chloride (Cancidas/NS) 250 ml @ 250 mls/hr Q24H IVPB Last administered on 11/13/16 22:05; Admin Dose 250 MLS/HR; Start 11/13/16 at 20:00 Doxycycline Hyclate (Vibramycin) 100 mg DAILY PO Last administered on 14:45; Admin Dose 100 MG; Start 11/14/16 at 14:00 Assessment/Plan Chief Complaint/Hosp Course IMPRESSION: 1. Hypoxemic Resp Insufficiency--due to CHF superimposed on severe emphysema, radiographic and clinical improvement 2. CHF 3. History of chronic obstructive pulmonary disease. 4. History of coronary artery bypass graft surgery. 5. ROMAN PLAN: 1. O2--> titrate to SpO2 88-92% 2. Diuretics 3. Aspiration precautions 4. Continue Plavix and aspirin 5. Decrease Solu-Medrol to once daily. 6. Mobilize OOB/PT/OT pending transfer to tertiary care center. Problems: MONICA SAMSON MD, [facility] Nov 14, 2016 15:09
--- NOTE | 2016-11-15 03:56 | PN ---
DATE: 11/14/2016 SUBJECTIVE DATA: No acute changes overnight. The patient is alert, looks comfortable. Family at bedside. OBJECTIVE DATA: VITAL SIGNS: Temperature 97.7, pulse 67, respirations 18, blood pressure 117/70, saturation 99 on 2 L. LABORATORY AND DIAGNOSTIC DATA: WBC 8.8, H and H 9.8 and 29.3, platelets 119, neutrophils 93. BUN 101, creatinine 2.23. MICROBIOLOGY: Urine culture on admission grew Germania glabrata. Nares swab positive for MRSA. INDWELLING: Patient has Orellana and PICC line placed on November 06. ANTIMICROBIALS: Vancomycin, Cancidas, cefepime. PHYSICAL EXAMINATION: GENERAL: This is a fragile, chronically ill-appearing, elderly man, who is alert, in no distress. HEENT: Head atraumatic, normocephalic. Sclerae anicteric. Buccal mucosa dry. NECK: Supple. RESPIRATORY: Chest rise symmetrical. Breath sounds with bilateral scattered crackles. HEART: S1, S2. ABDOMEN: Soft, bowel sounds present. EXTREMITIES: No cyanosis. ASSESSMENT: 1. Status post sepsis. 2. Right lower lobe consolidation with [id number] chronic obstructive pulmonary disease exacerbation. 3. Acute congestive heart failure exacerbation. 4. Methicillin-resistant Staphylococcus aureus nares colonization. 5. Chronic kidney disease with a history of kidney transplant in 2007, on immunosuppressive therapy. 6. Cardiomyopathy. 7. Aortic stenosis. 8. Status post automatic implantable cardioverter- defibrillator. 9. Urinary tract infection. PLAN: The patient remains stable. We are going to change vancomycin to doxycycline. Continue other antibiotics. Bactroban to nares. Continue physical therapy. Follow recommendations of consultants. Dictated By: Mahad Aaron NP /jack/pat /Document#: [id number]
--- NOTE | 2016-11-15 06:10 | DS ---
DATE OF ADMISSION: 11/06/2016 DATE OF DISCHARGE: 11/14/2016 The patient was admitted on 11/06, discharged and transferred to [facility] on 11/14/2016. REASON FOR ADMISSION: Acute respiratory failure, hypoxia. HOSPITAL COURSE: Patient is a 71-year-old male with history of hypertension, status post renal transplant in 2007, dyslipidemia, aortic stenosis, appears to be severe; paroxysmal atrial fibrillation on Eliquis; congestive heart failure, cardiomyopathy, coronary artery disease, status post CABG with ejection fraction of 35 percent, status post AICD placement, history of recurrent hospitalization for CHF exacerbation. The patient also may have a component of COPD as if he is a former smoker. The patient was planned to undergo PCI on multiple occasions, but unfortunately, he each time went into respiratory failure. Again, this time when he went to the lab technician, he was noted to be hypoxic again in the 70s. Procedure was canceled. Patient was placed on BiPAP. Chest x-ray was done. It shows right lung either consolidation and congestion. Patient was started on aggressive diuretic therapy, and later on, antibiotics were initiated. His white count jumped to 26,000. Multiple physicians were consulted. In addition, we added IV Solu-Medrol overall with good results. The patient was placed on broad- spectrum antibiotics with cefepime and vancomycin. Also, I added Levaquin and caspofungin was added, as well as urine culture showed Germania glabrata. The patient slowly improved. He initially was quite ill, was on BiPAP for a few days, almost intubated secondary to tachypnea and increased use of accessory muscles, but overall, patient was stabilized, was weaned off the BiPAP to high-flow oxygen then to nasal cannula. The patient is ambulatory, talking full sentences and diet was advanced slowly and now he is on a soft diet. The patient was seen again by multiple physicians including Dr. Dacosta, the trimmer machine operator, Dr. Gabriel Thakur, the windows mobile developer, Dr. Ezra Carpio, the junior software engineer, Dr. Alfonso, the infectious disease specialist. Recent chest x-ray, which was done on the , which was yesterday, did show a very mild decrease in CHF and bilateral small pleural effusion. There are basilar infiltrates and atelectasis and cardiomegaly. So overall, patient has improved. Chest x-ray has improved as well. Lab improved. We held his diuretics as patient's kidney function worsened and now the numbers are much better. Sodium today is 144, potassium 3.9, chloride 100, bicarb 27, BUN is 101, creatinine 2.23. BNP is 21,000, high. Albumin 2.1. White count is normal today at 8.8, hemoglobin 9.8, hematocrit 29, platelet count of 119 with neutrophil count of 93 percent. MRSA screening as well was positive of the nares. He will be discharged to [facility] to evaluate for TAVR, aortic valve procedure. Further plan of care regarding PCI or even the procedure itself to be discussed and decided by the cardiology team at [facility]. Dr. Thakur recommended the transfer. DISCHARGE MEDICATIONS: Patient will be discharged with the following medications: 1. Albuterol 2 puffs q.4 p.r.n. 2. Xanax 1 mg p.o. q.6 p.r.n. 3. Amiodarone 400 mg p.o. daily. 4. Aspirin 81 mg daily. 5. Calcitriol 0.25 daily. 6. Lipitor 80 mg at bedtime. 7. Coreg 3.125 b.i.d. 8. Caspofungin, we will do it for 5 more days total for UTI. 9. Cefepime 1 g IV q.24 renally dosed. We will put that for another 5 days. 10. Plavix 75 mg daily. 11. Cardura 2 mg at bedtime. 12. Doxycycline 100 mg daily for 7 days. 13. Lovenox 20 mg subcu b.i.d. 14. Eliquis is on hold until discharge from [facility]. 15. Prevacid 20 mg daily. 16. Synthroid 100 mcg p.o. daily. 17. Solu-Medrol, we will reduce the dose to 30 mg IV q.12 x1 day, then is 20 mg IV q.12 x1 day, then off. 18. Prednisone 5 mg daily as he takes that for his post renal transplant. 19. Morphine p.r.n. 20. Bactroban ointment to the nares b.i.d. 21. CellCept 200 mg b.i.d. status post renal transplant. 22. Prograf 0.5 q.12. FINAL DIAGNOSES: 1. Acute respiratory failure. 2. Congestive heart exacerbation, both diastolic and systolic dysfunction. Last ejection fraction estimated at 35 percent. 3. Pneumonia. 4. Positive Methicillin-resistant Staphylococcus aureus of the nares. 5. Urinary tract infection Germania glabrata. 6. Chronic obstructive pulmonary disease exacerbation. 7. Chronic kidney disease. 8. Acute renal failure secondary to diuretics administration. 9. Coronary artery disease, history of coronary artery bypass graft. 10. Hypertension. 11. Hypothyroidism. 12. Status post renal transplant. 13. Anemia, multifactorial, likely anemia of chronic disease from chronic kidney disease. 14. Mild protein malnutrition. Albumin on low 3's but adequate because of his hospitalization. 15. Status post automatic implantable cardioverter-defibrillator placement. 16. Paroxysmal atrial fibrillation. Previously on Eliquis prior to admission. Will need to be restarted on that after surgery or per cardiology team. 17. Dyslipidemia. Overall prognosis remains guarded. The patient will be transferred to [facility] for higher level of care as the patient has been hospitalized frequently. DIET: No-added salt, renal diet. ACTIVITY: As tolerated. The patient's case discussed with the daughter, Mckenzie, on a routine basis. Phone number is [phone]. Please attach to this report to the [facility] transfer. Dictated By: Greg Jacobs MD /jack/thor /Document#: [id number]
[2016-11-15] MEDS ORDERED: METHYLPREDNISOLONE 40 MG INJ IV SCH (09:00)
== END 2016-11-14 18:40 | disposition short-term general hospital (02) | DRG 291 ==
LOC: SDS 10:01 → ICU 12:15 → TEL 11-11 18:55 → UNDODISIN 11-14 18:40
PROVIDERS: ADMIT Internal Medicine Pulmonary Disease; ATTEND Internal Medicine Interventional Cardiology
PROC: 5A09457 Assistance with Respiratory Ventilation, 24-96 Consecutive Hours, Continuous Positive Airway Pressure (ICD-10-PCS; principal; 2016-11-06)
PROC: 4A133R1 Monitoring of Arterial Saturation, Peripheral, Percutaneous Approach (ICD-10-PCS; 2016-11-06)
PROC: 02HV33Z Insertion of Infusion Device into Superior Vena Cava, Percutaneous Approach (ICD-10-PCS; 2016-11-06)
PROC: B548ZZA Ultrasonography of Superior Vena Cava, Guidance (ICD-10-PCS; 2016-11-06)
DX: I13.0 Hypertensive heart and chronic kidney disease with heart failure and stage 1 through stage 4 chronic kidney disease, or unspecified chronic kidney disease (principal); J96.01 Acute respiratory failure with hypoxia; R57.9 Shock, unspecified; J18.9 Pneumonia, unspecified organism; N17.9 Acute kidney failure, unspecified; T86.12 Kidney transplant failure; J96.02 Acute respiratory failure with hypercapnia; E87.0 Hyperosmolality and hypernatremia; I24.9 Acute ischemic heart disease, unspecified; I25.5 Ischemic cardiomyopathy; B37.49 Other urogenital candidiasis; I25.10 Atherosclerotic heart disease of native coronary artery without angina pectoris; I50.43 Acute on chronic combined systolic (congestive) and diastolic (congestive) heart failure; J44.0 Chronic obstructive pulmonary disease with (acute) lower respiratory infection; J44.1 Chronic obstructive pulmonary disease with (acute) exacerbation; E44.1 Mild protein-calorie malnutrition; R13.10 Dysphagia, unspecified; E11.22 Type 2 diabetes mellitus with diabetic chronic kidney disease; I48.0 Paroxysmal atrial fibrillation; Z95.5 Presence of coronary angioplasty implant and graft; E78.5 Hyperlipidemia, unspecified; Z93.1 Gastrostomy status; I35.0 Nonrheumatic aortic (valve) stenosis; Z87.891 Personal history of nicotine dependence; D63.1 Anemia in chronic kidney disease; Z68.22 Body mass index [BMI] 22.0-22.9, adult; E03.9 Hypothyroidism, unspecified; I25.2 Old myocardial infarction; Z79.01 Long term (current) use of anticoagulants; N18.9 Chronic kidney disease, unspecified; Z95.810 Presence of automatic (implantable) cardiac defibrillator; Z22.322 Carrier or suspected carrier of Methicillin resistant Staphylococcus aureus; Y83.0 Surgical operation with transplant of whole organ as the cause of abnormal reaction of the patient, or of later complication, without mention of misadventure at the time of the procedure
CPT/HCPCS: 36569; 36600; 71010; 76937; 80048; 80053; 80061; 80076; 80162; 80197; 80202; 81001; 81003; 82043; 82550; 82553; 82803; 83735; 83880; 84100; 84155; 84300; 84439; 84443; 84484; 85025; 85610; 85730; 87081; 87086; 93005; 94640; 94660; 94664; 97110; 97116; 97162; 97530; C1769; J0692; J1265; J1644; J1650; J1956; J2250; J2270; J2920; J2930; J2997; J3010; J3370; J7030; J7040; J7050; J7060; J7070; J7507; J7512; Q9967